=== PATIENT | female | born 1945 ===

== ENCOUNTER 2017-11-20 04:42 | Inpatient (IN) | payer MEDICARE, MEDICAID ==
[2017-11-20] MEDS ORDERED: Albuterol 0.083% Inhal Sol (2.5 mg/3 mL) UD INH STA (05:22)
[2017-11-20] MEDS ORDERED: Albuterol 0.083% Inhal Sol (2.5 mg/3 mL) UD ONE (05:36)
[2017-11-20 05:42] LABS: BASO # 0.1 K/uL (0.0-0.2); BASO % 0.9 % (0.0-2.0); EOS # 0.3 K/uL (0.0-0.7); EOS % 3.8 % (0.0-4.0); HEMOGLOBIN 9.5 g/dL (12.0-16.0); LYMPH # 2.1 K/uL (1.0-4.3); LYMPH % 25.2 % (20.0-40.0); MEAN CORPUSCULAR HEMOGLOBIN 24.6 pg (27.0-31.0); MEAN CORPUSCULAR HGB CONC 32.3 g/dL (33.0-37.0); MEAN PLATELET VOLUME 8.6 fl (7.2-11.7); MONO # 0.6 K/uL (0.0-0.8); MONO % 7.4 % (0.0-10.0); NEUT # 5.3 K/uL (1.8-7.0); NEUT % 62.7 % (50.0-75.0); NRBC % 0.1 % (0.0-0.0); RBC 3.85 Mil/uL (3.80-5.20); RED CELL DISTRIBUTION WIDTH 17.6 % (11.5-14.5); WHITE BLOOD COUNT 8.5 K/uL (4.8-10.8)
[2017-11-20 05:43] LABS: ABG ALLEN TEST YES; ARTERIAL BLOOD GAS HCO3 28.5 mmol/L (21-28); ARTERIAL BLOOD GAS HEMOGLOBIN 9.4 g/dL (11.7-17.4); ARTERIAL BLOOD GAS O2 CAPACITY 12.7 mL/dL (16-24); ARTERIAL BLOOD GAS O2 SAT 94.7 % (95-98); ARTERIAL BLOOD GAS PCO2 55 mm/Hg (35-45); ARTERIAL BLOOD GAS PH 7.36 (7.35-7.45); ARTERIAL BLOOD GAS PO2 58 mm/Hg (80-100); ARTERIAL BLOOD GAS TCO2 32.8 mmol/L (22-28)
[2017-11-20 06:09] LABS: BLOOD UREA NITROGEN 13 mg/dl (7-17); CALCIUM 9.4 mg/dL (8.4-10.2); GFR AFRICAN-AMERICAN > 60; GFR NON-AFRICAN AMERICAN > 60
--- NOTE | 2017-11-20 07:50 | ED PDOC ---
- Laboratory Results Result Diagrams: 11/20/17 05:36 11/20/17 05:36 Interpretation Of Abn Labs: 9.5 hg - ECG ECG: Positive for: Interpreted By Me, Viewed By Me ECG Rhythm: Positive for: Normal QRS, Sinus Rhythm, Nonspecific Changes O2 Sat by Pulse Oximetry: 97 Pulse Ox Interpretation: Normal - CT Scan/US ct Other Rad Studies (CT/US): Read By Radiologist Other Rad Interpretation: no PE - Progress ED Course And Treament: 1050: Stable. AAOx3. Pain free. Still dyspnea. Spoke with Dr. Benoit who will admit. Medical Decision Making Medical Decision Makin:00 Took over care from Dr. Martines. Pt is 72 y/o here for evaluation of dyspnea. Pt pending CT chest. Scribe Attestation: Documented by Gurmeet Durand, acting as a scribe for Melo Torrez MD. Provider Scribe Attestation: All medical record entries made by the Scribe were at my direction and personally dictated by me. I have reviewed the chart and agree that the record accurately reflects my personal performance of the history, physical exam, medical decision making, and the department course for this patient. I have also personally directed, reviewed, and agree with the discharge instructions and disposition. Disposition - Clinical Impression Clinical Impression: Asthma, Dyspnea - POA Present On Arrival: None - Disposition Disposition: Hospitalized as Observation Patient Disposition Time: 10:53 Condition: FAIR
[2017-11-20] MEDS ORDERED: Iodixanol 320 MG/ML 100 ML BOTTLE IV ONE (07:56)
[2017-11-20] MEDS ORDERED: Sodium Chloride 0.9% 100 ML ONE (07:56)
--- NOTE | 2017-11-20 08:13 | RAD ---
HISTORY: dyspnea COMPARISON: No prior. FINDINGS: LUNGS: A prominent right epicardial fat is favored over possible right basilar infiltrate. PLEURA: No significant pleural effusion identified, no pneumothorax apparent. CARDIOVASCULAR: Frontal technique may magnify cardiac silhouette. Mild cardiomegaly is not excluded. No pulmonary vascular congestion. OSSEOUS STRUCTURES: No significant abnormalities. VISUALIZED UPPER ABDOMEN: Normal. OTHER FINDINGS: None. IMPRESSION: Cardiomegaly not excluded. No pulmonary vascular congestion. Medial epicardial fat and favored over medial basilar infiltrate (right middle lobe). Clinically correlate further.
--- NOTE | 2017-11-20 09:07 | CT ---
PROCEDURE: CT Chest with contrast (Pulmonary Angiogram) HISTORY: chest pain COMPARISON: Portable chest radiograph 11/20/2017 as well. TECHNIQUE: Axial computed tomography images were obtained of the chest in the pulmonary arterial phase of enhancement. Coronal and sagittal reformatted images were created and reviewed. Intravenous contrast dose: Visipaque 320, 90 cc Radiation dose: Total exam DLP = 373.21 mGy-cm. This CT exam was performed using one or more of the following dose reduction techniques: Automated exposure control, adjustment of the mA and/or kV according to patient size, and/or use of iterative reconstruction technique. FINDINGS: PULMONARY ARTERIES: Unremarkable. No pulmonary embolism. AORTA: No acute findings. No thoracic aortic aneurysm. LUNGS: No infiltrate appreciate bilaterally or central airway lesion. Note is made of a small 4 mm solid nodule at the right upper lobe and image 52 series 5 which appears noncalcified. Follow-up chest CT is advised in 12 months to demonstrate stability of this finding. No additional pulmonary mass bilaterally. PLEURAL SPACES: Unremarkable. No effusion or pneuomothorax. HEART: Mild cardiomegaly evident. No pulmonary vascular congestion evident. Multifocal coronary artery atherosclerosis appreciable. LYMPH NODES: No lymphadenopathy. BONES, CHEST WALL: Gross multilevel degenerative disease at the mid to inferior levels. No fracture or destructive lesion OTHER FINDINGS: Unremarkable. IMPRESSION: Unremarkable CT pulmonary angiogram. No pulmonary embolus. 4 mm right upper lobe nodule. Follow-up low-dose screening chest CT recommended in 12 months to demonstrate stability. Lung rads 2. Mild cardiomegaly. No pulmonary vascular derangement appreciable.
[2017-11-20] MEDS ORDERED: Albuterol-Ipratrop 3 mg / 0.5 (3 ml) UD IH STA (10:46)
--- NOTE | 2017-11-20 11:20 | CP.PCM.HP ---
History of Present Illness - History of Present Illness History of Present Illness: Cc: Shortness of breath A 72 year old female with a pmhx of HTN, hypercholesterolemia, DM and COPD who presented to the ED with complaints of shortness of breath and cough for several days. The patient has a long history of tobacco use. Patient denies chest pain, dizziness, palpitations, nausea, vomiting, fever, chills or lower extremity edema. Present on Admission - Present on Admission Any Indicators Present on Admission: No Review of Systems - Review of Systems All systems: reviewed and no additional remarkable complaints except (as stated) - Constitutional Constitutional: As Per HPI - Cardiovascular Cardiovascular: Dyspnea on Exertion. absent: Chest Pain, Edema, Palpitations - Respiratory Respiratory: Cough, Dyspnea, Dyspnea on Exertion. absent: Wheezing, Chest Congestion Past Patient History - Past Medical History & Family History Pertinent Family History: States: Unknown - Past Social History Smoking Status: Unknown If Ever Smoked - CARDIAC Hx Hypertension: Yes - PULMONARY Hx Asthma: Yes Hx Chronic Obstructive Pulmonary Disease (COPD): Yes - ENDOCRINE/METABOLIC Hx Diabetes Mellitus Type 2: Yes - PSYCHIATRIC Hx Anxiety: Yes Hx Substance Use: No Meds Allergies/Adverse Reactions: Allergies Allergy/AdvReac Type Severity Reaction Status Date / Time No Known Allergies Allergy Verified 11/20/17 04:56 Physical Exam - Constitutional Appears: Well, No Acute Distress - Head Exam Head Exam: ATRAUMATIC, NORMOCEPHALIC - Eye Exam Eye Exam: EOMI, Normal appearance, PERRL Pupil Exam: NORMAL ACCOMODATION - ENT Exam ENT Exam: Mucous Membranes Moist, Normal Exam - Neck Exam Neck exam: Positive for: Normal Inspection - Respiratory Exam Respiratory Exam: Clear to Auscultation Bilateral, NORMAL BREATHING PATTERN - Cardiovascular Exam Cardiovascular Exam: REGULAR RHYTHM, +S1, +S2 - GI/Abdominal Exam GI & Abdominal Exam: Normal Bowel Sounds, Soft - Rectal Exam Rectal Exam: Deferred - Extremities Exam Extremities exam: Positive for: full ROM, normal inspection, pedal pulses present. Negative for: pedal edema, tenderness - Back Exam Back exam: NORMAL INSPECTION - Neurological Exam Neurological exam: Alert, Oriented x3, Reflexes Normal - Psychiatric Exam Psychiatric exam: Normal Affect, Normal Mood - Skin Skin Exam: Dry, Normal Color, Warm Results - Vital Signs Recent Vital Signs: Last Vital Signs Temp 98.3 F 11/20/17 11:03 Pulse 81 11/20/17 11:03 Resp 18 11/20/17 11:03 BP 152/82 H 11/20/17 11:03 Pulse Ox 95 11/20/17 11:03 - Labs Result Diagrams: 11/20/17 05:36 11/20/17 05:36 Labs: Laboratory Results - last 24 hr 11/20/17 11/20/17 11/20/17 05:36 05:36 05:36 WBC 8.5 RBC 3.85 Hgb 9.5 L Hct 29.3 L MCV 76.0 L MCH 24.6 L MCHC 32.3 L RDW 17.6 H Plt Count 195 MPV 8.6 Neut % (Auto) 62.7 Lymph % (Auto) 25.2 [place] % (Auto) 7.4 Eos % (Auto) 3.8 Baso % (Auto) 0.9 Neut # (Auto) 5.3 Lymph # (Auto) 2.1 [place] # (Auto) 0.6 Eos # (Auto) 0.3 Baso # (Auto) 0.1 D-Dimer, Quantitative 432 H pCO2 pO2 HCO3 ABG pH ABG Total CO2 ABG O2 Saturation ABG O2 Content ABG Base Excess ABG Hemoglobin ABG Carboxyhemoglobin POC ABG HHb (Measured) ABG Methemoglobin ABG O2 Capacity Raicel Test A-a O2 Difference Hgb O2 Saturation FiO2 Sodium 141 Potassium 4.3 Chloride 101 Carbon Dioxide 26 Anion Gap 18 BUN 13 Creatinine 0.9 Est GFR ( Amer) > 60 Est GFR (Non-Af Amer) > 60 Random Glucose 164 H Calcium 9.4 Troponin I < 0.0120 NT-Pro-B Natriuret Pep 78.0 11/20/17 05:40 WBC RBC Hgb Hct MCV MCH MCHC RDW Plt Count MPV Neut % (Auto) Lymph % (Auto) [place] % (Auto) Eos % (Auto) Baso % (Auto) Neut # (Auto) Lymph # (Auto) [place] # (Auto) Eos # (Auto) Baso # (Auto) D-Dimer, Quantitative pCO2 55 H pO2 58 L HCO3 28.5 H ABG pH 7.36 ABG Total CO2 32.8 H ABG O2 Saturation 94.7 L ABG O2 Content 12.0 L ABG Base Excess 4.7 H ABG Hemoglobin 9.4 L ABG Carboxyhemoglobin 2.4 H POC ABG HHb (Measured) 5.1 H ABG Methemoglobin 1.8 ABG O2 Capacity 12.7 L Raciel Test Yes A-a O2 Difference 23.0 Hgb O2 Saturation 90.7 L FiO2 21.0 Sodium Potassium Chloride Carbon Dioxide Anion Gap BUN Creatinine Est GFR ( Amer) Est GFR (Non-Af Amer) Random Glucose Calcium Troponin I NT-Pro-B Natriuret Pep - EKG Data EKG comments: Normal sinus rhythm - Imaging and Cardiology CT scan - chest Additional comment: FINDINGS: PULMONARY ARTERIES: Unremarkable. No pulmonary embolism. AORTA: No acute findings. No thoracic aortic aneurysm. LUNGS: No infiltrate appreciate bilaterally or central airway lesion. Note is made of a small 4 mm solid nodule at the right upper lobe and image 52 series 5 which appears noncalcified. Follow-up chest CT is advised in 12 months to demonstrate stability of this finding. No additional pulmonary mass bilaterally. PLEURAL SPACES: Unremarkable. No effusion or pneuomothorax. HEART: Mild cardiomegaly evident. No pulmonary vascular congestion evident. Multifocal coronary artery atherosclerosis appreciable. LYMPH NODES: No lymphadenopathy. BONES, CHEST WALL: Gross multilevel degenerative disease at the mid to inferior levels. No fracture or destructive lesion OTHER FINDINGS: Unremarkable. IMPRESSION: Unremarkable CT pulmonary angiogram. No pulmonary embolus. 4 mm right upper lobe nodule. Follow-up low-dose screening chest CT recommended in 12 months to demonstrate stability. Lung rads 2. Mild cardiomegaly. No pulmonary vascular derangement appreciable. Assessment & Plan (1) COPD exacerbation Assessment and Plan: CT chest and cxr unremarkable Duonebs ATC and prn Systemic steriods Oxygen supplementation as needed. Maintain O2 sat > 92% DVT prophylaxis Status: Acute Priority: High (2) Hypercholesteremia Assessment and Plan: Resume home medications Status: Chronic Priority: Low (3) Diabetes Assessment and Plan: Resume home meds Insulin sliding scale Status: Chronic Priority: Low (4) HTN (hypertension) Assessment and Plan: Resume home medications Status: Chronic Priority: Low (5) Dyspnea Assessment and Plan: Troponin x1 negative so far, repeat x 2 Cardiology consult Echo Status: Acute
[2017-11-20] MEDS ORDERED: Albuterol-Ipratrop 3 mg / 0.5 (3 ml) UD ONE (11:34)
[2017-11-20] MEDS: Insulin Regular 100 units/ml SC SCH ×3 (12:28→22:00)
[2017-11-20 13:37] VITALS: BMI 41.2
[2017-11-20] MEDS: Albuterol-Ipratrop 3 mg / 0.5 (3 ml) UD INH SCH ×2 (15:54→19:30)
[2017-11-20] MEDS ORDERED: methylPREDNISolone 40 MG in Sodium Chloride 0.9% 50 ML IV SCH (17:00)
[2017-11-20] MEDS: Fluticasone-Salmeterol 250-50mcg Diskus INH SCH (17:41)
[2017-11-20] MEDS: MethylPREDNISolone 40 mg Vial IVP SCH (17:44)
--- NOTE | 2017-11-20 18:13 | CARD ---
APPROVED REPORT EXAM: Two-dimensional and M-mode echocardiogram with Doppler and color Doppler. Other Information Quality : GoodRhythm : NSR INDICATION Dyspnea 2D DIMENSIONS IVSd0.63 (0.7-1.1cm)LVDd4.94 (3.9-5.9cm) LVOT Diameter1.85 (1.8-2.4cm)PWd0.86 (0.7-1.1cm) IVSs0.98 (0.8-1.2cm)LVDs3.72 (2.5-4.0cm) FS (%) 24.6 %PWs1.25 (0.8-1.2cm) LVEF (%)55.0 (>50%) M-Mode DIMENSIONS Left Atrium (MM)4.35 (2.5-4.0cm)IVSd1.03 (0.7-1.1cm) Aortic Root2.88 (2.2-3.7cm)LVDd5.68 (4.0-5.6cm) Aortic Cusp Exc.1.65 (1.5-2.0cm)PWd1.26 (0.7-1.1cm) IVSs1.47 cmFS (%) 40 % LVDs3.38 (2.0-3.8cm)PWs1.38 cm Mitral Valve MV E Utrzwbrv909.3cm/sMV DECEL [id number] A Uqgmeupf837.8cm/s MV PRZ53bsC/A ratio1.0MVA (PHT)3.24cm2 TDI Lateral E' Peak V6.44cm/sMedial E' Peak V9.21cm/sE/Lateral E'16.7 E/Medial E'11.7 Pulmonary Valve PV Peak Xcdakezv210.6cm/s LEFT VENTRICLE The left ventricle is normal size. There is normal left ventricular wall thickness. The left ventricular function is normal. The left ventricular ejection fraction is within the normal range. There is normal LV segmental wall motion. Transmitral Doppler flow pattern is Grade I-abnormal relaxation pattern. RIGHT VENTRICLE The right ventricle is normal size. There is normal right ventricular wall thickness. The right ventricular systolic function is normal. ATRIA The left atrium is borderline dilated. The right atrium size is normal. AORTIC VALVE The aortic valve is not well visualized. No aortic regurgitation is present. There is no aortic valvular stenosis. MITRAL VALVE The mitral valve is moderately thickened. There is no mitral valve stenosis. Mitral regurgitation is mild. TRICUSPID VALVE The tricuspid valve is normal in structure. There is no tricuspid valve regurgitation noted. PULMONIC VALVE The pulmonary valve is normal in structure. There is no pulmonic valvular regurgitation. GREAT VESSELS The aortic root is normal in size. The IVC is normal in size and collapses >50% with inspiration. PERICARDIAL EFFUSION There is a trace loculated anterior pericardial effusion. <Conclusion> The left ventricle is normal size. There is normal left ventricular wall thickness. The left ventricular function is normal. The left ventricular ejection fraction is within the normal range. There is normal LV segmental wall motion. Transmitral Doppler flow pattern is Grade I-abnormal relaxation pattern. Mitral regurgitation is mild.
[2017-11-20] MEDS: GlipiZIDE 2.5 mg SR Tab PO SCH (18:50)
--- NOTE | 2017-11-20 19:19 | CARD ---
APPROVED REPORT EKG Measurement Heart [id number] <Conclusion> Normal sinus rhythm Normal ECG
[2017-11-21] MEDS: Albuterol-Ipratrop 3 mg / 0.5 (3 ml) UD INH SCH ×6 (00:26→19:18)
[2017-11-21] MEDS: MethylPREDNISolone 40 mg Vial IVP SCH ×3 (00:27→16:19)
[2017-11-21] MEDS: Insulin Regular 100 units/ml SC SCH ×4 (06:39→21:49)
[2017-11-21] MEDS: Fluticasone-Salmeterol 250-50mcg Diskus INH SCH ×2 (09:12→16:17)
[2017-11-21] MEDS: GlipiZIDE 2.5 mg SR Tab PO SCH ×2 (09:13→16:17)
[2017-11-21] MEDS: Enoxaparin 40 mg Syringe SC SCH (09:15)
[2017-11-21] MEDS: Pravastatin Sodium 40 MG TAB PO SCH (09:15)
[2017-11-21] MEDS ORDERED: Insulin Regular 100 units/ml SC ONE (13:13)
--- NOTE | 2017-11-21 21:01 | CP.PCM.CON ---
History of Present Illness - History of Present Illness History of Present Illness: PT WITH KNAPP AND COUGH FOR SEVERAL DAYS. DENIES CP, PALP, DIZZINESS, ORTHOPNEA, PND, CYRUS. NO HX OF CAD OR ID. EKG UNREMARKABLE. TROP NEG X 2. PT HAS A LONG HX OF TOBACCO USE. Past Patient History - Past Medical History & Family History Past Medical History?: Yes - Past Social History Smoking Status: Former Smoker - CARDIAC Hx Cardiac Disorders: Yes (HTN) - PULMONARY Hx Respiratory Disorders: Yes (Asthma, COPD) - NEUROLOGICAL Hx Neurological Disorder: No - HEENT Hx HEENT Problems: Yes Hx Cataracts: Yes - RENAL Hx Chronic Kidney Disease: No - ENDOCRINE/METABOLIC Hx Endocrine Disorders: Yes (DM) - HEMATOLOGICAL/ONCOLOGICAL Hx Blood Disorders: No - INTEGUMENTARY Hx Dermatological Problems: No - MUSCULOSKELETAL/RHEUMATOLOGICAL Hx Musculoskeletal Disorders: Yes Hx Back Pain: Yes Hx Falls: No Hx Unsteady Gait: Yes Other/Comment: uses cane for ambulation - GASTROINTESTINAL Hx Gastrointestinal Disorders: No - GENITOURINARY/GYNECOLOGICAL Hx Genitourinary Disorders: No - PSYCHIATRIC Hx Psychophysiologic Disorder: No (Anxiety) Hx Substance Use: No - SURGICAL HISTORY Hx Surgeries: Yes Hx Hysterectomy: Yes - ANESTHESIA Hx Anesthesia: Yes Hx Anesthesia Reactions: No Hx Malignant Hyperthermia: No Has any member of the family had a problem w/ anesthesia?: Yes Meds Allergies/Adverse Reactions: Allergies Allergy/AdvReac Type Severity Reaction Status Date / Time No Known Allergies Allergy Verified 11/20/17 04:56 - Medications Medications: Current Medications Albuterol/Ipratropium (Duoneb 3 Mg/0.5 Mg (3 Ml) Ud) 3 ml INH RQ4 [facility] Last Admin: 11/21/17 19:18 Dose: 3 ml Alprazolam (Xanax) 0.25 mg PO HS [facility] Stop: 11/27/17 22:01 Last Admin: 11/20/17 21:38 Dose: 0.25 mg Enoxaparin Sodium (Lovenox) 40 mg SC DAILY [facility] PRN Reason: Protocol Last Admin: 11/21/17 09:15 Dose: 40 mg Glipizide (Glucotrol Xl) 2.5 mg PO BIDWM [facility] Last Admin: 11/21/17 16:17 Dose: 2.5 mg Insulin Human Regular (Humulin R) 0 units SC ACHS [facility] PRN Reason: Protocol Last Admin: 11/21/17 16:18 Dose: 5 units Lisinopril (Zestril) 20 mg PO DAILY [facility] Last Admin: 11/21/17 09:19 Dose: 20 mg Metformin HCl (Glucophage) 1,000 mg PO BRK [facility] Last Admin: 11/21/17 09:12 Dose: 1,000 mg Methylprednisolone (Solu-Medrol) 40 mg IVP Q8 [facility] Last Admin: 11/21/17 16:19 Dose: 40 mg Pravastatin Sodium (Pravachol) 40 mg PO DAILY [facility] Last Admin: 11/21/17 09:15 Dose: 40 mg Fluticasone/Salmeterol (Advair Diskus 250/50) 1 puff INH BID [facility] Last Admin: 11/21/17 16:17 Dose: 1 puff Sitagliptin Phosphate (Januvia) 100 mg PO DAILY [facility] Last Admin: 11/21/17 09:14 Dose: 100 mg Results - Vital Signs Recent Vital Signs: Last Vital Signs Temp 98.3 F 11/21/17 19:21 Pulse 99 H 11/21/17 19:21 Resp 20 11/21/17 19:21 BP 115/65 11/21/17 19:21 Pulse Ox 96 11/21/17 19:21 - Labs Result Diagrams: 11/20/17 05:36 11/20/17 05:36 Labs: Laboratory Results - last 24 hr 11/20/17 11/20/17 11/21/17 16:09 21:28 05:27 POC Glucose (mg/dL) 192 H 301 H 316 H Troponin I 11/21/17 11/21/17 11/21/17 11:02 14:50 15:38 POC Glucose (mg/dL) 415 H* 372 H Troponin I < 0.0120 Assessment & Plan (1) Mitral regurgitation Status: Acute (2) Mitral annular calcification Status: Acute (3) History of tobacco abuse Status: Acute (4) Diabetes Status: Acute (5) HTN (hypertension) Status: Acute (6) Asthma Status: Acute (7) Dyspnea Status: Acute (8) Back pain Status: Acute - Assessment and Plan (Free Text) Plan: PTS SYMPTOMS APPEAR TO BE C/W COPD EXAC. WOULD CONTINUE CURRENT TREATMENT. GIVEN COUGH WOULD CHANGE ACEI TO ARB. CONTINUE TELE MONITOR. PT HAS BACK PAIN WITH COUGH. APPEARS MSK
--- NOTE | 2017-11-21 22:19 | CARD ---
APPROVED REPORT EKG Measurement Heart [id number] ID [id number] <Conclusion> Normal sinus rhythm Normal ECG
--- NOTE | 2017-11-21 23:17 | CP.PCM.PN ---
Subjective - Date & Time of Evaluation Date of Evaluation: 11/21/17 Time of Evaluation: 15:30 - Subjective Subjective: Seen and examined at bedside. Less dyspnea and cough. Denies fever chills, chest pain, palpitations or dizziness Objective - Vital Signs/Intake and Output Vital Signs (last 24 hours): Temp Pulse Resp BP Pulse Ox 98.3 F 99 H 20 115/65 96 11/21/17 19:21 11/21/17 19:21 11/21/17 19:21 11/21/17 19:21 11/21/17 19:21 Intake and Output: 11/21/17 11/22/17 18:59 06:59 Intake Total 720 Balance 720 - Medications Medications: Current Medications Albuterol/Ipratropium (Duoneb 3 Mg/0.5 Mg (3 Ml) Ud) 3 ml INH RQ4 [facility] Last Admin: 11/21/17 19:18 Dose: 3 ml Alprazolam (Xanax) 0.25 mg PO HS [facility] Stop: 11/27/17 22:01 Last Admin: 11/21/17 21:49 Dose: 0.25 mg Enoxaparin Sodium (Lovenox) 40 mg SC DAILY [facility] PRN Reason: Protocol Last Admin: 11/21/17 09:15 Dose: 40 mg Glipizide (Glucotrol Xl) 2.5 mg PO BIDWM [facility] Last Admin: 11/21/17 16:17 Dose: 2.5 mg Insulin Human Regular (Humulin R) 0 units SC ACHS [facility] PRN Reason: Protocol Last Admin: 11/21/17 21:49 Dose: 2 units Lisinopril (Zestril) 20 mg PO DAILY [facility] Last Admin: 11/21/17 09:19 Dose: 20 mg Metformin HCl (Glucophage) 1,000 mg PO BRK [facility] Last Admin: 11/21/17 09:12 Dose: 1,000 mg Methylprednisolone (Solu-Medrol) 40 mg IVP Q8 [facility] Last Admin: 11/21/17 16:19 Dose: 40 mg Pravastatin Sodium (Pravachol) 40 mg PO DAILY [facility] Last Admin: 11/21/17 09:15 Dose: 40 mg Fluticasone/Salmeterol (Advair Diskus 250/50) 1 puff INH BID [facility] Last Admin: 11/21/17 16:17 Dose: 1 puff Sitagliptin Phosphate (Januvia) 100 mg PO DAILY [facility] Last Admin: 11/21/17 09:14 Dose: 100 mg - Labs Labs: 11/20/17 05:36 11/20/17 05:36 - Constitutional Appears: Well, No Acute Distress - Head Exam Head Exam: ATRAUMATIC - Respiratory Exam Respiratory Exam: Clear to Ausculation Bilateral, NORMAL BREATHING PATTERN - Cardiovascular Exam Cardiovascular Exam: REGULAR RHYTHM, +S1, +S2 - GI/Abdominal Exam GI & Abdominal Exam: Soft, Normal Bowel Sounds - Neurological Exam Neurological Exam: Alert, Normal Gait, Oriented x3 - Psychiatric Exam Psychiatric exam: Normal Affect - Skin Skin Exam: Dry, Normal Color, Warm Assessment and Plan (1) COPD exacerbation Assessment & Plan: Duonebs IV solumedrol Advair GI/DVT prophylaxis Status: Acute (2) Dyspnea Assessment & Plan: Troponins neg. x 2 Echo WNL Cardiology consulted appreciated Status: Acute (3) Diabetes Assessment & Plan: Insulin ss Home meds Status: Chronic (4) HTN (hypertension) Assessment & Plan: On medications Status: Chronic (5) Hypercholesteremia Assessment & Plan: Continue home meds Status: Chronic
[2017-11-22] MEDS: Albuterol-Ipratrop 3 mg / 0.5 (3 ml) UD INH SCH ×7 (00:14→23:58)
[2017-11-22] MEDS: MethylPREDNISolone 40 mg Vial IVP SCH ×3 (01:28→17:40)
[2017-11-22] MEDS: Insulin Regular 100 units/ml SC SCH ×4 (06:40→22:00)
[2017-11-22] MEDS: Fluticasone-Salmeterol 250-50mcg Diskus INH SCH ×2 (09:25→17:37)
[2017-11-22] MEDS: GlipiZIDE 2.5 mg SR Tab PO SCH ×2 (09:25→17:38)
[2017-11-22] MEDS: Pravastatin Sodium 40 MG TAB PO SCH (09:26)
[2017-11-22] MEDS: Enoxaparin 40 mg Syringe SC SCH (09:26)
--- NOTE | 2017-11-22 12:08 | PQF GENQUE ---
Dr. Benoit, 2 queries: Please clarify type of asthma: if known Late onset Mild intermittent Mild persistent Moderate persistent Severe persistent Other (please specify) Clinically unable to determine Unknown 2. Please clarify acuity of asthma: Uncomplicated With exacerbation(acute) With status asthmaticus Other (please specify) Clinically unable to determine Unknown ER: Clinical Impression: Asthma, Dyspnea H and P: Hx. Asthma: Yes other diagnoses include: (1) COPD exacerbation Assessment and Plan: CT chest and cxr unremarkable Duonebs ATC and prn Systemic steriods ; Oxygen supplementation as needed. Maintain O2 sat > 92% DVT prophylaxis Status: Acute Priority: High Cardio consult: dxs. include Asthma: Acute This form is a permanent part of the medical record Clarification of your documentation is requested to better reflect the severity of illness and intensity of treatment of your patient. Indicators present [] Specify: [] [] Specify: [] [] Specify: [] [] Specify: [] Location in the medical record that reflects the above clinical findings: [] Treatment Provided: [] PHYSICIAN'S RESPONSE Based on your medical judgment of the clinical indicators outlined above please clarify the following: [] Practitioner response [] If unable to determine, please check the box, sign and date. Present On Admission (POA) Indicator: [] Present at the time of admission [] Not present at the time of admission [] Clinically Undetermined In responding to this query, please exercise your independent professional judgment. The fact that a question is asked does not imply that any particular answer is desired or expected. Thank you for your clarification on this documentation. If you have any questions please call. * Thank you, Franca Clifton RN ext. #[phone] MTDD
--- NOTE | 2017-11-22 12:24 | PQF GENQUE ---
Dr. Benoit, Please specify the status, of DM: Type 2: i.e. >>Controlled With hyperglycemia (poorly controlled, out of control, etc.) With hyperosmolarity ([facility]) With hypoglycemia With ketoacidosis Other (please specify) Clinically unable to determine Unknown POC Glucose: 207->192->301------11/21: 316->415 Random Glucose:164 H and P: Hx Diabetes Mellitus Type 2: Yes Assessment: Diabetes :Resume home meds Insulin sliding scale Status: Chronic Priority: Low This form is a permanent part of the medical record Clarification of your documentation is requested to better reflect the severity of illness and intensity of treatment of your patient. Indicators present [] Specify: [] [] Specify: [] [] Specify: [] [] Specify: [] Location in the medical record that reflects the above clinical findings: [] Treatment Provided: [] PHYSICIAN'S RESPONSE Based on your medical judgment of the clinical indicators outlined above please clarify the following: [] Practitioner response [] If unable to determine, please check the box, sign and date. Present On Admission (POA) Indicator: [] Present at the time of admission [] Not present at the time of admission [] Clinically Undetermined In responding to this query, please exercise your independent professional judgment. The fact that a question is asked does not imply that any particular answer is desired or expected. Thank you for your clarification on this documentation. If you have any questions please call. * Thank you, Franca Clifton RN ext. #[phone] MTDD
--- NOTE | 2017-11-22 12:36 | PQF GENQUE ---
Dr. Benoit, 2 queries: 1.Please provide a nutritional diagnosis, if known, related to the information below: if in agreement: i.e. Morbid Obesity etc. BMI:41.3 4ft 8in is listed in the EMR 2. Please include the BMI in your progress note: if known OR: Disagree OR: Other explanation of clinical finding This form is a permanent part of the medical record Clarification of your documentation is requested to better reflect the severity of illness and intensity of treatment of your patient. Indicators present [] Specify: [] [] Specify: [] [] Specify: [] [] Specify: [] Location in the medical record that reflects the above clinical findings: [] Treatment Provided: [] PHYSICIAN'S RESPONSE Based on your medical judgment of the clinical indicators outlined above please clarify the following: [] Practitioner response [] If unable to determine, please check the box, sign and date. Present On Admission (POA) Indicator: [] Present at the time of admission [] Not present at the time of admission [] Clinically Undetermined In responding to this query, please exercise your independent professional judgment. The fact that a question is asked does not imply that any particular answer is desired or expected. Thank you for your clarification on this documentation. If you have any questions please call. * Thank you, Franca Clifton RN ext. #[phone] MTDD
[2017-11-22] MEDS ORDERED: Sodium Chloride 3% for Inhalation 4 ML VIAL.NEB IH PRN (17:31)
--- NOTE | 2017-11-22 23:25 | CP.PCM.PN ---
Subjective - Date & Time of Evaluation Date of Evaluation: 11/22/17 Time of Evaluation: 16:15 - Subjective Subjective: Seen and examined at bedside. Feels better, cough is improved Denies fever, chills Objective - Vital Signs/Intake and Output Vital Signs (last 24 hours): Temp Pulse Resp BP Pulse Ox 98.3 F 84 20 112/69 99 11/22/17 19:31 11/22/17 19:31 11/22/17 19:31 11/22/17 19:31 11/22/17 19:31 Intake and Output: 11/22/17 11/23/17 18:59 06:59 Intake Total 1080 Balance 1080 - Medications Medications: Current Medications Albuterol/Ipratropium (Duoneb 3 Mg/0.5 Mg (3 Ml) Ud) 3 ml INH RQ4 [facility] Last Admin: 11/22/17 19:28 Dose: 3 ml Alprazolam (Xanax) 0.25 mg PO HS [facility] Stop: 11/27/17 22:01 Last Admin: 11/21/17 21:49 Dose: 0.25 mg Enoxaparin Sodium (Lovenox) 40 mg SC DAILY [facility] PRN Reason: Protocol Last Admin: 11/22/17 09:26 Dose: 40 mg Glipizide (Glucotrol Xl) 2.5 mg PO BIDWM [facility] Last Admin: 11/22/17 17:38 Dose: 2.5 mg Levofloxacin/Dextrose (Levaquin 500mg) 500 mg in 100 mls @ 100 mls/hr IVPB DAILY [facility] PRN Reason: Protocol Insulin Human Regular (Humulin R) 0 units SC ACHS [facility] PRN Reason: Protocol Last Admin: 11/22/17 22:00 Dose: 2 units Lisinopril (Zestril) 20 mg PO DAILY [facility] Last Admin: 11/22/17 09:27 Dose: 20 mg Metformin HCl (Glucophage) 1,000 mg PO BRK [facility] Last Admin: 11/22/17 09:25 Dose: 1,000 mg Methylprednisolone (Solu-Medrol) 40 mg IVP Q8 [facility] Last Admin: 11/22/17 17:40 Dose: 40 mg Pravastatin Sodium (Pravachol) 40 mg PO DAILY [facility] Last Admin: 11/22/17 09:26 Dose: 40 mg Fluticasone/Salmeterol (Advair Diskus 250/50) 1 puff INH BID [facility] Last Admin: 11/22/17 17:37 Dose: 1 puff Sitagliptin Phosphate (Januvia) 100 mg PO DAILY [facility] Last Admin: 11/22/17 09:26 Dose: 100 mg - Labs Labs: 11/20/17 05:36 11/20/17 05:36 - Constitutional Appears: Well, No Acute Distress - Head Exam Head Exam: ATRAUMATIC - Respiratory Exam Respiratory Exam: Clear to Ausculation Bilateral, NORMAL BREATHING PATTERN - Cardiovascular Exam Cardiovascular Exam: REGULAR RHYTHM, +S1, +S2 - GI/Abdominal Exam GI & Abdominal Exam: Soft, Normal Bowel Sounds - Neurological Exam Neurological Exam: Alert, Oriented x3 - Psychiatric Exam Psychiatric exam: Normal Affect - Skin Skin Exam: Normal Color, Warm Assessment and Plan (1) COPD exacerbation Assessment & Plan: Duonebs IV Solumedrol Advair Pulmonary Consult with GI/DVT prophylaxis Status: Acute (2) Hypercholesteremia Assessment & Plan: On medications Status: Chronic (3) Diabetes Assessment & Plan: Continue Insulin ss and rest of medications Status: Chronic (4) HTN (hypertension) Assessment & Plan: On medications Status: Chronic (5) Dyspnea Assessment & Plan: Troponins neg. x 2 Echo WNL Cardiology consulted appreciated Status: Acute
[2017-11-23] MEDS: MethylPREDNISolone 40 mg Vial IVP SCH ×3 (00:22→17:00)
--- NOTE | 2017-11-23 03:41 | CON ---
DATE: 11/22/2017 HISTORY OF PRESENT ILLNESS: Ms. Davonte Escamilla is a 72-year-old female was referred for pulmonary evaluation by Dr. Benoit. She was admitted via the Emergency Room because of cough for several days with shortness of breath. She has a history of chronic cigarette smoking. She denies chest pains or palpitations. PAST MEDICAL HISTORY: Remarkable for valvular heart disease, diabetes mellitus, hypertension, questionable asthma or COPD and back pain. FAMILY HISTORY: Unrevealing. SOCIAL: The patient smokes cigarettes heavily. Does not drink alcohol. Does not use drugs. REVIEW OF SYSTEMS: Essentially remarkable for occasional shortness of breath. PHYSICAL EXAMINATION: GENERAL: The patient is alert and oriented to person, place and time, appears much more comfortable since admission. VITAL SIGNS: Blood pressure 108/57, pulse of 80, respiratory rate 20. She is febrile. O2 sat 97% on nasal cannula oxygen. HEENT: Mouth shows fair hygiene. JVP flat. LUNGS: Fair aeration with mild wheezing. HEART: S1, S2. BREASTS: Normal. ABDOMEN: Soft, nontender, no organomegaly. EXTREMITIES: Shows no edema or cyanosis. CENTRAL NERVOUS SYSTEM: Exam grossly intact. LABORATORY DATA WBC 8.5, hemoglobin 9.5, platelet count 195 thousand. Serum glucose 408. ABGs, pH 7.36, pCO2 55, pO2 of 58, O2 saturation 94.7. Sodium 141, potassium 4.3, BUN of 13, creatinine 0.9. Troponin less than 0.012. Chest x-ray; cardiomegaly. Minimal bibasilar infiltrates, right middle lobe. IMPRESSION The patient's clinical picture is compatible with acute exacerbation of chronic obstructive pulmonary disease with superimposed pneumonia, diabetes mellitus, hypertension, anemia. PLAN: Aerosolized bronchodilators, intravenous steroids, intravenous antibiotics, would obtain sputum for Gram stain and cultures. We will continue to follow with you. Further therapy will depend on findings. Gary Mancia MD
[2017-11-23] MEDS: Albuterol-Ipratrop 3 mg / 0.5 (3 ml) UD INH SCH ×6 (05:05→23:27)
[2017-11-23] MEDS: Insulin Regular 100 units/ml SC SCH ×4 (06:43→21:42)
[2017-11-23] MEDS: Fluticasone-Salmeterol 250-50mcg Diskus INH SCH ×2 (08:49→16:54)
[2017-11-23] MEDS: GlipiZIDE 2.5 mg SR Tab PO SCH ×2 (08:49→16:54)
[2017-11-23] MEDS: levoFLOXacin 500 mg in D5W 500 MG/100 ML BAG IVPB SCH (08:50)
[2017-11-23] MEDS: Pravastatin Sodium 40 MG TAB PO SCH (08:51)
[2017-11-23] MEDS: Enoxaparin 40 mg Syringe SC SCH (08:51)
--- NOTE | 2017-11-23 10:14 | CP.PCM.PN ---
Subjective - Date & Time of Evaluation Date of Evaluation: 11/23/17 Time of Evaluation: 10:14 - Subjective Subjective: STILL COUGHING NO CHEST PAINS SLIGHT SOB Objective - Vital Signs/Intake and Output Vital Signs (last 24 hours): Temp Pulse Resp BP Pulse Ox 98.5 F 84 18 106/63 98 11/23/17 08:09 11/23/17 08:51 11/23/17 08:09 11/23/17 08:51 11/23/17 08:09 - Medications Medications: Current Medications Albuterol/Ipratropium (Duoneb 3 Mg/0.5 Mg (3 Ml) Ud) 3 ml INH RQ4 [facility] Last Admin: 11/23/17 07:17 Dose: 3 ml Alprazolam (Xanax) 0.25 mg PO HS [facility] Stop: 11/27/17 22:01 Last Admin: 11/23/17 00:21 Dose: 0.25 mg Enoxaparin Sodium (Lovenox) 40 mg SC DAILY [facility] PRN Reason: Protocol Last Admin: 11/23/17 08:51 Dose: 40 mg Glipizide (Glucotrol Xl) 2.5 mg PO BIDWM [facility] Last Admin: 11/23/17 08:49 Dose: 2.5 mg Levofloxacin/Dextrose (Levaquin 500mg) 500 mg in 100 mls @ 100 mls/hr IVPB DAILY [facility] PRN Reason: Protocol Last Admin: 11/23/17 08:50 Dose: 100 mls/hr Insulin Human Regular (Humulin R) 0 units SC ACHS [facility] PRN Reason: Protocol Last Admin: 11/23/17 06:43 Dose: 5 units Lisinopril (Zestril) 20 mg PO DAILY [facility] Last Admin: 11/23/17 08:51 Dose: 20 mg Metformin HCl (Glucophage) 1,000 mg PO BRK [facility] Last Admin: 11/23/17 08:49 Dose: 1,000 mg Methylprednisolone (Solu-Medrol) 40 mg IVP Q8 [facility] Last Admin: 11/23/17 08:57 Dose: 40 mg Pravastatin Sodium (Pravachol) 40 mg PO DAILY [facility] Last Admin: 11/23/17 08:51 Dose: 40 mg Fluticasone/Salmeterol (Advair Diskus 250/50) 1 puff INH BID [facility] Last Admin: 11/23/17 08:49 Dose: 1 puff Sitagliptin Phosphate (Januvia) 100 mg PO DAILY [facility] Last Admin: 11/23/17 08:50 Dose: 100 mg - Labs Labs: 11/20/17 05:36 11/20/17 05:36 - Constitutional Appears: No Acute Distress - Head Exam Head Exam: ATRAUMATIC, NORMAL INSPECTION, NORMOCEPHALIC - Eye Exam Eye Exam: EOMI, Normal appearance, PERRL Pupil Exam: NORMAL ACCOMODATION, PERRL - ENT Exam ENT Exam: Mucous Membranes Moist, Normal Exam - Neck Exam Neck Exam: Full ROM, Normal Inspection. absent: Lymphadenopathy - Respiratory Exam Respiratory Exam: Decreased Breath Sounds, Prolonged Expiratory Phase, Rales, NORMAL BREATHING PATTERN - Cardiovascular Exam Cardiovascular Exam: REGULAR RHYTHM, +S1, +S2. absent: Murmur - GI/Abdominal Exam GI & Abdominal Exam: Soft, Normal Bowel Sounds. absent: Tenderness - Rectal Exam Rectal Exam: NORMAL INSPECTION - Extremities Exam Extremities Exam: Full ROM, Normal Capillary Refill, Normal Inspection. absent : Joint Swelling, Pedal Edema - Back Exam Back Exam: NORMAL INSPECTION - Neurological Exam Neurological Exam: Alert, Awake, CN II-XII Intact, Normal Gait, Oriented x3 - Psychiatric Exam Psychiatric exam: Normal Affect, Normal Mood - Skin Skin Exam: Dry, Intact, Normal Color, Warm Assessment and Plan - Assessment and Plan (Free Text) Assessment: ACUTE EXAC OF COPD PNEUMONIA Plan: CONTINUE CURRENT RX REPEAT CXR
--- NOTE | 2017-11-23 23:56 | CP.PCM.PN ---
Subjective - Date & Time of Evaluation Date of Evaluation: 11/23/17 Time of Evaluation: 18:05 - Subjective Subjective: Feels better, still has cough but improved Denies cp, fever or chills Objective - Vital Signs/Intake and Output Vital Signs (last 24 hours): Temp Pulse Resp BP Pulse Ox 98.5 F 79 20 128/67 97 11/23/17 20:35 11/23/17 20:35 11/23/17 20:35 11/23/17 20:35 11/23/17 20:35 Intake and Output: 11/23/17 11/24/17 18:59 06:59 Intake Total 1060 Balance 1060 - Medications Medications: Current Medications Albuterol/Ipratropium (Duoneb 3 Mg/0.5 Mg (3 Ml) Ud) 3 ml INH RQ4 [facility] Last Admin: 11/23/17 23:27 Dose: 3 ml Alprazolam (Xanax) 0.25 mg PO HS [facility] Stop: 11/27/17 22:01 Last Admin: 11/23/17 21:40 Dose: 0.25 mg Enoxaparin Sodium (Lovenox) 40 mg SC DAILY [facility] PRN Reason: Protocol Last Admin: 11/23/17 08:51 Dose: 40 mg Glipizide (Glucotrol Xl) 2.5 mg PO BIDWM [facility] Last Admin: 11/23/17 16:54 Dose: 2.5 mg Levofloxacin/Dextrose (Levaquin 500mg) 500 mg in 100 mls @ 100 mls/hr IVPB DAILY [facility] PRN Reason: Protocol Last Admin: 11/23/17 08:50 Dose: 100 mls/hr Insulin Human Regular (Humulin R) 0 units SC ACHS [facility] PRN Reason: Protocol Last Admin: 11/23/17 21:42 Dose: 2 units Lisinopril (Zestril) 20 mg PO DAILY [facility] Last Admin: 11/23/17 08:51 Dose: 20 mg Metformin HCl (Glucophage) 1,000 mg PO BRK [facility] Last Admin: 11/23/17 08:49 Dose: 1,000 mg Methylprednisolone (Solu-Medrol) 40 mg IVP Q8 [facility] Last Admin: 11/23/17 17:00 Dose: 40 mg Pravastatin Sodium (Pravachol) 40 mg PO DAILY [facility] Last Admin: 11/23/17 08:51 Dose: 40 mg Fluticasone/Salmeterol (Advair Diskus 250/50) 1 puff INH BID [facility] Last Admin: 11/23/17 16:54 Dose: 1 puff Sitagliptin Phosphate (Januvia) 100 mg PO DAILY [facility] Last Admin: 11/23/17 08:50 Dose: 100 mg - Labs Labs: 11/20/17 05:36 11/20/17 05:36 - Constitutional Appears: Well, No Acute Distress - Head Exam Head Exam: ATRAUMATIC - Respiratory Exam Respiratory Exam: Clear to Ausculation Bilateral, NORMAL BREATHING PATTERN - Cardiovascular Exam Cardiovascular Exam: REGULAR RHYTHM, +S1, +S2 - GI/Abdominal Exam GI & Abdominal Exam: Soft, Normal Bowel Sounds - Neurological Exam Neurological Exam: Alert, Oriented x3 - Psychiatric Exam Psychiatric exam: Normal Affect, Normal Mood - Skin Skin Exam: Normal Color, Warm Assessment and Plan (1) COPD exacerbation Assessment & Plan: Duonebs IV Solumedrol Advair Pulmonary Consult with GI/DVT prophylaxis Status: Acute (2) Hypercholesteremia Assessment & Plan: On medications Status: Chronic (3) Diabetes Assessment & Plan: On medications Insulin ss Status: Chronic (4) HTN (hypertension) Assessment & Plan: Continue same treatment Status: Chronic (5) Dyspnea Assessment & Plan: On respiratory treatments Oxygen supplementation as needed PT Status: Acute
[2017-11-24] MEDS: MethylPREDNISolone 40 mg Vial IVP SCH ×3 (00:22→16:05)
[2017-11-24] MEDS: Albuterol-Ipratrop 3 mg / 0.5 (3 ml) UD INH SCH ×6 (05:14→23:24)
[2017-11-24 06:30] LABS: BASO % 0.2 % (0.0-2.0); EOS % 0.1 % (0.0-4.0); HEMOGLOBIN 10.5 g/dL (12.0-16.0); LYMPH # 0.7 K/uL (1.0-4.3); LYMPH % 4.4 % (20.0-40.0); MEAN CELL VOLUME 74.9 fl (81.0-99.0); MEAN CORPUSCULAR HEMOGLOBIN 24.1 pg (27.0-31.0); MEAN CORPUSCULAR HGB CONC 32.2 g/dL (33.0-37.0); MEAN PLATELET VOLUME 9.4 fl (7.2-11.7); MONO # 0.3 K/uL (0.0-0.8); NEUT # 14.3 K/uL (1.8-7.0); NEUT % 93.3 % (50.0-75.0); PLATELET COUNT 219 K/uL (130-400); RBC 4.33 Mil/uL (3.80-5.20); RED CELL DISTRIBUTION WIDTH 18.3 % (11.5-14.5); WHITE BLOOD COUNT 15.4 K/uL (4.8-10.8)
[2017-11-24 06:45] LABS: ALB/GLOB RATIO 1.2 (1.0-2.1); ALBUMIN 3.6 g/dL (3.5-5.0); ALT/SGPT 39 U/L (9-52); AST/SGOT 23 U/L (14-36); BLOOD UREA NITROGEN 35 mg/dl (7-17); CALCIUM 9.3 mg/dL (8.4-10.2); GFR AFRICAN-AMERICAN > 60; GFR NON-AFRICAN AMERICAN 54
[2017-11-24 07:43] LABS: BANDS 1 % (0-2); LYMPHOCYTE 7 % (20-50); NEUTROPHIL 91 % (42-75); REACTIVE LYMPHOCYTES 1 % (0-0); TOTAL CELLS COUNTED 100
[2017-11-24 07:46] LABS: ANISOCYTOSIS SLIGHT; HYPOCHROMIC SLIGHT; MICROCYTOSIS SLIGHT; POIKILOCYTOSIS SLIGHT
[2017-11-24 07:47] LABS: OVALOCYTES SLIGHT; TARGET CELLS SLIGHT
[2017-11-24 07:48] LABS: ROULEAUX FORMATION SLIGHT
[2017-11-24 07:49] LABS: STOMATOCYTES SLIGHT; TOXIC GRANULATION PRESENT
[2017-11-24 07:50] LABS: LARGE PLATELETS PRESENT; PLATELET ESTIMATE NORMAL (NORMAL)
[2017-11-24] MEDS: Fluticasone-Salmeterol 250-50mcg Diskus INH SCH ×2 (08:25→16:05)
[2017-11-24] MEDS: Pravastatin Sodium 40 MG TAB PO SCH (08:26)
[2017-11-24] MEDS: GlipiZIDE 2.5 mg SR Tab PO SCH ×2 (08:26→16:04)
[2017-11-24] MEDS: Enoxaparin 40 mg Syringe SC SCH (08:26)
[2017-11-24] MEDS: Insulin Regular 100 units/ml SC SCH ×4 (08:27→21:49)
[2017-11-24] MEDS: levoFLOXacin 500 mg in D5W 500 MG/100 ML BAG IVPB SCH (08:30)
--- NOTE | 2017-11-24 09:04 | RAD ---
HISTORY: PNEUMONIA COMPARISON: Chest radiograph dated 11/20/2017. TECHNIQUE: Chest PA and lateral FINDINGS: LUNGS: No active pulmonary disease. PLEURA: No significant pleural effusion identified. No pneumothorax apparent. CARDIOVASCULAR: Atherosclerotic aortic calcifications. Cardiomediastinal silhouette stably enlarged. OSSEOUS STRUCTURES: Unchanged. VISUALIZED UPPER ABDOMEN: Normal. OTHER FINDINGS: None. IMPRESSION: No active disease.
[2017-11-24] MEDS ORDERED: Sod Polystyrene Sulf 15 gm/60 ml Susp PO ONE (17:23)
--- NOTE | 2017-11-24 17:44 | CP.PCM.PN ---
Subjective - Date & Time of Evaluation Date of Evaluation: 11/24/17 Time of Evaluation: 17:42 - Subjective Subjective: pt without cp. continued dyspnea, however it is improved from admission. pts k is 5.9. tele reveals no arrythmias or qt prolongation. Objective - Vital Signs/Intake and Output Vital Signs (last 24 hours): Temp Pulse Resp BP Pulse Ox 98.7 F 73 20 121/76 98 11/24/17 15:31 11/24/17 15:31 11/24/17 15:31 11/24/17 15:31 11/24/17 15:31 - Medications Medications: Current Medications Albuterol/Ipratropium (Duoneb 3 Mg/0.5 Mg (3 Ml) Ud) 3 ml INH RQ4 [facility] Last Admin: 11/24/17 15:14 Dose: 3 ml Alprazolam (Xanax) 0.25 mg PO HS [facility] Stop: 11/27/17 22:01 Last Admin: 11/23/17 21:40 Dose: 0.25 mg Glipizide (Glucotrol Xl) 2.5 mg PO BIDWM [facility] Last Admin: 11/24/17 16:04 Dose: 2.5 mg Levofloxacin/Dextrose (Levaquin 500mg) 500 mg in 100 mls @ 100 mls/hr IVPB DAILY [facility] PRN Reason: Protocol Last Admin: 11/24/17 08:30 Dose: 100 mls/hr Insulin Human Regular (Humulin R) 0 units SC ACHS [facility] PRN Reason: Protocol Last Admin: 11/24/17 16:04 Dose: 5 units Lisinopril (Zestril) 20 mg PO DAILY [facility] Last Admin: 11/24/17 08:26 Dose: 20 mg Metformin HCl (Glucophage) 1,000 mg PO BRK [facility] Last Admin: 11/24/17 08:26 Dose: 1,000 mg Methylprednisolone (Solu-Medrol) 40 mg IVP Q8 [facility] Last Admin: 11/24/17 16:05 Dose: 40 mg Pravastatin Sodium (Pravachol) 40 mg PO DAILY [facility] Last Admin: 11/24/17 08:26 Dose: 40 mg Fluticasone/Salmeterol (Advair Diskus 250/50) 1 puff INH BID [facility] Last Admin: 11/24/17 16:05 Dose: 1 puff Sitagliptin Phosphate (Januvia) 100 mg PO DAILY [facility] Last Admin: 11/24/17 08:26 Dose: 100 mg - Labs Labs: 11/24/17 05:00 11/24/17 05:00 - Constitutional Appears: Well - Head Exam Head Exam: ATRAUMATIC, NORMAL INSPECTION, NORMOCEPHALIC - Eye Exam Eye Exam: EOMI, Normal appearance, PERRL. absent: Conjunctival injection, Nystagmus, Periorbital swelling, Periorbital tenderness, Scleral icterus Pupil Exam: NORMAL ACCOMODATION, PERRL - ENT Exam ENT Exam: Mucous Membranes Moist, Normal Exam. absent: Mucous Membranes Dry, Normal External Ear Exam, Normal Oropharynx, TM's Normal Bilaterally - Neck Exam Neck Exam: Full ROM, Normal Inspection. absent: Lymphadenopathy, Meningismus, Tenderness, Thyromegaly - Respiratory Exam Respiratory Exam: Clear to Ausculation Bilateral, NORMAL BREATHING PATTERN. absent: Accessory Muscle Use, Chest Wall Tenderness, Decreased Breath Sounds, Prolonged Expiratory Phase, Rales, Rhonchi, Wheezes, Respiratory Distress, Stridor - Cardiovascular Exam Cardiovascular Exam: REGULAR RHYTHM, +S1, +S2, Murmur. absent: Bradycardia, Tachycardia, Clicks, Diastolic murmur, Gallop, Irregular Rhythm, JVD, RRR, Rubs , +S4 - GI/Abdominal Exam GI & Abdominal Exam: Soft, Normal Bowel Sounds. absent: Bruit, Distended, Firm , Guarding, Rigid, Tenderness, Diminished Bowel Sounds, Hernia, Hyperactive Bowel Sounds, Hypoactive Bowel Sounds, Organomegaly, Pulsatile Mass, Rebound, Mass - Rectal Exam Rectal Exam: Deferred - Extremities Exam Extremities Exam: Full ROM, Normal Capillary Refill, Normal Inspection. absent : Calf Tenderness, Joint Swelling, Pedal Edema, Tenderness - Back Exam Back Exam: NORMAL INSPECTION. absent: CVA tenderness (L), CVA tenderness (R), Full ROM, muscle spasm, paraspinal tenderness, rash noted, tenderness, vertebral tenderness - Neurological Exam Neurological Exam: Alert, Awake, CN II-XII Intact, Normal Gait, Oriented x3. absent: Abnormal Gait, Altered, Motor Sensory Deficit, Reflexes Normal - Psychiatric Exam Psychiatric exam: Normal Affect, Normal Mood. absent: Agitated, Anxious, Depressed, Flat Affect, Homicidal Ideation, Manic, Suicidal Ideation - Skin Skin Exam: Dry, Intact, Normal Color, Warm. absent: Abrasion, Cyanosis, Diaphoretic, Erythema, Mottled, Pallor, Pallor, Petechiae, Rash, Urticaria, Vesicles Assessment and Plan (1) Mitral regurgitation Status: Acute (2) Mitral annular calcification Status: Acute (3) History of tobacco abuse Status: Acute (4) Diabetes Status: Chronic (5) HTN (hypertension) Status: Chronic (6) Asthma Status: Acute (7) Dyspnea Status: Acute (8) Back pain Status: Acute (9) Hyperkalemia Status: Acute - Assessment and Plan (Free Text) Plan: pt improving from resp perspective. less wheezing and better air movement. back pain with cough continues. no further cp. bp controlled. given hyperkalemia, i have ordered kayex. if no bm then would repeat kayex tomorrow. ekg in am recheck k and mag in am.
[2017-11-24] MEDS ORDERED: Sodium Chloride 0.9% 1,000 ML IV ONE (17:53)
[2017-11-25 00:02] VITALS: RESP 18
[2017-11-25] MEDS: MethylPREDNISolone 40 mg Vial IVP SCH ×2 (01:21→09:03)
[2017-11-25] MEDS: Albuterol-Ipratrop 3 mg / 0.5 (3 ml) UD INH SCH ×3 (04:51→11:33)
[2017-11-25] MEDS: Insulin Regular 100 units/ml SC SCH (08:04)
[2017-11-25] MEDS: GlipiZIDE 2.5 mg SR Tab PO SCH (08:05)
[2017-11-25] MEDS: levoFLOXacin 500 mg in D5W 500 MG/100 ML BAG IVPB SCH (09:00)
[2017-11-25] MEDS: Fluticasone-Salmeterol 250-50mcg Diskus INH SCH (09:02)
[2017-11-25] MEDS: Pravastatin Sodium 40 MG TAB PO SCH (09:04)
[2017-11-25] MEDS ORDERED: Promethazine DM 12.5 mg-30 mg/10 ml Syrup PO PRN (09:07)
--- NOTE | 2017-11-25 09:10 | CP.PCM.PN ---
Subjective - Date & Time of Evaluation Date of Evaluation: 11/25/17 Time of Evaluation: 09:10 - Subjective Subjective: C/O COUGH AND BACK PAINS C/O SOB Objective - Vital Signs/Intake and Output Vital Signs (last 24 hours): Temp Pulse Resp BP Pulse Ox 98.4 F 80 18 118/63 96 11/25/17 08:12 11/25/17 09:03 11/25/17 08:12 11/25/17 09:03 11/25/17 08:12 Intake and Output: 11/25/17 11/25/17 06:59 18:59 Intake Total 900 Balance 900 - Medications Medications: Current Medications Albuterol/Ipratropium (Duoneb 3 Mg/0.5 Mg (3 Ml) Ud) 3 ml INH RQ4 [facility] Last Admin: 11/25/17 07:38 Dose: 3 ml Alprazolam (Xanax) 0.25 mg PO HS [facility] Stop: 11/27/17 22:01 Last Admin: 11/24/17 21:27 Dose: 0.25 mg Glipizide (Glucotrol Xl) 2.5 mg PO BIDWM [facility] Last Admin: 11/25/17 08:05 Dose: 2.5 mg Levofloxacin/Dextrose (Levaquin 500mg) 500 mg in 100 mls @ 100 mls/hr IVPB DAILY [facility] PRN Reason: Protocol Last Admin: 11/25/17 09:00 Dose: 100 mls/hr Insulin Human Regular (Humulin R) 0 units SC ACHS [facility] PRN Reason: Protocol Last Admin: 11/25/17 08:04 Dose: 5 units Lisinopril (Zestril) 20 mg PO DAILY [facility] Last Admin: 11/25/17 09:03 Dose: 20 mg Metformin HCl (Glucophage) 1,000 mg PO BRK [facility] Last Admin: 11/25/17 08:03 Dose: 1,000 mg Methylprednisolone (Solu-Medrol) 40 mg IVP Q8 [facility] Last Admin: 11/25/17 09:03 Dose: 40 mg Pravastatin Sodium (Pravachol) 40 mg PO DAILY [facility] Last Admin: 11/25/17 09:04 Dose: 40 mg Fluticasone/Salmeterol (Advair Diskus 250/50) 1 puff INH BID [facility] Last Admin: 11/25/17 09:02 Dose: 1 puff Sitagliptin Phosphate (Januvia) 100 mg PO DAILY [facility] Last Admin: 11/25/17 09:03 Dose: 100 mg - Labs Labs: 11/24/17 05:00 11/24/17 05:00 - Constitutional Appears: Chronically Ill - Head Exam Head Exam: ATRAUMATIC, NORMAL INSPECTION, NORMOCEPHALIC - Eye Exam Eye Exam: EOMI, Normal appearance, PERRL Pupil Exam: NORMAL ACCOMODATION, PERRL - ENT Exam ENT Exam: Mucous Membranes Moist, Normal Exam - Neck Exam Neck Exam: Full ROM, Normal Inspection. absent: Lymphadenopathy - Respiratory Exam Respiratory Exam: Decreased Breath Sounds, Prolonged Expiratory Phase, Rales, Wheezes, NORMAL BREATHING PATTERN - Cardiovascular Exam Cardiovascular Exam: REGULAR RHYTHM, +S1, +S2. absent: Murmur - GI/Abdominal Exam GI & Abdominal Exam: Soft, Normal Bowel Sounds. absent: Tenderness - Rectal Exam Rectal Exam: NORMAL INSPECTION - Extremities Exam Extremities Exam: Full ROM, Normal Capillary Refill, Normal Inspection. absent : Joint Swelling, Pedal Edema - Back Exam Back Exam: NORMAL INSPECTION - Neurological Exam Neurological Exam: Alert, Awake, CN II-XII Intact, Normal Gait, Oriented x3 - Psychiatric Exam Psychiatric exam: Normal Affect, Normal Mood - Skin Skin Exam: Dry, Intact, Normal Color, Warm Assessment and Plan - Assessment and Plan (Free Text) Assessment: COPD EXAC Plan: PHENERGAN,PRN CONTINUE PRESENT RX
--- NOTE | 2017-11-25 10:05 | PQF GENQUE ---
Dr. Mancia, Please specify type of pneumonia in the progress notes: i.e. ( Note: CAP, HAP, and HCAP indicate where the pneumonia was acquired, not a specific type) Aspiration pneumonia: Please document specific aspirate (food, liquids, etc.) >Please indicate if this is postprocedural Bacterial (specify organism) Bronchopneumonia (specify organism) Interstitual pneumonia Organizing pneumonia/BOOP Pneumonia with influenza, maikel flu, or H1N1 flu RSV pneumonia Tuberculosis, pulmonary Viral pneumonia Other pneumonia (specify organism or type) Clinically unable to determine Unknown 2. Please specify the organism causing the pneumonia if known after the work up is completed 11/22 Pulmonary consult: The patient's clinical picture is compatible with acute exacerbation of chronic obstructive pulmonary disease with superimposed pneumonia, diabetes mellitus, hypertension, anemia. Plan: Aerosolized bronchodilators, intravenous steroids, intravenous antibiotics , would obtain sputum for Gram stain and cultures This form is a permanent part of the medical record Clarification of your documentation is requested to better reflect the severity of illness and intensity of treatment of your patient. Indicators present [] Specify: [] [] Specify: [] [] Specify: [] [] Specify: [] Location in the medical record that reflects the above clinical findings: [] Treatment Provided: [] PHYSICIAN'S RESPONSE Based on your medical judgment of the clinical indicators outlined above please clarify the following: [x] Practitioner response --clinically unable to determine [] If unable to determine, please check the box, sign and date. Present On Admission (POA) Indicator: [] Present at the time of admission [] Not present at the time of admission [] Clinically Undetermined In responding to this query, please exercise your independent professional judgment. The fact that a question is asked does not imply that any particular answer is desired or expected. Thank you for your clarification on this documentation. If you have any questions please call. * Thank you, Franca Clifton RN ext. #[phone] MTDD
[2017-11-25 11:20] LABS: BLOOD UREA NITROGEN 32 mg/dl (7-17); CALCIUM 8.6 mg/dL (8.4-10.2); GFR AFRICAN-AMERICAN > 60; GFR NON-AFRICAN AMERICAN 54
[2017-11-25] MEDS ORDERED: Insulin Regular 100 units/ml SC SCH (11:44)
[2017-11-25 12:13] VITALS: BP 111/65; PULSE 85; TEMP 98.3; O2SAT 95
--- NOTE | 2017-11-25 18:52 | CP.PCM.PN ---
Subjective - Date & Time of Evaluation Date of Evaluation: 11/24/17 Time of Evaluation: 20:35 - Subjective Subjective: Feels better today, less SOB, and cough. Denies fever or chills, no overnight events Objective - Vital Signs/Intake and Output Vital Signs (last 24 hours): Temp Pulse Resp BP Pulse Ox 98.3 F 85 18 111/65 95 11/25/17 12:12 11/25/17 12:12 11/25/17 12:12 11/25/17 12:12 11/25/17 12:12 Intake and Output: 11/25/17 11/25/17 06:59 18:59 Intake Total 900 Balance 900 - Labs Labs: 11/24/17 05:00 11/25/17 10:30 - Constitutional Appears: Well, No Acute Distress - Head Exam Head Exam: ATRAUMATIC, NORMOCEPHALIC - Respiratory Exam Respiratory Exam: Clear to Ausculation Bilateral, NORMAL BREATHING PATTERN - Cardiovascular Exam Cardiovascular Exam: REGULAR RHYTHM, +S1, +S2 - GI/Abdominal Exam GI & Abdominal Exam: Soft, Normal Bowel Sounds - Neurological Exam Neurological Exam: Alert, Oriented x3 - Psychiatric Exam Psychiatric exam: Normal Affect - Skin Skin Exam: Normal Color, Warm Assessment and Plan (1) COPD exacerbation Assessment & Plan: Continue with Duonebs IV Solumedrol Advair Pulmonary Consult appreciated GI/DVT prophylaxis Status: Acute (2) Hypercholesteremia Assessment & Plan: On medications Status: Chronic (3) Diabetes Assessment & Plan: On medications Status: Chronic (4) HTN (hypertension) Assessment & Plan: On medications Status: Chronic (5) Dyspnea Assessment & Plan: Improved continue same treatment PT Status: Acute
--- NOTE | 2017-11-25 18:53 | CP.PCM.DIS ---
Provider - Provider Date of Admission: 11/20/17 10:48 Attending physician: Ronald Benoit MD Primary care physician: Milly Crenshaw MD Time Spent in preparation of Discharge (in minutes): 25 Diagnosis - Discharge Diagnosis (1) COPD exacerbation Status: Acute (2) Hypercholesteremia Status: Chronic (3) Diabetes Status: Chronic (4) HTN (hypertension) Status: Chronic (5) Dyspnea Status: Acute Hospital Course - Lab Results Lab Results: Most Recent Lab Values WBC 15.4 K/uL (4.8-10.8) H D 11/24/17 05:00 RBC 4.33 Mil/uL (3.80-5.20) 11/24/17 05:00 Hgb 10.5 g/dL (12.0-16.0) L 11/24/17 05:00 Hct 32.5 % (34.0-47.0) L 11/24/17 05:00 MCV 74.9 fl (81.0-99.0) L 11/24/17 05:00 MCH 24.1 pg (27.0-31.0) L 11/24/17 05:00 MCHC 32.2 g/dL (33.0-37.0) L 11/24/17 05:00 RDW 18.3 % (11.5-14.5) H 11/24/17 05:00 Plt Count 219 K/uL (130-400) 11/24/17 05:00 MPV 9.4 fl (7.2-11.7) 11/24/17 05:00 Neut % (Auto) 93.3 % (50.0-75.0) H 11/24/17 05:00 Lymph % (Auto) 4.4 % (20.0-40.0) L 11/24/17 05:00 Merrick % (Auto) 2.0 % (0.0-10.0) 11/24/17 05:00 Eos % (Auto) 0.1 % (0.0-4.0) 11/24/17 05:00 Baso % (Auto) 0.2 % (0.0-2.0) 11/24/17 05:00 Neut # (Auto) 14.3 K/uL (1.8-7.0) H 11/24/17 05:00 Lymph # (Auto) 0.7 K/uL (1.0-4.3) L 11/24/17 05:00 Merrick # (Auto) 0.3 K/uL (0.0-0.8) 11/24/17 05:00 Eos # (Auto) 0.0 K/uL (0.0-0.7) 11/24/17 05:00 Baso # (Auto) 0.0 K/uL (0.0-0.2) 11/24/17 05:00 Neutrophils % (Manual) 91 % (42-75) H 11/24/17 05:00 Band Neutrophils % 1 % (0-2) 11/24/17 05:00 Lymphocytes % (Manual) 7 % (20-50) L 11/24/17 05:00 Reactive Lymphs % 1 % (0-0) H 11/24/17 05:00 Monocytes % (Manual) TEST NOT PERFORMED 11/24/17 05:00 Toxic Granulation Present 11/24/17 05:00 Platelet Estimate Normal (NORMAL) 11/24/17 05:00 Large Platelets Present 11/24/17 05:00 Hypochromasia (manual) Slight 11/24/17 05:00 Poikilocytosis (manual Slight 11/24/17 05:00 Anisocytosis (manual) Slight 11/24/17 05:00 Microcytosis (manual) Slight 11/24/17 05:00 Target Cells Slight 11/24/17 05:00 Ovalocytes Slight 11/24/17 05:00 Stomatocytes Slight 11/24/17 05:00 Rouleaux Slight 11/24/17 05:00 D-Dimer, Quantitative 432 ng/mlDDU (0-230) H 11/20/17 05:36 pCO2 55 mm/Hg (35-45) H 11/20/17 05:40 pO2 58 mm/Hg (80-100) L 11/20/17 05:40 HCO3 28.5 mmol/L (21-28) H 11/20/17 05:40 ABG pH 7.36 (7.35-7.45) 11/20/17 05:40 ABG Total CO2 32.8 mmol/L (22-28) H 11/20/17 05:40 ABG O2 Saturation 94.7 % (95-98) L 11/20/17 05:40 ABG O2 Content 12.0 ML/dL (15-23) L 11/20/17 05:40 ABG Base Excess 4.7 mmol/L (-2.0-3.0) H 11/20/17 05:40 ABG Hemoglobin 9.4 g/dL (11.7-17.4) L 11/20/17 05:40 ABG Carboxyhemoglobin 2.4 % (0.5-1.5) H 11/20/17 05:40 POC ABG HHb (Measured) 5.1 % (0.0-5.0) H 11/20/17 05:40 ABG Methemoglobin 1.8 % (0.0-3.0) 11/20/17 05:40 ABG O2 Capacity 12.7 mL/dL (16-24) L 11/20/17 05:40 Raciel Test Yes 11/20/17 05:40 A-a O2 Difference 23.0 mm/Hg 11/20/17 05:40 Hgb O2 Saturation 90.7 % (95.0-98.0) L 11/20/17 05:40 FiO2 21.0 % 11/20/17 05:40 Sodium 133 mmol/l (132-148) 11/25/17 10:30 Potassium 5.0 MMOL/L (3.6-5.0) 11/25/17 10:30 Chloride 91 mmol/L (98-107) L 11/25/17 10:30 Carbon Dioxide 29 mmol/L (22-30) 11/25/17 10:30 Anion Gap 18 (10-20) 11/25/17 10:30 BUN 32 mg/dl (7-17) H 11/25/17 10:30 Creatinine 1.0 mg/dl (0.7-1.2) 11/25/17 10:30 Est GFR ( Amer) > 60 11/25/17 10:30 Est GFR (Non-Af Amer) 54 11/25/17 10:30 POC Glucose (mg/dL) 404 mg/dL (65-110) H* 11/25/17 11:00 Random Glucose 532 mg/dL (65-105) H* D 11/25/17 10:30 Hemoglobin A1c 7.7 % (4.2-6.5) H 11/20/17 10:48 Calcium 8.6 mg/dL (8.4-10.2) 11/25/17 10:30 Total Bilirubin 0.4 mg/dl (0.2-1.3) 11/24/17 05:00 AST 23 U/L (14-36) 11/24/17 05:00 ALT 39 U/L (9-52) 11/24/17 05:00 Alkaline Phosphatase 89 U/L (38-126) 11/24/17 05:00 Troponin I < 0.0120 ng/mL (0.00-0.120) 11/21/17 14:50 NT-Pro-B Natriuret Pep 78.0 pg/ml (0-900) 11/20/17 05:36 Total Protein 6.7 G/DL (6.3-8.2) 11/24/17 05:00 Albumin 3.6 g/dL (3.5-5.0) 11/24/17 05:00 Globulin 3.1 gm/dL (2.2-3.9) 11/24/17 05:00 Albumin/Globulin Ratio 1.2 (1.0-2.1) 11/24/17 05:00 - Hospital Course Hospital Course: A 72 year old female with a pmhx of HTN, hypercholesterolemia, DM and COPD who was admitted for SOB and cough. The patient was treated for COPD exacerbation with systemic steroids and respiratory treatments. The patient is feeling better but still requires continued treatment. The patient was discharged to TCU for continued therapy. Discharge Exam - Head Exam Head Exam: ATRAUMATIC - Respiratory Exam Respiratory Exam: Clear to PA & Lateral, NORMAL BREATHING PATTERN - Cardiovascular Exam Cardiovascular Exam: REGULAR RHYTHM, +S1, +S2 - GI/Abdominal Exam GI & Abdominal Exam: Normal Bowel Sounds - Neurological Exam Neurological exam: Alert, Oriented x3 - Psychiatric Exam Psychiatric exam: Normal Affect - Skin Skin Exam: Normal Color, Warm Discharge Plan - Discharge Medications Prescriptions: levoFLOXacin 500 mg in D5W [Levaquin 500MG] 500 mg IVPB DAILY #30 bag - Follow Up Plan Condition: STABLE Disposition: TRANSF TO SNF Instructions: Asthma, Adult (DC), Shortness of Breath (Dyspnea) (DC) Referrals: Milly Crenshaw MD [Primary Care Provider] - Ronald Benoit MD [Staff Provider] -
[2017-11-26] MEDS ORDERED: levoFLOXacin 250 mg in D5W 250 MG/50 ML BAG IVPB SCH (09:00)
[2017-11-26] MEDS ORDERED: Promethazine DM 12.5 mg-30 mg/10 ml Syrup PO PRN (09:39)
[2017-11-26] MEDS ORDERED: levoFLOXacin 500 mg in D5W 500 MG/100 ML BAG IVPB SCH (09:45)
[2017-11-26] MEDS ORDERED: Albuterol-Ipratrop 3 mg / 0.5 (3 ml) UD INH SCH (14:00)
[2017-11-26] MEDS ORDERED: Acetylcysteine 20% Inhal Soln (4ml) INH SCH (20:00)
== END 2017-11-25 14:59 | DRG 190 ==
LOC: H.ER 04:42 → H.ERHOLD 10:48 → OBSVTOIN 10:48 → H.TEL 12:58
PROVIDERS: ADMIT Internal Medicine; ATTEND Internal Medicine
PROC: 3E0F73Z Introduction of Anti-inflammatory into Respiratory Tract, Via Natural or Artificial Opening (ICD-10-PCS; principal; 2017-11-20)
DX: J44.1 Chronic obstructive pulmonary disease with (acute) exacerbation (principal); J18.9 Pneumonia, unspecified organism; J45.51 Severe persistent asthma with (acute) exacerbation; Z68.41 Body mass index [BMI] 40.0-44.9, adult; J44.0 Chronic obstructive pulmonary disease with (acute) lower respiratory infection; E87.5 Hyperkalemia; E11.65 Type 2 diabetes mellitus with hyperglycemia; E66.01 Morbid (severe) obesity due to excess calories; I34.0 Nonrheumatic mitral (valve) insufficiency; I10 Essential (primary) hypertension; E78.00 Pure hypercholesterolemia, unspecified; D64.9 Anemia, unspecified; F41.9 Anxiety disorder, unspecified; R91.1 Solitary pulmonary nodule; F17.210 Nicotine dependence, cigarettes, uncomplicated; Z79.4 Long term (current) use of insulin; Z79.84 Long term (current) use of oral hypoglycemic drugs; Z90.710 Acquired absence of both cervix and uterus

== ENCOUNTER 2017-11-25 14:39 | Inpatient (IN) | payer OTHER, MEDICAID ==
[2017-11-25 15:29] VITALS: BMI 41.1
[2017-11-25] MEDS: Insulin Regular 100 units/ml SC SCH ×2 (16:56→20:59)
[2017-11-25] MEDS ORDERED: Fluticasone-Salmeterol 250-50mcg Diskus INH SCH (17:00)
[2017-11-25] MEDS: MethylPREDNISolone 40 mg Vial IVP SCH (17:22)
[2017-11-25] MEDS: GlipiZIDE 2.5 mg SR Tab PO SCH (17:22)
[2017-11-25] MEDS: Albuterol-Ipratrop 3 mg / 0.5 (3 ml) UD INH SCH ×2 (17:36→23:54)
[2017-11-25] MEDS: Fluticasone-Salmeterol 250-50mcg Diskus INH SCH (20:57)
[2017-11-26] MEDS: MethylPREDNISolone 40 mg Vial IVP SCH ×3 (00:03→16:29)
[2017-11-26] MEDS: Albuterol-Ipratrop 3 mg / 0.5 (3 ml) UD INH SCH ×5 (04:00→19:08)
[2017-11-26] MEDS: Insulin Regular 100 units/ml SC SCH ×4 (06:42→21:40)
[2017-11-26] MEDS: Enoxaparin 40 mg Syringe SC SCH (08:08)
[2017-11-26] MEDS: GlipiZIDE 2.5 mg SR Tab PO SCH ×2 (08:08→16:30)
[2017-11-26] MEDS: levoFLOXacin 500 MG TAB PO SCH (08:08)
[2017-11-26] MEDS: Pravastatin Sodium 40 MG TAB PO SCH (08:09)
[2017-11-26] MEDS ORDERED: levoFLOXacin 500 mg in D5W 500 MG/100 ML BAG IVPB SCH (09:00)
[2017-11-26] MEDS ORDERED: Patient's Own Med (Levofloxacin 500 Mg In D5w [Levaquin 500mg] 500 MG) IVPB SCH (09:00)
[2017-11-26] MEDS: Fluticasone-Salmeterol 250-50mcg Diskus INH SCH ×2 (11:30→21:40)
[2017-11-26] MEDS: Promethazine DM 12.5 mg-30 mg/10 ml Syrup PO PRN ×2 (11:30→21:39)
[2017-11-26] MEDS: Acetylcysteine 20% Inhal Soln (4ml) INH SCH (19:14)
--- NOTE | 2017-11-26 19:41 | CON ---
DATE: HISTORY OF PRESENT ILLNESS: Mrs. Davonte Cano is a 72-year-old female, who was referred for pulmonary evaluation by Dr. Benoit. She was admitted via the emergency room because of cough, shortness of breath and chest x-ray that was suggestive of pneumonia. PAST MEDICAL HISTORY: She has a past medical history of COPD, hypertension, diabetes mellitus and indicates that she quit smoking several years ago. FAMILY HISTORY: Unrevealing. SOCIAL HISTORY: Socially, she used to smoke cigarettes, but quit several years ago. REVIEW OF SYSTEMS: Essentially remarkable for shortness of breath, exercise intolerance and chest tightness with persistent cough. PHYSICAL EXAMINATION: GENERAL: The patient is alert and oriented. VITAL SIGNS: Stable. HEENT: Mouth shows fair hygiene with mucous engorgement of pharynx. LUNGS: Bilateral coarse rales. HEART: S1, S2. ABDOMEN: Soft, nontender, no organomegaly. EXTREMITIES: Shows no edema or cyanosis. CENTRAL NERVOUS SYSTEM: Exam grossly intact. LABORATORY DATA: Chest x-ray pending. IMPRESSION: Acute exacerbation of chronic obstructive pulmonary disease, pneumonia on chest x-ray. PLAN: Continue IV antibiotics as well as bronchodilators, oxygen. Would give antitussives p.r.n. and will also give Mucomyst to help expectorate specimen. We will repeat chest x-rays and labs. We will continue to follow with you. Gary Mancia MD
--- NOTE | 2017-11-26 22:49 | CP.PCM.HP ---
History of Present Illness - History of Present Illness History of Present Illness: Cc: Persistent Cough, and SOB History of Present Illness: A 72 year old female with a pmhx of HTN, hypercholesterolemia, DM and COPD who was admitted to the telemetry unit for SOB and cough and was treated for COPD exacerbation. The patient improved slightly, however still has persistent cough and shortness of Breath. The patient requires further monitoring and treatment and so was discharged to TCU for continue management. Shortness of breath has improved. The patient denies cp, palpitaions, headache, dizziness, fever or chills Present on Admission - Present on Admission Any Indicators Present on Admission: Yes History of Uncontrolled Diabetes: Yes Review of Systems - Review of Systems All systems: reviewed and no additional remarkable complaints except (as stated) Past Patient History - Past Medical History & Family History Past Medical History?: Yes - Past Social History Smoking Status: Former Smoker - CARDIAC Hx Hypertension: Yes - PULMONARY Hx Asthma: Yes Hx Chronic Obstructive Pulmonary Disease (COPD): Yes - NEUROLOGICAL Hx Neurological Disorder: No - HEENT Hx HEENT Problems: Yes Hx Cataracts: Yes - RENAL Hx Chronic Kidney Disease: No - ENDOCRINE/METABOLIC Hx Diabetes Mellitus Type 2: Yes - HEMATOLOGICAL/ONCOLOGICAL Hx Blood Disorders: No - INTEGUMENTARY Hx Dermatological Problems: No - MUSCULOSKELETAL/RHEUMATOLOGICAL Hx Musculoskeletal Disorders: Yes Hx Back Pain: Yes Hx Falls: No Hx Unsteady Gait: Yes Other/Comment: uses cane for ambulation - GASTROINTESTINAL Hx Gastrointestinal Disorders: No - GENITOURINARY/GYNECOLOGICAL Hx Genitourinary Disorders: No - PSYCHIATRIC Hx Anxiety: Yes Hx Substance Use: No - SURGICAL HISTORY Hx Surgeries: Yes Hx Hysterectomy: Yes - ANESTHESIA Hx Anesthesia: Yes Hx Anesthesia Reactions: No Hx Malignant Hyperthermia: No Meds Allergies/Adverse Reactions: Allergies Allergy/AdvReac Type Severity Reaction Status Date / Time No Known Allergies Allergy Verified 11/25/17 15:28 Physical Exam - Constitutional Appears: Well, No Acute Distress - Head Exam Head Exam: ATRAUMATIC, NORMOCEPHALIC - Eye Exam Eye Exam: EOMI, Normal appearance, PERRL Pupil Exam: NORMAL ACCOMODATION - ENT Exam ENT Exam: Mucous Membranes Moist, Normal Exam - Respiratory Exam Respiratory Exam: Decreased Breath Sounds, Wheezes - Cardiovascular Exam Cardiovascular Exam: REGULAR RHYTHM, +S1, +S2 - GI/Abdominal Exam GI & Abdominal Exam: Normal Bowel Sounds, Soft - Neurological Exam Neurological exam: Alert, Oriented x3 - Psychiatric Exam Psychiatric exam: Normal Affect, Normal Mood - Skin Skin Exam: Dry, Normal Color, Warm Results - Vital Signs Recent Vital Signs: Last Vital Signs Temp 98.1 F 11/26/17 21:09 Pulse 87 11/26/17 21:09 Resp 20 11/26/17 21:09 BP 135/69 11/26/17 21:09 Pulse Ox 98 11/26/17 21:09 - Labs Result Diagrams: 11/28/17 14:49 11/28/17 14:49 Labs: Laboratory Results - last 24 hr 11/25/17 11/26/17 11/26/17 20:22 05:14 11:03 POC Glucose (mg/dL) 314 H 369 H 461 H* 11/26/17 11/26/17 15:39 20:51 POC Glucose (mg/dL) 336 H 271 H Assessment & Plan (1) COPD exacerbation Assessment and Plan: On respiratory treatments Steroids O2 as needed Pulmonary consult Status: Acute (2) HTN (hypertension) Assessment and Plan: Continue all cardiac medications Status: Chronic (3) Hypercholesteremia Assessment and Plan: Continue meds Status: Chronic (4) Diabetes Assessment and Plan: Continue all oral hypoglycemics Insulin ss Status: Chronic
[2017-11-27] MEDS: MethylPREDNISolone 40 mg Vial IVP SCH ×3 (00:04→16:21)
[2017-11-27] MEDS: Albuterol-Ipratrop 3 mg / 0.5 (3 ml) UD INH SCH ×7 (00:33→23:33)
[2017-11-27] MEDS: Insulin Regular 100 units/ml SC SCH ×4 (06:35→21:07)
[2017-11-27] MEDS: Acetylcysteine 20% Inhal Soln (4ml) INH SCH ×2 (07:28→19:19)
[2017-11-27] MEDS: Fluticasone-Salmeterol 250-50mcg Diskus INH SCH ×2 (08:41→21:05)
[2017-11-27] MEDS: Enoxaparin 40 mg Syringe SC SCH (08:43)
[2017-11-27] MEDS: levoFLOXacin 500 MG TAB PO SCH (08:43)
[2017-11-27] MEDS: GlipiZIDE 2.5 mg SR Tab PO SCH ×2 (08:43→16:24)
[2017-11-27] MEDS: Pravastatin Sodium 40 MG TAB PO SCH (08:45)
--- NOTE | 2017-11-27 10:26 | CP.PCM.PN ---
Subjective - Date & Time of Evaluation Date of Evaluation: 11/27/17 Time of Evaluation: 10:26 - Subjective Subjective: CLINICALLY IMPROVING COUGH PERSISTS Objective - Vital Signs/Intake and Output Vital Signs (last 24 hours): Temp Pulse Resp BP Pulse Ox 97.0 F L 72 20 117/57 L 97 11/27/17 07:53 11/27/17 07:53 11/27/17 07:53 11/27/17 08:45 11/27/17 07:53 - Medications Medications: Current Medications Acetylcysteine (Acetylcysteine 20%) 2 ml INH RBID [facility] Last Admin: 11/26/17 19:14 Dose: 2 ml Albuterol/Ipratropium (Duoneb 3 Mg/0.5 Mg (3 Ml) Ud) 3 ml INH RQ4 [facility] Last Admin: 11/27/17 07:28 Dose: 3 ml Alprazolam (Xanax) 0.25 mg PO HS [facility] Stop: 12/02/17 22:01 Last Admin: 11/26/17 21:39 Dose: 0.25 mg Benzocaine/Menthol (Cepacol Sore Throat) 1 aliyah PO Q4 [facility] Docusate Sodium (Colace) 100 mg PO BID [facility] Last Admin: 11/27/17 08:42 Dose: 100 mg Enoxaparin Sodium (Lovenox) 40 mg SC DAILY [facility] PRN Reason: Protocol Last Admin: 11/27/17 08:43 Dose: 40 mg Glipizide (Glucotrol Xl) 2.5 mg PO BIDWM [facility] Last Admin: 11/27/17 08:43 Dose: 2.5 mg Insulin Human Regular (Humulin R) 0 units SC ACHS [facility] PRN Reason: Protocol Last Admin: 11/27/17 06:35 Dose: 10 units Lactulose (Enulose) 20 gm PO BID PRN PRN Reason: Constipation Levofloxacin (Levaquin) 500 mg PO DAILY [facility] PRN Reason: Protocol Last Admin: 11/27/17 08:43 Dose: 500 mg Lisinopril (Zestril) 20 mg PO DAILY [facility] Last Admin: 11/27/17 08:45 Dose: 20 mg Metformin HCl (Glucophage) 1,000 mg PO BRK [facility] Last Admin: 11/27/17 08:42 Dose: 1,000 mg Methylprednisolone (Solu-Medrol) 40 mg IVP Q8 [facility] Last Admin: 11/27/17 08:44 Dose: 40 mg Pravastatin Sodium (Pravachol) 40 mg PO DAILY [facility] Last Admin: 11/27/17 08:45 Dose: 40 mg Promethazine HCl/Dextromethorphan (Phenergan Dm Syrup) 10 ml PO Q6 PRN PRN Reason: Cough Last Admin: 11/26/17 21:39 Dose: 10 ml Fluticasone/Salmeterol (Advair Diskus 250/50) 1 puff INH BID@0900,2100 [facility] Last Admin: 11/27/17 08:41 Dose: 1 puff Sitagliptin Phosphate (Januvia) 100 mg PO DAILY [facility] Last Admin: 11/27/17 08:42 Dose: 100 mg - Constitutional Appears: Chronically Ill - Head Exam Head Exam: ATRAUMATIC, NORMAL INSPECTION, NORMOCEPHALIC - Eye Exam Eye Exam: EOMI, Normal appearance, PERRL Pupil Exam: NORMAL ACCOMODATION, PERRL - ENT Exam ENT Exam: Mucous Membranes Moist, Normal Exam - Neck Exam Neck Exam: Full ROM, Normal Inspection. absent: Lymphadenopathy - Respiratory Exam Respiratory Exam: Decreased Breath Sounds, Rales, Wheezes, NORMAL BREATHING PATTERN - Cardiovascular Exam Cardiovascular Exam: REGULAR RHYTHM, +S1, +S2. absent: Murmur - GI/Abdominal Exam GI & Abdominal Exam: Soft, Normal Bowel Sounds. absent: Tenderness - Rectal Exam Rectal Exam: NORMAL INSPECTION - Extremities Exam Extremities Exam: Full ROM, Normal Capillary Refill, Normal Inspection. absent : Joint Swelling, Pedal Edema - Back Exam Back Exam: NORMAL INSPECTION - Neurological Exam Neurological Exam: Alert, Awake, CN II-XII Intact, Normal Gait, Oriented x3 - Psychiatric Exam Psychiatric exam: Normal Affect, Normal Mood - Skin Skin Exam: Dry, Intact, Normal Color, Warm Assessment and Plan - Assessment and Plan (Free Text) Assessment: COPD EXAC PNEUMONIA Plan: CONTINUE CURRENT RX
[2017-11-27] MEDS ORDERED: Benzocaine/Menthol (Cepacol) Lozenge PO SCH (13:00)
[2017-11-27] MEDS ORDERED: Benzocaine/Menthol (Cepacol) Lozenge PO PRN (13:45)
--- NOTE | 2017-11-27 22:58 | CP.PCM.PN ---
Subjective - Date & Time of Evaluation Date of Evaluation: 11/27/17 Time of Evaluation: 12:00 - Subjective Subjective: Feels better, cough persist. Denies cp, fever or chills Objective - Vital Signs/Intake and Output Vital Signs (last 24 hours): Temp Pulse Resp BP Pulse Ox 98.1 F 74 20 147/71 99 11/27/17 19:40 11/27/17 19:40 11/27/17 19:40 11/27/17 19:40 11/27/17 19:40 - Medications Medications: Current Medications Acetylcysteine (Acetylcysteine 20%) 2 ml INH RBID [facility] Last Admin: 11/27/17 19:19 Dose: 2 ml Albuterol/Ipratropium (Duoneb 3 Mg/0.5 Mg (3 Ml) Ud) 3 ml INH RQ4 [facility] Last Admin: 11/27/17 19:18 Dose: 3 ml Alprazolam (Xanax) 0.25 mg PO HS [facility] Stop: 12/02/17 22:01 Last Admin: 11/26/17 21:39 Dose: 0.25 mg Benzocaine/Menthol (Cepacol Sore Throat) 1 aliyah PO Q4 PRN PRN Reason: Sore Throat Last Admin: 11/27/17 16:21 Dose: 1 aliyah Docusate Sodium (Colace) 100 mg PO BID [facility] Last Admin: 11/27/17 19:10 Dose: 100 mg Enoxaparin Sodium (Lovenox) 40 mg SC DAILY [facility] PRN Reason: Protocol Last Admin: 11/27/17 08:43 Dose: 40 mg Glipizide (Glucotrol Xl) 2.5 mg PO BIDWM [facility] Last Admin: 11/27/17 16:24 Dose: 2.5 mg Insulin Human Regular (Humulin R) 0 units SC ACHS [facility] PRN Reason: Protocol Last Admin: 11/27/17 21:07 Dose: 2 units Lactulose (Enulose) 20 gm PO BID PRN PRN Reason: Constipation Levofloxacin (Levaquin) 500 mg PO DAILY [facility] PRN Reason: Protocol Last Admin: 11/27/17 08:43 Dose: 500 mg Lisinopril (Zestril) 20 mg PO DAILY [facility] Last Admin: 11/27/17 08:45 Dose: 20 mg Metformin HCl (Glucophage) 1,000 mg PO BRK [facility] Last Admin: 11/27/17 08:42 Dose: 1,000 mg Methylprednisolone (Solu-Medrol) 40 mg IVP Q8 [facility] Last Admin: 11/27/17 16:21 Dose: 40 mg Pravastatin Sodium (Pravachol) 40 mg PO DAILY [facility] Last Admin: 11/27/17 08:45 Dose: 40 mg Promethazine HCl/Dextromethorphan (Phenergan Dm Syrup) 10 ml PO Q6 PRN PRN Reason: Cough Last Admin: 11/26/17 21:39 Dose: 10 ml Fluticasone/Salmeterol (Advair Diskus 250/50) 1 puff INH BID@0900,2100 [facility] Last Admin: 11/27/17 21:05 Dose: 1 puff Sitagliptin Phosphate (Januvia) 100 mg PO DAILY [facility] Last Admin: 11/27/17 08:42 Dose: 100 mg - Constitutional Appears: Well, No Acute Distress - Head Exam Head Exam: ATRAUMATIC - Respiratory Exam Respiratory Exam: Decreased Breath Sounds, NORMAL BREATHING PATTERN - Cardiovascular Exam Cardiovascular Exam: REGULAR RHYTHM, +S1, +S2 - GI/Abdominal Exam GI & Abdominal Exam: Soft, Normal Bowel Sounds - Neurological Exam Neurological Exam: Alert, Oriented x3 - Psychiatric Exam Psychiatric exam: Normal Affect - Skin Skin Exam: Normal Color, Warm Assessment and Plan (1) COPD exacerbation Assessment & Plan: Continue same treatment Pulmonary consult appreciated Status: Acute (2) Diabetes Assessment & Plan: continue same treatment Insulin ss Status: Chronic (3) HTN (hypertension) Assessment & Plan: Continue same meds Status: Chronic (4) Hypercholesteremia Assessment & Plan: continue medications Status: Chronic
[2017-11-28] MEDS: MethylPREDNISolone 40 mg Vial IVP SCH ×3 (00:38→23:25)
[2017-11-28] MEDS: Albuterol-Ipratrop 3 mg / 0.5 (3 ml) UD INH SCH ×6 (04:14→23:40)
[2017-11-28] MEDS: Insulin Regular 100 units/ml SC SCH ×4 (06:54→21:21)
[2017-11-28] MEDS: Acetylcysteine 20% Inhal Soln (4ml) INH SCH ×2 (08:00→19:33)
[2017-11-28] MEDS: Fluticasone-Salmeterol 250-50mcg Diskus INH SCH ×2 (08:17→21:07)
[2017-11-28] MEDS: Pravastatin Sodium 40 MG TAB PO SCH (08:18)
[2017-11-28] MEDS: Enoxaparin 40 mg Syringe SC SCH (08:18)
[2017-11-28] MEDS: levoFLOXacin 500 MG TAB PO SCH (08:20)
[2017-11-28] MEDS: GlipiZIDE 2.5 mg SR Tab PO SCH ×2 (08:20→16:36)
[2017-11-28] MEDS: Promethazine DM 12.5 mg-30 mg/10 ml Syrup PO PRN (10:36)
[2017-11-28] MEDS: Sodium Chloride 0.9% 1,000 ML IV SCH (15:43)
[2017-11-28 15:54] LABS: BASO % 0.2 % (0.0-2.0); HEMOGLOBIN 10.9 g/dL (12.0-16.0); LYMPH # 0.7 K/uL (1.0-4.3); LYMPH % 3.9 % (20.0-40.0); MEAN CELL VOLUME 74.1 fl (81.0-99.0); MEAN CORPUSCULAR HEMOGLOBIN 24.2 pg (27.0-31.0); MEAN CORPUSCULAR HGB CONC 32.6 g/dL (33.0-37.0); MEAN PLATELET VOLUME 9.3 fl (7.2-11.7); MONO # 0.7 K/uL (0.0-0.8); NEUT # 16.3 K/uL (1.8-7.0); NEUT % 91.9 % (50.0-75.0); NRBC % 0.1 % (0.0-0.0); PLATELET COUNT 251 K/uL (130-400); RBC 4.49 Mil/uL (3.80-5.20); RED CELL DISTRIBUTION WIDTH 18.3 % (11.5-14.5); WHITE BLOOD COUNT 17.7 K/uL (4.8-10.8)
[2017-11-28 16:14] LABS: ALB/GLOB RATIO 1.2 (1.0-2.1); ALBUMIN 3.3 g/dL (3.5-5.0)
[2017-11-28 17:51] LABS: BANDS 1 % (0-2); LYMPHOCYTE 6 % (20-50); MONOCYTE 4 % (0-10); NEUTROPHIL 89 % (42-75); TOTAL CELLS COUNTED 100
[2017-11-28 17:52] LABS: ANISOCYTOSIS SLIGHT; HYPOCHROMIC SLIGHT; MICROCYTOSIS SLIGHT; OVALOCYTES SLIGHT; POIKILOCYTOSIS SLIGHT
[2017-11-28 17:53] LABS: TEARDROP CELLS SLIGHT
[2017-11-28 17:54] LABS: PLATELET ESTIMATE NORMAL (NORMAL); STOMATOCYTES SLIGHT
--- NOTE | 2017-11-28 22:47 | CP.PCM.PN ---
Subjective - Date & Time of Evaluation Date of Evaluation: 11/28/17 Time of Evaluation: 14:30 - Subjective Subjective: Feels slightly better, still has cough Denies fever or chills Objective - Vital Signs/Intake and Output Vital Signs (last 24 hours): Temp Pulse Resp BP Pulse Ox 98.4 F 84 20 135/74 92 L 11/28/17 21:22 11/28/17 21:22 11/28/17 21:22 11/28/17 21:22 11/28/17 21:22 - Medications Medications: Current Medications Acetylcysteine (Acetylcysteine 20%) 2 ml INH RBID [facility] Last Admin: 11/28/17 19:33 Dose: 2 ml Albuterol/Ipratropium (Duoneb 3 Mg/0.5 Mg (3 Ml) Ud) 3 ml INH RQ4 [facility] Last Admin: 11/28/17 19:33 Dose: 3 ml Alprazolam (Xanax) 0.25 mg PO HS [facility] Stop: 12/02/17 22:01 Last Admin: 11/27/17 22:59 Dose: 0.25 mg Benzocaine/Menthol (Cepacol Sore Throat) 1 aliyah PO Q4 PRN PRN Reason: Sore Throat Last Admin: 11/27/17 16:21 Dose: 1 aliyah Docusate Sodium (Colace) 100 mg PO BID [facility] Last Admin: 11/28/17 16:35 Dose: 100 mg Enoxaparin Sodium (Lovenox) 40 mg SC DAILY [facility] PRN Reason: Protocol Last Admin: 11/28/17 08:18 Dose: 40 mg Glipizide (Glucotrol Xl) 2.5 mg PO BIDWM [facility] Last Admin: 11/28/17 16:36 Dose: 2.5 mg Sodium Chloride (Sodium Chloride 0.9%) 1,000 mls @ 100 mls/hr IV .Q10H [facility] Stop: 11/29/17 14:31 Last Admin: 11/28/17 15:43 Dose: 100 mls/hr Insulin Human Regular (Humulin R) 0 units SC ACHS [facility] PRN Reason: Protocol Last Admin: 11/28/17 21:21 Dose: Not Given Lactulose (Enulose) 20 gm PO BID PRN PRN Reason: Constipation Last Admin: 11/28/17 16:35 Dose: 20 gm Levofloxacin (Levaquin) 500 mg PO DAILY [facility] PRN Reason: Protocol Last Admin: 11/28/17 08:20 Dose: 500 mg Lisinopril (Zestril) 20 mg PO DAILY [facility] Last Admin: 11/28/17 08:18 Dose: 20 mg Metformin HCl (Glucophage) 1,000 mg PO BRK [facility] Last Admin: 11/28/17 08:18 Dose: 1,000 mg Methylprednisolone (Solu-Medrol) 40 mg IVP Q12 [facility] Pravastatin Sodium (Pravachol) 40 mg PO DAILY [facility] Last Admin: 11/28/17 08:18 Dose: 40 mg Promethazine HCl/Dextromethorphan (Phenergan Dm Syrup) 10 ml PO Q6 PRN PRN Reason: Cough Last Admin: 11/28/17 10:36 Dose: 10 ml Fluticasone/Salmeterol (Advair Diskus 250/50) 1 puff INH BID@0900,2100 [facility] Last Admin: 11/28/17 21:07 Dose: 1 puff Sitagliptin Phosphate (Januvia) 100 mg PO DAILY [facility] Last Admin: 11/28/17 08:18 Dose: 100 mg - Labs Labs: 11/28/17 14:49 11/28/17 14:49 - Constitutional Appears: Well, No Acute Distress - Head Exam Head Exam: ATRAUMATIC - Respiratory Exam Respiratory Exam: Decreased Breath Sounds, NORMAL BREATHING PATTERN - Cardiovascular Exam Cardiovascular Exam: REGULAR RHYTHM, +S1, +S2 - GI/Abdominal Exam GI & Abdominal Exam: Soft, Normal Bowel Sounds - Neurological Exam Neurological Exam: Alert, Oriented x3 - Psychiatric Exam Psychiatric exam: Normal Affect - Skin Skin Exam: Normal Color, Warm Assessment and Plan (1) COPD exacerbation Assessment & Plan: Continue same treatment pulmonary consult appreciated Status: Acute (2) HTN (hypertension) Assessment & Plan: Continue medications Status: Chronic (3) Hypercholesteremia Assessment & Plan: continue medications Status: Chronic (4) Diabetes Assessment & Plan: Continue meications Insulin ss Status: Chronic
[2017-11-29] MEDS: Sodium Chloride 0.9% 1,000 ML IV SCH ×3 (02:41→12:48)
[2017-11-29] MEDS: Albuterol-Ipratrop 3 mg / 0.5 (3 ml) UD INH SCH ×5 (04:48→19:03)
[2017-11-29] MEDS: Insulin Regular 100 units/ml SC SCH ×4 (07:00→22:01)
[2017-11-29] MEDS: Acetylcysteine 20% Inhal Soln (4ml) INH SCH ×2 (07:33→19:03)
[2017-11-29] MEDS: Enoxaparin 40 mg Syringe SC SCH (08:30)
[2017-11-29] MEDS: MethylPREDNISolone 40 mg Vial IVP SCH ×2 (08:31→20:38)
[2017-11-29] MEDS: Fluticasone-Salmeterol 250-50mcg Diskus INH SCH ×2 (08:33→20:42)
[2017-11-29] MEDS: levoFLOXacin 500 MG TAB PO SCH (08:33)
[2017-11-29] MEDS: GlipiZIDE 2.5 mg SR Tab PO SCH ×2 (08:33→16:38)
[2017-11-29] MEDS: Pravastatin Sodium 40 MG TAB PO SCH (08:34)
--- NOTE | 2017-11-29 14:12 | CP.PCM.PN ---
Subjective - Date & Time of Evaluation Date of Evaluation: 11/29/17 Time of Evaluation: 14:12 - Subjective Subjective: SOB IMPROVED Objective - Vital Signs/Intake and Output Vital Signs (last 24 hours): Temp Pulse Resp BP Pulse Ox 98.1 F 69 20 108/69 98 11/29/17 10:00 11/29/17 10:00 11/29/17 10:00 11/29/17 10:00 11/29/17 10:00 - Medications Medications: Current Medications Acetylcysteine (Acetylcysteine 20%) 2 ml INH RBID [facility] Last Admin: 11/29/17 07:33 Dose: 2 ml Albuterol/Ipratropium (Duoneb 3 Mg/0.5 Mg (3 Ml) Ud) 3 ml INH RQ4 [facility] Last Admin: 11/29/17 11:57 Dose: 3 ml Alprazolam (Xanax) 0.25 mg PO HS [facility] Stop: 12/02/17 22:01 Last Admin: 11/28/17 23:25 Dose: 0.25 mg Benzocaine/Menthol (Cepacol Sore Throat) 1 aliyah PO Q4 PRN PRN Reason: Sore Throat Last Admin: 11/27/17 16:21 Dose: 1 aliyah Docusate Sodium (Colace) 100 mg PO BID [facility] Last Admin: 11/29/17 08:31 Dose: 100 mg Enoxaparin Sodium (Lovenox) 40 mg SC DAILY [facility] PRN Reason: Protocol Last Admin: 11/29/17 08:30 Dose: 40 mg Glipizide (Glucotrol Xl) 2.5 mg PO BIDWM [facility] Last Admin: 11/29/17 08:33 Dose: 2.5 mg Sodium Chloride (Sodium Chloride 0.9%) 1,000 mls @ 100 mls/hr IV .Q10H [facility] Stop: 11/29/17 14:31 Last Admin: 11/29/17 12:48 Dose: Not Given Insulin Human Regular (Humulin R) 0 units SC ACHS [facility] PRN Reason: Protocol Last Admin: 11/29/17 11:53 Dose: 10 units Lactulose (Enulose) 20 gm PO BID PRN PRN Reason: Constipation Last Admin: 11/28/17 16:35 Dose: 20 gm Levofloxacin (Levaquin) 250 mg PO DAILY [facility] PRN Reason: Protocol Lisinopril (Zestril) 20 mg PO DAILY [facility] Last Admin: 11/29/17 08:32 Dose: 20 mg Metformin HCl (Glucophage) 1,000 mg PO BRK [facility] Last Admin: 11/29/17 08:33 Dose: 1,000 mg Methylprednisolone (Solu-Medrol) 40 mg IVP Q12 [facility] Last Admin: 11/29/17 08:31 Dose: 40 mg Pravastatin Sodium (Pravachol) 40 mg PO DAILY [facility] Last Admin: 11/29/17 08:34 Dose: 40 mg Promethazine HCl/Dextromethorphan (Phenergan Dm Syrup) 10 ml PO Q6 PRN PRN Reason: Cough Last Admin: 11/28/17 10:36 Dose: 10 ml Fluticasone/Salmeterol (Advair Diskus 250/50) 1 puff INH BID@0900,2100 [facility] Last Admin: 11/29/17 08:33 Dose: 1 puff Sitagliptin Phosphate (Januvia) 100 mg PO DAILY [facility] Last Admin: 11/29/17 08:32 Dose: 100 mg - Labs Labs: 11/28/17 14:49 11/28/17 14:49 - Constitutional Appears: No Acute Distress - Head Exam Head Exam: ATRAUMATIC, NORMAL INSPECTION, NORMOCEPHALIC - Eye Exam Eye Exam: EOMI, Normal appearance, PERRL Pupil Exam: NORMAL ACCOMODATION, PERRL - ENT Exam ENT Exam: Mucous Membranes Moist, Normal Exam - Neck Exam Neck Exam: Full ROM, Normal Inspection. absent: Lymphadenopathy - Respiratory Exam Respiratory Exam: Decreased Breath Sounds, Rales, NORMAL BREATHING PATTERN - Cardiovascular Exam Cardiovascular Exam: REGULAR RHYTHM, +S1, +S2. absent: Murmur - GI/Abdominal Exam GI & Abdominal Exam: Soft, Normal Bowel Sounds. absent: Tenderness - Rectal Exam Rectal Exam: NORMAL INSPECTION - Extremities Exam Extremities Exam: Full ROM, Normal Capillary Refill, Normal Inspection. absent : Joint Swelling, Pedal Edema - Back Exam Back Exam: NORMAL INSPECTION - Neurological Exam Neurological Exam: Alert, Awake, CN II-XII Intact, Normal Gait, Oriented x3 - Psychiatric Exam Psychiatric exam: Normal Affect, Normal Mood - Skin Skin Exam: Dry, Intact, Normal Color, Warm Assessment and Plan - Assessment and Plan (Free Text) Assessment: COPD PNEUMONIA Plan: CONTINUE CURRENT RX
--- NOTE | 2017-11-29 23:36 | CP.PCM.PN ---
Subjective - Date & Time of Evaluation Date of Evaluation: 11/29/17 Time of Evaluation: 15:40 Objective - Vital Signs/Intake and Output Vital Signs (last 24 hours): Temp Pulse Resp BP Pulse Ox 98.1 F 69 20 108/69 98 11/29/17 10:00 11/29/17 10:00 11/29/17 10:00 11/29/17 10:00 11/29/17 10:00 - Medications Medications: Current Medications Acetylcysteine (Acetylcysteine 20%) 2 ml INH RBID [facility] Last Admin: 11/29/17 19:03 Dose: 2 ml Albuterol/Ipratropium (Duoneb 3 Mg/0.5 Mg (3 Ml) Ud) 3 ml INH RQ4 [facility] Last Admin: 11/29/17 19:03 Dose: 3 ml Alprazolam (Xanax) 0.25 mg PO HS [facility] Stop: 12/02/17 22:01 Last Admin: 11/29/17 21:54 Dose: 0.25 mg Benzocaine/Menthol (Cepacol Sore Throat) 1 aliyah PO Q4 PRN PRN Reason: Sore Throat Last Admin: 11/27/17 16:21 Dose: 1 aliyah Docusate Sodium (Colace) 100 mg PO BID [facility] Last Admin: 11/29/17 16:38 Dose: 100 mg Enoxaparin Sodium (Lovenox) 40 mg SC DAILY [facility] PRN Reason: Protocol Last Admin: 11/29/17 08:30 Dose: 40 mg Glipizide (Glucotrol Xl) 2.5 mg PO BIDWM [facility] Last Admin: 11/29/17 16:38 Dose: 2.5 mg Insulin Human Regular (Humulin R) 0 units SC ACHS [facility] PRN Reason: Protocol Last Admin: 11/29/17 22:01 Dose: Not Given Lactulose (Enulose) 20 gm PO BID PRN PRN Reason: Constipation Last Admin: 11/28/17 16:35 Dose: 20 gm Levofloxacin (Levaquin) 250 mg PO DAILY [facility] PRN Reason: Protocol Lisinopril (Zestril) 20 mg PO DAILY [facility] Last Admin: 11/29/17 08:32 Dose: 20 mg Metformin HCl (Glucophage) 1,000 mg PO BRK [facility] Last Admin: 11/29/17 08:33 Dose: 1,000 mg Methylprednisolone (Solu-Medrol) 40 mg IVP Q12 [facility] Last Admin: 11/29/17 20:38 Dose: 40 mg Pravastatin Sodium (Pravachol) 40 mg PO DAILY [facility] Last Admin: 11/29/17 08:34 Dose: 40 mg Promethazine HCl/Dextromethorphan (Phenergan Dm Syrup) 10 ml PO Q6 PRN PRN Reason: Cough Last Admin: 11/28/17 10:36 Dose: 10 ml Fluticasone/Salmeterol (Advair Diskus 250/50) 1 puff INH BID@0900,2100 [facility] Last Admin: 11/29/17 20:42 Dose: 1 puff Sitagliptin Phosphate (Januvia) 100 mg PO DAILY [facility] Last Admin: 11/29/17 08:32 Dose: 100 mg - Labs Labs: 11/28/17 14:49 11/28/17 14:49 Assessment and Plan (1) COPD exacerbation Status: Acute (2) HTN (hypertension) Status: Chronic (3) Hypercholesteremia Status: Chronic (4) Diabetes Status: Chronic
[2017-11-30] MEDS: Albuterol-Ipratrop 3 mg / 0.5 (3 ml) UD INH SCH ×6 (00:23→19:42)
[2017-11-30] MEDS: Insulin Regular 100 units/ml SC SCH ×4 (06:53→21:14)
[2017-11-30] MEDS: Acetylcysteine 20% Inhal Soln (4ml) INH SCH ×2 (07:51→19:42)
[2017-11-30] MEDS: Fluticasone-Salmeterol 250-50mcg Diskus INH SCH ×2 (08:13→21:11)
[2017-11-30] MEDS: MethylPREDNISolone 40 mg Vial IVP SCH ×2 (08:13→21:14)
[2017-11-30] MEDS: Enoxaparin 40 mg Syringe SC SCH (08:18)
[2017-11-30] MEDS: GlipiZIDE 2.5 mg SR Tab PO SCH ×2 (08:18→17:32)
[2017-11-30 15:48] VITALS: RESP 20
[2017-11-30] MEDS: Pravastatin Sodium 40 MG TAB PO SCH (16:59)
[2017-12-01] MEDS: Albuterol-Ipratrop 3 mg / 0.5 (3 ml) UD INH SCH ×5 (00:05→15:32)
[2017-12-01] MEDS: Insulin Regular 100 units/ml SC SCH ×4 (07:09→22:15)
[2017-12-01] MEDS: Acetylcysteine 20% Inhal Soln (4ml) INH SCH (07:49)
[2017-12-01] MEDS: MethylPREDNISolone 40 mg Vial IVP SCH (09:10)
[2017-12-01] MEDS: Fluticasone-Salmeterol 250-50mcg Diskus INH SCH ×2 (09:10→22:16)
[2017-12-01] MEDS: Enoxaparin 40 mg Syringe SC SCH (09:11)
[2017-12-01] MEDS: Pravastatin Sodium 40 MG TAB PO SCH (09:11)
[2017-12-01] MEDS: GlipiZIDE 2.5 mg SR Tab PO SCH ×2 (09:12→16:50)
--- NOTE | 2017-12-01 10:01 | CP.PCM.PN ---
Subjective - Date & Time of Evaluation Date of Evaluation: 12/01/17 Time of Evaluation: 10:01 - Subjective Subjective: SOB IMPROVED COUGH IMPROVED NO CHEST PAINS Objective - Vital Signs/Intake and Output Vital Signs (last 24 hours): Temp Pulse Resp BP Pulse Ox 97.5 F L 73 20 116/58 L 98 12/01/17 07:47 12/01/17 09:10 12/01/17 07:47 12/01/17 09:10 12/01/17 07:47 - Medications Medications: Current Medications Acetylcysteine (Acetylcysteine 20%) 2 ml INH RBID [facility] Last Admin: 12/01/17 07:49 Dose: 2 ml Albuterol/Ipratropium (Duoneb 3 Mg/0.5 Mg (3 Ml) Ud) 3 ml INH RQ4 [facility] Last Admin: 12/01/17 07:49 Dose: 3 ml Alprazolam (Xanax) 0.25 mg PO HS [facility] Stop: 12/02/17 22:01 Last Admin: 11/30/17 23:01 Dose: 0.25 mg Benzocaine/Menthol (Cepacol Sore Throat) 1 aliyah PO Q4 PRN PRN Reason: Sore Throat Last Admin: 11/27/17 16:21 Dose: 1 aliyah Docusate Sodium (Colace) 100 mg PO BID [facility] Last Admin: 12/01/17 09:11 Dose: 100 mg Enoxaparin Sodium (Lovenox) 40 mg SC DAILY [facility] PRN Reason: Protocol Last Admin: 12/01/17 09:11 Dose: 40 mg Glipizide (Glucotrol Xl) 2.5 mg PO BIDWM [facility] Last Admin: 12/01/17 09:12 Dose: 2.5 mg Insulin Human Regular (Humulin R) 0 units SC ACHS [facility] PRN Reason: Protocol Last Admin: 12/01/17 07:09 Dose: 8 units Lactulose (Enulose) 20 gm PO BID PRN PRN Reason: Constipation Last Admin: 11/30/17 17:05 Dose: 20 gm Levofloxacin (Levaquin) 250 mg PO DAILY [facility] PRN Reason: Protocol Last Admin: 12/01/17 09:11 Dose: 250 mg Lisinopril (Zestril) 20 mg PO DAILY [facility] Last Admin: 05/13/18 09:10 Dose: 20 mg Metformin HCl (Glucophage) 1,000 mg PO BRK [facility] Last Admin: 12/01/17 09:11 Dose: 1,000 mg Methylprednisolone (Solu-Medrol) 40 mg IVP Q12 [facility] Last Admin: 12/01/17 09:10 Dose: 40 mg Pravastatin Sodium (Pravachol) 40 mg PO DAILY [facility] Last Admin: 12/01/17 09:11 Dose: 40 mg Promethazine HCl/Dextromethorphan (Phenergan Dm Syrup) 10 ml PO Q6 PRN PRN Reason: Cough Last Admin: 11/28/17 10:36 Dose: 10 ml Fluticasone/Salmeterol (Advair Diskus 250/50) 1 puff INH BID@0900,2100 [facility] Last Admin: 12/01/17 09:10 Dose: 1 puff Sitagliptin Phosphate (Januvia) 100 mg PO DAILY [facility] Last Admin: 12/01/17 09:11 Dose: 100 mg - Labs Labs: 11/28/17 14:49 11/28/17 14:49 - Constitutional Appears: No Acute Distress - Head Exam Head Exam: ATRAUMATIC, NORMAL INSPECTION, NORMOCEPHALIC - Eye Exam Eye Exam: EOMI, Normal appearance, PERRL Pupil Exam: NORMAL ACCOMODATION, PERRL - ENT Exam ENT Exam: Mucous Membranes Moist, Normal Exam - Neck Exam Neck Exam: Full ROM, Normal Inspection. absent: Lymphadenopathy - Respiratory Exam Respiratory Exam: Decreased Breath Sounds, Prolonged Expiratory Phase, NORMAL BREATHING PATTERN - Cardiovascular Exam Cardiovascular Exam: REGULAR RHYTHM, +S1, +S2. absent: Murmur - GI/Abdominal Exam GI & Abdominal Exam: Soft, Normal Bowel Sounds. absent: Tenderness - Rectal Exam Rectal Exam: NORMAL INSPECTION - Extremities Exam Extremities Exam: Full ROM, Normal Capillary Refill, Normal Inspection. absent : Joint Swelling, Pedal Edema - Back Exam Back Exam: NORMAL INSPECTION - Neurological Exam Neurological Exam: Alert, Awake, CN II-XII Intact, Normal Gait, Oriented x3 - Psychiatric Exam Psychiatric exam: Normal Affect, Normal Mood - Skin Skin Exam: Dry, Intact, Normal Color, Warm Assessment and Plan - Assessment and Plan (Free Text) Assessment: COPD-IMPROVING PNEUMONIA--CLINICALLY IMPROVED Plan: CONTINUE CURRENT RX REPEAT CXR
--- NOTE | 2017-12-01 10:37 | CP.PCM.PN ---
Subjective - Date & Time of Evaluation Date of Evaluation: 11/30/17 Time of Evaluation: 18:35 Objective - Vital Signs/Intake and Output Vital Signs (last 24 hours): Temp Pulse Resp BP Pulse Ox 97.5 F L 73 20 116/58 L 98 12/01/17 07:47 12/01/17 09:10 12/01/17 07:47 12/01/17 09:10 12/01/17 07:47 - Medications Medications: Current Medications Albuterol/Ipratropium (Duoneb 3 Mg/0.5 Mg (3 Ml) Ud) 3 ml INH RQ4 [facility] Last Admin: 12/01/17 07:49 Dose: 3 ml Alprazolam (Xanax) 0.25 mg PO HS [facility] Stop: 12/02/17 22:01 Last Admin: 11/30/17 23:01 Dose: 0.25 mg Benzocaine/Menthol (Cepacol Sore Throat) 1 aliyah PO Q4 PRN PRN Reason: Sore Throat Last Admin: 11/27/17 16:21 Dose: 1 aliyah Docusate Sodium (Colace) 100 mg PO BID [facility] Last Admin: 12/01/17 09:11 Dose: 100 mg Enoxaparin Sodium (Lovenox) 40 mg SC DAILY [facility] PRN Reason: Protocol Last Admin: 12/01/17 09:11 Dose: 40 mg Glipizide (Glucotrol Xl) 2.5 mg PO BIDWM [facility] Last Admin: 12/01/17 09:12 Dose: 2.5 mg Insulin Human Regular (Humulin R) 0 units SC ACHS [facility] PRN Reason: Protocol Last Admin: 12/01/17 07:09 Dose: 8 units Lactulose (Enulose) 20 gm PO BID PRN PRN Reason: Constipation Last Admin: 11/30/17 17:05 Dose: 20 gm Levofloxacin (Levaquin) 250 mg PO DAILY [facility] PRN Reason: Protocol Last Admin: 12/01/17 09:11 Dose: 250 mg Lisinopril (Zestril) 20 mg PO DAILY [facility] Last Admin: 12/01/17 09:10 Dose: 20 mg Metformin HCl (Glucophage) 1,000 mg PO BRK [facility] Last Admin: 12/01/17 09:11 Dose: 1,000 mg Methylprednisolone (Solu-Medrol) 40 mg IVP Q12 [facility] Last Admin: 12/01/17 09:10 Dose: 40 mg Pravastatin Sodium (Pravachol) 40 mg PO DAILY [facility] Last Admin: 12/01/17 09:11 Dose: 40 mg Promethazine HCl/Dextromethorphan (Phenergan Dm Syrup) 10 ml PO Q6 PRN PRN Reason: Cough Last Admin: 11/28/17 10:36 Dose: 10 ml Fluticasone/Salmeterol (Advair Diskus 250/50) 1 puff INH BID@0900,2100 [facility] Last Admin: 12/01/17 09:10 Dose: 1 puff Sitagliptin Phosphate (Januvia) 100 mg PO DAILY [facility] Last Admin: 12/01/17 09:11 Dose: 100 mg - Labs Labs: 11/28/17 14:49 11/28/17 14:49 Assessment and Plan (1) COPD exacerbation Status: Acute (2) HTN (hypertension) Status: Chronic (3) Hypercholesteremia Status: Chronic (4) Diabetes Status: Chronic
--- NOTE | 2017-12-01 16:56 | CP.PCM.PN ---
Subjective - Date & Time of Evaluation Date of Evaluation: 12/01/17 Time of Evaluation: 15:45 Objective - Vital Signs/Intake and Output Vital Signs (last 24 hours): Temp Pulse Resp BP Pulse Ox 98.2 F 86 20 137/68 97 12/01/17 16:17 12/01/17 16:17 12/01/17 16:17 12/01/17 16:17 12/01/17 16:17 - Medications Medications: Current Medications Albuterol/Ipratropium (Duoneb 3 Mg/0.5 Mg (3 Ml) Ud) 3 ml INH RQ4 [facility] Last Admin: 12/01/17 15:32 Dose: 3 ml Alprazolam (Xanax) 0.25 mg PO HS [facility] Stop: 12/02/17 22:01 Last Admin: 11/30/17 23:01 Dose: 0.25 mg Benzocaine/Menthol (Cepacol Sore Throat) 1 aliyah PO Q4 PRN PRN Reason: Sore Throat Last Admin: 11/27/17 16:21 Dose: 1 aliyah Docusate Sodium (Colace) 100 mg PO BID [facility] Last Admin: 12/01/17 16:49 Dose: Not Given Enoxaparin Sodium (Lovenox) 40 mg SC DAILY [facility] PRN Reason: Protocol Last Admin: 12/01/17 09:11 Dose: 40 mg Glipizide (Glucotrol Xl) 2.5 mg PO BIDWM [facility] Last Admin: 12/01/17 16:50 Dose: 2.5 mg Insulin Human Regular (Humulin R) 0 units SC ACHS [facility] PRN Reason: Protocol Last Admin: 12/01/17 16:50 Dose: 8 units Lactulose (Enulose) 20 gm PO BID PRN PRN Reason: Constipation Last Admin: 11/30/17 17:05 Dose: 20 gm Levofloxacin (Levaquin) 250 mg PO DAILY [facility] PRN Reason: Protocol Last Admin: 12/01/17 09:11 Dose: 250 mg Lisinopril (Zestril) 20 mg PO DAILY [facility] Last Admin: 12/01/17 09:10 Dose: 20 mg Metformin HCl (Glucophage) 1,000 mg PO BRK [facility] Last Admin: 12/01/17 09:11 Dose: 1,000 mg Methylprednisolone (Solu-Medrol) 40 mg IVP Q12 [facility] Last Admin: 12/01/17 09:10 Dose: 40 mg Pravastatin Sodium (Pravachol) 40 mg PO DAILY [facility] Last Admin: 12/01/17 09:11 Dose: 40 mg Promethazine HCl/Dextromethorphan (Phenergan Dm Syrup) 10 ml PO Q6 PRN PRN Reason: Cough Last Admin: 11/28/17 10:36 Dose: 10 ml Fluticasone/Salmeterol (Advair Diskus 250/50) 1 puff INH BID@0900,2100 [facility] Last Admin: 12/01/17 09:10 Dose: 1 puff Sitagliptin Phosphate (Januvia) 100 mg PO DAILY [facility] Last Admin: 12/01/17 09:11 Dose: 100 mg - Labs Labs: 11/28/17 14:49 11/28/17 14:49 Assessment and Plan (1) COPD exacerbation Status: Acute (2) HTN (hypertension) Status: Chronic (3) Hypercholesteremia Status: Chronic (4) Diabetes Status: Chronic
[2017-12-02] MEDS: Albuterol-Ipratrop 3 mg / 0.5 (3 ml) UD INH SCH ×6 (00:19→19:45)
[2017-12-02] MEDS: Insulin Regular 100 units/ml SC SCH ×4 (06:30→21:42)
[2017-12-02] MEDS: Fluticasone-Salmeterol 250-50mcg Diskus INH SCH ×2 (08:32→21:43)
[2017-12-02] MEDS: Pravastatin Sodium 40 MG TAB PO SCH (08:33)
[2017-12-02] MEDS: Enoxaparin 40 mg Syringe SC SCH (08:33)
[2017-12-02] MEDS: GlipiZIDE 2.5 mg SR Tab PO SCH ×2 (08:33→16:57)
[2017-12-02] MEDS: MethylPREDNISolone 40 mg Vial IVP SCH (08:34)
--- NOTE | 2017-12-02 11:25 | RAD ---
HISTORY: PNEUMONIA COMPARISON: Comparison made with prior study 11/23/2017 and CTA chest dated 11/20/2017 TECHNIQUE: Chest PA and lateral FINDINGS: LUNGS: No active pulmonary disease. PLEURA: No significant pleural effusion identified. No pneumothorax apparent. CARDIOVASCULAR: Cardiomegaly. Aorta slightly ectatic and uncoiled. OSSEOUS STRUCTURES: Mild multilevel degenerative spondylosis of the thoracic spine. Chronic anterior wedging of a few mid -upper thoracic segments noted. VISUALIZED UPPER ABDOMEN: Normal. OTHER FINDINGS: None. IMPRESSION: No acute infiltrates.
[2017-12-02 16:03] LABS: SQUAMOUS EPITHIAL 2 /hpf (0-5); URINE BACTERIA RARE (<OCC); URINE BILIRUBIN NEGATIVE (NEGATIVE); URINE BLOOD NEGATIVE (NEGATIVE); URINE CLARITY SLIGHTY-CLOUDY (Clear); URINE COLOR YELLOW (YELLOW); URINE GLUCOSE (UA) >=500 mg/dL (Normal); URINE LEUKOCYTE ESTERASE SMALL Leu/uL (Negative); URINE PROTEIN NEGATIVE (NEGATIVE); URINE UROBILINOGEN 0.2-1.0 mg/dL (0.2-1.0)
[2017-12-02 16:17] LABS: HEMOGLOBIN 11.6 g/dL (12.0-16.0); MEAN CELL VOLUME 75.2 fl (81.0-99.0); MEAN CORPUSCULAR HGB CONC 31.8 g/dL (33.0-37.0); RBC 4.86 Mil/uL (3.80-5.20); RED CELL DISTRIBUTION WIDTH 18.2 % (11.5-14.5)
[2017-12-02 16:47] LABS: ALB/GLOB RATIO 1.2 (1.0-2.1); ALBUMIN 3.5 g/dL (3.5-5.0)
[2017-12-02] MEDS: Pantoprazole 40 mg EC Tab PO SCH (16:56)
[2017-12-02] MEDS ORDERED: Sodium Chloride 0.9% 500 ML IV ONE (17:44)
--- NOTE | 2017-12-02 18:34 | CP.PCM.PN ---
Subjective - Date & Time of Evaluation Date of Evaluation: 12/02/17 Time of Evaluation: 16:25 Objective - Vital Signs/Intake and Output Vital Signs (last 24 hours): Temp Pulse Resp BP Pulse Ox 97.7 F 93 H 20 144/83 98 12/02/17 16:30 12/02/17 16:30 12/02/17 16:30 12/02/17 16:30 12/02/17 16:30 - Medications Medications: Current Medications Acetaminophen (Tylenol 325mg Tab) 650 mg PO Q6 PRN PRN Reason: Pain, moderate (4-7) Last Admin: 12/02/17 14:12 Dose: 650 mg Albuterol/Ipratropium (Duoneb 3 Mg/0.5 Mg (3 Ml) Ud) 3 ml INH RQ4 [facility] Last Admin: 12/02/17 16:14 Dose: 3 ml Alprazolam (Xanax) 0.25 mg PO HS [facility] Stop: 12/02/17 22:01 Last Admin: 12/01/17 23:04 Dose: 0.25 mg Benzocaine/Menthol (Cepacol Sore Throat) 1 aliyah PO Q4 PRN PRN Reason: Sore Throat Last Admin: 11/27/17 16:21 Dose: 1 aliyah Docusate Sodium (Colace) 100 mg PO BID [facility] Last Admin: 12/02/17 16:57 Dose: 100 mg Enoxaparin Sodium (Lovenox) 40 mg SC DAILY [facility] PRN Reason: Protocol Last Admin: 12/02/17 08:33 Dose: 40 mg Glipizide (Glucotrol Xl) 2.5 mg PO BIDWM [facility] Last Admin: 12/02/17 16:57 Dose: 2.5 mg Sodium Chloride (Sodium Chloride 0.9%) 500 mls @ 500 mls/hr IV .Q1H [facility] Stop: 12/02/17 18:43 Last Admin: 12/02/17 18:16 Dose: 500 mls/hr Insulin Human Regular (Humulin R) 0 units SC ACHS [facility] PRN Reason: Protocol Last Admin: 12/02/17 16:57 Dose: 8 units Iohexol (Omnipaque 240 (50 Ml)) 1 ml PO ONCE [facility] Stop: 12/02/17 18:18 Lactulose (Enulose) 20 gm PO BID PRN PRN Reason: Constipation Last Admin: 11/30/17 17:05 Dose: 20 gm Levofloxacin (Levaquin) 250 mg PO DAILY [facility] PRN Reason: Protocol Last Admin: 12/02/17 08:33 Dose: 250 mg Lisinopril (Zestril) 20 mg PO DAILY [facility] Last Admin: 12/02/17 08:34 Dose: 20 mg Metformin HCl (Glucophage) 1,000 mg PO BRK [facility] Last Admin: 12/02/17 08:33 Dose: 1,000 mg Methylprednisolone (Solu-Medrol) 40 mg IVP DAILY [facility] Last Admin: 12/02/17 08:34 Dose: 40 mg Ondansetron HCl (Zofran Odt) 4 mg PO Q8H PRN PRN Reason: Nausea/Vomiting Last Admin: 12/02/17 16:56 Dose: 4 mg Pantoprazole Sodium (Protonix Ec Tab) 40 mg PO DAILY [facility] Last Admin: 12/02/17 16:56 Dose: 40 mg Pravastatin Sodium (Pravachol) 40 mg PO DAILY [facility] Last Admin: 12/02/17 08:33 Dose: 40 mg Promethazine HCl/Dextromethorphan (Phenergan Dm Syrup) 10 ml PO Q6 PRN PRN Reason: Cough Last Admin: 11/28/17 10:36 Dose: 10 ml Fluticasone/Salmeterol (Advair Diskus 250/50) 1 puff INH BID@0900,2100 [facility] Last Admin: 12/02/17 08:32 Dose: 1 puff Sitagliptin Phosphate (Januvia) 100 mg PO DAILY [facility] Last Admin: 12/02/17 08:33 Dose: 100 mg - Labs Labs: 12/02/17 14:41 12/02/17 14:41 Assessment and Plan (1) COPD exacerbation Status: Acute (2) HTN (hypertension) Status: Chronic (3) Hypercholesteremia Status: Chronic (4) Diabetes Status: Chronic
[2017-12-02] MEDS ORDERED: Iohexol 240 (50 ml) PO ONE (20:00)
[2017-12-03] MEDS: Albuterol-Ipratrop 3 mg / 0.5 (3 ml) UD INH SCH ×6 (01:07→19:30)
[2017-12-03] MEDS: Insulin Regular 100 units/ml SC SCH ×4 (06:47→21:20)
[2017-12-03] MEDS: GlipiZIDE 2.5 mg SR Tab PO SCH ×2 (08:10→16:19)
[2017-12-03] MEDS: Pravastatin Sodium 40 MG TAB PO SCH (08:10)
[2017-12-03] MEDS: MethylPREDNISolone 40 mg Vial IVP SCH (08:11)
[2017-12-03] MEDS: Enoxaparin 40 mg Syringe SC SCH (08:12)
[2017-12-03] MEDS: Fluticasone-Salmeterol 250-50mcg Diskus INH SCH ×2 (08:13→21:00)
[2017-12-03] MEDS: Pantoprazole 40 mg EC Tab PO SCH (08:16)
[2017-12-03] MEDS ORDERED: Alum-Mag Hydrox-Simethicone Susp (30 mL) PO PRN (16:07)
[2017-12-04] MEDS: Albuterol-Ipratrop 3 mg / 0.5 (3 ml) UD INH SCH ×6 (00:22→19:18)
[2017-12-04] MEDS: Insulin Regular 100 units/ml SC SCH ×4 (06:41→21:18)
[2017-12-04 06:58] LABS: HEMOGLOBIN 10.4 g/dL (12.0-16.0); MEAN CELL VOLUME 75.7 fl (81.0-99.0); MEAN CORPUSCULAR HEMOGLOBIN 23.7 pg (27.0-31.0); MEAN CORPUSCULAR HGB CONC 31.3 g/dL (33.0-37.0); RBC 4.37 Mil/uL (3.80-5.20); RED CELL DISTRIBUTION WIDTH 18.3 % (11.5-14.5); WHITE BLOOD COUNT 19.8 K/uL (4.8-10.8)
[2017-12-04 07:18] LABS: BLOOD UREA NITROGEN 30 mg/dl (7-17); CALCIUM 8.7 mg/dL (8.4-10.2); GFR AFRICAN-AMERICAN > 60; GFR NON-AFRICAN AMERICAN > 60; LIPASE 296 U/L (23-300)
[2017-12-04] MEDS: Pantoprazole 40 mg EC Tab PO SCH (08:59)
[2017-12-04] MEDS: Pravastatin Sodium 40 MG TAB PO SCH (08:59)
[2017-12-04] MEDS: Enoxaparin 40 mg Syringe SC SCH (09:00)
[2017-12-04] MEDS: GlipiZIDE 2.5 mg SR Tab PO SCH ×2 (09:00→16:13)
[2017-12-04] MEDS: Fluticasone-Salmeterol 250-50mcg Diskus INH SCH ×2 (09:19→21:19)
[2017-12-04] MEDS ORDERED: Albuterol 0.083% Inhal Sol (2.5 mg/3 mL) UD INH STA (09:25)
--- NOTE | 2017-12-04 09:46 | CP.PCM.PN ---
Subjective - Date & Time of Evaluation Date of Evaluation: 12/04/17 Time of Evaluation: 09:51 - Subjective Subjective: SOB IMPROVED COUGH LESS Objective - Vital Signs/Intake and Output Vital Signs (last 24 hours): Temp Pulse Resp BP Pulse Ox 97.5 F L 83 20 117/53 L 99 12/04/17 07:54 12/04/17 08:58 12/04/17 07:54 12/04/17 08:58 12/04/17 07:54 - Medications Medications: Current Medications Acetaminophen (Tylenol 325mg Tab) 650 mg PO Q6 PRN PRN Reason: Pain, moderate (4-7) Last Admin: 12/02/17 14:12 Dose: 650 mg Al Hydrox/Mg Hydrox/Simethicone (Maalox Plus 30 Ml) 30 ml PO Q6 PRN PRN Reason: Indigestion / Heartburn Last Admin: 12/03/17 16:20 Dose: 30 ml Albuterol Sulfate (Albuterol 0.083% Inhal [facility] [place] (2.5 Mg/3 Ml) Ud) 2.5 mg INH STAT [facility] Stop: 12/04/17 09:26 Albuterol/Ipratropium (Duoneb 3 Mg/0.5 Mg (3 Ml) Ud) 3 ml INH RQ4 [facility] Last Admin: 12/04/17 07:12 Dose: 3 ml Alprazolam (Xanax) 0.25 mg PO HS [facility] Stop: 12/10/17 22:01 Last Admin: 12/03/17 22:12 Dose: 0.25 mg Benzocaine/Menthol (Cepacol Sore Throat) 1 aliyah PO Q4 PRN PRN Reason: Sore Throat Last Admin: 11/27/17 16:21 Dose: 1 aliyah Dicyclomine HCl (Bentyl) 20 mg PO Q8 PRN PRN Reason: GI distress Docusate Sodium (Colace) 100 mg PO BID [facility] Last Admin: 12/04/17 08:59 Dose: 100 mg Enoxaparin Sodium (Lovenox) 40 mg SC DAILY [facility] PRN Reason: Protocol Last Admin: 12/04/17 09:00 Dose: 40 mg Glipizide (Glucotrol Xl) 2.5 mg PO BIDWM [facility] Last Admin: 12/04/17 09:00 Dose: 2.5 mg Sodium Bicarbonate 50 meq/ (Sodium Chloride) 550 mls @ 150 mls/hr IV .Q3H40M ONE Stop: 12/04/17 13:05 Insulin Human Regular (Humulin R) 0 units SC ACHS [facility] PRN Reason: Protocol Last Admin: 12/04/17 06:41 Dose: Not Given Lactulose (Enulose) 20 gm PO BID PRN PRN Reason: Constipation Last Admin: 11/30/17 17:05 Dose: 20 gm Levofloxacin (Levaquin) 250 mg PO DAILY [facility] PRN Reason: Protocol Last Admin: 12/04/17 08:59 Dose: 250 mg Lisinopril (Zestril) 20 mg PO DAILY [facility] Last Admin: 12/04/17 08:58 Dose: 20 mg Metformin HCl (Glucophage) 1,000 mg PO BRK [facility] Last Admin: 12/02/17 08:33 Dose: 1,000 mg Ondansetron HCl (Zofran Odt) 4 mg PO Q8H PRN PRN Reason: Nausea/Vomiting Last Admin: 12/02/17 16:56 Dose: 4 mg Pantoprazole Sodium (Protonix Ec Tab) 40 mg PO DAILY [facility] Last Admin: 12/04/17 08:59 Dose: 40 mg Pravastatin Sodium (Pravachol) 40 mg PO DAILY [facility] Last Admin: 12/04/17 08:59 Dose: 40 mg Promethazine HCl/Dextromethorphan (Phenergan Dm Syrup) 10 ml PO Q6 PRN PRN Reason: Cough Last Admin: 11/28/17 10:36 Dose: 10 ml Fluticasone/Salmeterol (Advair Diskus 250/50) 1 puff INH BID@0900,2100 [facility] Last Admin: 12/04/17 09:19 Dose: 1 puff Sitagliptin Phosphate (Januvia) 100 mg PO DAILY [facility] Last Admin: 12/04/17 09:20 Dose: 100 mg Sodium Polystyrene Sulfonate (Kayexalate Susp) 30 gm PO ONCE ONE Stop: 12/04/17 09:26 - Labs Labs: 12/04/17 05:55 12/04/17 05:55 - Constitutional Appears: Well - Head Exam Head Exam: ATRAUMATIC, NORMAL INSPECTION, NORMOCEPHALIC - Eye Exam Eye Exam: EOMI, Normal appearance, PERRL Pupil Exam: NORMAL ACCOMODATION, PERRL - ENT Exam ENT Exam: Mucous Membranes Moist, Normal Exam - Neck Exam Neck Exam: Full ROM, Normal Inspection. absent: Lymphadenopathy - Respiratory Exam Respiratory Exam: Prolonged Expiratory Phase, NORMAL BREATHING PATTERN - Cardiovascular Exam Cardiovascular Exam: REGULAR RHYTHM, +S1, +S2. absent: Murmur - GI/Abdominal Exam GI & Abdominal Exam: Soft, Normal Bowel Sounds. absent: Tenderness - Rectal Exam Rectal Exam: NORMAL INSPECTION - Extremities Exam Extremities Exam: Full ROM, Normal Capillary Refill, Normal Inspection. absent : Joint Swelling, Pedal Edema - Back Exam Back Exam: NORMAL INSPECTION - Neurological Exam Neurological Exam: Alert, Awake, CN II-XII Intact, Normal Gait, Oriented x3 - Psychiatric Exam Psychiatric exam: Normal Affect, Normal Mood - Skin Skin Exam: Dry, Intact, Normal Color, Warm Assessment and Plan - Assessment and Plan (Free Text) Assessment: COPD-IMPROVED Plan: TAPER STEROIDS
[2017-12-04] MEDS ORDERED: SODIUM BICARBONATE IV ONE (10:00)
[2017-12-04] MEDS ORDERED: Sod Polystyrene Sulf 15 gm/60 ml Susp PO ONE (10:00)
[2017-12-04] MEDS ORDERED: SODIUM CHLORIDE 0.9% IV ONE (10:00)
[2017-12-04] MEDS: MethylPREDNISolone 40 mg Vial IVP SCH (11:23)
--- NOTE | 2017-12-05 00:33 | CP.PCM.PN ---
Subjective - Date & Time of Evaluation Date of Evaluation: 12/03/17 Time of Evaluation: 22:45 Objective - Vital Signs/Intake and Output Vital Signs (last 24 hours): Temp Pulse Resp BP Pulse Ox 98.2 F 94 H 20 119/61 96 12/04/17 22:20 12/04/17 22:20 12/04/17 22:20 12/04/17 22:20 12/04/17 22:20 - Medications Medications: Current Medications Acetaminophen (Tylenol 325mg Tab) 650 mg PO Q6 PRN PRN Reason: Pain, moderate (4-7) Last Admin: 12/02/17 14:12 Dose: 650 mg Al Hydrox/Mg Hydrox/Simethicone (Maalox Plus 30 Ml) 30 ml PO Q6 PRN PRN Reason: Indigestion / Heartburn Last Admin: 12/03/17 16:20 Dose: 30 ml Albuterol/Ipratropium (Duoneb 3 Mg/0.5 Mg (3 Ml) Ud) 3 ml INH RQ4 [facility] Last Admin: 12/04/17 19:18 Dose: 3 ml Alprazolam (Xanax) 0.25 mg PO HS [facility] Stop: 12/10/17 22:01 Last Admin: 12/04/17 21:17 Dose: 0.25 mg Benzocaine/Menthol (Cepacol Sore Throat) 1 aliyah PO Q4 PRN PRN Reason: Sore Throat Last Admin: 11/27/17 16:21 Dose: 1 aliyah Dicyclomine HCl (Bentyl) 20 mg PO Q8 PRN PRN Reason: GI distress Docusate Sodium (Colace) 100 mg PO BID [facility] Last Admin: 12/04/17 16:15 Dose: Not Given Enoxaparin Sodium (Lovenox) 40 mg SC DAILY [facility] PRN Reason: Protocol Last Admin: 12/04/17 09:00 Dose: 40 mg Glipizide (Glucotrol Xl) 2.5 mg PO BIDWM [facility] Last Admin: 12/04/17 16:13 Dose: 2.5 mg Insulin Human Regular (Humulin R) 0 units SC ACHS [facility] PRN Reason: Protocol Last Admin: 12/04/17 21:18 Dose: 2 units Lactulose (Enulose) 20 gm PO BID PRN PRN Reason: Constipation Last Admin: 11/30/17 17:05 Dose: 20 gm Levofloxacin (Levaquin) 250 mg PO DAILY [facility] PRN Reason: Protocol Last Admin: 12/04/17 08:59 Dose: 250 mg Lisinopril (Zestril) 20 mg PO DAILY [facility] Last Admin: 12/04/17 08:58 Dose: 20 mg Metformin HCl (Glucophage) 1,000 mg PO BRK [facility] Last Admin: 12/02/17 08:33 Dose: 1,000 mg Ondansetron HCl (Zofran Odt) 4 mg PO Q8H PRN PRN Reason: Nausea/Vomiting Last Admin: 12/02/17 16:56 Dose: 4 mg Pantoprazole Sodium (Protonix Ec Tab) 40 mg PO DAILY [facility] Last Admin: 12/04/17 08:59 Dose: 40 mg Pravastatin Sodium (Pravachol) 40 mg PO DAILY [facility] Last Admin: 12/04/17 08:59 Dose: 40 mg Prednisone (Prednisone Tab) 20 mg PO DAILY [facility] Last Admin: 12/04/17 11:28 Dose: 20 mg Promethazine HCl/Dextromethorphan (Phenergan Dm Syrup) 10 ml PO Q6 PRN PRN Reason: Cough Last Admin: 11/28/17 10:36 Dose: 10 ml Fluticasone/Salmeterol (Advair Diskus 250/50) 1 puff INH BID@0900,2100 [facility] Last Admin: 12/04/17 21:19 Dose: 1 puff Sitagliptin Phosphate (Januvia) 100 mg PO DAILY [facility] Last Admin: 12/04/17 09:20 Dose: 100 mg - Labs Labs: 12/04/17 05:55 12/04/17 05:55 Assessment and Plan (1) COPD exacerbation Status: Acute (2) HTN (hypertension) Status: Chronic (3) Hypercholesteremia Status: Chronic (4) Diabetes Status: Chronic
--- NOTE | 2017-12-05 00:34 | CP.PCM.PN ---
Subjective - Date & Time of Evaluation Date of Evaluation: 12/04/17 Time of Evaluation: 20:25 Objective - Vital Signs/Intake and Output Vital Signs (last 24 hours): Temp Pulse Resp BP Pulse Ox 98.2 F 94 H 20 119/61 96 12/04/17 22:20 12/04/17 22:20 12/04/17 22:20 12/04/17 22:20 12/04/17 22:20 - Medications Medications: Current Medications Acetaminophen (Tylenol 325mg Tab) 650 mg PO Q6 PRN PRN Reason: Pain, moderate (4-7) Last Admin: 12/02/17 14:12 Dose: 650 mg Al Hydrox/Mg Hydrox/Simethicone (Maalox Plus 30 Ml) 30 ml PO Q6 PRN PRN Reason: Indigestion / Heartburn Last Admin: 12/03/17 16:20 Dose: 30 ml Albuterol/Ipratropium (Duoneb 3 Mg/0.5 Mg (3 Ml) Ud) 3 ml INH RQ4 [facility] Last Admin: 12/04/17 19:18 Dose: 3 ml Alprazolam (Xanax) 0.25 mg PO HS [facility] Stop: 12/10/17 22:01 Last Admin: 12/04/17 21:17 Dose: 0.25 mg Benzocaine/Menthol (Cepacol Sore Throat) 1 aliyah PO Q4 PRN PRN Reason: Sore Throat Last Admin: 11/27/17 16:21 Dose: 1 aliyah Dicyclomine HCl (Bentyl) 20 mg PO Q8 PRN PRN Reason: GI distress Docusate Sodium (Colace) 100 mg PO BID [facility] Last Admin: 12/04/17 16:15 Dose: Not Given Enoxaparin Sodium (Lovenox) 40 mg SC DAILY [facility] PRN Reason: Protocol Last Admin: 12/04/17 09:00 Dose: 40 mg Glipizide (Glucotrol Xl) 2.5 mg PO BIDWM [facility] Last Admin: 12/04/17 16:13 Dose: 2.5 mg Insulin Human Regular (Humulin R) 0 units SC ACHS [facility] PRN Reason: Protocol Last Admin: 12/04/17 21:18 Dose: 2 units Lactulose (Enulose) 20 gm PO BID PRN PRN Reason: Constipation Last Admin: 11/30/17 17:05 Dose: 20 gm Levofloxacin (Levaquin) 250 mg PO DAILY [facility] PRN Reason: Protocol Last Admin: 12/04/17 08:59 Dose: 250 mg Lisinopril (Zestril) 20 mg PO DAILY [facility] Last Admin: 12/04/17 08:58 Dose: 20 mg Metformin HCl (Glucophage) 1,000 mg PO BRK [facility] Last Admin: 12/02/17 08:33 Dose: 1,000 mg Ondansetron HCl (Zofran Odt) 4 mg PO Q8H PRN PRN Reason: Nausea/Vomiting Last Admin: 12/02/17 16:56 Dose: 4 mg Pantoprazole Sodium (Protonix Ec Tab) 40 mg PO DAILY [facility] Last Admin: 12/04/17 08:59 Dose: 40 mg Pravastatin Sodium (Pravachol) 40 mg PO DAILY [facility] Last Admin: 12/04/17 08:59 Dose: 40 mg Prednisone (Prednisone Tab) 20 mg PO DAILY [facility] Last Admin: 12/04/17 11:28 Dose: 20 mg Promethazine HCl/Dextromethorphan (Phenergan Dm Syrup) 10 ml PO Q6 PRN PRN Reason: Cough Last Admin: 11/28/17 10:36 Dose: 10 ml Fluticasone/Salmeterol (Advair Diskus 250/50) 1 puff INH BID@0900,2100 [facility] Last Admin: 12/04/17 21:19 Dose: 1 puff Sitagliptin Phosphate (Januvia) 100 mg PO DAILY [facility] Last Admin: 12/04/17 09:20 Dose: 100 mg - Labs Labs: 12/04/17 05:55 12/04/17 05:55 Assessment and Plan (1) COPD exacerbation Status: Acute (2) HTN (hypertension) Status: Chronic (3) Hypercholesteremia Status: Chronic (4) Diabetes Status: Chronic
[2017-12-05] MEDS: Albuterol-Ipratrop 3 mg / 0.5 (3 ml) UD INH SCH ×5 (04:57→16:13)
[2017-12-05] MEDS: Promethazine DM 12.5 mg-30 mg/10 ml Syrup PO PRN (06:11)
[2017-12-05] MEDS: Insulin Regular 100 units/ml SC SCH ×2 (06:46→12:01)
[2017-12-05 08:13] LABS: BLOOD UREA NITROGEN 21 mg/dl (7-17); CALCIUM 8.4 mg/dL (8.4-10.2); GFR AFRICAN-AMERICAN > 60; GFR NON-AFRICAN AMERICAN > 60
[2017-12-05] MEDS: Fluticasone-Salmeterol 250-50mcg Diskus INH SCH (08:26)
[2017-12-05] MEDS: GlipiZIDE 2.5 mg SR Tab PO SCH (08:27)
[2017-12-05] MEDS: Pantoprazole 40 mg EC Tab PO SCH (08:29)
[2017-12-05] MEDS: Pravastatin Sodium 40 MG TAB PO SCH (08:29)
[2017-12-05] MEDS: Enoxaparin 40 mg Syringe SC SCH (08:29)
[2017-12-05 09:31] LABS: HEMOGLOBIN 9.5 g/dL (12.0-16.0); MEAN CELL VOLUME 76.2 fl (81.0-99.0); MEAN CORPUSCULAR HEMOGLOBIN 23.8 pg (27.0-31.0); MEAN CORPUSCULAR HGB CONC 31.3 g/dL (33.0-37.0); RED CELL DISTRIBUTION WIDTH 17.9 % (11.5-14.5); WHITE BLOOD COUNT 14.9 K/uL (4.8-10.8)
[2017-12-05 16:19] VITALS: BP 126/63; PULSE 83; TEMP 98.1; O2SAT 98
--- NOTE | 2017-12-06 23:10 | CP.PCM.DIS ---
Provider - Provider Date of Admission: 11/25/17 15:28 Attending physician: Ronald Benoit MD Primary care physician: Milly Crenshaw MD Time Spent in preparation of Discharge (in minutes): 25 Diagnosis - Discharge Diagnosis (1) COPD exacerbation Status: Acute (2) HTN (hypertension) Status: Chronic (3) Hypercholesteremia Status: Chronic (4) Diabetes Status: Chronic Hospital Course - Lab Results Lab Results: Most Recent Lab Values WBC 14.9 K/uL (4.8-10.8) H 12/05/17 09:25 RBC 4.00 Mil/uL (3.80-5.20) 12/05/17 09:25 Hgb 9.5 g/dL (12.0-16.0) L 12/05/17 09:25 Hct 30.5 % (34.0-47.0) L 12/05/17 09:25 MCV 76.2 fl (81.0-99.0) L 12/05/17 09:25 MCH 23.8 pg (27.0-31.0) L 12/05/17 09:25 MCHC 31.3 g/dL (33.0-37.0) L 12/05/17 09:25 RDW 17.9 % (11.5-14.5) H 12/05/17 09:25 Plt Count 151 K/uL (130-400) 12/05/17 09:25 MPV 9.3 fl (7.2-11.7) 11/28/17 14:49 Neut % (Auto) 91.9 % (50.0-75.0) H 11/28/17 14:49 Lymph % (Auto) 3.9 % (20.0-40.0) L 11/28/17 14:49 [place] % (Auto) 4.0 % (0.0-10.0) 11/28/17 14:49 Eos % (Auto) 0.0 % (0.0-4.0) 11/28/17 14:49 Baso % (Auto) 0.2 % (0.0-2.0) 11/28/17 14:49 Neut # (Auto) 16.3 K/uL (1.8-7.0) H 11/28/17 14:49 Lymph # (Auto) 0.7 K/uL (1.0-4.3) L 11/28/17 14:49 [place] # (Auto) 0.7 K/uL (0.0-0.8) 11/28/17 14:49 Eos # (Auto) 0.0 K/uL (0.0-0.7) 11/28/17 14:49 Baso # (Auto) 0.0 K/uL (0.0-0.2) 11/28/17 14:49 Neutrophils % (Manual) 89 % (42-75) H 11/28/17 14:49 Band Neutrophils % 1 % (0-2) 11/28/17 14:49 Lymphocytes % (Manual) 6 % (20-50) L 11/28/17 14:49 Monocytes % (Manual) 4 % (0-10) 11/28/17 14:49 Platelet Estimate Normal (NORMAL) 11/28/17 14:49 Hypochromasia (manual) Slight 11/28/17 14:49 Poikilocytosis (manual Slight 11/28/17 14:49 Anisocytosis (manual) Slight 11/28/17 14:49 Microcytosis (manual) Slight 11/28/17 14:49 Tear Drop Cells Slight 11/28/17 14:49 Ovalocytes Slight 11/28/17 14:49 Stomatocytes Slight 11/28/17 14:49 Sodium 130 mmol/l (132-148) L 12/05/17 07:10 Potassium 4.4 MMOL/L (3.6-5.0) 12/05/17 07:10 Chloride 91 mmol/L (98-107) L 12/05/17 07:10 Carbon Dioxide 31 mmol/L (22-30) H 12/05/17 07:10 Anion Gap 12 (10-20) 12/05/17 07:10 BUN 21 mg/dl (7-17) H 12/05/17 07:10 Creatinine 0.8 mg/dl (0.7-1.2) 12/05/17 07:10 Est GFR ( Amer) > 60 12/05/17 07:10 Est GFR (Non-Af Amer) > 60 12/05/17 07:10 POC Glucose (mg/dL) 262 mg/dL (65-110) H 12/05/17 15:45 Random Glucose 179 mg/dL (65-105) H 12/05/17 07:10 Calcium 8.4 mg/dL (8.4-10.2) 12/05/17 07:10 Magnesium 1.7 MG/DL (1.6-2.3) 12/02/17 14:41 Total Bilirubin 0.4 mg/dl (0.2-1.3) 12/02/17 14:41 AST 59 U/L (14-36) H D 12/02/17 14:41 ALT 100 U/L (9-52) H D 12/02/17 14:41 Alkaline Phosphatase 72 U/L (38-126) 12/02/17 14:41 Total Protein 6.4 G/DL (6.3-8.2) 12/02/17 14:41 Albumin 3.5 g/dL (3.5-5.0) 12/02/17 14:41 Globulin 2.9 gm/dL (2.2-3.9) 12/02/17 14:41 Albumin/Globulin Ratio 1.2 (1.0-2.1) 12/02/17 14:41 Lipase 296 U/L (23-300) 12/04/17 05:55 Urine Color Yellow (YELLOW) 12/02/17 15:20 Urine Clarity Slighty-cloudy (Clear) 12/02/17 15:20 Urine pH 6.0 (5.0-8.0) 12/02/17 15:20 Ur Specific [place] 1.011 (1.003-1.030) 12/02/17 15:20 Urine Protein Negative mg/dL (NEGATIVE) 12/02/17 15:20 Urine Glucose (UA) >=500 mg/dL (Normal) 12/02/17 15:20 Urine Ketones Negative mg/dL (NEGATIVE) 12/02/17 15:20 Urine Blood Negative (NEGATIVE) 12/02/17 15:20 Urine Nitrate Negative (NEGATIVE) 12/02/17 15:20 Urine Bilirubin Negative (NEGATIVE) 12/02/17 15:20 Urine Urobilinogen 0.2-1.0 mg/dL (0.2-1.0) 12/02/17 15:20 Ur Leukocyte Esterase Small [place]/uL (Negative) 12/02/17 15:20 Urine RBC (Auto) 1 /hpf (0-3) 12/02/17 15:20 Urine Microscopic WBC 8 /hpf (0-5) H 12/02/17 15:20 Ur Squamous Epith Cells 2 /hpf (0-5) 12/02/17 15:20 Urine Bacteria Rare (<OCC) 12/02/17 15:20 Discharge Exam - Head Exam Head Exam: ATRAUMATIC, NORMAL INSPECTION, NORMOCEPHALIC Discharge Plan - Follow Up Plan Condition: GOOD Disposition: HOME/ ROUTINE Instructions: Asthma, Adult (DC), Shortness of Breath (Dyspnea) (DC), Preventing Falls Additional Instructions: FOLLOW UP WITH PRIMARY MD IN 1 WEEK , AND FOLLOW UP WITH OUTSIDE SALES ACCOUNT EXECUTIVE IN 1 WEEK. Referrals: Milly Crenshaw MD [Primary Care Provider] - Ronald Benoit MD [Staff Provider] - Gary Mancia MD [Staff Provider] -
== END 2017-12-05 16:29 | disposition home or self-care (01) | DRG 190 ==
LOC: H.TCU 15:28
PROVIDERS: ADMIT Internal Medicine; ATTEND Internal Medicine
PROC: F07Z5FZ Bed Mobility Treatment using Assistive, Adaptive, Supportive or Protective Equipment (ICD-10-PCS; principal; 2017-11-25)
PROC: F07L6FZ Therapeutic Exercise Treatment of Musculoskeletal System - Lower Back / Lower Extremity using Assistive, Adaptive, Supportive or Protective Equipment (ICD-10-PCS; 2017-11-25)
PROC: F07Z9FZ Gait Training/Functional Ambulation Treatment using Assistive, Adaptive, Supportive or Protective Equipment (ICD-10-PCS; 2017-11-25)
PROC: F07Z8FZ Transfer Training Treatment using Assistive, Adaptive, Supportive or Protective Equipment (ICD-10-PCS; 2017-11-25)
PROC: 5A0955Z Assistance with Respiratory Ventilation, Greater than 96 Consecutive Hours (ICD-10-PCS; 2017-11-25)
DX: J44.0 Chronic obstructive pulmonary disease with (acute) lower respiratory infection (principal); J18.9 Pneumonia, unspecified organism; J44.1 Chronic obstructive pulmonary disease with (acute) exacerbation; E11.9 Type 2 diabetes mellitus without complications; I10 Essential (primary) hypertension; E78.00 Pure hypercholesterolemia, unspecified; Z87.891 Personal history of nicotine dependence

== ENCOUNTER 2018-02-10 08:03 | Emergency (ER) | payer MEDICARE, MEDICAID ==
[2018-02-10 08:03] VITALS: BMI 41.1
--- NOTE | 2018-02-10 08:39 | ED PDOC ---
HPI: SOB/CHF/COPD Time Seen by Provider: 02/10/18 08:10 Chief Complaint (Nursing): Shortness Of Breath Chief Complaint (Provider): Shortness Of Breath History Per: Patient History/Exam Limitations: no limitations Onset/Duration Of Symptoms: Days (x2) Current Symptoms Are (Timing): Still Present Additional Complaint(s): 72 year old female with medical history of asthma, presents to the emergency department with a complaint of difficulty breathing ongoing since last night. Patient reports using her inhaler with no alleviation. She denies any chest pain , coughing, leg pain or swelling. Additionally, patient states she is having left shoulder pain. PMD: Dr. Milly Crenshaw Cardio: Dr. Lopez Past Medical History Reviewed: Historical Data, Nursing Documentation, Vital Signs Vital Signs: Last Vital Signs Temp 98 F 02/10/18 12:24 Pulse 78 02/10/18 12:24 Resp 18 02/10/18 12:24 BP 125/64 02/10/18 12:24 Pulse Ox 96 02/10/18 12:24 - Medical History PMH: Anxiety, Asthma, COPD, HTN, Hyperlipidemia Denies: Chronic Kidney Disease - Surgical History Surgical History: Denies: No Surg Hx Other surgeries: hysterectomy - Family History Family History: States: Unknown Family Hx - Social History Current smoker - smoking cessation education provided: No Ex-Smoker (has not smoked in the last 12 months): Yes Alcohol: None Drugs: Denies - Home Medications Home Medications: Ambulatory Orders Medication Instructions Recorded ALPRAZolam [Xanax] 0.25 mg PO HS 11/20/17 Fluticasone/Salmeterol [Advair 1 inh INH BID 11/20/17 250-50 Diskus] Glimepiride [Amaryl] 1 mg PO BID 11/20/17 Lisinopril [Zestril] 20 mg PO DAILY 11/20/17 Pravastatin Sodium [Pravachol] 40 mg PO DAILY 11/20/17 Albuterol/Ipratropium [Duoneb 3 3 ml INH RQ4 neb 11/25/17 mg/0.5 mg (3 ml) UD] Insulin Human Regular [HumuLIN R] 0 units SC ACHS ml 11/25/17 MetFORMIN [glucoPHAGE] 1,000 mg PO BRK tab 11/25/17 Promethazine DM [Phenergan DM 10 ml PO Q6 PRN dose 11/25/17 Syrup] SITagliptin [Januvia] 100 mg PO DAILY tab 11/25/17 levoFLOXacin 500 mg in D5W 500 mg IVPB DAILY #30 bag 11/25/17 [Levaquin 500MG] Gabapentin [Neurontin] 100 mg PO TID 12/05/17 Methylprednisolone [Medrol Dose 4 mg PO DAILY 12/05/17 Pack (21 tabs)] Pantoprazole [Protonix] 40 mg PO DAILY 12/05/17 Albuterol HFA [Ventolin HFA 90 2 puff IH [id number] #1 puff 02/10/18 mcg/actuation (8 g)] - Allergies Allergies/Adverse Reactions: Allergies Allergy/AdvReac Type Severity Reaction Status Date / Time No Known Allergies Allergy Verified 02/10/18 08:13 Review of Systems ROS Statement: Except As Marked, All Systems Reviewed And Found Negative Cardiovascular: Negative for: Chest Pain Respiratory: Positive for: Shortness of Breath. Negative for: Cough Musculoskeletal: Positive for: Shoulder Pain (left-sided). Negative for: Leg Pain (or swelling) Physical Exam - Reviewed Nursing Documentation Reviewed: Yes Vital Signs Reviewed: Yes - Physical Exam Appears: Positive for: Non-toxic, No Acute Distress Head Exam: Positive for: ATRAUMATIC, NORMAL INSPECTION, NORMOCEPHALIC Skin: Positive for: Normal Color Eye Exam: Positive for: Normal appearance ENT: Positive for: Normal ENT Inspection. Negative for: Pharyngeal Erythema, Tonsillar Exudate, Tonsillar Swelling Neck: Positive for: Normal, Painless ROM, Supple Cardiovascular/Chest: Positive for: Regular Rate, Rhythm, Chest Non Tender. Negative for: Murmur Respiratory: Positive for: Normal Breath Sounds. Negative for: Wheezing, Respiratory Distress Pulses-Radial (L): 2+ Pulses-Radial (R): 2+ Gastrointestinal/Abdominal: Positive for: Normal Exam, Soft. Negative for: Tenderness Back: Positive for: Normal Inspection. Negative for: L CVA Tenderness, R CVA Tenderness Extremity: Positive for: Normal ROM (upper/lower). 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 Negative for: Motor/Sensory Deficits - Laboratory Results Result Diagrams: 02/10/18 08:42 02/10/18 08:42 - ECG ECG: Positive for: Interpreted By Pa ECG Rhythm: Positive for: Normal QRS, Sinus Rhythm. Negative for: ST/T Changes Rate: 69 O2 Sat by Pulse Oximetry: 99 (RA) Pulse Ox Interpretation: Normal - Progress Re-evaluation Time: 12:10 Condition: Re-examined, Improved Medical Decision Making Medical Decision Making: Initial Impression: Shortness of breath Differential Diagnosis: Asthma exacerbation; ACS; pulmonary embolism Initial Plan: * EKG * BNP * BMP * Troponin I * CBC * D Dimer * CXR --------- Time: 0851 --CXR FINDINGS: LUNGS: No interval pulmonary disease appreciated bilaterally. PLEURA: No pneumothorax or pleural fluid seen. CARDIOVASCULAR: Stable cardiomegaly. No pulmonary vascular congestion appreciated. OSSEOUS STRUCTURES: No significant abnormalities. VISUALIZED UPPER ABDOMEN: Normal. OTHER FINDINGS: None. IMPRESSION: Stable cardiomegaly. No interval acute cardiopulmonary disease appreciated. Time: 1054 --CT chest FINDINGS: PULMONARY ARTERIES: Unremarkable. No pulmonary embolism. AORTA: No acute findings. No thoracic aortic aneurysm. LUNGS: Stable 4 mm nodule image 52 series 5. No pulmonary consolidation. Central airways remain clear. PLEURAL SPACES: Unremarkable. No effusion or pneumothorax. HEART: Mild cardiomegaly. Moderate coronary artery atherosclerosis identified. No significant pericardial effusion. LYMPH NODES: No lymphadenopathy. BONES, CHEST WALL: Left latissimus dorsi lipoma. No fracture or destructive lesion OTHER FINDINGS: Incidental cholelithiasis. IMPRESSION: 1. No CT evidence of pulmonary embolus. 2. Stable right middle lobe noncalcified nodule 4 mm. No acute pulmonary disease appreciable. Follow-up low-dose screening chest CT recommended in 12 months to demonstrate stability. Lung rads 2. 3. Mild cardiomegaly. 4. left latissimus dorsi lipoma. Scribe Attestation: Documented by Jovana Gamez, acting as a scribe for Antonio Martines MD. Provider Scribe Attestation: All medical record entries made by the Scribe were at my direction and personally dictated by me. I have reviewed the chart and agree that the record accurately reflects my personal performance of the history, physical exam, medical decision making, and the department course for this patient. I have also personally directed, reviewed, and agree with the discharge instructions and disposition. Disposition - Clinical Impression Clinical Impression: Dyspnea, Lipoma, Pulmonary nodule, COPD (chronic obstructive pulmonary disease) - Patient ED Disposition Is Patient to be Admitted: No Doctor Will See Patient In The: Office Counseled Patient/Family Regarding: Studies Performed, Diagnosis, Need For Followup - Disposition Referrals: Mode Lopez MD [Staff Provider] - Abhishek Bell MD [Staff Provider] - Disposition: Routine/Home Disposition Time: 12:19 Condition: GOOD Additional Instructions: Take your medications as instructed. Follow up with your PCP in 2-3 days. Prescriptions: Albuterol HFA [Ventolin HFA 90 mcg/actuation (8 g)] 2 puff IH [id number] #1 puff Instructions: Lipoma , COPD Including Emphysema (DC), Shortness of Breath ( Dyspnea) (DC), Pulmonary Nodule Forms: [employer] (Sami) Print Language: CHINESE
[2018-02-10 08:49] LABS: BASO # 0.1 K/uL (0.0-0.2); BASO % 0.8 % (0.0-2.0); EOS # 0.1 K/uL (0.0-0.7); EOS % 1.6 % (0.0-4.0); HEMOGLOBIN 9.2 g/dL (12.0-16.0); LYMPH % 25.3 % (20.0-40.0); MEAN CELL VOLUME 74.5 fl (81.0-99.0); MEAN CORPUSCULAR HEMOGLOBIN 25.1 pg (27.0-31.0); MEAN CORPUSCULAR HGB CONC 33.7 g/dL (33.0-37.0); MEAN PLATELET VOLUME 7.8 fl (7.2-11.7); MONO # 0.6 K/uL (0.0-0.8); MONO % 7.9 % (0.0-10.0); NEUT # 5.1 K/uL (1.8-7.0); NEUT % 64.4 % (50.0-75.0); NRBC % 0.1 % (0.0-0.0); RBC 3.68 Mil/uL (3.80-5.20); RED CELL DISTRIBUTION WIDTH 18.7 % (11.5-14.5); WHITE BLOOD COUNT 7.9 K/uL (4.8-10.8)
--- NOTE | 2018-02-10 08:53 | RAD ---
Date of service: 02/10/2018 PROCEDURE: CHEST RADIOGRAPH, 1 VIEW HISTORY: dyspnea COMPARISON: Portable chest 12/02/2017. FINDINGS: LUNGS: No interval pulmonary disease appreciated bilaterally. PLEURA: No pneumothorax or pleural fluid seen. CARDIOVASCULAR: Stable cardiomegaly. No pulmonary vascular congestion appreciated. OSSEOUS STRUCTURES: No significant abnormalities. VISUALIZED UPPER ABDOMEN: Normal. OTHER FINDINGS: None. IMPRESSION: Stable cardiomegaly. No interval acute cardiopulmonary disease appreciated.
[2018-02-10 08:58] LABS: BLOOD UREA NITROGEN 14 mg/dl (7-17); GFR AFRICAN-AMERICAN > 60; GFR NON-AFRICAN AMERICAN > 60
[2018-02-10 09:11] LABS: B-TYPE NATRIURETIC PEPTIDE 117 pg/ml (0-900)
[2018-02-10] MEDS ORDERED: Albuterol-Ipratrop 3 mg / 0.5 (3 ml) UD INH STA (09:57)
[2018-02-10] MEDS ORDERED: Sodium Chloride 0.9% 50 ML IV ONE (10:01)
[2018-02-10] MEDS ORDERED: Iodixanol 320 MG/ML 100 ML BOTTLE IV ONE (10:01)
--- NOTE | 2018-02-10 10:56 | CT ---
Date of service: 02/10/2018 PROCEDURE: CT Chest with contrast (Pulmonary Angiogram) HISTORY: chest pain COMPARISON: CT angiogram chest 11/20/2017. TECHNIQUE: Axial computed tomography images were obtained of the chest in the pulmonary arterial phase of enhancement. Coronal and sagittal reformatted images were created and reviewed. Intravenous contrast dose: Visipaque 320, 99 cc Radiation dose: Total exam DLP = 383.23 mGy-cm. This CT exam was performed using one or more of the following dose reduction techniques: Automated exposure control, adjustment of the mA and/or kV according to patient size, and/or use of iterative reconstruction technique. FINDINGS: PULMONARY ARTERIES: Unremarkable. No pulmonary embolism. AORTA: No acute findings. No thoracic aortic aneurysm. LUNGS: Stable 4 mm nodule image 52 series 5. No pulmonary consolidation. Central airways remain clear. PLEURAL SPACES: Unremarkable. No effusion or pneumothorax. HEART: Mild cardiomegaly. Moderate coronary artery atherosclerosis identified. No significant pericardial effusion. LYMPH NODES: No lymphadenopathy. BONES, CHEST WALL: Left latissimus dorsi lipoma. No fracture or destructive lesion OTHER FINDINGS: Incidental cholelithiasis. IMPRESSION: 1. No CT evidence of pulmonary embolus. 2. Stable right middle lobe noncalcified nodule 4 mm. No acute pulmonary disease appreciable. Follow-up low-dose screening chest CT recommended in 12 months to demonstrate stability. Lung rads 2. 3. Mild cardiomegaly. 4. left latissimus dorsi lipoma.
[2018-02-10 12:32] VITALS: BP 125/64; RESP 18; TEMP 98
--- NOTE | 2018-02-11 11:21 | CARD ---
APPROVED REPORT Date of service: 02/10/2018 EKG Measurement Heart [id number] <Conclusion> Normal sinus rhythm Normal ECG
[2018-02-11 14:58] VITALS: PULSE 69; O2SAT 99
== END 2018-02-10 12:33 | disposition home or self-care (01) ==
LOC: H.ER 08:03
DX: R06.00 Dyspnea, unspecified (principal); R91.1 Solitary pulmonary nodule; D17.9 Benign lipomatous neoplasm, unspecified; E78.5 Hyperlipidemia, unspecified; I10 Essential (primary) hypertension; Z87.891 Personal history of nicotine dependence; Z90.710 Acquired absence of both cervix and uterus
CPT/HCPCS: 71045; 71275; 80048; 83880; 84484; 85025; 85378; 93005; 96374; 99283; J2930; Q9967

== ENCOUNTER 2018-03-16 08:53 | Observation (INO) | payer MEDICARE, MEDICAID ==
[2018-03-16 09:00] VITALS: BMI 30.6
[2018-03-16] MEDS ORDERED: Albuterol-Ipratrop 3 mg / 0.5 (3 ml) UD INH STA (09:34)
[2018-03-16] MEDS ORDERED: methylPREDNISolone 125 MG in Sodium Chloride 0.9% 50 ML IV STA (09:35)
[2018-03-16] MEDS ORDERED: Magnesium Sulfate 1 GM in Dextrose 5% In Water 100 ML IVPB SCH ×2 (09:44→10:45)
[2018-03-16 10:00] LABS: VENOUS BLOOD GAS BASE EXCESS 3.2 mmol/L (0.0-2.0); VENOUS BLOOD GAS PCO2 53 mmHg (40-60); VENOUS BLOOD GAS PO2 41 mm/Hg (30-55); VENOUS BLOOD PH 7.36 (7.32-7.43)
[2018-03-16 10:01] LABS: BASO # 0.1 K/uL (0.0-0.2); EOS # 0.1 K/uL (0.0-0.7); HEMOGLOBIN 9.8 g/dL (12.0-16.0); LYMPH # 2.1 K/uL (1.0-4.3); LYMPH % 20.4 % (20.0-40.0); MEAN CELL VOLUME 75.9 fl (81.0-99.0); MEAN PLATELET VOLUME 8.8 fl (7.2-11.7); MONO # 0.8 K/uL (0.0-0.8); MONO % 7.6 % (0.0-10.0); NEUT # 7.1 K/uL (1.8-7.0); RBC 3.9 Mil/uL (3.80-5.20); RED CELL DISTRIBUTION WIDTH 19.3 % (11.5-14.5); WHITE BLOOD COUNT 10.2 K/uL (4.8-10.8)
[2018-03-16 10:07] LABS: ALB/GLOB RATIO 1.4 (1.0-2.1); ALT/SGPT 32 U/L (9-52); AST/SGOT 30 U/L (14-36); BLOOD UREA NITROGEN 17 mg/dl (7-17); CALCIUM 10.1 mg/dL (8.4-10.2); GFR NON-AFRICAN AMERICAN > 60
[2018-03-16] MEDS ORDERED: Albuterol-Ipratrop 3 mg / 0.5 (3 ml) UD ONE (10:21)
[2018-03-16 10:34] LABS: B-TYPE NATRIURETIC PEPTIDE 154 pg/ml (0-900)
--- NOTE | 2018-03-16 10:34 | ED PDOC ---
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 Patient reports she feels like COPD symptoms but worse because of the associated weakness. She believes her knee pain is because of having trouble breathing. Patient states she is complaint with medications . She denies any fever, chest pain, vomiting, cough, swelling of legs, falls or trauma to knees, sick contact or recent travel. PMD: Milly Crenshaw Past Medical History Reviewed: Historical Data, Nursing Documentation, Vital Signs Vital Signs: Last Vital Signs Temp 99.1 F 03/16/18 09:00 Pulse 67 03/16/18 09:00 Resp 16 03/16/18 09:00 BP 140/111 H 03/16/18 09:00 Pulse Ox 98 03/16/18 09:00 - Medical History PMH: Anxiety, Asthma, COPD, HTN, Hyperlipidemia Denies: Chronic Kidney Disease - Surgical History Surgical History: No Surg Hx - Family History Family History: States: Unknown Family Hx - Social History Current smoker - smoking cessation education provided: No Alcohol: None Drugs: Denies - Immunization History Hx Tetanus Toxoid Vaccination: No Hx Influenza Vaccination: Yes Hx Pneumococcal Vaccination: No - Home Medications Home Medications: Ambulatory Orders Medication Instructions Recorded ALPRAZolam [Xanax] 0.25 mg PO HS 11/20/17 Fluticasone/Salmeterol [Advair 1 inh INH BID 11/20/17 250-50 Diskus] Glimepiride [Amaryl] 1 mg PO BID 11/20/17 Lisinopril [Zestril] 20 mg PO DAILY 11/20/17 Pravastatin Sodium [Pravachol] 40 mg PO DAILY 11/20/17 Albuterol/Ipratropium [Duoneb 3 3 ml INH RQ4 neb 11/25/17 mg/0.5 mg (3 ml) UD] Insulin Human Regular [HumuLIN R] 0 units SC ACHS ml 11/25/17 MetFORMIN [glucoPHAGE] 1,000 mg PO BRK tab 11/25/17 Promethazine DM [Phenergan DM 10 ml PO Q6 PRN dose 11/25/17 Syrup] SITagliptin [Januvia] 100 mg PO DAILY tab 11/25/17 levoFLOXacin 500 mg in D5W 500 mg IVPB DAILY #30 bag 11/25/17 [Levaquin 500MG] Gabapentin [Neurontin] 100 mg PO TID 12/05/17 Methylprednisolone [Medrol Dose 4 mg PO DAILY 12/05/17 Pack (21 tabs)] Pantoprazole [Protonix] 40 mg PO DAILY 12/05/17 Albuterol HFA [Ventolin HFA 90 2 puff IH [id number] #1 puff 02/10/18 mcg/actuation (8 g)] - Allergies Allergies/Adverse Reactions: Allergies Allergy/AdvReac Type Severity Reaction Status Date / Time No Known Allergies Allergy Verified 03/16/18 09:11 Review of Systems ROS Statement: Except As Marked, All Systems Reviewed And Found Negative Constitutional: Negative for: Fever Cardiovascular: Negative for: Chest Pain Respiratory: Positive for: Shortness of Breath. Negative for: Cough Gastrointestinal: Negative for: Vomiting Musculoskeletal: Positive for: Leg Pain (Bilateral knee pain) Neurological: Positive for: Weakness Physical Exam - Reviewed Nursing Documentation Reviewed: Yes Vital Signs Reviewed: Yes - Physical Exam Appears: Positive for: No Acute Distress, Uncomfortable Cardiovascular/Chest: Positive for: Regular Rate, Rhythm. Negative for: Murmur Respiratory: Positive for: Wheezing (Bilateral diffused expiratory). Negative for: Crackles, Rales, Rhonchi Gastrointestinal/Abdominal: Positive for: Normal Exam, Soft, Other (Obese). Negative for: Tenderness Extremity: Positive for: Normal ROM, Tenderness (to palpation to knees). Negative for: Other (ecchymosis or bruising) DTR - Knee (R): 2+ DTR - Knee (L): 2+ Neurologic/Psych: Positive for: Alert, Oriented (x3) - Laboratory Results Result Diagrams: 03/16/18 09:46 03/16/18 09:46 - ECG O2 Sat by Pulse Oximetry: 98 (RA) Pulse Ox Interpretation: Normal Medical Decision Making Medical Decision Making: Time: 932 --72 years old female with 3 days of shortness of breath and no improvement with home medications. --Unlikely cardiac origin --Vitals are stable Initial Plan: --Venous Blood Gas --EKG --BNP --CMP --CBC --Chest X-Ray --Albuterol 3 ml INH --Magnesium Sulfate 1 mg Dextrose 5% in Water 100 ml --SOLU-Medrol 125 mg IV --Nebulizer Treatment --Peak Flow Pre/Post Tx 1258 Patient will be admitted under Dr. George's care for COPD exacerbation. Scribe Attestation: Documented by Farzana Bueno, acting as a scribe for Ally Bassett MD. Provider Scribe Attestation: All medical record entries made by the Scribe were at my direction and personally dictated by me. I have reviewed the chart and agree that the record accurately reflects my personal performance of the history, physical exam, medical decision making, and the department course for this patient. Disposition - Clinical Impression Clinical Impression: COPD exacerbation - Patient ED Disposition Is Patient to be Admitted: Yes - Disposition Disposition Time: 12:58 Forms: [employer] (Armenian)
[2018-03-16 11:03] LABS: SQUAMOUS EPITHIAL 1 /hpf (0-5); URINE BACTERIA RARE (<OCC); URINE BILIRUBIN NEGATIVE (NEGATIVE); URINE BLOOD NEGATIVE (NEGATIVE); URINE CLARITY CLEAR (Clear); URINE COLOR STRAW (YELLOW); URINE GLUCOSE (UA) NEG (Normal); URINE LEUKOCYTE ESTERASE NEG Leu/uL (Negative); URINE PROTEIN NEGATIVE (NEGATIVE); URINE UROBILINOGEN 0.2-1.0 mg/dL (0.2-1.0)
[2018-03-16] MEDS ORDERED: Sodium Chloride 0.9% 1,000 ML IV STA (11:05)
[2018-03-16] MEDS ORDERED: Azithromycin 500 MG in Sodium Chloride 0.9% 250 ML IVPB STA (12:45)
--- NOTE | 2018-03-16 14:07 | RAD ---
Date of service: 03/16/2018 HISTORY: cough, weakness, SOB COMPARISON: Comparison chest 03/16/2018 TECHNIQUE: Chest PA and lateral FINDINGS: LUNGS: Poor inspiration with low lung volumes, crowded bronchovascular markings and mild bibasilar atelectasis. PLEURA: No significant pleural effusion identified. No pneumothorax apparent. CARDIOVASCULAR: Cardiomegaly. Aorta is ectatic and uncoiled. OSSEOUS STRUCTURES: No significant abnormalities. VISUALIZED UPPER ABDOMEN: Normal. OTHER FINDINGS: None. IMPRESSION: Poor inspiration with low lung volumes, crowded bronchovascular markings and mild bibasilar atelectasis.
--- NOTE | 2018-03-16 14:14 | RAD ---
Date of service: 03/16/2018 HISTORY: possible admission COMPARISON: No prior. FINDINGS: LUNGS: Poor inspiration with low lung volumes, crowded bronchovascular markings and mild bibasilar atelectasis. Central pulmonary vasculature also appears slightly congested which may also be in part due to low lung volumes and kyphotic patient positioning or tube angulation however mild venous congestion not completely excluded. PLEURA: No significant pleural effusion identified, no pneumothorax apparent. CARDIOVASCULAR: Normal. OSSEOUS STRUCTURES: No significant abnormalities. VISUALIZED UPPER ABDOMEN: Normal. OTHER FINDINGS: None. IMPRESSION: Poor inspiration with low lung volumes, crowded bronchovascular markings and mild bibasilar atelectasis. Central pulmonary vasculature also appears slightly congested which may also be in part due to low lung volumes and kyphotic patient positioning or tube angulation however mild venous congestion not completely excluded.
[2018-03-16] MEDS ORDERED: methylPREDNISolone 1 GM in Sodium Chloride 0.9% 250 ML IV SCH (16:00)
[2018-03-16] MEDS ORDERED: Azithromycin 500 MG IV IVPB ONE (16:46)
--- NOTE | 2018-03-16 22:57 | CARD ---
APPROVED REPORT Date of service: 03/16/2018 EKG Measurement Heart [id number] <Conclusion> Sinus bradycardia Nonspecific T wave abnormality Abnormal ECG
[2018-03-17] MEDS: Fluticasone-Salmeterol 250-50mcg Diskus INH SCH ×2 (08:55→21:08)
[2018-03-17] MEDS: Pantoprazole 40 mg EC Tab PO SCH (08:56)
[2018-03-17] MEDS: GlipiZIDE 5 mg SR Tab PO SCH (08:56)
[2018-03-17] MEDS: Enoxaparin 40 mg Syringe SC SCH (08:57)
[2018-03-17] MEDS ORDERED: DICLOFENAC SODIUM 50 MG PO SCH (09:00)
[2018-03-17] MEDS ORDERED: Albuterol-Ipratrop 3 mg / 0.5 (3 ml) UD INH PRN (11:24)
[2018-03-17] MEDS ORDERED: methylPREDNISolone 1 GM in Sodium Chloride 0.9% 250 ML IV SCH (16:00)
[2018-03-18 00:23] VITALS: O2SAT 96
[2018-03-18 08:06] VITALS: BP 120/77; PULSE 70; RESP 19; TEMP 98.1
[2018-03-18] MEDS: GlipiZIDE 5 mg SR Tab PO SCH (08:32)
[2018-03-18] MEDS ORDERED: MethylPREDNISolone 40 mg Vial IVP SCH (09:00)
[2018-03-18] MEDS ORDERED: methylPREDNISolone 20 MG in Sodium Chloride 0.9% 50 ML IVPB SCH (09:00)
[2018-03-18] MEDS: Enoxaparin 40 mg Syringe SC SCH (09:28)
[2018-03-18] MEDS: Fluticasone-Salmeterol 250-50mcg Diskus INH SCH (09:28)
[2018-03-18] MEDS: Pantoprazole 40 mg EC Tab PO SCH (09:31)
--- NOTE | 2018-03-18 09:43 | CP.PCM.HP ---
History of Present Illness - History of Present Illness History of Present Illness: This is a 72 y/o female admitted for asthma exacerbation Past Patient History - Past Medical History & Family History Past Medical History?: Yes - Past Social History Smoking Status: Former Smoker - CARDIAC Hx Cardiac Disorders: Yes Hx Hypercholesterolemia: Yes Hx Hypertension: Yes - PULMONARY Hx Respiratory Disorders: Yes Hx Asthma: Yes Hx Chronic Obstructive Pulmonary Disease (COPD): Yes - NEUROLOGICAL Hx Neurological Disorder: No - HEENT Hx HEENT Problems: Yes Hx Cataracts: Yes - RENAL Hx Chronic Kidney Disease: No - ENDOCRINE/METABOLIC Hx Endocrine Disorders: Yes (DM) Hx Diabetes Mellitus Type 2: Yes - HEMATOLOGICAL/ONCOLOGICAL Hx Blood Disorders: No - INTEGUMENTARY Hx Dermatological Problems: No - MUSCULOSKELETAL/RHEUMATOLOGICAL Hx Musculoskeletal Disorders: Yes Hx Falls: No Other/Comment: Bilateral knee pain - GASTROINTESTINAL Hx Gastrointestinal Disorders: No - GENITOURINARY/GYNECOLOGICAL Hx Genitourinary Disorders: No - PSYCHIATRIC Hx Psychophysiologic Disorder: Yes Hx Anxiety: Yes Hx Substance Use: No - SURGICAL HISTORY Hx Surgeries: Yes Hx Hysterectomy: Yes (1986) - ANESTHESIA Hx Anesthesia: Yes Hx Anesthesia Reactions: No Hx Malignant Hyperthermia: No Has any member of the family had a problem w/ anesthesia?: No Meds Allergies/Adverse Reactions: Allergies Allergy/AdvReac Type Severity Reaction Status Date / Time No Known Allergies Allergy Verified 03/16/18 09:11 Results - Vital Signs Recent Vital Signs: Last Vital Signs Temp 98.1 F 03/18/18 08:06 Pulse 70 03/18/18 09:31 Resp 19 03/18/18 08:06 BP 120/77 03/18/18 09:31 Pulse Ox 96 03/18/18 08:06 - Labs Result Diagrams: 03/16/18 09:46 03/16/18 09:46 Labs: Laboratory Results - last 24 hr 03/17/18 03/17/18 03/17/18 10:52 15:34 21:12 POC Glucose (mg/dL) 180 H 156 H 134 H 03/18/18 05:18 POC Glucose (mg/dL) 133 H
--- NOTE | 2018-03-18 12:39 | CP.PCM.DIS ---
Provider - Provider Date of Admission: 03/16/18 13:02 Attending physician: Tyree Clarke MD Primary care physician: Milly Aleman Time Spent in preparation of Discharge (in minutes): 25 Diagnosis - Discharge Diagnosis (1) COPD exacerbation Status: Acute (2) Asthma Status: Acute Hospital Course - Lab Results Lab Results: Most Recent Lab Values WBC 10.2 K/uL (4.8-10.8) 03/16/18 09:46 RBC 3.90 Mil/uL (3.80-5.20) 03/16/18 09:46 Hgb 9.8 g/dL (12.0-16.0) L 03/16/18 09:46 Hct 29.6 % (34.0-47.0) L 03/16/18 09:46 MCV 75.9 fl (81.0-99.0) L 03/16/18 09:46 MCH 25.0 pg (27.0-31.0) L 03/16/18 09:46 MCHC 33.0 g/dL (33.0-37.0) 03/16/18 09:46 RDW 19.3 % (11.5-14.5) H 03/16/18 09:46 Plt Count 239 K/uL (130-400) 03/16/18 09:46 MPV 8.8 fl (7.2-11.7) 03/16/18 09:46 Neut % (Auto) 70.0 % (50.0-75.0) 03/16/18 09:46 Lymph % (Auto) 20.4 % (20.0-40.0) 03/16/18 09:46 [place] % (Auto) 7.6 % (0.0-10.0) 03/16/18 09:46 Eos % (Auto) 1.0 % (0.0-4.0) 03/16/18 09:46 Baso % (Auto) 1.0 % (0.0-2.0) 03/16/18 09:46 Neut # (Auto) 7.1 K/uL (1.8-7.0) H 03/16/18 09:46 Lymph # (Auto) 2.1 K/uL (1.0-4.3) 03/16/18 09:46 [place] # (Auto) 0.8 K/uL (0.0-0.8) 03/16/18 09:46 Eos # (Auto) 0.1 K/uL (0.0-0.7) 03/16/18 09:46 Baso # (Auto) 0.1 K/uL (0.0-0.2) 03/16/18 09:46 pO2 41 mm/Hg (30-55) 03/16/18 09:52 VBG pH 7.36 (7.32-7.43) 03/16/18 09:52 VBG pCO2 53 mmHg (40-60) 03/16/18 09:52 VBG HCO3 26.8 mmol/L 03/16/18 09:52 VBG Total CO2 31.5 mmol/L (22-28) H 03/16/18 09:52 VBG O2 Sat (Calc) 77.2 % (40-65) H 03/16/18 09:52 VBG Base Excess 3.2 mmol/L (0.0-2.0) H 03/16/18 09:52 VBG Potassium 4.7 mmol/L (3.6-5.2) 03/16/18 09:52 Sodium 128.0 mmol/L (132-148) L 03/16/18 09:52 Chloride 96.0 mmol/L (98-107) L 03/16/18 09:52 Glucose 105 mg/dL (65-105) 03/16/18 09:52 Lactate 2.0 mmol/L (0.7-2.1) 03/16/18 09:52 FiO2 21.0 % 03/16/18 09:52 Blood Gas Comments Lac=2.0 03/16/18 09:52 Crit Value Called To zuleyka Davis 03/16/18 09:52 Crit Value Called By 22 03/16/18 09:52 Crit Value Read Back Y 03/16/18 09:52 Blood Gas Notified Time 959 03/16/18 09:52 Sodium 131 mmol/l (132-148) L 03/16/18 09:46 Potassium 5.0 MMOL/L (3.6-5.0) 03/16/18 09:46 Chloride 94 mmol/L (98-107) L 03/16/18 09:46 Carbon Dioxide 29 mmol/L (22-30) 03/16/18 09:46 Anion Gap 13 (10-20) 03/16/18 09:46 BUN 17 mg/dl (7-17) 03/16/18 09:46 Creatinine 0.8 mg/dl (0.7-1.2) 03/16/18 09:46 Est GFR ( Amer) > 60 03/16/18 09:46 Est GFR (Non-Af Amer) > 60 03/16/18 09:46 POC Glucose (mg/dL) 139 mg/dL (65-110) H 03/18/18 10:56 Random Glucose 107 mg/dL (65-105) H 03/16/18 09:46 Calcium 10.1 mg/dL (8.4-10.2) 03/16/18 09:46 Total Bilirubin 0.4 mg/dl (0.2-1.3) 03/16/18 09:46 AST 30 U/L (14-36) 03/16/18 09:46 ALT 32 U/L (9-52) 03/16/18 09:46 Alkaline Phosphatase 61 U/L (38-126) 03/16/18 09:46 NT-Pro-B Natriuret Pep 154 pg/ml (0-900) 03/16/18 09:46 Total Protein 6.8 G/DL (6.3-8.2) 03/16/18 09:46 Albumin 4.0 g/dL (3.5-5.0) 03/16/18 09:46 Globulin 2.8 gm/dL (2.2-3.9) 03/16/18 09:46 Albumin/Globulin Ratio 1.4 (1.0-2.1) 03/16/18 09:46 Venous Blood Potassium 4.7 mmol/L (3.6-5.2) 03/16/18 09:52 Urine Color Straw (YELLOW) 03/16/18 10:50 Urine Clarity Clear (Clear) 03/16/18 10:50 Urine pH 7.0 (5.0-8.0) 03/16/18 10:50 Ur Specific [place] 1.005 (1.003-1.030) 03/16/18 10:50 Urine Protein Negative mg/dL (NEGATIVE) 03/16/18 10:50 Urine Glucose (UA) Neg mg/dL (Normal) 03/16/18 10:50 Urine Ketones Negative mg/dL (NEGATIVE) 03/16/18 10:50 Urine Blood Negative (NEGATIVE) 03/16/18 10:50 Urine Nitrate Negative (NEGATIVE) 03/16/18 10:50 Urine Bilirubin Negative (NEGATIVE) 03/16/18 10:50 Urine Urobilinogen 0.2-1.0 mg/dL (0.2-1.0) 03/16/18 10:50 Ur Leukocyte Esterase Neg [place]/uL (Negative) 03/16/18 10:50 Urine RBC (Auto) < 1 /hpf (0-3) 03/16/18 10:50 Ur Squamous Epith Cells 1 /hpf (0-5) 03/16/18 10:50 Urine Bacteria Rare (<OCC) 03/16/18 10:50 - Hospital Course Hospital Course: 72 y/o female with a PMHx of Anxiety, Asthma, COPD, HTN, Hyperlipidemia was admitted for asthma exacerbation. Pt received Magnessium Sulfate, Solu MEdrol and Duoneb nebulization. Today, pt was evaluated and examined with Dr Clarke. Pt reported remarkable improvement. Pt denied SOB, chest pain, chest tightness o wheezing. Pt afebrile, tolerating PO, with No acute events overnight. Pt will be discharged home with instructions to see PCP within 1 week. ER precautions given. - Date & Time of H&P Date of H&P: 03/17/18 Time of H&P: 10:43 Discharge Exam - Head Exam Head Exam: NORMAL INSPECTION - Eye Exam Eye Exam: EOMI, Normal appearance - ENT Exam ENT Exam: Mucous Membranes Moist - Neck Exam Neck exam: Full Rom - Respiratory Exam Respiratory Exam: NORMAL BREATHING PATTERN, UNREMARKABLE. absent: Wheezes, Respiratory Distress, Stridor - Cardiovascular Exam Cardiovascular Exam: REGULAR RHYTHM, +S1, +S2 - GI/Abdominal Exam GI & Abdominal Exam: Soft. absent: Distended, Firm, Guarding, Hernia, Tenderness, Unremarkable - Extremities Exam Extremities exam: full ROM - Neurological Exam Neurological exam: Alert, Oriented x3 Discharge Plan - Discharge Medications Prescriptions: predniSONE [predniSONE Tab] 5 mg PO DAILY 8 Days #20 tab - Follow Up Plan Condition: IMPROVED Disposition: HOME/ ROUTINE Instructions: Exacerbation of COPD (DC), Knee Pain (DC) Additional Instructions: hacer sincere con heck primario dentro de 1 semana Referrals: Milly Crenshaw MD [Medical Doctor] -
--- NOTE | 2018-03-18 12:51 | IP.NPCORE ---
COPD Progress Note - COPD Progress Note Spirometry Assessment Completed:: No Plan to assess at outpatient follow up: Yes Symptoms:: Increase in Dyspnea Initial CXR:: Yes Oxygen Saturation/Pulse Oximetry:: 96 ABG:: Yes Nebulizers Q2-4 hrs:: Duonebs/Albuterol Therapy Antibiotics Not Indicated: Yes Systemic Steroids w/ methylprednisolone Name/Dose/Frequency:: Yes Oxygen Delivery Method: Room Air
== END 2018-03-18 14:26 | disposition home or self-care (01) ==
LOC: H.ER 08:53 → H.ERHOLD 13:02 → INTOOBSV 13:02 → H.MEDSURG1 18:20
PROVIDERS: ADMIT Internal Medicine; ATTEND Internal Medicine
DX: J44.1 Chronic obstructive pulmonary disease with (acute) exacerbation (principal); I10 Essential (primary) hypertension; E11.9 Type 2 diabetes mellitus without complications; E78.5 Hyperlipidemia, unspecified; E78.00 Pure hypercholesterolemia, unspecified; M25.561 Pain in right knee; M25.562 Pain in left knee; F41.9 Anxiety disorder, unspecified; Z87.891 Personal history of nicotine dependence; Z79.84 Long term (current) use of oral hypoglycemic drugs
CPT/HCPCS: 71045; 71046; 80053; 81003; 82803; 82948; 83880; 85025; 93005; 96360; 96365; 99284; G0378; J0456; J1650; J2920; J2930; J3475; J7030; J7050

== ENCOUNTER 2018-05-12 03:26 | Emergency (ER) | payer MEDICARE, MEDICAID ==
[2018-05-12 03:26] VITALS: BMI 30.6
[2018-05-12 03:34] VITALS: RESP 16
[2018-05-12] MEDS ORDERED: Albuterol-Ipratrop 3 mg / 0.5 (3 ml) UD INH STA ×2 (03:48→05:17)
--- NOTE | 2018-05-12 03:51 | ED PDOC ---
HPI: General Adult Time Seen by Provider: 05/12/18 03:49 Chief Complaint (Nursing): Back Pain Chief Complaint (Provider): sob/back pain History Per: Patient (73 y/o female h/o Anemia/copd/DM/HLD here with complaint upper back pain from large lipoma and sob noted ongoing. Patient denies any fever/cough. Took tylenol/albuterol neb without improvement.) Past Medical History Reviewed: Historical Data, Nursing Documentation, Vital Signs Vital Signs: Last Vital Signs Temp 98.2 F 05/12/18 03:32 Pulse 75 05/12/18 03:32 Resp 16 05/12/18 03:32 BP 108/61 05/12/18 03:32 Pulse Ox 97 05/12/18 03:32 - Medical History PMH: Anxiety, Asthma, COPD, HTN, Hypercholesterolemia, Hyperlipidemia Denies: Chronic Kidney Disease - Family History Family History: States: Unknown Family Hx - Immunization History Hx Tetanus Toxoid Vaccination: No Hx Influenza Vaccination: Yes Hx Pneumococcal Vaccination: No - Home Medications Home Medications: Ambulatory Orders Medication Instructions Recorded Albuterol HFA [Ventolin HFA 90 03/16/18 mcg/actuation (8 g)] Atorvastatin [Lipitor] 40 mg PO HS 03/16/18 Diclofenac Sodium [Voltaren] 50 mg PO BID 03/16/18 Fluticasone/Salmeterol 250/50 1 puff BID 03/16/18 [Advair Diskus 250/50] Glimepiride [Amaryl] 1 mg PO BID 03/16/18 Lisinopril [Zestril] 20 mg PO DAILY 03/16/18 Montelukast [Singulair] 10 mg PO HS 03/16/18 Omeprazole 40 mg PO DAILY 03/16/18 PARoxetine [Paxil] 10 mg PO DAILY 03/16/18 Sitagliptin Phos/Metformin HCl 1 tab PO BID 03/16/18 [Janumet 50-1,000 mg Tablet] amLODIPine [Norvasc] 10 mg PO DAILY 03/16/18 Alprazolam [Xanax] 0.25 mg PO HS 03/17/18 predniSONE [predniSONE Tab] 5 mg PO DAILY 8 Days #20 tab 03/18/18 predniSONE [predniSONE Tab] 2 tab PO DAILY #8 tab 05/12/18 traMADol [Ultram] 50 mg PO Q12 PRN #10 tab 05/12/18 - Allergies Allergies/Adverse Reactions: Allergies Allergy/AdvReac Type Severity Reaction Status Date / Time No Known Allergies Allergy Verified 05/12/18 03:31 Review of Systems ROS Statement: Except As Marked, All Systems Reviewed And Found Negative Physical Exam - Reviewed Nursing Documentation Reviewed: Yes Vital Signs Reviewed: Yes - Physical Exam Appears: Positive for: Well, Non-toxic, No Acute Distress Head Exam: Positive for: ATRAUMATIC, NORMAL INSPECTION, NORMOCEPHALIC Skin: Positive for: Normal Color, Warm, DRY Eye Exam: Positive for: EOMI, Normal appearance, PERRL ENT: Positive for: Normal ENT Inspection Neck: Positive for: Normal, Painless ROM Cardiovascular/Chest: Positive for: Regular Rate, Rhythm Respiratory: Positive for: CNT, Normal Breath Sounds Gastrointestinal/Abdominal: Positive for: Normal Exam, Soft Back: Negative for: Normal Inspection (Lipoma 6 cm in diameter left subscapular region tender; no erythema noted.) Extremity: Positive for: Normal ROM Neurologic/Psych: Positive for: Alert, Oriented - Laboratory Results Result Diagrams: 05/12/18 03:55 05/12/18 03:55 - ECG O2 Sat by Pulse Oximetry: 97 - Progress ED Course And Treament: DUONEB X 1 TORADOL 15 MG IV X 1 DOSE CXR: NAD PREDNISONE 60 MG X 1 DOSE DUONEB X 1 DOSE Disposition - Clinical Impression Clinical Impression: Lipoma, Asthma exacerbation - Patient ED Disposition Is Patient to be Admitted: No - Disposition Disposition: Routine/Home Disposition Time: 04:42 Condition: FAIR Prescriptions: predniSONE [predniSONE Tab] 2 tab PO DAILY #8 tab traMADol [Ultram] 50 mg PO Q12 PRN #10 tab PRN Reason: Pain, Severe (8-10) Instructions: Lipoma , Asthma, Adult (DC) Print Language: KAZAKH
[2018-05-12] MEDS ORDERED: Albuterol-Ipratrop 3 mg / 0.5 (3 ml) UD ONE ×2 (04:03→05:13)
[2018-05-12 04:07] LABS: BASO # 0.1 K/uL (0.0-0.2); BASO % 1.1 % (0.0-2.0); EOS # 0.3 K/uL (0.0-0.7); EOS % 3.1 % (0.0-4.0); HEMOGLOBIN 9.7 g/dL (12.0-16.0); LYMPH # 2.7 K/uL (1.0-4.3); LYMPH % 31.4 % (20.0-40.0); MEAN CORPUSCULAR HGB CONC 32.5 g/dL (33.0-37.0); MEAN PLATELET VOLUME 8.2 fl (7.2-11.7); MONO # 0.7 K/uL (0.0-0.8); MONO % 8.3 % (0.0-10.0); NEUT # 4.7 K/uL (1.8-7.0); NEUT % 56.1 % (50.0-75.0); RBC 3.9 Mil/uL (3.80-5.20); RED CELL DISTRIBUTION WIDTH 20.7 % (11.5-14.5); WHITE BLOOD COUNT 8.4 K/uL (4.8-10.8)
[2018-05-12 04:15] LABS: ALB/GLOB RATIO 1.2 (1.0-2.1); ALBUMIN 3.7 g/dL (3.5-5.0); ALT/SGPT 35 U/L (9-52); AST/SGOT 21 U/L (14-36); BLOOD UREA NITROGEN 14 mg/dl (7-17); CALCIUM 8.8 mg/dL (8.4-10.2); GFR NON-AFRICAN AMERICAN > 60
[2018-05-12 06:33] VITALS: BP 132/60; PULSE 90; TEMP 97.9; O2SAT 98
--- NOTE | 2018-05-12 06:59 | CARD ---
APPROVED REPORT Date of service: 05/12/2018 EKG Measurement Heart [id number] <Conclusion> Normal sinus rhythm Septal infarct, age undetermined Abnormal ECG
--- NOTE | 2018-05-12 09:06 | RAD ---
Date of service: 05/12/2018 HISTORY: routine COMPARISON: Chest radiographs 03/16/2018. FINDINGS: LUNGS: No active pulmonary disease. PLEURA: No significant pleural effusion identified, no pneumothorax apparent. CARDIOVASCULAR: Calcific atherosclerotic changes are seen related to the thoracic aorta. Stable cardiomegaly. No pulmonary vascular congestion identified. OSSEOUS STRUCTURES: No significant abnormalities. VISUALIZED UPPER ABDOMEN: Normal. OTHER FINDINGS: None. IMPRESSION: No interval acute cardiopulmonary disease. Mild cardiomegaly reiterated. No pulmonary vascular congestion appreciated.
== END 2018-05-12 05:31 | disposition home or self-care (01) ==
LOC: H.ER 03:26
DX: J45.901 Unspecified asthma with (acute) exacerbation (principal); J44.9 Chronic obstructive pulmonary disease, unspecified; I10 Essential (primary) hypertension
CPT/HCPCS: 71045; 80053; 83880; 84484; 85025; 93005; 96374; 99283; J1885

== ENCOUNTER 2018-06-09 14:31 | Inpatient (IN) | payer MEDICARE, MEDICAID ==
[2018-06-09 15:53] LABS: SQUAMOUS EPITHIAL 1 /hpf (0-5); URINE BILIRUBIN NEGATIVE (NEGATIVE); URINE BLOOD NEGATIVE (NEGATIVE); URINE CLARITY CLEAR (Clear); URINE COLOR STRAW (YELLOW); URINE GLUCOSE (UA) NEG (Normal); URINE LEUKOCYTE ESTERASE NEG Leu/uL (Negative); URINE PROTEIN NEGATIVE (NEGATIVE); URINE UROBILINOGEN 0.2-1.0 mg/dL (0.2-1.0)
[2018-06-09 15:59] LABS: PROTHROMBIN TIME 11.4 Seconds (9.8-13.1)
[2018-06-09 16:00] LABS: BASO # 0.1 K/uL (0.0-0.2); BASO % 0.8 % (0.0-2.0); EOS # 0.3 K/uL (0.0-0.7); EOS % 3.8 % (0.0-4.0); HEMOGLOBIN 10.3 g/dL (12.0-16.0); LYMPH # 1.7 K/uL (1.0-4.3); LYMPH % 23.8 % (20.0-40.0); MEAN CORPUSCULAR HGB CONC 31.2 g/dL (33.0-37.0); MEAN PLATELET VOLUME 8.1 fl (7.2-11.7); MONO # 0.7 K/uL (0.0-0.8); MONO % 9.3 % (0.0-10.0); NEUT # 4.4 K/uL (1.8-7.0); NEUT % 62.3 % (50.0-75.0); NRBC % 0.1 % (0.0-0.0); RBC 4.1 Mil/uL (3.80-5.20); RED CELL DISTRIBUTION WIDTH 21.8 % (11.5-14.5); WHITE BLOOD COUNT 7.1 K/uL (4.8-10.8)
--- NOTE | 2018-06-09 16:00 | ED PDOC ---
Lower Extremity Pain/Injury Time Seen by Provider: 06/09/18 15:01 Chief Complaint (Nursing): Lower Extremity Problem/Injury Chief Complaint (Provider): Lower Extremity Problem/Injury History Per: Patient History/Exam Limitations: no limitations Onset/Duration Of Symptoms: Days (x5 days ) Current Symptoms Are (Timing): Still Present Additional Complaint(s): Marjan Cano is a 73 year old female with a past medical history of COPD, diabetes and HTN, who presents to the emergency department complaining of leg swelling worsening since onset, x5 days ago. Swelling is associated with pain to the legs that is preventing her from walking without difficulty. Patient reports to have severe lower back pain that radiates down her legs bilaterally with the left worse than the right. She states she was told that she has a herniated disc. Patient states she has chronic shortness of breath from COPD which is normal. She reports she has been having an intermittent subjective fever for the last week. Patient saw her doctor yesterday who gave her a Rx for diuretics, voltaren and linzess but they have not helped. She also states that she has not been able to pee, reporting she has not been producing as much as she normally does, despite drinking a lot of water. Patient notes She denies any cough, chest pain, rash, dysuria, hematuria, bowel incontinence trauma or injury. PMD: Milly Crenshaw Past Medical History Reviewed: Historical Data, Nursing Documentation, Vital Signs Vital Signs: Last Vital Signs Temp 98.5 F 06/09/18 14:36 Pulse 76 06/09/18 14:36 Resp 20 06/09/18 14:36 BP 131/69 06/09/18 14:36 Pulse Ox 90 L 06/09/18 14:36 - Medical History PMH: Anxiety, Asthma, COPD, HTN, Hypercholesterolemia, Hyperlipidemia Denies: Chronic Kidney Disease - Surgical History Surgical History: No Surg Hx - Family History Family History: States: Diabetes, Hypertension - Social History Current smoker - smoking cessation education provided: No Ex-Smoker (has not smoked in the last 12 months): No Alcohol: None - Immunization History Hx Tetanus Toxoid Vaccination: No Hx Influenza Vaccination: Yes Hx Pneumococcal Vaccination: No - Home Medications Home Medications: Ambulatory Orders Medication Instructions Recorded RX: Albuterol HFA [Ventolin HFA 90 2 puff INH Q4 PRN 03/16/18 mcg/actuation (8 g)] RX: Atorvastatin [Lipitor] 40 mg PO HS 03/16/18 RX: Diclofenac Sodium [Voltaren] 50 mg PO BID 03/16/18 RX: Fluticasone/Salmeterol 250/50 1 puff INH BID 03/16/18 [Advair Diskus 250/50] RX: Glimepiride [Amaryl] 1 mg PO BID 03/16/18 RX: Lisinopril [Zestril] 20 mg PO DAILY 03/16/18 RX: Montelukast [Singulair] 10 mg PO HS 03/16/18 RX: Omeprazole 40 mg PO DAILY 03/16/18 RX: amLODIPine [Norvasc] 10 mg PO DAILY 03/16/18 RX: Aspirin [Lo-Dose Aspirin EC] 81 mg PO DAILY 06/10/18 RX: Linaclotide [Linzess] 145 mcg PO DAILY 06/10/18 RX: Sitagliptin Phos/Metformin HCl 1 tab PO DAILY 06/10/18 [Janumet 50-500 mg Tablet] RX: hydroCHLOROthiazide [Microzide] 12.5 mg PO DAILY 06/10/18 RX: Cyclobenzaprine [Flexeril] 10 mg PO Q8 PRN #20 tab 06/13/18 RX: Naproxen 500 mg PO Q8 #20 tab 06/13/18 - Allergies Allergies/Adverse Reactions: Allergies Allergy/AdvReac Type Severity Reaction Status Date / Time No Known Allergies Allergy Verified 06/09/18 14:36 Review of Systems ROS Statement: Except As Marked, All Systems Reviewed And Found Negative Constitutional: Positive for: Fever Cardiovascular: Negative for: Chest Pain Respiratory: Positive for: Shortness of Breath. Negative for: Cough Gastrointestinal: Negative for: Other (bowel incontinence) Genitourinary Female: Positive for: Incontinence. Negative for: Dysuria, Hematuria Musculoskeletal: Positive for: Back Pain (lower back pain), Leg Pain (bilateral leg swelling associated with leg pain) Skin: Negative for: Rash Physical Exam - Reviewed Nursing Documentation Reviewed: Yes Vital Signs Reviewed: Yes - Physical Exam Appears: Positive for: Non-toxic (tired appearing), In Acute Distress (mild painful distress) Head Exam: Positive for: ATRAUMATIC, NORMOCEPHALIC Skin: Positive for: Warm, Dry Eye Exam: Positive for: EOMI, PERRL ENT: Negative for: Pharyngeal Erythema, Tonsillar Exudate Neck: Positive for: Painless ROM, Supple Cardiovascular/Chest: Positive for: Regular Rate, Rhythm. Negative for: Murmur Respiratory: Positive for: Normal Breath Sounds (distant breath sounds). Negative for: Accessory Muscle Use, Wheezing, Respiratory Distress Gastrointestinal/Abdominal: Positive for: Soft. Negative for: Tenderness Back: Positive for: Vertebral Tenderness (TTP), Other (Bilateral SI Joint TTP) Extremity: Positive for: Tenderness (diffuse TTP on the leg), Pedal Edema (bilateral pitting pedal edema 1+ ), Other (light touch is intact; (-) bilateral straight leg raise test) Lymphatic: Negative for: Adenopathy Neurologic/Psych: Positive for: Alert, Oriented, Gait (unsteady secondary to pain). Negative for: Motor/Sensory Deficits, Aphasia, Facial Droop, Other (saddle anesthesia) - Laboratory Results Result Diagrams: 06/09/18 15:46 06/09/18 15:46 - ECG ECG Rhythm: Positive for: Normal QRS, Sinus Rhythm (normal ). Negative for: Normal ST Segment (diffusely flattened T waves) Rate: 71 O2 Sat by Pulse Oximetry: 90 (RA) Pulse Ox Interpretation: Abnormal Medical Decision Making Medical Decision Making: Initial Time: 15:24 Initial Impression: acute or chronic back pain, acute leg edema Differential diagnosis includes but not limited to fluid retention, renal failure, CHF, herniated disc, core compression syndrome, interabdominal mass Plan: --Type and screen --CT abd and pelvis IV contrast --Lumbar spine CT without contrast --EKG --CMP --Magnesium --Phosphorous --B-type Natriuretic peptide --Thyroid stimulating hormone --CBC with differential --PTT --PT --Tylenol 975 mg PO --Toradol 15 mg IVP --Urine culture --Saline lock --Glucose, blood --Urinalysis --Chest xray Chest X-ray FINDINGS: LUNGS: No active pulmonary disease. PLEURA: No significant pleural effusion identified, no pneumothorax apparent. CARDIOVASCULAR: No atherosclerotic calcification present Cardiomegaly. No evidence of acute, significant cardiovascular disease. OSSEOUS STRUCTURES: No significant abnormalities. VISUALIZED UPPER ABDOMEN: Normal. OTHER FINDINGS: None. IMPRESSION: No active disease. No significant interval change compared to the prior examination(s). Time: 2023 CT Lumbar Spine FINDINGS: ALIGNMENT: Bony alignment is anatomic. DISCS/DEGENERATIVE CHANGES: T12/L1: No significant central canal or neural foraminal stenosis. L1/L2: No significant central canal or neural foraminal stenosis. L2/L3: No significant central canal or neural foraminal stenosis. There is mild disc desiccation. L3/4: No significant central canal or neural foraminal stenosis. Disc desiccati on and posterior disc bulge. L4/5: Disc desiccation and large posterior disc bulge extending to the neural foramina. There is osteophytic change within the apophyseal joints with narrowing of the neural foramina and spinal canal stenosis. L5/S1: No significant central canal or neural foraminal stenosis. Mild posterior disc bulge. BONES: No acute fracture or aggressive appearing osseous lesion. There is hypertrophic and degenerative change and chronic disc disease throughout the lumbar spine. SOFT TISSUES: The soft tissues are unremarkable. Atherosclerotic changes are present with ectatic abdominal aorta. MISCELLANEOUS: No abnormal contrast enhancement. IMPRESSION: No acute lumbar spine abnormality. Hypertrophic and degenerative changes with chronic disc disease multiple levels. Prominent posterior bulging disks at the L3-L4 L4-L5 and L5-S1 levels. Evidence of spinal canal stenosis and narrowing the neural foramen at the L4-L5 level. Clinical correlation advised. Time: 2113 CT abdomen and pelvis COMMENTS: The liver is of uniform attenuation without mass or defect. There is no intra or extrahepatic biliary ductal dilatation. The spleen is normal. The gallbladder demonstrates small calcified stones in the dependent portion, otherwise unremarkable. The pancreas is of normal contour and attenuation characteristics. There is no evidence of adrenal mass. Both kidneys demonstrate prompt and equal nephrograms. The kidneys are normal in size, shape and configuration. There is no evidence of renal or ureteral mass. No renal or ureteral calculi are identified. There is no hydroureter or hydronephrosis. No evidence for appendicitis. There are fluid filled duodenum and loops of jejunum consistent with enteritis. Infectious and inflammatory etiologies are considered. Small bowel wall measures up to 5 mm in thickness. Scattered di verticulosis is present involving descending and sigmoid colon. No evidence of acute diverticulitis. No evidence for small or large bowel obstruction. There is no evidence of abdominal ascites or lymphadenopathy. Status post complete hysterectomy. There is no evidence of intrinsic or extrinsic bladder mass. There is no pelvic ascites or lymphadenopathy. Images of the lung bases show no evidence of pleural or parenchymal mass. There are no pleural effusions. Small hiatal hernia is seen. There is a 4 mm nodule noted in the right middle lobe. Scarring is seen in the right middle lobe and lingula as well as right lower lobe. The bony structures are free of lytic or blastic lesions. There is relatively large intramuscular lipoma noted involving the left posterior chest wall. IMPRESSION: 1. The gallbladder demonstrates small calcified stones in the dependent portion. 2. Enteritis. Infectious and inflammatory etiologies are considered. 3. Scattered diverticulosis involving descending and sigmoid colon with no evidence of acute diverticulitis. 4. 4 mm nodule in the right middle lobe. Consider follow up with CT. 7. Scarring in the right middle lobe and lingula as well as right lower lobe. 8. Intramuscular lipoma noted involving the left posterior chest wall. 2114 On reeval pt continues to have difficulty with walking secondary to pain with unsteady gait. Needs hospitalization for further management. CHASE Clarke who covers Dr Crenshaw's patients. Orders placed as per discussion. Scribe Attestation: Documented by Darion Dumont, acting as a scribe for Anali Vincent MD. Provider Scribe Attestation: All medical record entries made by the Scribe were at my direction and personally dictated by me. I have reviewed the chart and agree that the record accurately reflects my personal performance of the history, physical exam, medical decision making, and the department course for this patient. I have also personally directed, reviewed, and agree with the discharge instructions and disposition. Disposition - Clinical Impression Clinical Impression: Intractable back pain Counseled Patient/Family Regarding: Studies Performed, Diagnosis - Disposition Disposition Time: 21:00 Condition: FAIR - Pt Status Changed To: Hospital Disposition Of: Observation - POA Present On Arrival: Falls Or Trauma (risk)
[2018-06-09 16:02] LABS: PARTIAL THROMBOPLASTIN TIME 30.9 Seconds (25.6-37.1)
--- NOTE | 2018-06-09 16:08 | RAD ---
Date of service: 06/09/2018 HISTORY: Leg swelling COMPARISON: 05/12/2018 FINDINGS: LUNGS: No active pulmonary disease. PLEURA: No significant pleural effusion identified, no pneumothorax apparent. CARDIOVASCULAR: No atherosclerotic calcification present Cardiomegaly. No evidence of acute, significant cardiovascular disease. OSSEOUS STRUCTURES: No significant abnormalities. VISUALIZED UPPER ABDOMEN: Normal. OTHER FINDINGS: None. IMPRESSION: No active disease. No significant interval change compared to the prior examination(s).
[2018-06-09 16:12] LABS: MEAN CELL VOLUME 80.2 fl (81.0-99.0)
[2018-06-09 16:25] LABS: ALB/GLOB RATIO 1.3 (1.0-2.1); ALBUMIN 3.8 g/dL (3.5-5.0); ALT/SGPT 35 U/L (9-52); AST/SGOT 27 U/L (14-36); BLOOD UREA NITROGEN 12 mg/dl (7-17); CALCIUM 9.3 mg/dL (8.4-10.2); GFR NON-AFRICAN AMERICAN > 60
[2018-06-09] MEDS ORDERED: Albuterol-Ipratrop 3 mg / 0.5 (3 ml) UD INH STA (16:29)
[2018-06-09] MEDS ORDERED: Albuterol-Ipratrop 3 mg / 0.5 (3 ml) UD ONE (16:54)
[2018-06-09 17:06] LABS: B-TYPE NATRIURETIC PEPTIDE 116 pg/ml (0-900)
[2018-06-09] MEDS ORDERED: Iohexol 300 100 ML IJ ONE (18:34)
[2018-06-09] MEDS ORDERED: Sodium Chloride 0.9% 50 ML IV ONE (18:34)
[2018-06-09] MEDS ORDERED: Magnesium Oxide 400 mg Tab UD PO ONE (20:36)
[2018-06-10 00:28] VITALS: BMI 40.3
[2018-06-10] MEDS ORDERED: Albuterol HFA 90 mcg/actuation (8 g) INH PRN (06:10)
--- NOTE | 2018-06-10 07:18 | CP.PCM.HP ---
<Joyce Darnell - Last Filed: 06/10/18 13:13> History of Present Illness - History of Present Illness History of Present Illness: 73 year old female with a PMH of COPD, diabetes and HTN, presents to the ED complaining of leg pain and swelling worsening since 5 days ago. Patient also reports severe lower back pain that radiates down her legs bilaterally with the left worse than the right. She states she was told that she has a herniated disc. She reports she has been having an intermittent subjective fever for the last week. She endorses she went to her doctor yesterday who gave her a Rx for diuretics and voltaren but she states minimal relief. Otherwise she denies any cough, chest pain, rash, dysuria, hematuria, bowel incontinence, trauma or injury. PMD: Dr Crenshaw Present on Admission - Present on Admission Any Indicators Present on Admission: No Review of Systems - Review of Systems All systems: reviewed and no additional remarkable complaints except (HPI) Past Patient History - Past Medical History & Family History Past Medical History?: Yes - Past Social History Alcohol: None - CARDIAC Hx Hypercholesterolemia: Yes Hx Hypertension: Yes - PULMONARY Hx Asthma: Yes Hx Chronic Obstructive Pulmonary Disease (COPD): Yes - NEUROLOGICAL Hx Neurological Disorder: No - HEENT Hx HEENT Problems: Yes Hx Cataracts: Yes - RENAL Hx Chronic Kidney Disease: No - ENDOCRINE/METABOLIC Hx Endocrine Disorders: Yes (DM) Hx Diabetes Mellitus Type 2: Yes - HEMATOLOGICAL/ONCOLOGICAL Hx Blood Disorders: No - INTEGUMENTARY Hx Dermatological Problems: No - MUSCULOSKELETAL/RHEUMATOLOGICAL Hx Musculoskeletal Disorders: Yes Hx Falls: No Other/Comment: Bilateral knee pain - GASTROINTESTINAL Hx Gastrointestinal Disorders: No - GENITOURINARY/GYNECOLOGICAL Hx Genitourinary Disorders: No - PSYCHIATRIC Hx Anxiety: Yes - SURGICAL HISTORY Hx Surgeries: Yes Hx Hysterectomy: Yes (1986) - ANESTHESIA Hx Anesthesia: Yes Hx Anesthesia Reactions: No Hx Malignant Hyperthermia: No Meds Allergies/Adverse Reactions: Allergies Allergy/AdvReac Type Severity Reaction Status Date / Time No Known Allergies Allergy Verified 06/09/18 14:36 Physical Exam - Constitutional Appears: No Acute Distress - Eye Exam Eye Exam: EOMI - Respiratory Exam Respiratory Exam: Clear to Auscultation Bilateral, NORMAL BREATHING PATTERN - Cardiovascular Exam Cardiovascular Exam: REGULAR RHYTHM, +S1, +S2 - GI/Abdominal Exam GI & Abdominal Exam: Normal Bowel Sounds, Soft. absent: Distended, Tenderness - Extremities Exam Extremities exam: Negative for: calf tenderness - Back Exam Back exam: NORMAL INSPECTION, paraspinal tenderness, tenderness (Limited ROM due to pain). absent: CVA tenderness (L), CVA tenderness (R) - Neurological Exam Neurological exam: Alert, Oriented x3 Results - Vital Signs Recent Vital Signs: Last Vital Signs Temp 97.9 F 06/10/18 00:06 Pulse 75 06/10/18 03:12 Resp 20 06/10/18 03:12 BP 114/60 06/10/18 03:12 Pulse Ox 97 06/10/18 03:12 - Labs Result Diagrams: 06/09/18 15:46 06/09/18 15:46 Labs: Laboratory Results - last 24 hr 06/09/18 06/09/18 06/09/18 15:28 15:46 15:46 WBC 7.1 RBC 4.10 Hgb 10.3 L Hct 32.9 L MCV 80.2 L D MCH 25.0 L MCHC 31.2 L RDW 21.8 H Plt Count 255 MPV 8.1 Neut % (Auto) 62.3 Lymph % (Auto) 23.8 Collin % (Auto) 9.3 Eos % (Auto) 3.8 Baso % (Auto) 0.8 Neut # (Auto) 4.4 Lymph # (Auto) 1.7 Collin # (Auto) 0.7 Eos # (Auto) 0.3 Baso # (Auto) 0.1 PT INR APTT Sodium 137 Potassium 4.7 Chloride 98 Carbon Dioxide 32 H Anion Gap 12 BUN 12 Creatinine 0.9 Est GFR ( Amer) > 60 Est GFR (Non-Af Amer) > 60 POC Glucose (mg/dL) 123 H Random Glucose 123 H Calcium 9.3 Phosphorus 3.1 Magnesium 1.4 L Total Bilirubin 0.2 AST 27 ALT 35 Alkaline Phosphatase 61 NT-Pro-B Natriuret Pep 116 Total Protein 6.6 Albumin 3.8 Globulin 2.9 Albumin/Globulin Ratio 1.3 TSH 3rd Generation 1.60 Urine Color Urine Clarity Urine pH Ur Specific [place] Urine Protein Urine Glucose (UA) Urine Ketones Urine Blood Urine Nitrate Urine Bilirubin Urine Urobilinogen Ur Leukocyte Esterase Urine RBC (Auto) Urine Microscopic WBC Ur Squamous Epith Cells Blood Type Blood Type Confirm Antibody Screen BBK History Checked 06/09/18 06/09/18 06/09/18 15:46 15:46 15:46 WBC RBC Hgb Hct MCV MCH MCHC RDW Plt Count MPV Neut % (Auto) Lymph % (Auto) [place]lin % (Auto) Eos % (Auto) Baso % (Auto) Neut # (Auto) Lymph # (Auto) [place]lin # (Auto) Eos # (Auto) Baso # (Auto) PT 11.4 INR 1.0 APTT 30.9 Sodium Potassium Chloride Carbon Dioxide Anion Gap BUN Creatinine Est GFR ( Amer) Est GFR (Non-Af Amer) POC Glucose (mg/dL) Random Glucose Calcium Phosphorus Magnesium Total Bilirubin AST ALT Alkaline Phosphatase NT-Pro-B Natriuret Pep Total Protein Albumin Globulin Albumin/Globulin Ratio TSH 3rd Generation Urine Color Straw Urine Clarity Clear Urine pH 7.0 Ur Specific [place] 1.008 Urine Protein Negative Urine Glucose (UA) Neg Urine Ketones Negative Urine Blood Negative Urine Nitrate Negative Urine Bilirubin Negative Urine Urobilinogen 0.2-1.0 Ur Leukocyte Esterase Neg Urine RBC (Auto) < 1 Urine Microscopic WBC < 1 Ur Squamous Epith Cells 1 Blood Type O POSITIVE Blood Type Confirm Antibody Screen Negative BBK History Checked No verified bt 06/09/18 16:00 WBC RBC Hgb Hct MCV MCH MCHC RDW Plt Count MPV Neut % (Auto) Lymph % (Auto) [place]lin % (Auto) Eos % (Auto) Baso % (Auto) Neut # (Auto) Lymph # (Auto) Collin # (Auto) Eos # (Auto) Baso # (Auto) PT INR APTT Sodium Potassium Chloride Carbon Dioxide Anion Gap BUN Creatinine Est GFR ( Amer) Est GFR (Non-Af Amer) POC Glucose (mg/dL) Random Glucose Calcium Phosphorus Magnesium Total Bilirubin AST ALT Alkaline Phosphatase NT-Pro-B Natriuret Pep Total Protein Albumin Globulin Albumin/Globulin Ratio TSH 3rd Generation Urine Color Urine Clarity Urine pH Ur Specific [place] Urine Protein Urine Glucose (UA) Urine Ketones Urine Blood Urine Nitrate Urine Bilirubin Urine Urobilinogen Ur Leukocyte Esterase Urine RBC (Auto) Urine Microscopic WBC Ur Squamous Epith Cells Blood Type Blood Type Confirm O POSITIVE Antibody Screen BBK History Checked Assessment & Plan - Assessment and Plan (Free Text) Assessment: 73 year old female with a PMH of COPD, diabetes and HTN admitted for evaluation of intractable lower back pain Plan: - VSS, afebrile - labs reviewed wnl, urine negative for UTI - CXR: No active disease. - CT Lumbar Spine: No acute lumbar spine abnormality. Hypertrophic and degener ative changes with chronic disc disease multiple levels. Stenosis of spinal canal and narrowing the neural foramen at the L4-L5 level. - Ortho consulted, recommendations appreciated. - Pain management - continue home meds - for lumbar MRI today - rest of plan as ordered Case discussed with Dr Clarke. <Tyree Clarke - Last Filed: 06/13/18 14:12> Results - Vital Signs Recent Vital Signs: Last Vital Signs Temp 97.7 F 06/13/18 00:45 Pulse 80 06/13/18 08:33 Resp 20 06/13/18 00:45 BP 125/61 06/13/18 08:33 Pulse Ox 94 L 06/13/18 00:45 - Labs Result Diagrams: 06/09/18 15:46 06/09/18 15:46 Labs: Laboratory Results - last 24 hr 06/12/18 06/12/18 06/13/18 16:12 21:53 05:37 POC Glucose (mg/dL) 228 H 349 H 242 H 06/13/18 11:47 POC Glucose (mg/dL) 226 H Assessment & Plan - Assessment and Plan (Free Text) Assessment: Patient was personally seen and examined by me in rounds with residents. Available labs and diagnostic data reviewed. Case, Patient's condition and management plan discussed with residents in rounds. Agree with resident's progress note. Plan: As ordered.
--- NOTE | 2018-06-10 08:50 | CT ---
Date of service: 06/09/2018 PROCEDURE: CT Lumbar Spine without contrast HISTORY: severe low back pain COMPARISON: None available. TECHNIQUE: Axial computed tomography images were obtained of the lumbar spine without the use of intravenous contrast. Coronal and sagittal reformatted images were created and reviewed. Radiation dose: Total exam DLP = 1155.17 mGy-cm. This CT exam was performed using one or more of the following dose reduction techniques: Automated exposure control, adjustment of the mA and/or kV according to patient size, and/or use of iterative reconstruction technique. FINDINGS: VERTEBRAE: The vertebral bodies are maintained in height. Normal alignment is maintained. There is preservation of the transverse processes and posterior elements. There are 2 Schmorl's nodes in the superior L4 vertebral endplate. DISCS/SPINAL CANAL/NEURAL FORAMINA: L1-2: The intervertebral disc spaces maintained in height. There is no disc bulge or herniation. There is no spinal or foraminal stenosis. L2-3: The intervertebral disc space is maintained in height. There is disc desiccation with vacuum disc phenomenon. There is no disc bulge or herniation. There is no spinal or foraminal stenosis. L3-4: The intervertebral disc space is maintained in height. There is discal desiccation with vacuum disc phenomenon. There are 2 Schmorl's nodes seen in the superior L4 vertebral endplate. There is mild diffuse disc bulge. There is no focal herniation. There is no spinal or neural foraminal stenosis. L4-5: The intervertebral disc space is maintained in height. There is discal desiccation and vacuum disc phenomenon. There is diffuse disc bulge. There is no focal herniation. There is moderate bilateral neural foraminal stenosis and moderate central spinal stenosis. There is mild bilateral ligamentum flavum hypertrophy. L5-S1: The intervertebral disc space is maintained in height. There is no disc bulge or herniation. There is no spinal or foraminal stenosis. PARASPINAL SOFT TISSUES: Atherosclerotic calcification of the abdominal aorta. There is severe atherosclerotic calcification at the origin of the superior mesenteric artery. The degree of stenosis cannot be gauged on the basis of this examination. There is no evidence of abdominal aortic aneurysm. OTHER FINDINGS: None. IMPRESSION: Mild disc bulge L3-4. Moderate disc bulge L4-5 with moderate bilateral neural foraminal stenosis and moderate central spinal stenosis. No focal disc herniation. No fracture or listhesis. Incidental severe atherosclerotic calcification at the origin of the superior mesenteric artery, of uncertain significance. The preliminary findings for this examination were reported by [facility] Radiology at 8:24 p.m. on 06/09/2018. There is concurrence of this report with the preliminary findings.
[2018-06-10] MEDS ORDERED: DICLOFENAC SODIUM 50 MG PO SCH (09:00)
[2018-06-10] MEDS: Fluticasone-Salmeterol 250-50mcg Diskus INH SCH ×2 (09:04→18:48)
[2018-06-10] MEDS: Naproxen 500 MG TAB PO SCH ×2 (09:07→22:43)
[2018-06-10] MEDS: Lidocaine 5% Patch TD SCH (09:07)
[2018-06-10] MEDS: GlipiZIDE 5 mg SR Tab PO SCH (09:08)
--- NOTE | 2018-06-10 09:08 | CARD ---
APPROVED REPORT Date of service: 06/09/2018 EKG Measurement Heart [id number] <Conclusion> Normal sinus rhythm Nonspecific T wave abnormality Abnormal ECG
--- NOTE | 2018-06-10 09:40 | CT ---
Date of service: 06/09/2018 PROCEDURE: CT Abdomen and Pelvis with contrast HISTORY: leg swelling back pain low urine output r/o mass COMPARISON: 12/02/2017 TECHNIQUE: Contrast dose: Radiation dose: Total exam DLP = 95 mL Omnipaque 300 mGy-cm. This CT exam was performed using one or more of the following dose reduction techniques: Automated exposure control, adjustment of the mA and/or kV according to patient size, and/or use of iterative reconstruction technique. FINDINGS: LOWER THORAX: Very small hiatal hernia. No infiltrate/effusion. Small right Bochdalek's hernia containing only retroperitoneal fat. 4 mm nodule noted in right middle lobe for which no follow-up is required as per Fleischner society criteria. LIVER: Unremarkable. No gross lesion or ductal dilatation. GALLBLADDER AND BILE DUCTS: Cholelithiasis. No mural thickening or pericholecystic fluid. PANCREAS: Unremarkable. No gross lesion or ductal dilatation. SPLEEN: Unremarkable. ADRENALS: Unremarkable. No mass. KIDNEYS AND URETERS: Nonspecific focal cortical scar lower pole right kidney, unchanged. Several small low-density renal masses, likely cortical cysts. 8 mm upper pole left kidney. 8 mm lower pole left kidney. 3 mm lower pole right kidney. No renal calculus or hydronephrosis. VASCULATURE: Unremarkable. No aortic aneurysm. There is atherosclerotic calcification of the abdominal aorta and iliac vessels. BOWEL: Mild sigmoid diverticulosis without evidence of diverticulitis. No bowel obstruction. No other abnormal bowel loops. APPENDIX: Not identified. No secondary findings. PERITONEUM: Unremarkable. No free fluid. No free air. LYMPH NODES: Unremarkable. No enlarged lymph nodes. BLADDER: Unremarkable. REPRODUCTIVE: Status post hysterectomy BONES: Schmorl's nodes in the superior L4 vertebral endplate. No acute fracture. OTHER FINDINGS: There is a lipoma of the left posterior chest wall musculature only partially included in this examination, measuring approximately 10.2 x 3.9 cm in the transverse plane. IMPRESSION: No evidence of enteritis, bowel obstruction or acute inflammatory process. Diverticulosis of the sigmoid colon without evidence of diverticulitis. Incidental lipoma of the left posterior chest wall musculature. Small hiatal hernia. Additional minor findings as above. The preliminary findings for this examination were reported by [facility] at 9:14 p.m. on 06/09/2018. There is discordance of this report with the preliminary findings. There is no evidence of enteritis on the basis of this examination.
--- NOTE | 2018-06-10 11:39 | CP.PCM.CON ---
History of Present Illness - History of Present Illness History of Present Illness: 73 yo woman w/ acute on chronic lower back pain is admitted for COPD exacerbation and intractable pain. CT showed L4-5 spondylotic changes, MRI is pending. She's comfortable on Tramadol currently. The pain is diffuse, starting in the lower back and radiating down both legs. The pain is sharp and shooting, about 9/10 on average. She's had multiple interventions before, with only mild and transient relief, with the last procedure being 3-4 months ago. However, she realizes that she is a high risk patient for surgery due to her pulmonary status. At this point, she elects to receive another injection and put off decision on surgery until later. Past Patient History - Past Medical History & Family History Past Medical History?: Yes - Past Social History Alcohol: None - CARDIAC Hx Hypercholesterolemia: Yes Hx Hypertension: Yes - PULMONARY Hx Asthma: Yes Hx Chronic Obstructive Pulmonary Disease (COPD): Yes - NEUROLOGICAL Hx Neurological Disorder: No - HEENT Hx HEENT Problems: Yes - RENAL Hx Chronic Kidney Disease: No - ENDOCRINE/METABOLIC Hx Endocrine Disorders: Yes (DM) - HEMATOLOGICAL/ONCOLOGICAL Hx Blood Disorders: No - INTEGUMENTARY Hx Dermatological Problems: No - MUSCULOSKELETAL/RHEUMATOLOGICAL Hx Musculoskeletal Disorders: Yes - GASTROINTESTINAL Hx Gastrointestinal Disorders: No - GENITOURINARY/GYNECOLOGICAL Hx Genitourinary Disorders: No - PSYCHIATRIC Hx Anxiety: Yes - SURGICAL HISTORY Hx Surgeries: Yes Hx Hysterectomy: Yes (1986) - ANESTHESIA Hx Anesthesia: Yes Hx Anesthesia Reactions: No Hx Malignant Hyperthermia: No Meds Allergies/Adverse Reactions: Allergies Allergy/AdvReac Type Severity Reaction Status Date / Time No Known Allergies Allergy Verified 06/09/18 14:36 - Medications Medications: Current Medications Albuterol (Ventolin Hfa 90 Mcg/Actuation (8 G)) 2 puff INH Q4 PRN PRN Reason: Shortness of Breath Amlodipine Besylate (Norvasc) 10 mg PO DAILY [facility] Last Admin: 06/10/18 09:02 Dose: 10 mg Aspirin (Ecotrin) 81 mg PO DAILY [facility] Last Admin: 06/10/18 09:03 Dose: 81 mg Atorvastatin Calcium (Lipitor) 40 mg PO HS [facility] Cyclobenzaprine HCl (Flexeril) 10 mg PO Q8 [facility] Last Admin: 06/10/18 09:03 Dose: 10 mg Glipizide (Glucotrol Xl) 5 mg PO ACB [facility] Last Admin: 06/10/18 09:08 Dose: 5 mg Home Med (Diclofenac Sodium [Voltaren]) 50 mg PO BID [facility] Home Med (Linaclotide [Linzess]) 145 mcg PO DAILY [facility] Last Admin: 06/10/18 09:06 Dose: 145 mcg Hydrochlorothiazide (Microzide) 12.5 mg PO DAILY [facility] Last Admin: 06/10/18 09:02 Dose: 12.5 mg Lidocaine (Lidoderm) 1 ea TD DAILY [facility] Last Admin: 06/10/18 09:07 Dose: 1 ea Lisinopril (Zestril) 20 mg PO DAILY [facility] Last Admin: 06/10/18 09:00 Dose: 20 mg Metformin HCl (Glucophage) 500 mg PO DAILY [facility] Last Admin: 06/10/18 09:03 Dose: 500 mg Montelukast Sodium (Singulair) 10 mg PO HS [facility] Naproxen (Naproxen) 500 mg PO Q12 [facility] Last Admin: 06/10/18 09:07 Dose: 500 mg Pantoprazole Sodium (Protonix Ec Tab) 40 mg PO DAILY [facility] Fluticasone/Salmeterol (Advair Diskus 250/50) 1 puff INH BID [facility] Last Admin: 06/10/18 09:04 Dose: 1 puff Sitagliptin Phosphate (Januvia) 50 mg PO DAILY [facility] Physical Exam - Back Exam Back exam: paraspinal tenderness, vertebral tenderness Results - Vital Signs Recent Vital Signs: Last Vital Signs Temp 97.6 F 06/10/18 09:13 Pulse 78 06/10/18 09:13 Resp 19 06/10/18 09:13 BP 120/70 06/10/18 09:13 Pulse Ox 98 06/10/18 09:13 - Labs Result Diagrams: 06/09/18 15:46 06/09/18 15:46 Labs: Laboratory Results - last 24 hr 06/09/18 06/09/18 06/09/18 15:28 15:46 15:46 WBC 7.1 RBC 4.10 Hgb 10.3 L Hct 32.9 L MCV 80.2 L D MCH 25.0 L MCHC 31.2 L RDW 21.8 H Plt Count 255 MPV 8.1 Neut % (Auto) 62.3 Lymph % (Auto) 23.8 [place] % (Auto) 9.3 Eos % (Auto) 3.8 Baso % (Auto) 0.8 Neut # (Auto) 4.4 Lymph # (Auto) 1.7 [place] # (Auto) 0.7 Eos # (Auto) 0.3 Baso # (Auto) 0.1 PT INR APTT Sodium 137 Potassium 4.7 Chloride 98 Carbon Dioxide 32 H Anion Gap 12 BUN 12 Creatinine 0.9 Est GFR ( Amer) > 60 Est GFR (Non-Af Amer) > 60 POC Glucose (mg/dL) 123 H Random Glucose 123 H Calcium 9.3 Phosphorus 3.1 Magnesium 1.4 L Total Bilirubin 0.2 AST 27 ALT 35 Alkaline Phosphatase 61 NT-Pro-B Natriuret Pep 116 Total Protein 6.6 Albumin 3.8 Globulin 2.9 Albumin/Globulin Ratio 1.3 TSH 3rd Generation 1.60 Urine Color Urine Clarity Urine pH Ur Specific [place] Urine Protein Urine Glucose (UA) Urine Ketones Urine Blood Urine Nitrate Urine Bilirubin Urine Urobilinogen Ur Leukocyte Esterase Urine RBC (Auto) Urine Microscopic WBC Ur Squamous Epith Cells Blood Type Blood Type Confirm Antibody Screen BBK History Checked 06/09/18 06/09/18 06/09/18 15:46 15:46 15:46 WBC RBC Hgb Hct MCV MCH MCHC RDW Plt Count MPV Neut % (Auto) Lymph % (Auto) [place] % (Auto) Eos % (Auto) Baso % (Auto) Neut # (Auto) Lymph # (Auto) [place] # (Auto) Eos # (Auto) Baso # (Auto) PT 11.4 INR 1.0 APTT 30.9 Sodium Potassium Chloride Carbon Dioxide Anion Gap BUN Creatinine Est GFR ( Amer) Est GFR (Non-Af Amer) POC Glucose (mg/dL) Random Glucose Calcium Phosphorus Magnesium Total Bilirubin AST ALT Alkaline Phosphatase NT-Pro-B Natriuret Pep Total Protein Albumin Globulin Albumin/Globulin Ratio TSH 3rd Generation Urine Color Straw Urine Clarity Clear Urine pH 7.0 Ur Specific [place] 1.008 Urine Protein Negative Urine Glucose (UA) Neg Urine Ketones Negative Urine Blood Negative Urine Nitrate Negative Urine Bilirubin Negative Urine Urobilinogen 0.2-1.0 Ur Leukocyte Esterase Neg Urine RBC (Auto) < 1 Urine Microscopic WBC < 1 Ur Squamous Epith Cells 1 Blood Type O POSITIVE Blood Type Confirm Antibody Screen Negative BBK History Checked No verified bt 06/09/18 16:00 WBC RBC Hgb Hct MCV MCH MCHC RDW Plt Count MPV Neut % (Auto) Lymph % (Auto) [place] % (Auto) Eos % (Auto) Baso % (Auto) Neut # (Auto) Lymph # (Auto) [place] # (Auto) Eos # (Auto) Baso # (Auto) PT INR APTT Sodium Potassium Chloride Carbon Dioxide Anion Gap BUN Creatinine Est GFR ( Amer) Est GFR (Non-Af Amer) POC Glucose (mg/dL) Random Glucose Calcium Phosphorus Magnesium Total Bilirubin AST ALT Alkaline Phosphatase NT-Pro-B Natriuret Pep Total Protein Albumin Globulin Albumin/Globulin Ratio TSH 3rd Generation Urine Color Urine Clarity Urine pH Ur Specific [place] Urine Protein Urine Glucose (UA) Urine Ketones Urine Blood Urine Nitrate Urine Bilirubin Urine Urobilinogen Ur Leukocyte Esterase Urine RBC (Auto) Urine Microscopic WBC Ur Squamous Epith Cells Blood Type Blood Type Confirm O POSITIVE Antibody Screen BBK History Checked Assessment & Plan - Assessment and Plan (Free Text) Assessment: 73 yo woman w/ acute on chronic lower back pain, has lumbar radicular pain. - will schedule for injection tomorrow, after MRI - NPO, hold anticoagulation for tomorrow - continue current regimen
--- NOTE | 2018-06-10 12:59 | MRI ---
Date of service: 06/10/2018 PROCEDURE: MR LUMBAR SPINE WITHOUT CONTRAST HISTORY: intractable low back pain COMPARISON: CT lumbar spine without contrast from 06/09/2018. TECHNIQUE: Multiecho multiplanar sequences were performed through the lumbar spine without the use of intravenous contrast. FINDINGS: There is normal alignment of the lumbar vertebral bodies. There is normal lumbar lordosis. 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 There is no acute fracture or spondylolysis. There is a large Schmorl's node at the superior endplate of L4 vertebral body, otherwise bone marrow signal is within normal limits. The conus medullaris terminates at a normal level and the nerve roots of cauda equina are normal. There is fatty atrophy of the paraspinous muscles. Imaged portion of the retroperitoneum is within normal limits. There is multilevel disc degeneration with loss of T2 signal. The disc heights are maintained. T12-L1: No disc herniation, spinal canal stenosis or neural foraminal narrowing. L1-2: No disc herniation, spinal canal stenosis or neural foraminal narrowing. L2-3: Posterior disc bulge in conjunction with mild ligamentum flavum infolding result in mild spinal canal stenosis. Mild bilateral facet arthropathy without neural foraminal narrowing. L3-4: Posterior disc bulge and mild ligamentum flavum infolding result in mild spinal canal stenosis. Moderate bilateral facet arthropathy contribute to mild neural foraminal narrowing. L4-5: Diffuse posterior disc bulge in conjunction with moderate ligamentum flavum infolding result in moderate spinal canal stenosis. Severe bilateral facet arthropathy contribute to moderate two severe neural foraminal narrowing. L5-S1: Posterior disc bulge and mild ligamentum flavum infolding result in mild spinal canal stenosis. Mild bilateral facet arthropathy without neural foraminal narrowing. OTHER FINDINGS: None. IMPRESSION: No acute fracture, spondylolysis or spondylolisthesis. Multilevel degenerative disc disease, worse at L4-5 with a diffuse posterior disc bulge, moderate spinal canal stenosis and moderate to severe neural foraminal narrowing.
[2018-06-10] MEDS: Pantoprazole 40 mg EC Tab PO SCH (13:18)
[2018-06-10] MEDS ORDERED: Magnesium Oxide 400 mg Tab UD PO ONE (20:36)
--- NOTE | 2018-06-11 07:22 | CP.PCM.PN ---
<Joyce Darnell - Last Filed: 06/11/18 07:20> Subjective - Date & Time of Evaluation Date of Evaluation: 06/11/18 Time of Evaluation: 07:20 - Subjective Subjective: Patient seen and examined this morning with Dr Clarke. Reports feeling little better though pain still, no overnight events. Denies urinary symptoms or BM changes Objective - Vital Signs/Intake and Output Vital Signs (last 24 hours): Temp Pulse Resp BP Pulse Ox 98.4 F 60 20 111/55 L 95 06/11/18 01:36 06/11/18 01:36 06/11/18 01:36 06/11/18 01:36 06/11/18 01:36 - Medications Medications: Current Medications Albuterol (Ventolin Hfa 90 Mcg/Actuation (8 G)) 2 puff INH Q4 PRN PRN Reason: Shortness of Breath Amlodipine Besylate (Norvasc) 10 mg PO DAILY [facility] [place] Last Admin: 06/10/18 09:02 Dose: 10 mg Aspirin (Ecotrin) 81 mg PO DAILY [facility] [place] Last Admin: 06/10/18 09:03 Dose: 81 mg Atorvastatin Calcium (Lipitor) 40 mg PO HS [facility] [place] Last Admin: 06/10/18 22:46 Dose: 40 mg Cyclobenzaprine HCl (Flexeril) 10 mg PO Q8 [facility] [place] Last Admin: 06/10/18 23:59 Dose: 10 mg Enoxaparin Sodium (Lovenox) 40 mg SC DAILY [facility] [place]; Protocol Glipizide (Glucotrol Xl) 5 mg PO ACB [facility] [place] Last Admin: 06/10/18 09:08 Dose: 5 mg Home Med (Diclofenac Sodium [Voltaren]) 50 mg PO BID [facility] [place] Last Admin: 06/10/18 10:49 Dose: Not Given Home Med (Linaclotide [Linzess]) 145 mcg PO DAILY [facility] [place] Last Admin: 06/10/18 09:06 Dose: 145 mcg Hydrochlorothiazide (Microzide) 12.5 mg PO DAILY [facility] [place] Last Admin: 06/10/18 09:02 Dose: 12.5 mg Lidocaine (Lidoderm) 1 ea TD DAILY [facility] [place] Last Admin: 06/10/18 09:07 Dose: 1 ea Lisinopril (Zestril) 20 mg PO DAILY [facility] [place] Last Admin: 06/10/18 09:00 Dose: 20 mg Metformin HCl (Glucophage) 500 mg PO DAILY [facility] [place] Last Admin: 06/10/18 09:03 Dose: 500 mg Montelukast Sodium (Singulair) 10 mg PO HS [facility] [place] Last Admin: 06/10/18 22:44 Dose: 10 mg Naproxen (Naproxen) 500 mg PO Q12 [facility] [place] Last Admin: 06/10/18 22:43 Dose: 500 mg Pantoprazole Sodium (Protonix Ec Tab) 40 mg PO DAILY [facility] [place] Last Admin: 06/10/18 13:18 Dose: 40 mg Fluticasone/Salmeterol (Advair Diskus 250/50) 1 puff INH BID [facility] [place] Last Admin: 06/10/18 18:48 Dose: 1 puff Sitagliptin Phosphate (Januvia) 50 mg PO DAILY [facility] [place] Last Admin: 06/10/18 13:18 Dose: 50 mg Tramadol HCl (Ultram) 50 mg PO BID PRN PRN Reason: Pain, moderate (4-7) - Labs Labs: 06/09/18 15:46 06/09/18 15:46 PT 11.4 Seconds (9.8-13.1) 06/09/18 15:46 INR 1.0 06/09/18 15:46 APTT 30.9 Seconds (25.6-37.1) 06/09/18 15:46 - Constitutional Appears: No Acute Distress - Respiratory Exam Respiratory Exam: Clear to Ausculation Bilateral, NORMAL BREATHING PATTERN - Cardiovascular Exam Cardiovascular Exam: REGULAR RHYTHM, +S1, +S2 - GI/Abdominal Exam GI & Abdominal Exam: Soft, Normal Bowel Sounds. absent: Distended, Tenderness - Back Exam Back Exam: vertebral tenderness (lumbar spine) - Neurological Exam Neurological Exam: Awake, Oriented x3 Assessment and Plan - Assessment and Plan (Free Text) Assessment: 73 year old female with a PMH of COPD, diabetes and HTN admitted for evaluation of intractable lower back pain Plan: - VSS, afebrile - CT Lumbar Spine: No acute lumbar spine abnormality. Hypertrophic and degenerative changes with chronic disc disease multiple levels. Stenosis of spinal canal and narrowing the neural foramen at the L4-L5 level. - Lumbar spine MRI: no fx, posterior disc bulge at L4-L5, moderated canal stenosis, moderated to severe neural foraminal narrowing. - Neurosurgery consulted, recommendations appreciated. - Pain management - for injection today - NPO, hold anticoagulation - continue home meds - rest of plan as ordered <Tyree Clarke - Last Filed: 06/13/18 14:10> Objective - Vital Signs/Intake and Output Vital Signs (last 24 hours): Temp Pulse Resp BP Pulse Ox 97.7 F 80 20 125/61 94 L 06/13/18 00:45 06/13/18 08:33 06/13/18 00:45 06/13/18 08:33 06/13/18 00:45 - Medications Medications: Current Medications Albuterol (Ventolin Hfa 90 Mcg/Actuation (8 G)) 2 puff INH Q4 PRN PRN Reason: Shortness of Breath Albuterol/Ipratropium (Duoneb 3 Mg/0.5 Mg (3 Ml) Ud) 3 ml INH RQ6 [facility] [place] Last Admin: 06/13/18 13:36 Dose: 3 ml Amlodipine Besylate (Norvasc) 10 mg PO DAILY [facility] [place] Last Admin: 06/13/18 08:30 Dose: 10 mg Aspirin (Ecotrin) 81 mg PO DAILY [facility] [place] Last Admin: 06/13/18 08:29 Dose: 81 mg Atorvastatin Calcium (Lipitor) 40 mg PO HS [facility] [place] Last Admin: 06/12/18 21:11 Dose: 40 mg Cyclobenzaprine HCl (Flexeril) 10 mg PO Q8 [facility] [place] Last Admin: 06/13/18 08:29 Dose: 10 mg Enoxaparin Sodium (Lovenox) 40 mg SC DAILY [facility]; Protocol Last Admin: 06/13/18 08:28 Dose: 40 mg Glipizide (Glucotrol Xl) 5 mg PO ACB [facility] [place] Last Admin: 06/13/18 08:29 Dose: 5 mg Guaifenesin (Robitussin) 100 mg PO Q6 PRN PRN Reason: Cough Home Med (Diclofenac Sodium [Voltaren]) 50 mg PO BID [facility] [place] Last Admin: 06/10/18 10:49 Dose: Not Given Home Med (Linaclotide [Linzess]) 145 mcg PO DAILY [facility] [place] Last Admin: 06/13/18 08:34 Dose: 145 mcg Hydrochlorothiazide (Microzide) 12.5 mg PO DAILY [facility] [place] Last Admin: 06/13/18 08:29 Dose: 12.5 mg Sodium Chloride (Sodium Chloride 0.9%) 1,000 mls @ 75 mls/hr IV .[id number] [facility] [place] Last Admin: 06/12/18 01:58 Dose: Not Given Lidocaine (Lidoderm) 1 ea TD DAILY [facility] [place] Last Admin: 06/13/18 08:34 Dose: 1 ea Lisinopril (Zestril) 20 mg PO DAILY [facility] [place] Last Admin: 06/13/18 08:33 Dose: 20 mg Metformin HCl (Glucophage) 500 mg PO DAILY [facility] [place] Last Admin: 06/13/18 08:29 Dose: 500 mg Montelukast Sodium (Singulair) 10 mg PO HS [facility] [place] Last Admin: 06/12/18 21:11 Dose: 10 mg Naproxen (Naproxen) 500 mg PO Q12 [facility] [place] Last Admin: 06/13/18 08:28 Dose: 500 mg Pantoprazole Sodium (Protonix Ec Tab) 40 mg PO DAILY [facility] [place] Last Admin: 06/13/18 08:30 Dose: 40 mg Fluticasone/Salmeterol (Advair Diskus 250/50) 1 puff INH BID [facility] [place] Last Admin: 06/13/18 08:34 Dose: 1 puff Sitagliptin Phosphate (Januvia) 50 mg PO DAILY [facility] [place] Last Admin: 06/13/18 08:29 Dose: 50 mg Tramadol HCl (Ultram) 50 mg PO BID PRN PRN Reason: Pain, moderate (4-7) - Labs Labs: 06/09/18 15:46 06/09/18 15:46 PT 11.4 Seconds (9.8-13.1) 06/09/18 15:46 INR 1.0 06/09/18 15:46 APTT 30.9 Seconds (25.6-37.1) 06/09/18 15:46 Assessment and Plan - Assessment and Plan (Free Text) Assessment: Patient was personally seen and examined by me in rounds with residents. Available labs and diagnostic data reviewed. Case, Patient's condition and management plan discussed with residents in rounds. Agree with resident's progress note. Plan: As ordered.
[2018-06-11] MEDS ORDERED: Bupivacaine HCl 0.25% PF (30 ml) Inj ONE (09:42)
[2018-06-11] MEDS ORDERED: methylPREDNISolone Depo 80 mg/ml Inj ONE (09:42)
[2018-06-11] MEDS ORDERED: Iohexol 300 10 ML ONE (09:42)
[2018-06-11] MEDS ORDERED: Lidocaine 1% Inj (20ml) ONE (09:43)
[2018-06-11] MEDS: Fluticasone-Salmeterol 250-50mcg Diskus INH SCH ×2 (09:52→16:24)
[2018-06-11] MEDS ORDERED: Sodium Chloride 0.9% 1,000 ML IV ONE (10:00)
[2018-06-11] MEDS ORDERED: Midazolam 2 MG/2 ML VIAL ONE (10:02)
--- NOTE | 2018-06-11 10:28 | CP.PCM.PN ---
Subjective - Date & Time of Evaluation Date of Evaluation: 06/11/18 Time of Evaluation: 10:25 - Subjective Subjective: Patient is s/p bilateral L4-5, L5-S1 transforaminal epidural steroid injection for lumbar radiculopathy. MRI showed the most pathologic level to be L4-5, but her symptoms are mostly in the L5-S1 dermatone. She's resting comfortably in PACU. Objective - Vital Signs/Intake and Output Vital Signs (last 24 hours): Temp Pulse Resp BP Pulse Ox 98.4 F 81 19 134/72 94 L 06/11/18 08:22 06/11/18 09:52 06/11/18 08:22 06/11/18 09:52 06/11/18 08:22 Intake and Output: 06/11/18 06/11/18 06:59 18:59 Intake Total 100 Balance 100 - Medications Medications: Current Medications Albuterol (Ventolin Hfa 90 Mcg/Actuation (8 G)) 2 puff INH Q4 PRN PRN Reason: Shortness of Breath Amlodipine Besylate (Norvasc) 10 mg PO DAILY [facility] [place] Last Admin: 06/10/18 09:02 Dose: 10 mg Aspirin (Ecotrin) 81 mg PO DAILY [facility] [place] Last Admin: 06/10/18 09:03 Dose: 81 mg Atorvastatin Calcium (Lipitor) 40 mg PO HS [facility] [place] Last Admin: 06/10/18 22:46 Dose: 40 mg Cyclobenzaprine HCl (Flexeril) 10 mg PO Q8 [facility] [place] Last Admin: 06/10/18 23:59 Dose: 10 mg Enoxaparin Sodium (Lovenox) 40 mg SC DAILY [facility] [place]; Protocol Glipizide (Glucotrol Xl) 5 mg PO ACB [facility] [place] Last Admin: 06/10/18 09:08 Dose: 5 mg Home Med (Diclofenac Sodium [Voltaren]) 50 mg PO BID [facility] [place] Last Admin: 06/10/18 10:49 Dose: Not Given Home Med (Linaclotide [Linzess]) 145 mcg PO DAILY [facility] [place] Last Admin: 06/10/18 09:06 Dose: 145 mcg Hydrochlorothiazide (Microzide) 12.5 mg PO DAILY [facility] [place] Last Admin: 06/10/18 09:02 Dose: 12.5 mg Lidocaine (Lidoderm) 1 ea TD DAILY [facility] [place] Last Admin: 06/10/18 09:07 Dose: 1 ea Lisinopril (Zestril) 20 mg PO DAILY [facility] [place] Last Admin: 06/11/18 09:52 Dose: 20 mg Metformin HCl (Glucophage) 500 mg PO DAILY [facility] [place] Last Admin: 06/10/18 09:03 Dose: 500 mg Montelukast Sodium (Singulair) 10 mg PO HS [facility] [place] Last Admin: 06/10/18 22:44 Dose: 10 mg Naproxen (Naproxen) 500 mg PO Q12 [facility] [place] Last Admin: 06/10/18 22:43 Dose: 500 mg Pantoprazole Sodium (Protonix Ec Tab) 40 mg PO DAILY [facility] [place] Last Admin: 06/10/18 13:18 Dose: 40 mg Fluticasone/Salmeterol (Advair Diskus 250/50) 1 puff INH BID [facility] [place] Last Admin: 06/11/18 09:52 Dose: 1 puff Sitagliptin Phosphate (Januvia) 50 mg PO DAILY [facility] [place] Last Admin: 06/10/18 13:18 Dose: 50 mg Tramadol HCl (Ultram) 50 mg PO BID PRN PRN Reason: Pain, moderate (4-7) - Labs Labs: 06/09/18 15:46 06/09/18 15:46 PT 11.4 Seconds (9.8-13.1) 06/09/18 15:46 INR 1.0 06/09/18 15:46 APTT 30.9 Seconds (25.6-37.1) 06/09/18 15:46 - Constitutional Appears: Well, Non-toxic Assessment and Plan - Assessment and Plan (Free Text) Assessment: 73 yo woman w/ acute on chronic lower back pain. She's s/p bilateral lumbar transforaminal epidural steroid injection. - monitor response to injection, but patient can be discharged home if she's s table pulmonary-ray - outpatient pain management follow-up - patient may need surgery if she doesn't respond to the latest injection, as she has had multiple interventions already outside
[2018-06-11] MEDS ORDERED: Sodium Chloride 0.9% 1,000 ML IV SCH (10:45)
[2018-06-11] MEDS: Pantoprazole 40 mg EC Tab PO SCH (16:26)
[2018-06-11] MEDS: GlipiZIDE 5 mg SR Tab PO SCH (16:26)
[2018-06-11] MEDS: Lidocaine 5% Patch TD SCH (16:26)
[2018-06-11] MEDS: Naproxen 500 MG TAB PO SCH ×2 (16:27→21:07)
--- NOTE | 2018-06-11 21:24 | OP ---
PROCEDURE DATE: 06/11/2018 PREOPERATIVE DIAGNOSIS: Lumbar radiculopathy. POSTOPERATIVE DIAGNOSIS: Lumbar radiculopathy. PROCEDURE: Bilateral L4-L5 and L5-S1 transforaminal epidural steroid injection. ANESTHESIOLOGIST: Allan Merino MD SURGEON: Rhonda Lim MD TYPE OF ANESTHESIA: Monitored anesthesia care. COMPLICATIONS: None. SPECIMEN: None. DESCRIPTION OF PROCEDURE: After we had a discussion of the procedure with the patient including its risks, benefits, alternatives, outcome data, possibility of no effect or increased pain, the patient consented to the procedure. She denied any recent infection, bleeding tendencies or being on anticoagulants. Decision was then made to proceed to the OR. The patient was placed on the fluoroscopy table in prone position with two pillows underneath her abdomen. The back was prepped and draped in the usual sterile fashion and sterile technique was adhered to during the entire procedure. The L4 and L5 vertebral levels were first identified in the anteroposterior view. Angulation towards the right at approximately 20 degrees was used to maximize the visualization of the right L4 and L5 pedicles. The skin overlying the 6 o'clock position of both pedicles was then infiltrated with 1% lidocaine using 25-gauge needle. Subsequently, a 22-gauge 2.5-inch spinal needle was incrementally advanced under fluoroscopic guidance until tip of the needle walked into the intervertebral foramen. The final needle position was confirmed on the anteroposterior view and lateral views. At this point, approximately 1 mL of Isovue contrast was injected into each needle showing appropriate epidural nerve root spread without any signs of CSF or intervenous involvement. At this point, approximately 3 mL of 0.25% Marcaine and Depo-Medrol mixture was injected. The needle was then removed. The same exact procedure was performed on the contralateral left side using the same medications and techniques. At the end of the case, the patient's back was cleaned and dry bandages were applied. The patient was then transferred to the recovery area in good condition without any signs of [employer] toxicity or any neurological deficit. She will be following up in the office in approximately two to four weeks. Rhonda Lim MD
[2018-06-12 01:09] VITALS: RESP 20
[2018-06-12] MEDS: Fluticasone-Salmeterol 250-50mcg Diskus INH SCH ×2 (09:15→16:56)
[2018-06-12] MEDS: Pantoprazole 40 mg EC Tab PO SCH (09:16)
[2018-06-12] MEDS: Naproxen 500 MG TAB PO SCH ×2 (09:17→21:09)
[2018-06-12] MEDS: Enoxaparin 40 mg Syringe SC SCH (09:19)
[2018-06-12] MEDS: Lidocaine 5% Patch TD SCH (09:19)
[2018-06-12] MEDS: GlipiZIDE 5 mg SR Tab PO SCH (09:19)
--- NOTE | 2018-06-12 11:59 | RAD ---
Date of service: 06/11/2018 PROCEDURE: Intraoperative Fluoroscopy. HISTORY: PAIN MANAGEMENT FINDINGS: Fluoroscopic assistance was provided for pain management procedure. Please refer to the operative report from GRICELDA Sorto. Total fluoroscopic time (continuous mode) utilized during the procedure seconds.
--- NOTE | 2018-06-12 12:06 | PN ---
DATE: 06/12/2018 SUBJECTIVE: The patient seen and examined. Interim events noted. Consults noted and appreciated. Pain Management followup and intervention noted and appreciated. The patient remains in regular medical floor. Feels okay. Still has pain and minimally improved after intervention. No chest pain. No shortness of breath. No specific issue reported by nursing staff. PHYSICAL EXAMINATION: GENERAL: The patient is in no acute distress. VITAL SIGNS: Stable. HEART: S1 and S2, normal and regular. LUNGS: Good bilateral air exchange. ABDOMEN: Soft and nontender. EXTREMITIES: No edema. No calf swelling. No tenderness. No acute ischemia. CENTRAL NERVOUS SYSTEM: Essentially unchanged. DIAGNOSTIC DATA: Available diagnostic data reviewed. ASSESSMENT AND PLAN: Overall, the patient is medically stable. Back pain still persist and . Tyree Clarke MD
[2018-06-12] MEDS: Albuterol-Ipratrop 3 mg / 0.5 (3 ml) UD INH SCH ×2 (17:18→19:13)
[2018-06-13 00:46] VITALS: TEMP 97.7
[2018-06-13] MEDS: Albuterol-Ipratrop 3 mg / 0.5 (3 ml) UD INH SCH ×3 (01:07→13:36)
[2018-06-13] MEDS: Naproxen 500 MG TAB PO SCH (08:28)
[2018-06-13] MEDS: Enoxaparin 40 mg Syringe SC SCH (08:28)
[2018-06-13] MEDS: GlipiZIDE 5 mg SR Tab PO SCH (08:29)
[2018-06-13] MEDS: Pantoprazole 40 mg EC Tab PO SCH (08:30)
[2018-06-13] MEDS: Lidocaine 5% Patch TD SCH (08:34)
[2018-06-13] MEDS: Fluticasone-Salmeterol 250-50mcg Diskus INH SCH (08:34)
[2018-06-13 08:35] VITALS: BP 125/61
[2018-06-13] MEDS ORDERED: guaiFENesin 100 mg/5 ml Syrup UD PO PRN (10:14)
[2018-06-13 15:36] VITALS: PULSE 71; O2SAT 90
--- NOTE | 2018-06-16 09:46 | PQF ---
PROVIDER RESPONSE TEXT: Morbid Obesity REVIEWER QUERY TEXT: Clarification of Clinical Diagnostic Findings In agreement with the BMI:40.4 as listed in the EMR? OR: Disagree OR; Other explanation of clinical findings listed in the EMR: BMI:40.4 4ft 8in 180LB The patient's Clinical Indicators include: - Query created by: Franca Clifton on 06/13/2018 4:03 PM Electronically signed by: Tyree Clarke 06/16/2018 9:43 AM
--- NOTE | 2018-06-16 12:40 | PQF ---
PROVIDER RESPONSE TEXT: BMI 40, class 3 obesity REVIEWER QUERY TEXT: Clarification of Clinical Diagnostic Findings If in agreement with the BMI: is there an associated dx. to go along with the BMI? Or: Disagree OR:Other explanation of clinical finding listed in the EMR: BMI:40.4 4ft 8in 180LB The patient's Clinical Indicators include: - Query created by: Franca Clifton on 06/13/2018 4:06 PM Electronically signed by: Tyree Clarke 06/16/2018 12:37 PM
--- NOTE | 2018-06-16 12:40 | PQF ---
PROVIDER RESPONSE TEXT: DM with Hyperglycemia REVIEWER QUERY TEXT: Diabetic Associated Manifestations Please specify any manifestations associated / due to diabetes Such as: --DM with Hyperglycemia -- Diabetes with renal manifestation -- Diabetes with neurologic manifestation -- Diabetes with ophthalmic manifestation -- Diabetes with peripheral circulatory manifestation -- Other, please specify H and P: Hx. DM: yes -glucotrol, Glucophage, januvia The patient's Clinical Indicators include: - Query created by: Franca Clifton on 06/13/2018 4:09 PM Electronically signed by: Tyree Clarke 06/16/2018 12:37 PM
== END 2018-06-13 16:10 | disposition home health service (06) | DRG 552 ==
LOC: H.ER 14:31 → H.ERHOLD 21:58 → H.MEDSURG1 06-10 09:36 → OBSVTOIN 06-11 14:59 → H.MEDSURG1 06-12 19:43
PROVIDERS: ADMIT Internal Medicine; ATTEND Internal Medicine
PROC: 3E0R33Z Introduction of Anti-inflammatory into Spinal Canal, Percutaneous Approach (ICD-10-PCS; principal; 2018-06-11 12:30)
DX: M54.16 Radiculopathy, lumbar region (principal); J44.1 Chronic obstructive pulmonary disease with (acute) exacerbation; R26.81 Unsteadiness on feet; K57.30 Diverticulosis of large intestine without perforation or abscess without bleeding; M48.061 Spinal stenosis, lumbar region without neurogenic claudication; Z90.710 Acquired absence of both cervix and uterus; F41.9 Anxiety disorder, unspecified; H26.9 Unspecified cataract; M79.89 Other specified soft tissue disorders; D17.1 Benign lipomatous neoplasm of skin and subcutaneous tissue of trunk; E11.9 Type 2 diabetes mellitus without complications; E78.00 Pure hypercholesterolemia, unspecified; E78.5 Hyperlipidemia, unspecified; G89.29 Other chronic pain; I10 Essential (primary) hypertension; K44.9 Diaphragmatic hernia without obstruction or gangrene; K52.9 Noninfective gastroenteritis and colitis, unspecified

== ENCOUNTER 2018-10-05 23:45 | Inpatient (IN) | payer MEDICARE, MEDICAID ==
[2018-10-05 23:45] VITALS: BMI 30.6
[2018-10-06 00:32] LABS: BASO # 0.1 K/uL (0.0-0.2); BASO % 1.5 % (0.0-2.0); EOS # 0.2 K/uL (0.0-0.7); EOS % 2.1 % (0.0-4.0); HEMOGLOBIN 11.7 g/dL (12.0-16.0); LYMPH # 1.9 K/uL (1.0-4.3); LYMPH % 19.2 % (20.0-40.0); MEAN CELL VOLUME 84.7 fl (81.0-99.0); MEAN CORPUSCULAR HEMOGLOBIN 27.9 pg (27.0-31.0); MONO # 0.7 K/uL (0.0-0.8); MONO % 6.9 % (0.0-10.0); NEUT # 6.8 K/uL (1.8-7.0); NEUT % 70.3 % (50.0-75.0); RBC 4.19 Mil/uL (3.80-5.20); RED CELL DISTRIBUTION WIDTH 14.9 % (11.5-14.5); WHITE BLOOD COUNT 9.7 K/uL (4.8-10.8)
[2018-10-06 00:36] LABS: PROTHROMBIN TIME 11.7 Seconds (9.8-13.1)
[2018-10-06 00:39] LABS: PARTIAL THROMBOPLASTIN TIME 28.1 Seconds (25.6-37.1)
[2018-10-06 00:41] LABS: ALB/GLOB RATIO 1.3 (1.0-2.1); ALBUMIN 3.9 g/dL (3.5-5.0); BLOOD UREA NITROGEN 17 mg/dl (7-17); CALCIUM 9.6 mg/dL (8.4-10.2); GFR NON-AFRICAN AMERICAN > 60
[2018-10-06 00:53] LABS: B-TYPE NATRIURETIC PEPTIDE 106 pg/ml (0-900)
[2018-10-06 00:54] LABS: ALT/SGPT 34 U/L (9-52); AST/SGOT 31 U/L (14-36)
[2018-10-06] MEDS ORDERED: Albuterol-Ipratrop 3 mg / 0.5 (3 ml) UD INH STA (01:02)
--- NOTE | 2018-10-06 01:10 | ED PDOC ---
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 Patient also feels as though her lower extremities are swollen. Denies any fever Patient used her inhaler multiple times with no relief. Past Medical History Reviewed: Historical Data, Nursing Documentation, Vital Signs Vital Signs: Last Vital Signs Temp 98.7 F 10/05/18 23:50 Pulse 78 10/05/18 23:50 Resp 22 10/06/18 00:07 BP 115/61 10/05/18 23:50 Pulse Ox 99 10/05/18 23:50 - Medical History PMH: Anxiety, Asthma, COPD, HTN, Hypercholesterolemia, Hyperlipidemia Denies: Chronic Kidney Disease - Surgical History Surgical History: No Surg Hx - Family History Family History: States: Unknown Family Hx, Diabetes, Hypertension - Social History Current smoker - smoking cessation education provided: No Alcohol: None Drugs: Denies - Immunization History Hx Tetanus Toxoid Vaccination: No Hx Influenza Vaccination: Yes Hx Pneumococcal Vaccination: No - Home Medications Home Medications: Ambulatory Orders Medication Instructions Recorded Albuterol HFA [Ventolin HFA 90 2 puff INH BID PRN 03/16/18 mcg/actuation (8 g)] Atorvastatin [Lipitor] 40 mg PO HS 03/16/18 Fluticasone/Salmeterol 250/50 1 puff INH BID 03/16/18 [Advair Diskus 250/50] Glimepiride [Amaryl] 1 mg PO BID 03/16/18 Lisinopril [Zestril] 20 mg PO DAILY 03/16/18 Montelukast [Singulair] 10 mg PO HS 03/16/18 Omeprazole 40 mg PO DAILY 03/16/18 amLODIPine [Norvasc] 10 mg PO DAILY 03/16/18 Aspirin [Lo-Dose Aspirin EC] 81 mg PO DAILY 06/10/18 Linaclotide [Linzess] 145 mcg PO DAILY 06/10/18 Sitagliptin Phos/Metformin HCl 1 tab PO DAILY 06/10/18 [Janumet 50-500 mg Tablet] Cyclobenzaprine [Flexeril] 10 mg PO Q8 PRN #20 tab 06/13/18 Methylprednisolone [Medrol Dose 4 mg PO DAILY 21 Days #21 mg 10/09/18 Pack (21 tabs)] - Allergies Allergies/Adverse Reactions: Allergies Allergy/AdvReac Type Severity Reaction Status Date / Time No Known Allergies Allergy Verified 06/09/18 14:36 Review of Systems ROS Statement: Except As Marked, All Systems Reviewed And Found Negative Constitutional: Negative for: Fever Cardiovascular: Positive for: Chest Pain, Edema (leg swelling) Respiratory: Positive for: Shortness of Breath Musculoskeletal: Positive for: Back Pain (chronic) Physical Exam - Reviewed Nursing Documentation Reviewed: Yes Vital Signs Reviewed: Yes - Physical Exam Appears: Positive for: Uncomfortable Head Exam: Positive for: ATRAUMATIC, NORMAL INSPECTION, NORMOCEPHALIC Skin: Positive for: Normal Color, Warm, DRY Eye Exam: Positive for: EOMI, Normal appearance, PERRL ENT: Positive for: Normal ENT Inspection Neck: Positive for: Normal, Painless ROM Cardiovascular/Chest: Positive for: Regular Rate, Rhythm Respiratory: Positive for: Wheezing (bilateral expiratory). Negative for: Respiratory Distress Gastrointestinal/Abdominal: Positive for: Normal Exam, Soft Back: Positive for: Normal Inspection Extremity: Positive for: Normal ROM, Swelling (trace edema of lower extremities) Neurological/Psych: Positive for: Awake, Alert, Normal Tone. Negative for: Motor/Sensory Deficits - Laboratory Results Result Diagrams: 10/09/18 04:50 10/09/18 04:50 Lab Results: PT 11.7 Seconds (9.8-13.1) 10/06/18 00:15 INR 1.0 10/06/18 00:15 APTT 28.1 Seconds (25.6-37.1) 10/06/18 00:15 Troponin I < 0.0120 ng/mL (0.00-0.120) 10/06/18 00:15 NT-Pro-B Natriuret Pep 106 pg/ml (0-900) 10/06/18 00:15 Total Bilirubin 0.4 mg/dl (0.2-1.3) 10/06/18 00:15 AST 31 U/L (14-36) 10/06/18 00:15 ALT 34 U/L (9-52) 10/06/18 00:15 Alkaline Phosphatase 80 U/L (38-126) 10/06/18 00:15 Total Protein 6.9 G/DL (6.3-8.2) 10/06/18 00:15 Albumin 3.9 g/dL (3.5-5.0) 10/06/18 00:15 Globulin 3.0 gm/dL (2.2-3.9) 10/06/18 00:15 Albumin/Globulin Ratio 1.3 (1.0-2.1) 10/06/18 00:15 - ECG O2 Sat by Pulse Oximetry: 99 (RA) Pulse Ox Interpretation: Normal Medical Decision Making Medical Decision Making: Time: 23:55 Impression: 73 y/o with shortness of breath and chest pain in setting of asthma and hypertension Initial Plan: * Labs * Duonebs * Solumedrol * Toradol 04:02 CXR shows no active disease. Labs reviewed no clinically significant abnormalities. Patient will be placed on observation status. Case referred to Dr. Clarke who covers for Dr. Crenshaw. Diagnosis is chest pain and asthma exacerbation. Scribe Attestation: Documented by Golden Lima, acting as a scribe Kailey Padilla MD. Provider Scribe Attestation: All medical record entries made by the Scribe were at my direction and personally dictated by me. I have reviewed the chart and agree that the record accurately reflects my personal performance of the history, physical exam, medical decision making, and the department course for this patient. I have also personally directed, reviewed, and agree with the discharge instructions and disposition. Disposition - Clinical Impression Clinical Impression: Asthma, Chest pain - Patient ED Disposition Is Patient to be Admitted: Yes - Disposition Disposition Time: 04:02 Condition: FAIR
[2018-10-06] MEDS ORDERED: Albuterol-Ipratrop 3 mg / 0.5 (3 ml) UD ONE (01:19)
[2018-10-06] MEDS ORDERED: Albuterol HFA 90 mcg/actuation (8 g) INH PRN (06:20)
[2018-10-06] MEDS ORDERED: Insulin Lispro (humaLOG) 100 Units/ml Inj SC SCH (07:30)
--- NOTE | 2018-10-06 07:54 | CARD ---
APPROVED REPORT Date of service: 10/05/2018 EKG Measurement Heart [id number] <Conclusion> Normal sinus rhythm Normal ECG
[2018-10-06] MEDS: Fluticasone-Salmeterol 250-50mcg Diskus INH SCH ×2 (08:45→17:10)
[2018-10-06] MEDS: Pantoprazole 40 mg EC Tab PO SCH (08:45)
[2018-10-06] MEDS: GlipiZIDE 5 mg SR Tab PO SCH (08:46)
[2018-10-06] MEDS ORDERED: Patient's Own Med (Sitagliptin Phos/Metformin Hcl [Janumet 50-500 Mg Tablet] 1 TAB) PO SCH (09:00)
--- NOTE | 2018-10-06 10:56 | HP ---
CHIEF COMPLAINT: Shortness of breath. HISTORY OF PRESENT ILLNESS: This is a 73-year-old female, long history of hypertension, elevated cholesterol, bronchial asthma, who was having shortness of breath and chest pain. So, the patient was brought to the emergency room and was found to have asthma exacerbation and was admitted for further management. REVIEW OF SYSTEMS: Positive for shortness of breath, and atypical chest pain. Review of systems otherwise is negative for headache, dizziness, syncope, nausea, vomiting, diarrhea, constipation, any new joint or extremity pain. Review of systems of all other organ system is unremarkable. PAST MEDICAL HISTORY: Significant for hypertension, elevated cholesterol. PAST SURGICAL HISTORY: Unremarkable. PERSONAL HISTORY: The patient is currently nonsmoker, nondrinker. No substance abuse. MEDICATIONS: The patient is on multiple medication, which was as per reconciliation sheet, which was reviewed and ordered. ALLERGIES: THE PATIENT IS NOT ALLERGIC TO ANY MEDICATIONS. FAMILY HISTORY: Noncontributory. PHYSICAL EXAMINATION: GENERAL: A well-built, well-nourished, overweight female, in no acute respiratory distress. VITAL SIGNS: Temperature afebrile, pulse 76, respirations 16, blood pressure 130/80. HEENT: Pupils reacting to light. Head shows normocephalic, atraumatic skull. NECK: No JVD. No thyromegaly. No lymphadenopathy. HEART: S1 and S2 normal and regular. No significant murmur, gallop, or rub is heard. LUNGS: Shows good bilateral air exchange. No rales. The patient has prolonged exploration and bilateral rhonchi. ABDOMEN: Soft, nontender. No organomegaly. No fluid. Bowel sounds are grossly normal. EXTREMITIES: The patient has 1 to 2+ pitting bilateral edema. No calf swelling, no tenderness, no acute ischemia. CENTRAL NERVOUS EXAMINATION: Essentially unchanged. There is no sign of any acute gross focal motor or sensory neurological deficits. DIAGNOSTIC DATA: Available diagnostic data reviewed. Telemetry monitoring so far does not reveal any significant arrhythmia. Troponin's one set was negative. EKG does not reveal ST-T changes. Chest x-rays does not reveal any lobar consolidation. Other diagnostic data are acceptable. ADMITTING IMPRESSION: Shortness of breath and acute exacerbation of bronchial asthma. The patient also has bilateral edema, rule out cardiac causes. The patient also has history of hypertension and elevated cholesterol. PLAN: As ordered. Case and plan discussed with the patient. Tyree Clarke MD
--- NOTE | 2018-10-06 11:53 | RAD ---
Date of service: 10/06/2018 HISTORY: chest pain COMPARISON: 06/09/2018. FINDINGS: LUNGS: The lungs are well inflated. There is mild pulmonary venous congestion. PLEURA: No pleural effusions or pneumothorax. CARDIOVASCULAR: Persistent moderate cardiomegaly. No aortic atherosclerotic calcifications present. OSSEOUS STRUCTURES: Within normal limits for the patient's age. VISUALIZED UPPER ABDOMEN: Normal. OTHER FINDINGS: None. IMPRESSION: No active pulmonary disease.
[2018-10-06] MEDS: Insulin Lispro (humaLOG) 100 Units/ml Inj SC SCH ×3 (12:29→21:28)
[2018-10-06] MEDS: Enoxaparin 40 mg Syringe SC SCH (17:09)
--- NOTE | 2018-10-06 19:02 | CP.PCM.CON ---
History of Present Illness - History of Present Illness History of Present Illness: I was asked to evaluate patient by Dr Clarke. Patient seen 10/06/181900 Patient is a 73 year old female with HTN obesity DM who presents with dyspnea. Patient was scheduled to have lipoma surgery. She states she developed dyspnea at home and presented to [facility]. She denies current chest pain. Review of Systems - Constitutional Constitutional: absent: As Per HPI, Anorexia, Chills, Daytime Sleepiness, Excessive Sweating, Fatigue, Fever, Frequent Falls, Headache, Increased Appetite, Lethargy, Malaise, Night Sweats, Snoring, Sleep Apnea, Weight Gain, Weight Loss, Weakness, Other - EENT Eyes: absent: As Per HPI, Blind Spots, Blurred Vision, Change in Vision, Decreased Night Vision, Diplopia, Discharge, Dry Eye, Exophthalmos, Floaters, Irritation, Itchy Eyes, Loss of Peripheral Vision, Pain, Photophobia, Requires Corrective Lenses, Sees Flashes, Spots in Vision, Tunnel Vision, Other Visual Disturbances, Loss of Vision, Other Ears: absent: As Per HPI, Decreased Hearing, Ear Discharge, Ear Pain, Tinnitus, Abnormal Hearing, Disequilibrium, Dizziness, Other Nose/Mouth/Throat: absent: As Per HPI, Epistaxis, Nasal Congestion, Nasal Discharge, Nasal Obstruction, Nasal Trauma, Nose Pain, Post Nasal Drip, Sinus Pain, Sinus Pressure, Bleeding Gums, Change in Voice, Dental Pain, Dry Mouth, Dysphagia, Halitosis, Hoarsness, Lip Swelling, Mouth Lesions, Mouth Pain, Odynophagia, Sore Throat, Throat Swelling, Tongue Swelling, Facial Pain, Neck Pain, Neck Mass, Other - Breasts Breasts: absent: As Per HPI, Change in Shape, Mass, Pain, Nipple Discharge, Nipple Inversion, Skin Changes, Swelling, Other - Cardiovascular Cardiovascular: absent: As Per HPI, Acrocyanosis, Chest Pain, Chest Pain at Res t, Chest Pain with Activity, Claudication, Diaphoresis, Dyspnea, Dyspnea on Exertion, Edema, Irregular Heart Rhythm, Pain Radiating to Arm/Neck/Jaw, Leg Edema, Leg Ulcers, Lightheadedness, Orthopnea, Palpitations, Paroxysmal Nocturnal Dyspnea, Pedal Edema, Radiating Pain, Rapid Heart Rate, Slow Heart Rate, Syncope, Other - Respiratory Respiratory: absent: As Per HPI, Cough, Dyspnea, Hemoptysis, Dyspnea on Exertion, Wheezing, Snoring, Stridor, Pain on Inspiration, Chest Congestion, Excessive Mucous Production, Change in Mucous Color, Pain with Coughing, Other - Gastrointestinal Gastrointestinal: absent: As Per HPI, Abdominal Pain, Belching, Bloating, Change in Bowel Habits, Change in Stool Character, Coffee Ground Emesis, Constipation, Cramping, Diarrhea, Dyspepsia, Dysphagia, Early Satiety, Excessive Flatus, Fecal Incontinence, Heartburn, Hematemesis, Hematochezia, Loose Stools, Melena, Nausea, Odynophagia, Temesmus, Vomiting, Other - Genitourinary Genitourinary: absent: As Per HPI, Change in Urinary Stream, Difficulty Urinating, Dysuria, Flank Pain, Hematuria, Pyuria, Nocturia, Urinary Incontinence, Urinary Frequency, Urinary Hesitance, Urinary Urgency, Voiding Fr eq/Small Amts, Freq UTI, Hx Renal/Bladder Calculi, Hx /Renal Surgery, Bladder Distension, Other - Musculoskeletal Musculoskeletal: absent: As Per HPI, Abnormal Gait, Arthralgias, Atrophy, Back Pain, Deformity, Joint Swelling, Limited Range of Motion, Loss of Height, Muscle Cramps, Muscle Weakness, Myalgias, Neck Pain, Numbness, Radiating Pain into Limb, Stiffness, Tingling, Other - Integumentary Integumentary: absent: As Per HPI, Acne, Alopecia, Bleeding Lesions, Change in Hair, Change in Nails, Change in Pigmentation, Changing Lesions, Dry Skin, Erythema, Furuncle, Hirsutism, Lesions, New Lesions, Non-Healing Lesions, Photosensitivity, Pruritus, Rash, Skin Pain, Skin Ulcer, Sores, Striae, Swelling, Unusual Bruising, Wounds, Jaundice, Other - Neurological Neurological: absent: As Per HPI, Abnormal Gait, Abnormal Hearing, Abnormal Movements, Abnormal Speech, Behavioral Changes, Burning Sensations, Confusion, Convulsions, Disequilibrium, Dizziness, Numbness, Focal Weakness, Frequent Falls, Headaches, Lack of Coordination, Loss of Vision, Memory Loss, Paresthesias, Radicular Pain, Restless Legs, Sensory Deficit, Syncope, Tingling, Tremor, Vertigo, Weakness, Other Visual Disturbances, Other - Psychiatric Psychiatric: absent: As Per HPI, Abnormal Sleep Pattern, Anhedonia, Anxiety, Auditory Hallucinations, Behavioral Changes, Change in Appetite, Change in Libido, Confusion, Depression, Difficulty Concentrating, Hallucinations, Homicidal Ideation, Hopelessness, Irritability, Memory Loss, Mood Swings, Panic Attacks, Paranoia, Suicidal Ideation, Visual Hallucinations, Tactile Hallucinations, Other - Endocrine Endocrine: absent: As Per HPI, Change in Body Appearance, Change in Libido, Cold Intolorance, Deepening of Voice, Excessive Sweating, Fatigue, Flushing, Heat Intolorance, Increase in Ring/Shoe/Hat Size, Palpitations, Polydipsia, Polyphagia, Polyuria, Other - Hematologic/Lymphatic Hematologic: absent: As Per HPI, Easy Bleeding, Easy Bruising, Lymphadenopathy, Other Past Patient History - Past Medical History & Family History Past Medical History?: Yes - Past Social History Smoking Status: Former Smoker - CARDIAC Hx Cardiac Disorders: Yes Hx Hypercholesterolemia: Yes - PULMONARY Hx Respiratory Disorders: Yes Hx Asthma: Yes Hx Chronic Obstructive Pulmonary Disease (COPD): Yes - NEUROLOGICAL Hx Neurological Disorder: No - HEENT Hx HEENT Problems: Yes Hx Cataracts: Yes - RENAL Hx Chronic Kidney Disease: No - ENDOCRINE/METABOLIC Hx Endocrine Disorders: Yes Hx Diabetes Mellitus Type 2: Yes - HEMATOLOGICAL/ONCOLOGICAL Hx Blood Disorders: No - INTEGUMENTARY Hx Dermatological Problems: No - MUSCULOSKELETAL/RHEUMATOLOGICAL Hx Musculoskeletal Disorders: Yes Hx Back Pain: Yes Hx Falls: No - GASTROINTESTINAL Hx Gastrointestinal Disorders: No - GENITOURINARY/GYNECOLOGICAL Hx Genitourinary Disorders: No - PSYCHIATRIC Hx Psychophysiologic Disorder: Yes Hx Anxiety: Yes Hx Substance Use: No - SURGICAL HISTORY Hx Surgeries: Yes Hx Hysterectomy: Yes (1986) - ANESTHESIA Hx Anesthesia: Yes Hx Anesthesia Reactions: No Hx Malignant Hyperthermia: No Has any member of the family had a problem w/ anesthesia?: No Meds Allergies/Adverse Reactions: Allergies Allergy/AdvReac Type Severity Reaction Status Date / Time No Known Allergies Allergy Verified 06/09/18 14:36 - Medications Medications: Current Medications Albuterol (Ventolin Hfa 90 Mcg/Actuation (8 G)) 2 puff INH BID PRN PRN Reason: Shortness of Breath Amlodipine Besylate (Norvasc) 10 mg PO DAILY [facility] Last Admin: 10/06/18 08:45 Dose: 10 mg Aspirin (Ecotrin) 81 mg PO DAILY [facility] Last Admin: 10/06/18 08:45 Dose: 81 mg Atorvastatin Calcium (Lipitor) 40 mg PO [facility] Cyclobenzaprine HCl (Flexeril) 10 mg PO Q8 PRN PRN Reason: Muscle spasm Last Admin: 10/06/18 17:27 Dose: 10 mg Enoxaparin Sodium (Lovenox) 40 mg SC DAILY [facility]; Protocol Last Admin: 10/06/18 17:09 Dose: 40 mg Glipizide (Glucotrol Xl) 5 mg PO DAILY [facility] Last Admin: 10/06/18 08:46 Dose: 5 mg Home Med (Linaclotide [Linzess]) 145 mcg PO DAILY [facility] Insulin Human Lispro (Humalog) 0 units SC [facility]; Protocol Last Admin: 10/06/18 17:10 Dose: 10 u Lisinopril (Zestril) 20 mg PO DAILY [facility] Last Admin: 10/06/18 08:46 Dose: 20 mg Metformin HCl (Glucophage) 500 mg PO DAILY [facility] Last Admin: 10/06/18 08:46 Dose: 500 mg Methylprednisolone (Solu-Medrol) 60 mg IVP Q6H [facility] Last Admin: 10/06/18 17:11 Dose: 60 mg Montelukast Sodium (Singulair) 10 mg PO [facility] Pantoprazole Sodium (Protonix Ec Tab) 40 mg PO DAILY [facility] Last Admin: 10/06/18 08:45 Dose: 40 mg Promethazine HCl (Phenergan) 12.5 mg PO Q6 PRN PRN Reason: Cough and congestion Last Admin: 10/06/18 17:12 Dose: 12.5 mg Fluticasone/Salmeterol (Advair Diskus 250/50) 1 puff INH BID [facility] Last Admin: 10/06/18 17:10 Dose: 1 puff Sitagliptin Phosphate (Januvia) 50 mg PO DAILY [facility] Last Admin: 10/06/18 08:46 Dose: 50 mg Physical Exam - Constitutional Appears: Non-toxic - Head Exam Head Exam: NORMAL INSPECTION - Eye Exam Eye Exam: Normal appearance - ENT Exam ENT Exam: Mucous Membranes Moist - Neck Exam Neck exam: Positive for: Full Rom - Respiratory Exam Respiratory Exam: NORMAL BREATHING PATTERN - Cardiovascular Exam Cardiovascular Exam: REGULAR RHYTHM - GI/Abdominal Exam GI & Abdominal Exam: Normal Bowel Sounds - Rectal Exam Rectal Exam: Deferred - Extremities Exam Extremities exam: Positive for: normal inspection, pedal edema - Back Exam Back exam: NORMAL INSPECTION - Neurological Exam Neurological exam: Alert, Oriented x3 - Psychiatric Exam Psychiatric exam: Normal Affect - Skin Skin Exam: Normal Color Results - Vital Signs Recent Vital Signs: Last Vital Signs Temp 97.4 F L 10/06/18 16:03 Pulse 79 10/06/18 16:03 Resp 18 10/06/18 16:03 BP 112/69 10/06/18 16:03 Pulse Ox 94 L 10/06/18 16:03 - Labs Result Diagrams: 10/06/18 00:15 10/06/18 00:15 Labs: Laboratory Results - last 24 hr 10/06/18 10/06/18 10/06/18 00:15 00:15 00:15 WBC 9.7 RBC 4.19 Hgb 11.7 L Hct 35.5 MCV 84.7 D MCH 27.9 MCHC 33.0 RDW 14.9 H Plt Count 209 MPV 9.0 Neut % (Auto) 70.3 Lymph % (Auto) 19.2 L Franklin % (Auto) 6.9 Eos % (Auto) 2.1 Baso % (Auto) 1.5 Neut # (Auto) 6.8 Lymph # (Auto) 1.9 Franklin # (Auto) 0.7 Eos # (Auto) 0.2 Baso # (Auto) 0.1 PT 11.7 INR 1.0 APTT 28.1 Sodium 130 L Potassium 4.3 Chloride 88 L Carbon Dioxide 28 Anion Gap 18 BUN 17 Creatinine 0.7 Est GFR ( Amer) > 60 Est GFR (Non-Af Amer) > 60 POC Glucose (mg/dL) Random Glucose 171 H Lactic Acid Calcium 9.6 Total Bilirubin 0.4 AST 31 ALT 34 Alkaline Phosphatase 80 Troponin I < 0.0120 NT-Pro-B Natriuret Pep 106 Total Protein 6.9 Albumin 3.9 Globulin 3.0 Albumin/Globulin Ratio 1.3 Influenza Typ A,B (EIA) 10/06/18 10/06/18 10/06/18 00:15 00:15 06:27 WBC RBC Hgb Hct MCV MCH MCHC RDW Plt Count MPV Neut % (Auto) Lymph % (Auto) Franklin % (Auto) Eos % (Auto) Baso % (Auto) Neut # (Auto) Lymph # (Auto) Franklin # (Auto) Eos # (Auto) Baso # (Auto) PT INR APTT Sodium Potassium Chloride Carbon Dioxide Anion Gap BUN Creatinine Est GFR ( Amer) Est GFR (Non-Af Amer) POC Glucose (mg/dL) 326 H Random Glucose Lactic Acid 1.3 Calcium Total Bilirubin AST ALT Alkaline Phosphatase Troponin I NT-Pro-B Natriuret Pep Total Protein Albumin Globulin Albumin/Globulin Ratio Influenza Typ A,B (EIA) Negative for flu a/b 10/06/18 10/06/18 10/06/18 08:20 11:14 13:39 WBC RBC Hgb Hct MCV MCH MCHC RDW Plt Count MPV Neut % (Auto) Lymph % (Auto) Franklin % (Auto) Eos % (Auto) Baso % (Auto) Neut # (Auto) Lymph # (Auto) Franklin # (Auto) Eos # (Auto) Baso # (Auto) PT INR APTT Sodium Potassium Chloride Carbon Dioxide Anion Gap BUN Creatinine Est GFR ( Amer) Est GFR (Non-Af Amer) POC Glucose (mg/dL) 442 H* 370 H Random Glucose Lactic Acid Calcium Total Bilirubin AST ALT Alkaline Phosphatase Troponin I < 0.0120 NT-Pro-B Natriuret Pep Total Protein Albumin Globulin Albumin/Globulin Ratio Influenza Typ A,B (EIA) 10/06/18 15:54 WBC RBC Hgb Hct MCV MCH MCHC RDW Plt Count MPV Neut % (Auto) Lymph % (Auto) Franklin % (Auto) Eos % (Auto) Baso % (Auto) Neut # (Auto) Lymph # (Auto) Franklin # (Auto) Eos # (Auto) Baso # (Auto) PT INR APTT Sodium Potassium Chloride Carbon Dioxide Anion Gap BUN Creatinine Est GFR ( Amer) Est GFR (Non-Af Amer) POC Glucose (mg/dL) Random Glucose Lactic Acid Calcium Total Bilirubin AST ALT Alkaline Phosphatase Troponin I < 0.0120 NT-Pro-B Natriuret Pep Total Protein Albumin Globulin Albumin/Globulin Ratio Influenza Typ A,B (EIA) - EKG Data EKG Interpreted by: Myself Assessment & Plan (1) Dyspnea Assessment and Plan: the etiology is unclear. The patient had a normal stress test in December 2017. currently cardiac enzymes are negative and pro BNP is not elevated. It is wo rthwhile to repeat stress and echo. Status: Acute (2) Diabetes Assessment and Plan: risk factor for progressive CAD Status: Chronic (3) HTN (hypertension) Assessment and Plan: blood pressure control. Status: Chronic (4) COPD (chronic obstructive pulmonary disease) Status: Acute
[2018-10-07] MEDS: Insulin Lispro (humaLOG) 100 Units/ml Inj SC SCH ×4 (06:48→22:00)
--- NOTE | 2018-10-07 08:53 | CP.PCM.PN ---
Objective - Vital Signs/Intake and Output Vital Signs (last 24 hours): Temp Pulse Resp BP Pulse Ox 97.5 F L 91 H 20 128/66 93 L 10/07/18 05:00 10/07/18 08:34 10/07/18 05:00 10/07/18 08:34 10/07/18 05:00 - Medications Medications: Current Medications Albuterol (Ventolin Hfa 90 Mcg/Actuation (8 G)) 2 puff INH BID PRN PRN Reason: Shortness of Breath Amlodipine Besylate (Norvasc) 10 mg PO DAILY [facility] Last Admin: 10/07/18 08:34 Dose: 10 mg Aspirin (Ecotrin) 81 mg PO DAILY [facility] Last Admin: 10/06/18 08:45 Dose: 81 mg Atorvastatin Calcium (Lipitor) 40 mg PO HS [facility] Last Admin: 10/06/18 21:27 Dose: 40 mg Cyclobenzaprine HCl (Flexeril) 10 mg PO Q8 PRN PRN Reason: Muscle spasm Last Admin: 10/06/18 17:27 Dose: 10 mg Enoxaparin Sodium (Lovenox) 40 mg SC DAILY [facility]; Protocol Last Admin: 10/06/18 17:09 Dose: 40 mg Glipizide (Glucotrol Xl) 5 mg PO DAILY [facility] Last Admin: 10/06/18 08:46 Dose: 5 mg Home Med (Linaclotide [Linzess]) 145 mcg PO DAILY [facility] Insulin Human Lispro (Humalog) 0 units SC [facility]; Protocol Last Admin: 10/07/18 06:48 Dose: 6 u Lisinopril (Zestril) 20 mg PO DAILY [facility] Last Admin: 10/07/18 08:34 Dose: 20 mg Metformin HCl (Glucophage) 500 mg PO DAILY [facility] Last Admin: 10/06/18 08:46 Dose: 500 mg Methylprednisolone (Solu-Medrol) 60 mg IVP Q6H [facility] Last Admin: 10/07/18 02:05 Dose: 60 mg Montelukast Sodium (Singulair) 10 mg PO HS [facility] Last Admin: 10/06/18 21:26 Dose: 10 mg Pantoprazole Sodium (Protonix Ec Tab) 40 mg PO DAILY [facility] Last Admin: 10/06/18 08:45 Dose: 40 mg Promethazine HCl (Phenergan) 12.5 mg PO Q6 PRN PRN Reason: Cough and congestion Last Admin: 10/06/18 17:12 Dose: 12.5 mg Fluticasone/Salmeterol (Advair Diskus 250/50) 1 puff INH BID [facility] Last Admin: 10/06/18 17:10 Dose: 1 puff Sitagliptin Phosphate (Januvia) 50 mg PO DAILY [facility] Last Admin: 10/06/18 08:46 Dose: 50 mg - Labs Labs: 10/06/18 00:15 10/06/18 00:15 PT 11.7 Seconds (9.8-13.1) 10/06/18 00:15 INR 1.0 10/06/18 00:15 APTT 28.1 Seconds (25.6-37.1) 10/06/18 00:15
--- NOTE | 2018-10-07 08:58 | CP.PCM.HP ---
History of Present Illness - History of Present Illness History of Present Illness: Pt is a 73 y/o female with xh of HTN, DMII, Asthma/COPD, HLD Chronic back pain who presented to hospital with worsening sob associated with left sided chest pain. Pt was noted to have wheezing in ED and given nebulizer tx and IV steroids with some improvement. Admitted for workup of chest pain. Also noted to LE pitting edema. Denies cough, fever/chills. PMD: Dr. Crenshaw Present on Admission - Present on Admission Any Indicators Present on Admission: No History of DVT/PE: No History of Uncontrolled Diabetes: No Urinary Catheter: No Decubitus Ulcer Present: No Review of Systems - Constitutional Constitutional: absent: Fever - Cardiovascular Cardiovascular: Dyspnea, Pedal Edema. absent: Chest Pain at Rest, Palpitations - Respiratory Respiratory: absent: Cough, Snoring, Stridor - Gastrointestinal Gastrointestinal: absent: Abdominal Pain, Nausea, Vomiting Past Patient History - Past Medical History & Family History Past Medical History?: Yes - Past Social History Smoking Status: Former Smoker - CARDIAC Hx Cardiac Disorders: Yes Hx Hypercholesterolemia: Yes - PULMONARY Hx Respiratory Disorders: Yes Hx Asthma: Yes Hx Chronic Obstructive Pulmonary Disease (COPD): Yes - NEUROLOGICAL Hx Neurological Disorder: No - HEENT Hx HEENT Problems: Yes Hx Cataracts: Yes - RENAL Hx Chronic Kidney Disease: No - ENDOCRINE/METABOLIC Hx Endocrine Disorders: Yes Hx Diabetes Mellitus Type 2: Yes - HEMATOLOGICAL/ONCOLOGICAL Hx Blood Disorders: No - INTEGUMENTARY Hx Dermatological Problems: No - MUSCULOSKELETAL/RHEUMATOLOGICAL Hx Musculoskeletal Disorders: Yes Hx Back Pain: Yes Hx Falls: No - GASTROINTESTINAL Hx Gastrointestinal Disorders: No - GENITOURINARY/GYNECOLOGICAL Hx Genitourinary Disorders: No - PSYCHIATRIC Hx Psychophysiologic Disorder: Yes Hx Anxiety: Yes Hx Substance Use: No - SURGICAL HISTORY Hx Surgeries: Yes Hx Hysterectomy: Yes (1986) - ANESTHESIA Hx Anesthesia: Yes Hx Anesthesia Reactions: No Hx Malignant Hyperthermia: No Has any member of the family had a problem w/ anesthesia?: No Meds Allergies/Adverse Reactions: Allergies Allergy/AdvReac Type Severity Reaction Status Date / Time No Known Allergies Allergy Verified 06/09/18 14:36 Physical Exam - Constitutional Appears: No Acute Distress - Head Exam Head Exam: NORMAL INSPECTION - Eye Exam Eye Exam: Normal appearance - ENT Exam ENT Exam: Mucous Membranes Moist - Respiratory Exam Respiratory Exam: Clear to Auscultation Bilateral, Wheezes (scant). absent: Accessory Muscle Use, Rales, Respiratory Distress - Cardiovascular Exam Cardiovascular Exam: REGULAR RHYTHM, +S1, +S2. absent: Systolic Murmur - Extremities Exam Extremities exam: Positive for: pedal edema (+1 pitting symmetrical ) Results - Vital Signs Recent Vital Signs: Last Vital Signs Temp 97.5 F L 10/07/18 05:00 Pulse 91 H 10/07/18 08:34 Resp 20 10/07/18 05:00 BP 128/66 10/07/18 08:34 Pulse Ox 93 L 10/07/18 05:00 - Labs Result Diagrams: 10/06/18 00:15 10/07/18 09:25 Labs: Laboratory Results - last 24 hr 10/06/18 10/06/18 10/06/18 08:20 11:14 13:39 POC Glucose (mg/dL) 442 H* 370 H Troponin I < 0.0120 10/06/18 10/06/18 10/06/18 15:54 16:18 21:19 POC Glucose (mg/dL) 345 H 354 H Troponin I < 0.0120 10/07/18 05:14 POC Glucose (mg/dL) 279 H Troponin I Assessment & Plan - Assessment and Plan (Free Text) Assessment: Pt is a 73 y/o female with xh of HTN, DMII, Asthma/COPD, HLD Chronic back pain who presented to hospital with worsening sob associated with left sided chest pain. #Asthma/COPD ex #Chest pain #LE edema #Hyponatremia/Hypochloremia - Cardiology on board: plan for stress test today and echo - IV steroids and bronchodilators treatments - Electrolyte disturbance may be secondary pseudohyponatremia (2/2 hyperglycemia) Osmolarity and urine lytes sent. Fluid restriction and better DM management for now. Glipizide increased to 10mg daily - Manage chronic conditions as ordered. - Lovenox for dvt ppx Discussed case with Dr. Vince Goldstein, PGY2
[2018-10-07 10:24] LABS: BLOOD UREA NITROGEN 27 mg/dl (7-17); CALCIUM 9.8 mg/dL (8.4-10.2); GFR NON-AFRICAN AMERICAN > 60
[2018-10-07] MEDS ORDERED: Aminophylline 25 mg/ml Inj ONE (11:12)
[2018-10-07] MEDS ORDERED: Albuterol 0.083% Inhal Sol (2.5 mg/3 mL) UD ONE (11:13)
[2018-10-07] MEDS: Fluticasone-Salmeterol 250-50mcg Diskus INH SCH ×2 (11:48→16:38)
[2018-10-07] MEDS: Enoxaparin 40 mg Syringe SC SCH (11:51)
[2018-10-07] MEDS: Pantoprazole 40 mg EC Tab PO SCH (11:52)
[2018-10-07] MEDS: GlipiZIDE 5 mg SR Tab PO SCH (12:00)
[2018-10-07] MEDS: MethylPREDNISolone 40 mg Vial IVP SCH (16:41)
[2018-10-07 18:31] LABS: OSMOLALITY,URINE 305 mosm/kg (300-1000)
--- NOTE | 2018-10-07 18:53 | CARD ---
APPROVED REPORT Date of service: 10/06/2018 Protocol: LEXISCAN Test Type: Stress Nuclear Medications: Albuterol 2 Puff, Protonix EC 40 mg Norvasc 10mg Phenergan 12.5mg Aspirin 81mg, Januvia 50mg Atorvastatin 40mg Flexeril 10mg, Lovenox 40 mg Advair Diskus 250/1puff, Glipizide 5mg Insulin Lispro, Ketorolac 15mg, Linaclotide 145mcg, Lisinopril 20mg, Metformin 50mg, Solumedrol 125mg Solumedrol 60mg, Singular 10mg Medical History: Hypertension, Cholesterol, Bronchial Asthma, Target HR: 146 bpm Resting ECG: normal Resting Heart Rate: 71 bpm Resting Blood Pressure: 106/60mmHg submaximum (85%): 124 bpm TEST SUMMARY [id number]. [id number]. INJECTIONNS [id number]. INJECTIONNUC [id number]. [id number]. PROCEDURE Pharmacologic stress testing was performed using 0.4mg per 5ml of regadenoson given intravenously over 7-10 seconds. POST EXERCISE Reason for Termination: Fatigue Target HR: No Max HR: 83 bpm 62% of Maximum Predicted HR: 146 bpm Exercise duration: 01:00 min:sec, 0 Stage Exercise capacity: 1.0METs Max Blood Pressure: 127/58mmHg Blood Pressure response to exercise: normal resting BP - appropriate response Heart Rate response to exercise: appropriate Chest Pain: No, none Angina index: 0 Arrhythmia: No, none ST Change: No, none Deviation: 0 mm Clinical Indications Under Appropriate Use Criteria Patient has history of hypertension, hyperlipidemia and bronchial asthma Stress EKG Interpretation No st or t waves changes noticed. No chest pain reported. RESTING ECG Rhythm: Sinus Conduction: Normal Arrhythmias: None Repolarization: Normal STRESS ECG Rhythm: Sinus Conduction: Normal Arrhythmias: None Repolarization: Normal none ST-Segment changes. EXAM: Myocardial Perfusion REST/STRESS Image QualityGood Imaging Protocol The imaging protocol used to acquire images was Rest Tc-99m/stress Tc-99m 1 day Rest Spect myocardial perfusion imaging was performed in supine position 135 minutes following the injection of 10 mCi of Tc-99 Myoview. Time of rest injection: 7:37 Time of rest imagin:52 At peak stress, the patient was injected intravenously with 30mCi of Tc-99 tetrofosmin after an infusion time of minutes and seconds. Time of stress injection: 11:10 Time of stress imagin:56 Gated Stress Spect was performed 184 minutes after intravenous Tc-99 Myoview injection. The images were gated to evaluate regional wall motion and calculate ventricular ejection fraction. NUCLEAR IMAGE INTERPRETATION Study quality was excellent. Left Ventricular size was Normal at Rest and Stress. Lung uptake was Normal. Left Ventricular ejection fraction is 86%. The rest and stress images show normal perfusion, normal contraction and thickening. LV Perfusion Normal LV Perfusion 1 The rest and stress images show normal perfusion. Wall Motion Normal wall motion. LVEF 86% CONCLUSION 1. Normal stress test Recommendation Medical therapy
--- NOTE | 2018-10-07 20:50 | CARD ---
APPROVED REPORT Date of service: 10/07/2018 EXAM: Two-dimensional and M-mode echocardiogram with Doppler and color Doppler. Other Information Quality : AverageRhythm : NSR INDICATION Dyspnea 2D DIMENSIONS IVSd0.82 (0.7-1.1cm)LVDd4.16 (3.9-5.9cm) LVOT Diameter2.00 (1.8-2.4cm)PWd0.72 (0.7-1.1cm) IVSs1.09 (0.8-1.2cm)LVDs2.84 (2.5-4.0cm) FS (%) 31.8 %PWs1.16 (0.8-1.2cm) M-Mode DIMENSIONS Left Atrium (MM)4.28 (2.5-4.0cm)IVSd0.97 (0.7-1.1cm) Aortic Root2.91 (2.2-3.7cm)LVDd4.84 (4.0-5.6cm) Aortic Cusp Exc.1.59 (1.5-2.0cm)PWd1.41 (0.7-1.1cm) IVSs1.56 cmFS (%) 42 % LVDs2.81 (2.0-3.8cm)PWs1.78 cm Aortic Valve AoV Peak Rogrpuvs356.3cm/sAoV VTI34.9cmAO Peak GR.10mmHg LVOT Peak Boelturu857.1cm/sLVOT VTI25.46cmAO Mean GR.5mmHg AUDRA (VMAX)1.36ir5QEQ (VTI)1.34cm2 Mitral Valve MV E Lwrfsoiu168.6cm/sMV DECEL OCMR832ajKS A Anrwicem24.6cm/s MV AMC27wcG/A ratio1.1MVA (PHT)3.59cm2 TDI Lateral E' Peak V5.38cm/sMedial E' Peak V6.60cm/sE/Lateral E'19.6 E/Medial E'16.0 LEFT VENTRICLE The left ventricle is normal size. There is normal left ventricular wall thickness. The left ventricular systolic function is normal. The estimated ejection fraction is 55-60% No regional wall motion abnormalities noted.. Transmitral Doppler flow pattern is Grade I-abnormal relaxation pattern. No left ventricle thrombus noted on this study. There is no ventricular septal defect visualized. There is no left ventricular aneurysm. There is no mass noted in the left ventricle. RIGHT VENTRICLE The right ventricle is normal size. There is normal right ventricular wall thickness. The right ventricular systolic function is normal. ATRIA The left atrium is mildly dilated. The right atrium size is normal. The interatrial septum is intact with no evidence for an atrial septal defect. AORTIC VALVE The aortic valve is normal in structure. No aortic regurgitation is present. There is no aortic valvular stenosis. There is no aortic valvular vegetation. MITRAL VALVE The mitral valve is normal in structure. There is no evidence of mitral valve prolapse. There is no mitral valve stenosis. There is trace mitral valve regurgitation noted. TRICUSPID VALVE The tricuspid valve is normal in structure. There is trace tricuspid valve regurgitation noted. There is no tricuspid valve prolapse or vegetation. There is no tricuspid valve stenosis. PULMONIC VALVE The pulmonary valve is normal in structure. There is no pulmonic valvular regurgitation. There is no pulmonic valvular stenosis. GREAT VESSELS The aortic root is normal in size. The ascending aorta is normal in size. The pulmonary artery is normal. The IVC is normal in size and collapses >50% with inspiration. PERICARDIAL EFFUSION There is no pericardial effusion. There is no pleural effusion. <Conclusion> The estimated ejection fraction is 55-60% Transmitral Doppler flow pattern is Grade I-abnormal relaxation pattern. The left atrium is mildly dilated. There is trace mitral valve regurgitation noted. There is trace tricuspid valve regurgitation noted.
--- NOTE | 2018-10-07 21:33 | CP.PCM.PN ---
Subjective - Date & Time of Evaluation Date of Evaluation: 10/07/18 Time of Evaluation: 21:30 - Subjective Subjective: nuclear perfusion stress test reviewed. Normal myocardial perfusion. normal LV function. Symptoms are not cardiac related. Objective - Vital Signs/Intake and Output Vital Signs (last 24 hours): Temp Pulse Resp BP Pulse Ox 98.2 F 82 17 117/66 100 10/07/18 19:48 10/07/18 19:48 10/07/18 19:48 10/07/18 19:48 10/07/18 19:48 - Medications Medications: Current Medications Albuterol (Ventolin Hfa 90 Mcg/Actuation (8 G)) 2 puff INH BID PRN PRN Reason: Shortness of Breath Amlodipine Besylate (Norvasc) 10 mg PO DAILY [facility] Last Admin: 10/07/18 08:34 Dose: 10 mg Aspirin (Ecotrin) 81 mg PO DAILY [facility] Last Admin: 10/07/18 11:49 Dose: 81 mg Atorvastatin Calcium (Lipitor) 40 mg PO HS [facility] Last Admin: 10/06/18 21:27 Dose: 40 mg Cyclobenzaprine HCl (Flexeril) 10 mg PO Q8 PRN PRN Reason: Muscle spasm Last Admin: 10/06/18 17:27 Dose: 10 mg Enoxaparin Sodium (Lovenox) 40 mg SC DAILY [facility]; Protocol Last Admin: 10/07/18 11:51 Dose: 40 mg Glipizide (Glucotrol Xl) 10 mg PO DAILY [facility] Home Med (Linaclotide [Linzess]) 145 mcg PO DAILY [facility] Insulin Human Lispro (Humalog) 0 units SC [facility]; Protocol Last Admin: 10/07/18 16:38 Dose: 10 u Lisinopril (Zestril) 20 mg PO DAILY [facility] Last Admin: 10/07/18 08:34 Dose: 20 mg Metformin HCl (Glucophage) 500 mg PO DAILY [facility] Last Admin: 10/07/18 11:49 Dose: 500 mg Methylprednisolone (Solu-Medrol) 40 mg IVP Q8 [facility] Last Admin: 10/07/18 16:41 Dose: Not Given Montelukast Sodium (Singulair) 10 mg PO HS [facility] Last Admin: 10/06/18 21:26 Dose: 10 mg Pantoprazole Sodium (Protonix Ec Tab) 40 mg PO DAILY [facility] Last Admin: 10/07/18 11:52 Dose: 40 mg Promethazine HCl (Phenergan) 12.5 mg PO Q6 PRN PRN Reason: Cough and congestion Last Admin: 10/06/18 17:12 Dose: 12.5 mg Fluticasone/Salmeterol (Advair Diskus 250/50) 1 puff INH BID [facility] Last Admin: 10/07/18 16:38 Dose: 1 puff Sitagliptin Phosphate (Januvia) 50 mg PO DAILY [facility] Last Admin: 10/07/18 11:51 Dose: 50 mg - Labs Labs: 10/06/18 00:15 10/07/18 09:25 PT 11.7 Seconds (9.8-13.1) 10/06/18 00:15 INR 1.0 10/06/18 00:15 APTT 28.1 Seconds (25.6-37.1) 10/06/18 00:15 Assessment and Plan (1) Dyspnea Status: Acute (2) Diabetes Status: Chronic (3) HTN (hypertension) Status: Chronic (4) COPD (chronic obstructive pulmonary disease) Status: Acute
[2018-10-08] MEDS: MethylPREDNISolone 40 mg Vial IVP SCH (00:31)
[2018-10-08 06:16] LABS: BASO % 0.1 % (0.0-2.0); HEMOGLOBIN 11.4 g/dL (12.0-16.0); LYMPH % 5.6 % (20.0-40.0); MEAN CELL VOLUME 85.3 fl (81.0-99.0); MEAN CORPUSCULAR HGB CONC 32.8 g/dL (33.0-37.0); MEAN PLATELET VOLUME 9.4 fl (7.2-11.7); MONO # 0.2 K/uL (0.0-0.8); MONO % 1.3 % (0.0-10.0); NEUT # 15.9 K/uL (1.8-7.0); NRBC % 0.1 % (0.0-0.0); PLATELET COUNT 237 K/uL (130-400); RBC 4.08 Mil/uL (3.80-5.20); RED CELL DISTRIBUTION WIDTH 15.1 % (11.5-14.5); WHITE BLOOD COUNT 17.2 K/uL (4.8-10.8)
[2018-10-08 06:35] LABS: BLOOD UREA NITROGEN 33 mg/dl (7-17); CALCIUM 9.8 mg/dL (8.4-10.2); GFR NON-AFRICAN AMERICAN > 60
[2018-10-08] MEDS: Insulin Lispro (humaLOG) 100 Units/ml Inj SC SCH ×4 (06:51→22:12)
[2018-10-08 08:51] LABS: ANISOCYTOSIS SLIGHT; HYPOCHROMIC SLIGHT; LYMPHOCYTE 3 % (20-50); MONOCYTE 3 % (0-10); NEUTROPHIL 94 % (42-75); PLATELET ESTIMATE NORMAL (NORMAL); TOTAL CELLS COUNTED 100
[2018-10-08] MEDS: Enoxaparin 40 mg Syringe SC SCH (09:46)
[2018-10-08] MEDS: Fluticasone-Salmeterol 250-50mcg Diskus INH SCH ×2 (09:47→17:42)
[2018-10-08] MEDS: GlipiZIDE 10 mg SR Tab PO SCH (09:48)
[2018-10-08] MEDS: Pantoprazole 40 mg EC Tab PO SCH (09:48)
[2018-10-08] MEDS: Sodium Chloride 0.9% 1,000 ML IV SCH (09:49)
--- NOTE | 2018-10-08 10:44 | CP.PCM.PN ---
Subjective - Date & Time of Evaluation Date of Evaluation: 10/08/18 Time of Evaluation: 07:00 - Subjective Subjective: Pt seen and examined at the bedside with Dr. Clarke. She denies complaints states breathing is fine. Expresses concern over her high blood sugars. Pt reassured that it is due to the steroids and we will reduce the dosage today. Objective - Vital Signs/Intake and Output Vital Signs (last 24 hours): Temp Pulse Resp BP Pulse Ox 98.0 F 66 20 108/66 96 10/08/18 08:26 10/08/18 08:26 10/08/18 08:26 10/08/18 08:26 10/08/18 08:26 - Medications Medications: Current Medications Albuterol (Ventolin Hfa 90 Mcg/Actuation (8 G)) 2 puff INH BID PRN PRN Reason: Shortness of Breath Amlodipine Besylate (Norvasc) 10 mg PO DAILY [facility] Last Admin: 10/07/18 08:34 Dose: 10 mg Aspirin (Ecotrin) 81 mg PO DAILY [facility] Last Admin: 10/07/18 11:49 Dose: 81 mg Atorvastatin Calcium (Lipitor) 40 mg PO HS [facility] Last Admin: 10/07/18 21:59 Dose: 40 mg Cyclobenzaprine HCl (Flexeril) 10 mg PO Q8 PRN PRN Reason: Muscle spasm Last Admin: 10/06/18 17:27 Dose: 10 mg Enoxaparin Sodium (Lovenox) 40 mg SC DAILY [facility]; Protocol Last Admin: 10/07/18 11:51 Dose: 40 mg Glipizide (Glucotrol Xl) 10 mg PO DAILY [facility] Home Med (Linaclotide [Linzess]) 145 mcg PO DAILY [facility] Sodium Chloride (Sodium Chloride 0.9%) 1,000 mls @ 60 mls/hr IV .[id number] [facility] Stop: 10/09/18 06:47 Insulin Human Lispro (Humalog) 0 units SC [facility]; Protocol Last Admin: 10/08/18 06:51 Dose: 6 u Lisinopril (Zestril) 20 mg PO DAILY [facility] Last Admin: 10/07/18 08:34 Dose: 20 mg Metformin HCl (Glucophage) 1,000 mg PO BIDWM [facility] Montelukast Sodium (Singulair) 10 mg PO HS [facility] Last Admin: 10/07/18 21:59 Dose: 10 mg Pantoprazole Sodium (Protonix Ec Tab) 40 mg PO DAILY [facility] Last Admin: 10/07/18 11:52 Dose: 40 mg Prednisone (Prednisone Tab) 40 mg PO DAILY [facility] Promethazine HCl (Phenergan) 12.5 mg PO Q6 PRN PRN Reason: Cough and congestion Last Admin: 10/08/18 03:12 Dose: 12.5 mg Fluticasone/Salmeterol (Advair Diskus 250/50) 1 puff INH BID [facility] Last Admin: 10/07/18 16:38 Dose: 1 puff Sitagliptin Phosphate (Januvia) 50 mg PO DAILY [facility] Last Admin: 10/07/18 11:51 Dose: 50 mg - Labs Labs: 10/08/18 04:35 10/08/18 04:35 PT 11.7 Seconds (9.8-13.1) 10/06/18 00:15 INR 1.0 10/06/18 00:15 APTT 28.1 Seconds (25.6-37.1) 10/06/18 00:15 - Constitutional Appears: No Acute Distress - Head Exam Head Exam: NORMAL INSPECTION - Eye Exam Eye Exam: Normal appearance - Respiratory Exam Respiratory Exam: Clear to Ausculation Bilateral. absent: Rales, Wheezes - Cardiovascular Exam Cardiovascular Exam: Clicks, +S1, +S2 - Extremities Exam Extremities Exam: Pedal Edema (+1 BL) - Neurological Exam Neurological Exam: Alert, Oriented x3 - Psychiatric Exam Psychiatric exam: Normal Affect - Skin Skin Exam: Normal Color Assessment and Plan - Assessment and Plan (Free Text) Assessment: Pt is a 73 y/o female with xh of HTN, DMII, Asthma/COPD, HLD Chronic back pain who presented to hospital with worsening sob associated with left sided chest pain. Transfer to Med/Surg #Asthma/COPD ex #Chest pain #LE edema #Hyponatremia/Hypochloremia - Cardiology on board: Stress test completed yesterday, normal findings. Chest pain not cardiac as per Cardio. - IV steroids and bronchodilators treatments for Asthma. Will titrate steroids given improved respiratory status and hyperglycemia. - Hyponatremia is pseudohyponatremia (2/2 hyperglycemia) Serum osmolarity 289. Will start on NS at 100cc, Metforming and Glipizide increased, steroids reduced. Will repeat BMP. If improved will dc on steroid taper - Leukocytosis, likely steroid induced - Lovenox for dvt ppx Discussed case with Dr. Vince Goldstein, PGY2
--- NOTE | 2018-10-08 13:29 | PQF ---
PROVIDER RESPONSE TEXT: Asthma is mild persistent REVIEWER QUERY TEXT: Asthma Specificity and Type Asthma Exacerbation is documented in the Medical Record. Please specify the type and severity of ast hma. Such as: -- Mild intermittent -- Mild persistent -- Moderate persistent -- Severe persistent -- Exercise induced bronchospasm -- Cough variant asthma -- Other, please specify The patient's Clinical Indicators include: Admitted with left sided chest pain, sob and wheezing. CXR: No active pulmonary disease Rx: Duonebs, Solumedrol, Ventolin HFA, Advair Diskus Query created by: Allison Chester on 10/08/2018 8:11 AM Electronically signed by: Jumana Goldstein 10/08/2018 1:27 PM
--- NOTE | 2018-10-08 13:29 | PQF ---
PROVIDER RESPONSE TEXT: Diabetes with hyperglycemia REVIEWER QUERY TEXT: Diabetic Associated Manifestations Please specify any manifestations associated / due to diabetes Such as: -- Diabetes with hypoglycemia -- Diabetes with hyperglycemia -- Diabetes with renal manifestation -- Diabetes with neurologic manifestation -- Diabetes with ophthalmic manifestation -- Diabetes with peripheral circulatory manifestation -- Other, please specify The patient's Clinical Indicators include: DM II. Given IV Solumedrol. Accuchecks runnin, 326, 442, 370, 345, ... Rx: Glucotrol, Januvia, Metformin, Accuchecks with insulin coverage Query created by: Allison Chester on 10/08/2018 8:18 AM Electronically signed by: Jumana Goldstein 10/08/2018 1:27 PM
--- NOTE | 2018-10-08 13:29 | PQF ---
PROVIDER RESPONSE TEXT: Diagnosis Obesity. REVIEWER QUERY TEXT: Conflicting Documentation Clarification Documentation of both Obesity and Overweight are documented. Please clarify the diagnosis and documen t the BMI EMR has the patient listed as 4' 8", weight of 184 pounds with a BMI of 41.4 A single mention or documentation of multiple diagnoses for the same clinical presentation appears in the record. Please clarify the diagnosis/diagnoses. Please also document if the condition is: -- Confirmed and current -- Confirmed, treated and resolved -- Ruled out -- Other, please specify The patient's Clinical Indicators include: Documentation of Overweight and Obesity. EMR has the patient listed as 4' 8", weight of 184 pounds with a BMI of 41.4 Heart Healthy DIet Query created by: Allison Chester on 10/08/2018 8:15 AM Electronically signed by: Jumana Goldstein 10/08/2018 1:27 PM
[2018-10-09] MEDS: Sodium Chloride 0.9% 1,000 ML IV SCH (02:09)
[2018-10-09 06:18] LABS: BASO # 0.1 K/uL (0.0-0.2); BASO % 0.4 % (0.0-2.0); HEMOGLOBIN 11.5 g/dL (12.0-16.0); LYMPH # 1.4 K/uL (1.0-4.3); LYMPH % 9.9 % (20.0-40.0); MEAN CORPUSCULAR HEMOGLOBIN 28.2 pg (27.0-31.0); MEAN CORPUSCULAR HGB CONC 32.8 g/dL (33.0-37.0); MEAN PLATELET VOLUME 9.3 fl (7.2-11.7); MONO # 0.8 K/uL (0.0-0.8); NEUT # 11.7 K/uL (1.8-7.0); NEUT % 83.7 % (50.0-75.0); RBC 4.09 Mil/uL (3.80-5.20); RED CELL DISTRIBUTION WIDTH 15.5 % (11.5-14.5); WHITE BLOOD COUNT 13.9 K/uL (4.8-10.8)
[2018-10-09 06:37] LABS: BLOOD UREA NITROGEN 28 mg/dl (7-17); CALCIUM 9.4 mg/dL (8.4-10.2); GFR NON-AFRICAN AMERICAN 54
[2018-10-09] MEDS: Insulin Lispro (humaLOG) 100 Units/ml Inj SC SCH ×2 (06:46→13:41)
[2018-10-09 08:08] VITALS: BP 137/84; RESP 18; TEMP 97.4
[2018-10-09] MEDS: Pantoprazole 40 mg EC Tab PO SCH (08:39)
[2018-10-09] MEDS: GlipiZIDE 10 mg SR Tab PO SCH (08:40)
[2018-10-09] MEDS: Enoxaparin 40 mg Syringe SC SCH (08:41)
[2018-10-09] MEDS: Fluticasone-Salmeterol 250-50mcg Diskus INH SCH (08:41)
--- NOTE | 2018-10-09 11:21 | CP.PCM.DIS ---
Provider - Provider Date of Admission: 10/07/18 23:18 Attending physician: Tyree Clarke MD Consults: 10/06/18 11:48 Cardiology Consult Routine Comment: Consulting Provider: Mode Lopez Consulting Physician: Mode Lopez Reason for Consult: chest pain, sob, swelling Time Spent in preparation of Discharge (in minutes): 35 Diagnosis - Discharge Diagnosis (1) Hyperglycemia Status: Resolved (2) Hyponatremia Status: Resolved (3) Chest pain Status: Resolved (4) Asthma Status: Chronic Hospital Course - Lab Results Lab Results: Micro Results 10/06/18 00:45 Blood Blood Culture - Preliminary NO GROWTH AFTER 3 DAYS 10/06/18 00:15 Blood Blood Culture - Preliminary NO GROWTH AFTER 3 DAYS Most Recent Lab Values WBC 13.9 K/uL (4.8-10.8) H 10/09/18 04:50 RBC 4.09 Mil/uL (3.80-5.20) 10/09/18 04:50 Hgb 11.5 g/dL (12.0-16.0) L 10/09/18 04:50 Hct 35.2 % (34.0-47.0) 10/09/18 04:50 MCV 86.0 fl (81.0-99.0) 10/09/18 04:50 MCH 28.2 pg (27.0-31.0) 10/09/18 04:50 MCHC 32.8 g/dL (33.0-37.0) L 10/09/18 04:50 RDW 15.5 % (11.5-14.5) H 10/09/18 04:50 Plt Count 219 K/uL (130-400) 10/09/18 04:50 MPV 9.3 fl (7.2-11.7) 10/09/18 04:50 Neut % (Auto) 83.7 % (50.0-75.0) H 10/09/18 04:50 Lymph % (Auto) 9.9 % (20.0-40.0) L 10/09/18 04:50 [place] % (Auto) 6.0 % (0.0-10.0) 10/09/18 04:50 Eos % (Auto) 0.0 % (0.0-4.0) 10/09/18 04:50 Baso % (Auto) 0.4 % (0.0-2.0) 10/09/18 04:50 Neut # (Auto) 11.7 K/uL (1.8-7.0) H 10/09/18 04:50 Lymph # (Auto) 1.4 K/uL (1.0-4.3) 10/09/18 04:50 [place] # (Auto) 0.8 K/uL (0.0-0.8) 10/09/18 04:50 Eos # (Auto) 0.0 K/uL (0.0-0.7) 10/09/18 04:50 Baso # (Auto) 0.1 K/uL (0.0-0.2) 10/09/18 04:50 Neutrophils % (Manual) 94 % (42-75) H 10/08/18 04:35 Lymphocytes % (Manual) 3 % (20-50) L 10/08/18 04:35 Monocytes % (Manual) 3 % (0-10) 10/08/18 04:35 Platelet Estimate Normal (NORMAL) 10/08/18 04:35 Hypochromasia (manual) Slight 10/08/18 04:35 Anisocytosis (manual) Slight 10/08/18 04:35 PT 11.7 Seconds (9.8-13.1) 10/06/18 00:15 INR 1.0 10/06/18 00:15 APTT 28.1 Seconds (25.6-37.1) 10/06/18 00:15 Sodium 136 mmol/l (132-148) 10/09/18 04:50 Potassium 4.6 MMOL/L (3.6-5.0) 10/09/18 04:50 Chloride 98 mmol/L (98-107) 10/09/18 04:50 Carbon Dioxide 29 mmol/L (22-30) 10/09/18 04:50 Anion Gap 14 (10-20) 10/09/18 04:50 BUN 28 mg/dl (7-17) H 10/09/18 04:50 Creatinine 1.0 mg/dl (0.7-1.2) 10/09/18 04:50 Est GFR ( Amer) > 60 10/09/18 04:50 Est GFR (Non-Af Amer) 54 10/09/18 04:50 POC Glucose (mg/dL) 180 mg/dL (65-110) H 10/09/18 05:33 Random Glucose 168 mg/dL (65-105) H 10/09/18 04:50 Hemoglobin A1c 8.1 % (4.2-6.5) H 10/08/18 04:35 Serum Osmolality 289 mosm/kg (272-300) 10/08/18 04:35 Lactic Acid 1.3 mmol/L (0.7-2.1) 10/06/18 00:15 Calcium 9.4 mg/dL (8.4-10.2) 10/09/18 04:50 Total Bilirubin 0.4 mg/dl (0.2-1.3) 10/06/18 00:15 AST 31 U/L (14-36) 10/06/18 00:15 ALT 34 U/L (9-52) 10/06/18 00:15 Alkaline Phosphatase 80 U/L (38-126) 10/06/18 00:15 Troponin I < 0.0120 ng/mL (0.00-0.120) 10/06/18 15:54 NT-Pro-B Natriuret Pep 106 pg/ml (0-900) 10/06/18 00:15 Total Protein 6.9 G/DL (6.3-8.2) 10/06/18 00:15 Albumin 3.9 g/dL (3.5-5.0) 10/06/18 00:15 Globulin 3.0 gm/dL (2.2-3.9) 10/06/18 00:15 Albumin/Globulin Ratio 1.3 (1.0-2.1) 10/06/18 00:15 Urine Osmolality 305 mosm/kg (300-1000) 10/07/18 18:00 Ur Random Sodium < 5 mmol/L 10/07/18 18:00 Influenza Typ A,B (EIA) Negative for flu a/b (NEGATIVE) 10/06/18 00:15 - Hospital Course Hospital Course: Pt is a 73 y/o female with xh of HTN, DMII, Asthma/COPD, HLD Chronic back pain who presented to hospital with worsening sob associated with left sided chest pain. Asthma exacerbation was treated with IV steroids and bronchodilators treatments for Asthma and her symptoms improved to baseline. She was evaluated by cardiology due to complaint of chest discomfort. She had echo and stress test completed that were both normal and cleared by cardiology. She was noted to have elvated blood sugars, likely effect from steroids, and her DM regimen was adjusted. Psuedohyponatremia resolved once blood sugars were stabilized. Pt discharged home on steroid taper. Discharge Exam - Head Exam Head Exam: NORMAL INSPECTION - Eye Exam Eye Exam: Normal appearance - ENT Exam ENT Exam: Mucous Membranes Moist - Respiratory Exam Respiratory Exam: Clear to PA & Lateral. absent: Accessory Muscle Use, Rhonchi, Wheezes - Cardiovascular Exam Cardiovascular Exam: REGULAR RHYTHM, +S1, +S2 - Extremities Exam Extremities exam: normal inspection - Neurological Exam Neurological exam: Alert, Oriented x3 - Psychiatric Exam Psychiatric exam: Normal Affect - Skin Skin Exam: Normal Color Discharge Plan - Discharge Medications Prescriptions: Methylprednisolone [Medrol Dose Pack (21 tabs)] 4 mg PO DAILY 21 Days #21 mg - Follow Up Plan Condition: FAIR Disposition: HOME/ ROUTINE Instructions: Asthma, Adult (DC), Chest Pain (DC), Asthma (DC) Referrals: Tyree Clarke MD [Staff Provider] - Milly Crenshaw MD [Medical Doctor] - Mode Lopez MD [Staff Provider] -
[2018-10-09 11:58] VITALS: PULSE 80
[2018-10-11 02:21] VITALS: O2SAT 99
== END 2018-10-09 15:30 | disposition home or self-care (01) | DRG 191 ==
LOC: H.ER 23:45 → H.ERHOLD 10-06 02:33 → H.TEL 10-06 05:16 → OBSVTOIN 10-07 23:18
PROVIDERS: ADMIT Internal Medicine; ATTEND Internal Medicine
DX: J44.1 Chronic obstructive pulmonary disease with (acute) exacerbation (principal); E87.1 Hypo-osmolality and hyponatremia; J45.31 Mild persistent asthma with (acute) exacerbation; Z68.41 Body mass index [BMI] 40.0-44.9, adult; E87.8 Other disorders of electrolyte and fluid balance, not elsewhere classified; E11.65 Type 2 diabetes mellitus with hyperglycemia; E66.9 Obesity, unspecified; E78.5 Hyperlipidemia, unspecified; G89.29 Other chronic pain; Z87.891 Personal history of nicotine dependence; E78.00 Pure hypercholesterolemia, unspecified; I10 Essential (primary) hypertension; Z79.82 Long term (current) use of aspirin; T38.0X5A Adverse effect of glucocorticoids and synthetic analogues, initial encounter; D17.1 Benign lipomatous neoplasm of skin and subcutaneous tissue of trunk; F41.9 Anxiety disorder, unspecified

== ENCOUNTER 2018-11-13 18:55 | Inpatient (IN) | payer MEDICARE, MEDICAID ==
[2018-11-13 18:55] VITALS: BMI 30.6
[2018-11-13] MEDS ORDERED: Albuterol-Ipratrop 3 mg / 0.5 (3 ml) UD INH STA (19:04)
[2018-11-13] MEDS ORDERED: Albuterol-Ipratrop 3 mg / 0.5 (3 ml) UD ONE (19:30)
[2018-11-13 19:31] LABS: BASO # 0.1 K/uL (0.0-0.2); BASO % 0.9 % (0.0-2.0); EOS # 0.1 K/uL (0.0-0.7); EOS % 0.6 % (0.0-4.0); HEMOGLOBIN 11.1 g/dL (12.0-16.0); LYMPH % 19.6 % (20.0-40.0); MEAN CORPUSCULAR HEMOGLOBIN 28.8 pg (27.0-31.0); MEAN CORPUSCULAR HGB CONC 33.5 g/dL (33.0-37.0); MONO # 0.8 K/uL (0.0-0.8); MONO % 8.3 % (0.0-10.0); NEUT # 7.1 K/uL (1.8-7.0); NEUT % 70.6 % (50.0-75.0); NRBC % 0.1 % (0.0-0.0); RBC 3.84 Mil/uL (3.80-5.20); RED CELL DISTRIBUTION WIDTH 14.1 % (11.5-14.5)
[2018-11-13 19:45] LABS: ALB/GLOB RATIO 1.4 (1.0-2.1); ALBUMIN 3.8 g/dL (3.5-5.0); ALT/SGPT 37 U/L (9-52); AST/SGOT 24 U/L (14-36); BLOOD UREA NITROGEN 13 mg/dl (7-17); CALCIUM 9.5 mg/dL (8.4-10.2); GFR NON-AFRICAN AMERICAN > 60
[2018-11-13 19:57] LABS: B-TYPE NATRIURETIC PEPTIDE 105 pg/ml (0-900)
[2018-11-13 20:27] LABS: PARTIAL THROMBOPLASTIN TIME 29.8 Seconds (25.6-37.1)
--- NOTE | 2018-11-13 21:19 | ED PDOC ---
HPI: General Adult Time Seen by Provider: 11/13/18 19:02 Chief Complaint (Nursing): Shortness Of Breath Chief Complaint (Provider): chest pain, shortness of breath History Per: Patient History/Exam Limitations: no limitations Current Symptoms Are (Timing): Still Present Severity: Moderate Recently: Treated By A Physician, Hospitalized Additional Complaint(s): 73yo female c/o chest pain and shortness of breath, pain described as tightness since last night, per EMS she noted asthma but not noted to have wheezing on auscultation. States was at a surgery center today for removal of painful "lipoma" to her L upper back but surgery cancelled because she was dyspneic. She notes mild cough but denies leg pain/edema, fever or syncope. Prior charts reviewed, admission last month, cardiology saw patient and had stress test which was negative. She used advair today. Past Medical History Reviewed: Historical Data, Nursing Documentation, Vital Signs Vital Signs: Last Vital Signs Temp 99 F 11/13/18 18:57 Pulse 69 11/13/18 18:57 Resp 20 11/13/18 18:57 BP 144/71 11/13/18 18:57 Pulse Ox 98 11/13/18 18:57 - Medical History PMH: Anxiety, Asthma, COPD, HTN, Hypercholesterolemia, Hyperlipidemia Denies: Chronic Kidney Disease - Family History Family History: States: Unknown Family Hx, Diabetes, Hypertension - Social History Current smoker - smoking cessation education provided: No - Immunization History Hx Tetanus Toxoid Vaccination: No Hx Influenza Vaccination: Yes Hx Pneumococcal Vaccination: No - Home Medications Home Medications: Ambulatory Orders Medication Instructions Recorded Albuterol HFA [Ventolin HFA 90 2 puff INH BID PRN 03/16/18 mcg/actuation (8 g)] Atorvastatin [Lipitor] 40 mg PO HS 03/16/18 Fluticasone/Salmeterol 250/50 1 puff INH BID 03/16/18 [Advair Diskus 250/50] Lisinopril [Zestril] 20 mg PO DAILY 03/16/18 Montelukast [Singulair] 10 mg PO HS 03/16/18 Aspirin [Lo-Dose Aspirin EC] 81 mg PO DAILY 06/10/18 Linaclotide [Linzess] 145 mcg PO DAILY 06/10/18 Sitagliptin Phos/Metformin HCl 1 tab PO BID 11/13/18 [Janumet 50-1,000 mg Tablet] - Allergies Allergies/Adverse Reactions: Allergies Allergy/AdvReac Type Severity Reaction Status Date / Time No Known Allergies Allergy Verified 11/13/18 18:56 Review of Systems Review Of Systems: ROS cannot be obtained secondary to pt's inabilty to answer questions. Constitutional: Negative for: Fever ENT: Negative for: Ear Pain Cardiovascular: Positive for: Chest Pain, Palpitations. Negative for: Edema Respiratory: Positive for: Cough, SOB with Exertion Gastrointestinal: Negative for: Nausea, Abdominal Pain Genitourinary Female: Negative for: Dysuria Musculoskeletal: Negative for: Neck Pain, Arm Pain Skin: Negative for: Rash, Lesions Neurological: Negative for: Weakness, Numbness Psych: Negative for: Suicidal ideation Physical Exam - Reviewed Nursing Documentation Reviewed: Yes Vital Signs Reviewed: Yes - Physical Exam Appears: Positive for: Non-toxic (anxious), No Acute Distress Head Exam: Positive for: ATRAUMATIC, NORMAL INSPECTION, NORMOCEPHALIC Skin: Positive for: Normal Color, Warm, DRY Eye Exam: Positive for: EOMI, Normal appearance, PERRL ENT: Positive for: Normal ENT Inspection Neck: Positive for: Normal, Painless ROM Cardiovascular/Chest: Positive for: Regular Rate, Rhythm Respiratory: Positive for: Decreased Breath Sounds. Negative for: Wheezing Gastrointestinal/Abdominal: Positive for: Normal Exam, Soft Back: Positive for: Normal Inspection Extremity: Positive for: Normal ROM Neurological/Psych: Positive for: Awake, Alert, Normal Tone, Oriented. Negative for: Motor/Sensory Deficits - Laboratory Results Result Diagrams: 11/13/18 19:12 11/13/18 19:12 Lab Results: PT 11.0 Seconds (9.8-13.1) 11/13/18 19:12 INR 1.0 11/13/18 19:12 APTT 29.8 Seconds (25.6-37.1) 11/13/18 19:12 Troponin I < 0.0120 ng/mL (0.00-0.120) 11/13/18 19:12 NT-Pro-B Natriuret Pep 105 pg/ml (0-900) 11/13/18 19:12 Total Bilirubin 0.2 mg/dl (0.2-1.3) 11/13/18 19:12 AST 24 U/L (14-36) 11/13/18 19:12 ALT 37 U/L (9-52) 11/13/18 19:12 Alkaline Phosphatase 73 U/L (38-126) 11/13/18 19:12 Total Protein 6.4 G/DL (6.3-8.2) 11/13/18 19:12 Albumin 3.8 g/dL (3.5-5.0) 11/13/18 19:12 Globulin 2.6 gm/dL (2.2-3.9) 11/13/18 19:12 Albumin/Globulin Ratio 1.4 (1.0-2.1) 11/13/18 19:12 - ECG ECG: Positive for: Interpreted By Me ECG Rhythm: Positive for: Normal QRS, Normal ST Segment, Sinus Rhythm. Negative for: ST/T Changes Rate: 71 O2 Sat by Pulse Oximetry: 98 Pulse Ox Interpretation: Normal Medical Decision Making Medical Decision Making: workup for dyspnea initiated lungs clear, only mild intermittent cough duoneb ordered labs reviewed moderate hyponatremia, mild hypokalemia normal BNP mild stable anemia CXR reviewed no infiltrate on my read prior charts reviewed, no imaging performed on back thoracic mass, given mass is hard and tender, concern for sarcoma/malignancy, hence will r/o PE as contributing cause of persistent dyspnea. Admit Dr Clarke, Dr Ramírez to followup CTA overnight Disposition - Clinical Impression Clinical Impression: Dyspnea, Soft tissue mass - Patient ED Disposition Is Patient to be Admitted: Yes Counseled Patient/Family Regarding: Studies Performed - Disposition Disposition Time: 23:15 Condition: FAIR Patient Signed Over To: Bj Ramírez Handoff Comments: pending CTA chest, admit
[2018-11-13] MEDS ORDERED: Iodixanol 320 MG/ML 100 ML BOTTLE IV ONE (23:34)
[2018-11-13] MEDS ORDERED: Sodium Chloride 0.9% 50 ML IV ONE (23:34)
--- NOTE | 2018-11-14 00:19 | ED PDOC ---
- Laboratory Results Result Diagrams: 11/13/18 19:12 11/13/18 19:12 Lab Results: PT 11.0 Seconds (9.8-13.1) 11/13/18 19:12 INR 1.0 11/13/18 19:12 APTT 29.8 Seconds (25.6-37.1) 11/13/18 19:12 Troponin I < 0.0120 ng/mL (0.00-0.120) 11/13/18 19:12 NT-Pro-B Natriuret Pep 105 pg/ml (0-900) 11/13/18 19:12 Total Bilirubin 0.2 mg/dl (0.2-1.3) 11/13/18 19:12 AST 24 U/L (14-36) 11/13/18 19:12 ALT 37 U/L (9-52) 11/13/18 19:12 Alkaline Phosphatase 73 U/L (38-126) 11/13/18 19:12 Total Protein 6.4 G/DL (6.3-8.2) 11/13/18 19:12 Albumin 3.8 g/dL (3.5-5.0) 11/13/18 19:12 Globulin 2.6 gm/dL (2.2-3.9) 11/13/18 19:12 Albumin/Globulin Ratio 1.4 (1.0-2.1) 11/13/18 19:12 - ECG O2 Sat by Pulse Oximetry: 98 (RA) Pulse Ox Interpretation: Normal Medical Decision Making Medical Decision Making: Time: 00:00 Patient care endorsed from Dr. Moreno to provider pending CT Angio Chest 01:06 CTA Chest FINDINGS: Subsegmental atelectatic air space disease of the right lower lobe. Normal enhancement of the main pulmonary artery and right and left pulmonary arteries. Normal enhancement of the bilateral peripheral pulmonary arteries. There is no demonstrated pulmonary embolism. Normal thoracic aorta and visualized great vessels. There is no demonstrated aortic dissection. Mildly enlarged heart and normal pericardium. Normal mediastinum. Normal hilar regions. Normal visualized trachea and bronchi. The remaining lungs are well expanded. Normal remaining pulmonary parenchyma. Normal pleura. Normal chest wall structures. Moderate diffuse spondylosis. Small sliding hiatal hernia. Mild hepatomegaly. IMPRESSION: No demonstrated pulmonary embolism or arterial dissection. Mild cardiomegaly. Subsegmental atelectatic air space disease of the right lower lobe. --Patient stable for admission to Tele floor, no other acute E.D. intervention necessary at this time. Scribe Attestation: Documented by Golden Lima, acting as a scribe Sameer Ramírez MD Provider Scribe Attestation: All medical record entries made by the Scribe were at my direction and personally dictated by me. I have reviewed the chart and agree that the record accurately reflects my personal performance of the history, physical exam, medical decision making, and the department course for this patient. I have also personally directed, reviewed, and agree with the discharge instructions and disposition Disposition Counseled Patient/Family Regarding: Studies Performed, Diagnosis - Clinical Impression Clinical Impression: Dyspnea, Soft tissue mass - POA Present On Arrival: None - Disposition Disposition: Admitted as In-Patient Disposition Time: 01:06 Condition: FAIR
[2018-11-14] MEDS ORDERED: Albuterol HFA 90 mcg/actuation (8 g) INH PRN (06:58)
[2018-11-14] MEDS ORDERED: Sodium Chloride 0.9% 1,000 ML IV SCH (07:00)
[2018-11-14] MEDS ORDERED: Magnesium Sulfate 2 gm/50 ml 2 GM/50 ML BAG IVPB ONE (07:02)
[2018-11-14] MEDS ORDERED: Glucagon Recombinant 1 mg Inj IM PRN (07:03)
[2018-11-14] MEDS ORDERED: Dextrose 50% SYRINGE Inj (50 ml) IV PRN (07:03)
[2018-11-14] MEDS: Insulin Lispro (humaLOG) 100 Units/ml Inj SC SCH ×4 (08:31→23:16)
--- NOTE | 2018-11-14 08:36 | RAD ---
Date of service: 11/13/2018 HISTORY: SOB COMPARISON: Portable chest 10/06/2018. TECHNIQUE: 1 view obtained. FINDINGS: LUNGS: No active pulmonary disease. PLEURA: No significant pleural effusion identified, no pneumothorax apparent. CARDIOVASCULAR: No aortic atherosclerotic calcification present. Cardiomegaly is stable. No pulmonary vascular congestion. OSSEOUS STRUCTURES: No significant abnormalities. VISUALIZED UPPER ABDOMEN: Normal. OTHER FINDINGS: None. IMPRESSION: Stable cardiomegaly. No pulmonary vascular congestion appreciated. No infiltrates bilaterally.
[2018-11-14] MEDS ORDERED: Patient's Own Med (Sitagliptin Phos/Metformin Hcl [Janumet 50-1,000 Mg Tablet] 1 TAB) PO SCH (09:00)
--- NOTE | 2018-11-14 09:40 | CARD ---
APPROVED REPORT Date of service: 11/13/2018 EKG Measurement Heart [id number] <Conclusion> Normal sinus rhythm Normal ECG
[2018-11-14] MEDS: FLUTICASONE PROPION/SALMETEROL 113-14 INH SCH ×2 (09:48→17:12)
[2018-11-14] MEDS: Enoxaparin 40 mg Syringe SC SCH (09:54)
--- NOTE | 2018-11-14 09:58 | CP.PCM.HP ---
<Adis Woods - Last Filed: 11/14/18 10:49> History of Present Illness - History of Present Illness History of Present Illness: 73 y/o F with a PMHx of HTN, DMII, Asthma/COPD, HLD, Chronic back pain and upper back lipoma who presented to ED with worsening dyspnea despite using her rescue Albuterol multiple times. Pt reports SOB with every activity, even walking to the bathroom, a few steps from her, makes her out of breath. Pt also reports chronic b/l leg swelling. Pt is not able to walk more than 20 steps, she always has to rest and catch her breath. Pt reports been seen by retail pricing coordinator, Dr Lopez, and all test were unremarkable. Pt denies fever, chills, dizziness, chest pain, abdominal pain, nausea --Pt admitted 1 month ago due to left chest pain and SOB. Pt had echocardiogram and stress test completed that were both normal and cleared by cardiology. PMD: Dr. Den HARRISON Meds: As per EMR PMHX: HTN, DMII, Asthma/COPD, HLD, Chronic back pain and upper back lipoma PSHx: hysterectomy SHx: Pt quit smoking 2 years ago. Pt used to smoke 5-8 cigarettes per day. No alcohol and no rec drugs use. ED Course: --CTA: No PE, RLL atelectasis Present on Admission - Present on Admission Any Indicators Present on Admission: No Review of Systems - Constitutional Constitutional: absent: Chills, Fever - EENT Nose/Mouth/Throat: absent: Epistaxis, Nasal Congestion, Nasal Trauma, Sore Throat, Neck Pain, Neck Mass - Cardiovascular Cardiovascular: Dyspnea, Edema. absent: Chest Pain - Respiratory Respiratory: Dyspnea, Dyspnea on Exertion. absent: Cough, Hemoptysis, Pain on Inspiration - Gastrointestinal Gastrointestinal: absent: Abdominal Pain, Cramping, Nausea, Vomiting - Genitourinary Genitourinary: absent: Dysuria, Flank Pain, Hematuria Past Patient History - Past Medical History & Family History Past Medical History?: Yes - Past Social History Smoking Status: Never Smoked - CARDIAC Hx Hypercholesterolemia: Yes Hx Hypertension: Yes - PULMONARY Hx Asthma: Yes Hx Chronic Obstructive Pulmonary Disease (COPD): Yes - NEUROLOGICAL Hx Neurological Disorder: No - HEENT Hx HEENT Problems: Yes Hx Cataracts: Yes - RENAL Hx Chronic Kidney Disease: No - ENDOCRINE/METABOLIC Hx Endocrine Disorders: Yes Hx Diabetes Mellitus Type 2: Yes - HEMATOLOGICAL/ONCOLOGICAL Hx Blood Disorders: No - INTEGUMENTARY Hx Dermatological Problems: No - MUSCULOSKELETAL/RHEUMATOLOGICAL Hx Musculoskeletal Disorders: Yes Hx Back Pain: Yes Hx Falls: No - GASTROINTESTINAL Hx Gastrointestinal Disorders: No - GENITOURINARY/GYNECOLOGICAL Hx Genitourinary Disorders: No - PSYCHIATRIC Hx Anxiety: Yes Hx Substance Use: No - SURGICAL HISTORY Hx Surgeries: Yes Hx Hysterectomy: Yes (1986) - ANESTHESIA Hx Anesthesia: Yes Hx Anesthesia Reactions: No Hx Malignant Hyperthermia: No Meds Allergies/Adverse Reactions: Allergies Allergy/AdvReac Type Severity Reaction Status Date / Time No Known Allergies Allergy Verified 11/13/18 18:56 Physical Exam - Constitutional Appears: No Acute Distress - Head Exam Head Exam: ATRAUMATIC, NORMAL INSPECTION - Eye Exam Eye Exam: EOMI, Normal appearance - ENT Exam ENT Exam: Mucous Membranes Moist - Neck Exam Neck exam: Positive for: Full Rom, Normal Inspection. Negative for: Lymphadenopathy, Meningismus - Respiratory Exam Respiratory Exam: Decreased Breath Sounds, NORMAL BREATHING PATTERN. absent: Rales, Rhonchi, Wheezes - Cardiovascular Exam Cardiovascular Exam: REGULAR RHYTHM, +S1, +S2 - GI/Abdominal Exam GI & Abdominal Exam: Normal Bowel Sounds, Soft. absent: Tenderness - Extremities Exam Extremities exam: Positive for: full ROM, pedal edema (+1 pittimg edema). Ne gative for: calf tenderness - Neurological Exam Neurological exam: Alert, Oriented x3 Results - Vital Signs Recent Vital Signs: Last Vital Signs Temp 98.9 F 11/14/18 08:51 Pulse 91 H 11/14/18 08:51 Resp 20 11/14/18 08:51 BP 160/83 H 11/14/18 08:51 Pulse Ox 94 L 11/14/18 08:51 - Labs Result Diagrams: 11/13/18 19:12 11/13/18 19:12 Labs: Laboratory Results - last 24 hr 11/13/18 11/13/18 11/13/18 19:12 19:12 19:12 WBC 10.0 RBC 3.84 Hgb 11.1 L Hct 33.0 L MCV 86.0 MCH 28.8 MCHC 33.5 RDW 14.1 Plt Count 247 MPV 8.0 Neut % (Auto) 70.6 Lymph % (Auto) 19.6 L [place] % (Auto) 8.3 Eos % (Auto) 0.6 Baso % (Auto) 0.9 Neut # (Auto) 7.1 H Lymph # (Auto) 2.0 [place] # (Auto) 0.8 Eos # (Auto) 0.1 Baso # (Auto) 0.1 PT 11.0 INR 1.0 APTT 29.8 Sodium 126 L Potassium 5.1 H Chloride 88 L Carbon Dioxide 28 Anion Gap 15 BUN 13 Creatinine 0.7 Est GFR ( Amer) > 60 Est GFR (Non-Af Amer) > 60 POC Glucose (mg/dL) Random Glucose 200 H Calcium 9.5 Magnesium 1.2 L Total Bilirubin 0.2 AST 24 ALT 37 Alkaline Phosphatase 73 Troponin I < 0.0120 NT-Pro-B Natriuret Pep 105 Total Protein 6.4 Albumin 3.8 Globulin 2.6 Albumin/Globulin Ratio 1.4 11/14/18 11/14/18 11/14/18 00:34 04:35 07:08 WBC RBC Hgb Hct MCV MCH MCHC RDW Plt Count MPV Neut % (Auto) Lymph % (Auto) [place] % (Auto) Eos % (Auto) Baso % (Auto) Neut # (Auto) Lymph # (Auto) [place] # (Auto) Eos # (Auto) Baso # (Auto) PT INR APTT Sodium Potassium Chloride Carbon Dioxide Anion Gap BUN Creatinine Est GFR ( Amer) Est GFR (Non-Af Amer) POC Glucose (mg/dL) 105 206 H Random Glucose Calcium Magnesium Total Bilirubin AST ALT Alkaline Phosphatase Troponin I < 0.0120 NT-Pro-B Natriuret Pep Total Protein Albumin Globulin Albumin/Globulin Ratio Assessment & Plan - Assessment and Plan (Free Text) Assessment: 73 y/o F with a PMHx of HTN, DMII, Asthma/COPD, HLD, Chronic back pain and upper back lipoma admitted for evaluation and management of aggravating dyspnea. --Pro-BNP and troponins WNL. --Echocardiogram on 10/07/18: LVEF 55-60% and grade I abnormal relaxation pattern. PLAN: >Persistent/Aggravating Dyspnea --Afebrile, no leukocytosis, VSS, normal O2 sat. --Likely worsening COPD. --CTA: no PE, RLL atelectasis (preliminary) --Duonebs Q6H --Pulmonology consult. --Cardiology consult. >Mild Hyponatremia/Mild Hypochloremia --Serum Na+ 126-low --Serum Cl 88-low --IV NS at 125mL/hr --U/A, Urine osm and lytes ordered. --Monitor BMP >COPD --Home meds resumed >Hyperkalemia --Serum K+ 5.1-mildly elevated. --EKG with NO T wave changes >Diabetes Mellitus Type 2 --Home meds resumed --Insulin sliding scale and hypoglycemia protocol >Bilateral lower leg edema --Likely venous stasis >DVT Prophylaxis --SCD --Lovenox SC daily. Case discussed with Dr Vince Woods PGY-2 - Date & Time Date: 11/14/18 Time: 08:00 <Tyree Clarke - Last Filed: 11/16/18 11:35> Results - Vital Signs Recent Vital Signs: Last Vital Signs Temp 98.3 F 11/16/18 08:00 Pulse 74 11/16/18 09:05 Resp 18 11/16/18 08:00 BP 136/72 11/16/18 09:05 Pulse Ox 99 11/16/18 08:00 - Labs Result Diagrams: 11/16/18 05:19 11/16/18 05:19 Labs: Laboratory Results - last 24 hr 11/14/18 11/15/18 11/15/18 20:57 15:49 21:09 WBC RBC Hgb Hct MCV MCH MCHC RDW Plt Count MPV Neut % (Auto) Lymph % (Auto) [place] % (Auto) Eos % (Auto) Baso % (Auto) Neut # (Auto) Lymph # (Auto) [place] # (Auto) Eos # (Auto) Baso # (Auto) Sodium Potassium Chloride Carbon Dioxide Anion Gap BUN Creatinine Est GFR ( Amer) Est GFR (Non-Af Amer) POC Glucose (mg/dL) 321 H 298 H Random Glucose Calcium Total Bilirubin AST ALT Alkaline Phosphatase Total Protein Albumin Globulin Albumin/Globulin Ratio Urine Chloride 29 L 11/16/18 11/16/18 11/16/18 05:18 05:19 05:19 WBC 17.1 H RBC 3.80 Hgb 10.8 L Hct 32.7 L MCV 86.0 MCH 28.5 MCHC 33.2 RDW 14.5 Plt Count 256 MPV 8.8 Neut % (Auto) 92.5 H Lymph % (Auto) 5.4 L [place] % (Auto) 1.9 Eos % (Auto) 0.0 Baso % (Auto) 0.2 Neut # (Auto) 15.8 H Lymph # (Auto) 0.9 L [place] # (Auto) 0.3 Eos # (Auto) 0.0 Baso # (Auto) 0.0 Sodium 129 L Potassium 5.0 Chloride 93 L Carbon Dioxide 26 Anion Gap 15 BUN 21 H Creatinine 0.7 Est GFR ( Amer) > 60 Est GFR (Non-Af Amer) > 60 POC Glucose (mg/dL) 299 H Random Glucose 289 H Calcium 9.2 Total Bilirubin 0.3 AST 24 ALT 34 Alkaline Phosphatase 56 Total Protein 6.4 Albumin 3.7 Globulin 2.6 Albumin/Globulin Ratio 1.4 Urine Chloride 11/16/18 10:39 WBC RBC Hgb Hct MCV MCH MCHC RDW Plt Count MPV Neut % (Auto) Lymph % (Auto) [place] % (Auto) Eos % (Auto) Baso % (Auto) Neut # (Auto) Lymph # (Auto) [place] # (Auto) Eos # (Auto) Baso # (Auto) Sodium Potassium Chloride Carbon Dioxide Anion Gap BUN Creatinine Est GFR ( Amer) Est GFR (Non-Af Amer) POC Glucose (mg/dL) 437 H* Random Glucose Calcium Total Bilirubin AST ALT Alkaline Phosphatase Total Protein Albumin Globulin Albumin/Globulin Ratio Urine Chloride Assessment & Plan - Assessment and Plan (Free Text) Assessment: Patient was personally seen and examined by me in rounds with residents. Available labs and diagnostic data reviewed. Case, Patient's condition and management plan discussed with residents in rounds. Agree with resident's progress note. Plan: As ordered.
[2018-11-14] MEDS: Sodium Chloride 0.9% 1,000 ML IV SCH ×2 (10:03→17:16)
--- NOTE | 2018-11-14 10:27 | CT ---
Date of service: 11/13/2018 PROCEDURE: CT Chest with contrast (Pulmonary Angiogram) HISTORY: chest pain r/o PE, thoracic soft tissue mass back COMPARISON: 02/10/2018. CT pulmonary angiogram. TECHNIQUE: Axial computed tomography images were obtained of the chest in the pulmonary arterial phase of enhancement. Coronal and sagittal reformatted images were created and reviewed. Intravenous contrast dose: 90 cc Visipaque 320. Mean Hounsfield value in the main pulmonary artery: 423.23 Radiation dose: Total exam DLP = 322.99 mGy-cm. This CT exam was performed using one or more of the following dose reduction techniques: Automated exposure control, adjustment of the mA and/or kV according to patient size, and/or use of iterative reconstruction technique. FINDINGS: PULMONARY ARTERIES: Unremarkable. No pulmonary embolism. AORTA: No acute findings. No thoracic aortic aneurysm. Atherosclerotic calcifications identified primarily aortic arch. LUNGS: 5 mm pulmonary nodule lateral segment right middle lobe. Stable finding. Peripheral scarring both lower lobes, minor-subsegmental unchanged. Hyperinflation, manifestations of COPD. No active pulmonary disease. PLEURAL SPACES: Unremarkable. No effusion or pneumothorax. HEART: Unremarkable. No cardiomegaly. No significant pericardial effusion. LYMPH NODES: No lymphadenopathy. BONES, CHEST WALL: Unremarkable. No fracture or destructive lesion OTHER FINDINGS: Unremarkable. IMPRESSION: Unremarkable CT pulmonary angiogram. No pulmonary embolus. Stable 5 mm pulmonary nodule right middle lobe. Stable atelectasis/scarring both lower lobes. Additional benign and/or incidental findings described above. Concordant results (preliminary interpretation) provided by Aula 7. Procedure Completed: 23:51. Preliminary Report: Interpreted and electronically signed: 01:06. Final Interpretation: 10:23.
--- NOTE | 2018-11-14 11:05 | CP.PCM.CON ---
History of Present Illness - History of Present Illness History of Present Illness: 73 YR OLD FEMALE REFERRED FOR PULMONARY EVALUATION BECAUSE OF PROGRESSIVELY WORSENING SHORTNESS OF BREATH X SEVERAL DAYS.SHE HAD USED HER METER DOSE INHALER X 3 WITH NO RELIEF.SHE HAS A HISTORY OF?ASTHMA/COPD DUE TO PRIOR CIGARETTE SMO MAYE AND WAS RECENTLY EVALUATED FOR CARDIAC DISEASE[ALL WORKUP WAS NEGATIVE] HX OF LIPOMA OF UPPER BACK X YRS Past Patient History - Past Medical History & Family History Past Medical History?: Yes - Past Social History Smoking Status: Never Smoked - CARDIAC Hx Hypercholesterolemia: Yes Hx Hypertension: Yes - PULMONARY Hx Asthma: Yes Hx Chronic Obstructive Pulmonary Disease (COPD): Yes - NEUROLOGICAL Hx Neurological Disorder: No - HEENT Hx HEENT Problems: Yes Hx Cataracts: Yes - RENAL Hx Chronic Kidney Disease: No - ENDOCRINE/METABOLIC Hx Endocrine Disorders: Yes Hx Diabetes Mellitus Type 2: Yes - HEMATOLOGICAL/ONCOLOGICAL Hx Blood Disorders: No - INTEGUMENTARY Hx Dermatological Problems: No - MUSCULOSKELETAL/RHEUMATOLOGICAL Hx Musculoskeletal Disorders: Yes Hx Back Pain: Yes Hx Falls: No - GASTROINTESTINAL Hx Gastrointestinal Disorders: No - GENITOURINARY/GYNECOLOGICAL Hx Genitourinary Disorders: No - PSYCHIATRIC Hx Anxiety: Yes Hx Substance Use: No - SURGICAL HISTORY Hx Surgeries: Yes Hx Hysterectomy: Yes (1986) - ANESTHESIA Hx Anesthesia: Yes Hx Anesthesia Reactions: No Hx Malignant Hyperthermia: No Meds Allergies/Adverse Reactions: Allergies Allergy/AdvReac Type Severity Reaction Status Date / Time No Known Allergies Allergy Verified 11/13/18 18:56 - Medications Medications: Current Medications Albuterol (Ventolin Hfa 90 Mcg/Actuation (8 G)) 2 puff INH Q4 PRN PRN Reason: Shortness of Breath Albuterol/Ipratropium (Duoneb 3 Mg/0.5 Mg (3 Ml) Ud) 3 ml INH RQ6 MELVA Aspirin (Ecotrin) 81 mg PO DAILY MELVA Atorvastatin Calcium (Lipitor) 40 mg PO HS MELVA Dextrose (Dextrose 50% Inj) 0 ml IV STAT PRN; Protocol PRN Reason: Hypoglycemia Protocol Dextrose (Glutose 15) 0 gm PO ONCE PRN; Protocol PRN Reason: Hypoglycemia Protocol Enoxaparin Sodium (Lovenox) 40 mg SC DAILY MELVA; Protocol Last Admin: 11/14/18 09:54 Dose: 40 mg Glucagon (Glucagen Diagnostic Kit) 0 mg IM STAT PRN; Protocol PRN Reason: Hypoglycemia Protocol Home Med (Linaclotide [Linzess]) 145 mcg PO DAILY [facility] Sodium Chloride (Sodium Chloride 0.9%) 1,000 mls @ 125 mls/hr IV .Q8H [facility]1983 Stop: 11/15/18 07:01 Insulin Human Lispro (Humalog) 0 units SC ACCU-CHECK [facility], 1928[facility]1983; Protocol Last Admin: 11/14/18 08:31 Dose: 3 units Lisinopril (Zestril) 20 mg PO DAILY [facility]1983 Last Admin: 11/14/18 09:55 Dose: 20 mg Metformin HCl (Glucophage) 1,000 mg PO BID [facility]1983 Last Admin: 11/14/18 09:51 Dose: 1,000 mg Montelukast Sodium (Singulair) 10 mg PO [facility] Sitagliptin Phosphate (Januvia) 50 mg PO BID [facility]1983 Last Admin: 11/14/18 09:53 Dose: 50 mg Physical Exam - Constitutional Appears: No Acute Distress - Head Exam Head Exam: ATRAUMATIC, NORMAL INSPECTION, NORMOCEPHALIC - Eye Exam Eye Exam: EOMI, Normal appearance, PERRL Pupil Exam: NORMAL ACCOMODATION, PERRL - ENT Exam ENT Exam: Mucous Membranes Moist, Normal Exam - Neck Exam Neck exam: Positive for: Normal Inspection - Respiratory Exam Respiratory Exam: Prolonged Expiratory Phase, Wheezes, NORMAL BREATHING PATTERN - Cardiovascular Exam Cardiovascular Exam: REGULAR RHYTHM - GI/Abdominal Exam GI & Abdominal Exam: Normal Bowel Sounds, Soft. absent: Tenderness - Rectal Exam Rectal Exam: NORMAL INSPECTION - Extremities Exam Extremities exam: Positive for: normal inspection - Back Exam Back exam: NORMAL INSPECTION Additional comments: LIPOMA OF UPPER BACK - Neurological Exam Neurological exam: Alert, CN II-XII Intact, Normal Gait, Oriented x3, Reflexes Normal - Psychiatric Exam Psychiatric exam: Normal Affect, Normal Mood - Skin Skin Exam: Dry, Intact, Normal Color, Warm Results - Vital Signs Recent Vital Signs: Last Vital Signs Temp 98.9 F 11/14/18 08:51 Pulse 91 H 11/14/18 09:55 Resp 20 11/14/18 08:51 BP 160/83 H 11/14/18 09:55 Pulse Ox 94 L 11/14/18 08:51 - Labs Result Diagrams: 11/13/18 19:12 11/13/18 19:12 Labs: Laboratory Results - last 24 hr 11/13/18 11/13/18 11/13/18 19:12 19:12 19:12 WBC 10.0 RBC 3.84 Hgb 11.1 L Hct 33.0 L MCV 86.0 MCH 28.8 MCHC 33.5 RDW 14.1 Plt Count 247 MPV 8.0 Neut % (Auto) 70.6 Lymph % (Auto) 19.6 L [place] % (Auto) 8.3 Eos % (Auto) 0.6 Baso % (Auto) 0.9 Neut # (Auto) 7.1 H Lymph # (Auto) 2.0 [place] # (Auto) 0.8 Eos # (Auto) 0.1 Baso # (Auto) 0.1 PT 11.0 INR 1.0 APTT 29.8 Sodium 126 L Potassium 5.1 H Chloride 88 L Carbon Dioxide 28 Anion Gap 15 BUN 13 Creatinine 0.7 Est GFR ( Amer) > 60 Est GFR (Non-Af Amer) > 60 POC Glucose (mg/dL) Random Glucose 200 H Calcium 9.5 Magnesium 1.2 L Total Bilirubin 0.2 AST 24 ALT 37 Alkaline Phosphatase 73 Troponin I < 0.0120 NT-Pro-B Natriuret Pep 105 Total Protein 6.4 Albumin 3.8 Globulin 2.6 Albumin/Globulin Ratio 1.4 11/14/18 11/14/18 11/14/18 00:34 04:35 07:08 WBC RBC Hgb Hct MCV MCH MCHC RDW Plt Count MPV Neut % (Auto) Lymph % (Auto) [place] % (Auto) Eos % (Auto) Baso % (Auto) Neut # (Auto) Lymph # (Auto) [place] # (Auto) Eos # (Auto) Baso # (Auto) PT INR APTT Sodium Potassium Chloride Carbon Dioxide Anion Gap BUN Creatinine Est GFR ( Amer) Est GFR (Non-Af Amer) POC Glucose (mg/dL) 105 206 H Random Glucose Calcium Magnesium Total Bilirubin AST ALT Alkaline Phosphatase Troponin I < 0.0120 NT-Pro-B Natriuret Pep Total Protein Albumin Globulin Albumin/Globulin Ratio - Imaging and Cardiology CT scan - chest Status: Report reviewed by me Chest x-ray Status: Report reviewed by me Assessment & Plan - Assessment and Plan (Free Text) Assessment: ACUTE EXAC OF COPD LIPOMA OF BACK URI Plan: SEE ORDERS WILL FOLLOW WITH YOU - Date & Time Date: 11/14/18 Time: 11:08
[2018-11-14] MEDS ORDERED: methylPREDNISolone 60 MG in Sodium Chloride 0.9% 50 ML IVPB SCH (11:15)
[2018-11-14 13:51] LABS: ABG ALLEN TEST YES; ARTERIAL BLOOD GAS HCO3 25.3 mmol/L (21-28); ARTERIAL BLOOD GAS HEMOGLOBIN 13.5 g/dL (11.7-17.4); ARTERIAL BLOOD GAS O2 CAPACITY 18.5 mL/dL (16-24); ARTERIAL BLOOD GAS O2 CONTENT 18.1 ML/dL (15-23); ARTERIAL BLOOD GAS O2 SAT 98.1 % (95-98); ARTERIAL BLOOD GAS PCO2 37 mm/Hg (35-45); ARTERIAL BLOOD GAS PH 7.43 (7.35-7.45); ARTERIAL BLOOD GAS PO2 80 mm/Hg (80-100); ARTERIAL BLOOD GAS TCO2 25.7 mmol/L (22-28)
[2018-11-14] MEDS ORDERED: Albuterol-Ipratrop 3 mg / 0.5 (3 ml) UD INH SCH (14:00)
[2018-11-14] MEDS: Albuterol-Ipratrop 3 mg / 0.5 (3 ml) UD INH SCH ×2 (14:09→19:29)
[2018-11-14 16:07] LABS: BLOOD UREA NITROGEN 14 mg/dl (7-17); CALCIUM 9.8 mg/dL (8.4-10.2); GFR NON-AFRICAN AMERICAN > 60
--- NOTE | 2018-11-14 19:05 | CP.PCM.CON ---
History of Present Illness - History of Present Illness History of Present Illness: I was asked to see patinet by Dr Clarke Patient was seen 11/14/181902 Patient is a 73 year old female with HTn hypercholesterolemia COPD who presents with dyspnea. She did not have relief from her inhaler. She denies chest pain. Review of Systems - Constitutional Constitutional: absent: As Per HPI, Anorexia, Chills, Daytime Sleepiness, Excessive Sweating, Fatigue, Fever, Frequent Falls, Headache, Increased Appetite, Lethargy, Malaise, Night Sweats, Snoring, Sleep Apnea, Weight Gain, Weight Loss, Weakness, Other - EENT Eyes: absent: As Per HPI, Blind Spots, Blurred Vision, Change in Vision, Decreased Night Vision, Diplopia, Discharge, Dry Eye, Exophthalmos, Floaters, Irritation, Itchy Eyes, Loss of Peripheral Vision, Pain, Photophobia, Requires Corrective Lenses, Sees Flashes, Spots in Vision, Tunnel Vision, Other Visual Disturbances, Loss of Vision, Other Ears: absent: As Per HPI, Decreased Hearing, Ear Discharge, Ear Pain, Tinnitus, Abnormal Hearing, Disequilibrium, Dizziness, Other Nose/Mouth/Throat: absent: As Per HPI, Epistaxis, Nasal Congestion, Nasal Disch arge, Nasal Obstruction, Nasal Trauma, Nose Pain, Post Nasal Drip, Sinus Pain, Sinus Pressure, Bleeding Gums, Change in Voice, Dental Pain, Dry Mouth, Dysphagia, Halitosis, Hoarsness, Lip Swelling, Mouth Lesions, Mouth Pain, Odynophagia, Sore Throat, Throat Swelling, Tongue Swelling, Facial Pain, Neck Pain, Neck Mass, Other - Cardiovascular Cardiovascular: absent: As Per HPI, Acrocyanosis, Chest Pain, Chest Pain at Rest, Chest Pain with Activity, Claudication, Diaphoresis, Dyspnea, Dyspnea on Exertion, Edema, Irregular Heart Rhythm, Pain Radiating to Arm/Neck/Jaw, Leg Edema, Leg Ulcers, Lightheadedness, Orthopnea, Palpitations, Paroxysmal Nocturnal Dyspnea, Pedal Edema, Radiating Pain, Rapid Heart Rate, Slow Heart Rate, Syncope, Other - Respiratory Respiratory: Cough, Dyspnea - Gastrointestinal Gastrointestinal: absent: As Per HPI, Abdominal Pain, Belching, Bloating, Change in Bowel Habits, Change in Stool Character, Coffee Ground Emesis, Constipation, Cramping, Diarrhea, Dyspepsia, Dysphagia, Early Satiety, Excessive Flatus, Fecal Incontinence, Heartburn, Hematemesis, Hematochezia, Loose Stools, Melena, Nausea, Odynophagia, Temesmus, Vomiting, Other - Genitourinary Genitourinary: absent: As Per HPI, Change in Urinary Stream, Difficulty Urinating, Dysuria, Flank Pain, Hematuria, Pyuria, Nocturia, Urinary Incontinence, Urinary Frequency, Urinary Hesitance, Urinary Urgency, Voiding Freq/Small Amts, Freq UTI, Hx Renal/Bladder Calculi, Hx /Renal Surgery, Bladder Distension, Other - Musculoskeletal Musculoskeletal: absent: As Per HPI, Abnormal Gait, Arthralgias, Atrophy, Back Pain, Deformity, Joint Swelling, Limited Range of Motion, Loss of Height, Muscle Cramps, Muscle Weakness, Myalgias, Neck Pain, Numbness, Radiating Pain into Limb, Stiffness, Tingling, Other - Integumentary Integumentary: absent: As Per HPI, Acne, Alopecia, Bleeding Lesions, Change in Hair, Change in Nails, Change in Pigmentation, Changing Lesions, Dry Skin, Erythema, Furuncle, Hirsutism, Lesions, New Lesions, Non-Healing Lesions, Photosensitivity, Pruritus, Rash, Skin Pain, Skin Ulcer, Sores, Striae, Swelling, Unusual Bruising, Wounds, Jaundice, Other - Neurological Neurological: absent: As Per HPI, Abnormal Gait, Abnormal Hearing, Abnormal Movements, Abnormal Speech, Behavioral Changes, Burning Sensations, Confusion, Convulsions, Disequilibrium, Dizziness, Numbness, Focal Weakness, Frequent Falls, Headaches, Lack of Coordination, Loss of Vision, Memory Loss, Paresthesias, Radicular Pain, Restless Legs, Sensory Deficit, Syncope, Tingling, Tremor, Vertigo, Weakness, Other Visual Disturbances, Other - Psychiatric Psychiatric: absent: As Per HPI, Abnormal Sleep Pattern, Anhedonia, Anxiety, Auditory Hallucinations, Behavioral Changes, Change in Appetite, Change in Libido, Confusion, Depression, Difficulty Concentrating, Hallucinations, Homicidal Ideation, Hopelessness, Irritability, Memory Loss, Mood Swings, Panic Attacks, Paranoia, Suicidal Ideation, Visual Hallucinations, Tactile Hallucinations, Other - Endocrine Endocrine: absent: As Per HPI, Change in Body Appearance, Change in Libido, Cold Intolorance, Deepening of Voice, Excessive Sweating, Fatigue, Flushing, Heat Intolorance, Increase in Ring/Shoe/Hat Size, Palpitations, Polydipsia, Polyphagia, Polyuria, Other - Hematologic/Lymphatic Hematologic: absent: As Per HPI, Easy Bleeding, Easy Bruising, Lymphadenopathy, Other Past Patient History - Past Medical History & Family History Past Medical History?: Yes - Past Social History Smoking Status: Never Smoked - CARDIAC Hx Hypercholesterolemia: Yes Hx Hypertension: Yes - PULMONARY Hx Asthma: Yes Hx Chronic Obstructive Pulmonary Disease (COPD): Yes - NEUROLOGICAL Hx Neurological Disorder: No - HEENT Hx HEENT Problems: Yes Hx Cataracts: Yes - RENAL Hx Chronic Kidney Disease: No - ENDOCRINE/METABOLIC Hx Endocrine Disorders: Yes Hx Diabetes Mellitus Type 2: Yes - HEMATOLOGICAL/ONCOLOGICAL Hx Blood Disorders: No - INTEGUMENTARY Hx Dermatological Problems: No - MUSCULOSKELETAL/RHEUMATOLOGICAL Hx Musculoskeletal Disorders: Yes Hx Back Pain: Yes Hx Falls: No - GASTROINTESTINAL Hx Gastrointestinal Disorders: No - GENITOURINARY/GYNECOLOGICAL Hx Genitourinary Disorders: No - PSYCHIATRIC Hx Anxiety: Yes Hx Substance Use: No - SURGICAL HISTORY Hx Surgeries: Yes Hx Hysterectomy: Yes (1986) - ANESTHESIA Hx Anesthesia: Yes Hx Anesthesia Reactions: No Hx Malignant Hyperthermia: No Meds Allergies/Adverse Reactions: Allergies Allergy/AdvReac Type Severity Reaction Status Date / Time No Known Allergies Allergy Verified 11/13/18 18:56 - Medications Medications: Current Medications Albuterol (Ventolin Hfa 90 Mcg/Actuation (8 G)) 2 puff INH Q4 PRN PRN Reason: Shortness of Breath Albuterol/Ipratropium (Duoneb 3 Mg/0.5 Mg (3 Ml) Ud) 3 ml INH RQ6 [facility] Last Admin: 11/14/18 14:09 Dose: 3 ml Aspirin (Ecotrin) 81 mg PO DAILY [facility] Last Admin: 11/14/18 12:51 Dose: 81 mg Atorvastatin Calcium (Lipitor) 40 mg PO HS [facility] Bismuth Subsalicylate (Pepto-Bismol) 524 mg PO Q8 PRN PRN Reason: Diarrhea Dextrose (Dextrose 50% Inj) 0 ml IV STAT PRN; Protocol PRN Reason: Hypoglycemia Protocol Dextrose (Glutose 15) 0 gm PO ONCE PRN; Protocol PRN Reason: Hypoglycemia Protocol Enoxaparin Sodium (Lovenox) 40 mg SC DAILY [facility]; Protocol Last Admin: 11/14/18 09:54 Dose: 40 mg Glucagon (Glucagen Diagnostic Kit) 0 mg IM STAT PRN; Protocol PRN Reason: Hypoglycemia Protocol Home Med (Linaclotide [Linzess]) 145 mcg PO DAILY [facility] Last Admin: 11/14/18 12:45 Dose: 145 mcg Sodium Chloride (Sodium Chloride 0.9%) 1,000 mls @ 125 mls/hr IV .Q8H [facility] Stop: 11/15/18 07:01 Last Admin: 11/14/18 17:16 Dose: 125 mls/hr Azithromycin 500 mg/ Sodium (Chloride) 250 mls @ 250 mls/hr IVPB DAILY [facility]; Protocol Insulin Human Lispro (Humalog) 0 units SC ACCU-CHECK [facility]; Protocol Last Admin: 11/14/18 17:13 Dose: 3 units Lisinopril (Zestril) 20 mg PO DAILY [facility] Last Admin: 11/14/18 09:55 Dose: 20 mg Metformin HCl (Glucophage) 1,000 mg PO BID [facility] Last Admin: 11/14/18 17:12 Dose: 1,000 mg Methylprednisolone (Solu-Medrol) 60 mg IV Q8 [facility] Last Admin: 11/14/18 17:14 Dose: 60 mg Montelukast Sodium (Singulair) 10 mg PO HS [facility] Promethazine HCl/Dextromethorphan (Phenergan Dm Syrup) 10 ml PO Q6 PRN PRN Reason: Cough Sitagliptin Phosphate (Januvia) 50 mg PO BID [facility] Last Admin: 11/14/18 17:14 Dose: 50 mg Results - Vital Signs Recent Vital Signs: Last Vital Signs Temp 98 F 11/14/18 16:00 Pulse 90 11/14/18 16:00 Resp 16 11/14/18 16:00 BP 154/84 H 11/14/18 16:00 Pulse Ox 97 11/14/18 16:00 - Labs Result Diagrams: 11/13/18 19:12 11/14/18 15:13 Labs: Laboratory Results - last 24 hr 11/13/18 11/13/18 11/13/18 19:12 19:12 19:12 WBC 10.0 RBC 3.84 Hgb 11.1 L Hct 33.0 L MCV 86.0 MCH 28.8 MCHC 33.5 RDW 14.1 Plt Count 247 MPV 8.0 Neut % (Auto) 70.6 Lymph % (Auto) 19.6 L Cloud % (Auto) 8.3 Eos % (Auto) 0.6 Baso % (Auto) 0.9 Neut # (Auto) 7.1 H Lymph # (Auto) 2.0 Cloud # (Auto) 0.8 Eos # (Auto) 0.1 Baso # (Auto) 0.1 PT 11.0 INR 1.0 APTT 29.8 pCO2 pO2 HCO3 ABG pH ABG Total CO2 ABG O2 Saturation ABG O2 Content ABG Base Excess ABG Hemoglobin ABG Carboxyhemoglobin POC ABG HHb (Measured) ABG Methemoglobin ABG O2 Capacity Raciel Test A-a O2 Difference Hgb O2 Saturation FiO2 Crit Value Called To Crit Value Called By Crit Value Read Back Blood Gas Notified Time Sodium 126 L Potassium 5.1 H Chloride 88 L Carbon Dioxide 28 Anion Gap 15 BUN 13 Creatinine 0.7 Est GFR ( Amer) > 60 Est GFR (Non-Af Amer) > 60 POC Glucose (mg/dL) Random Glucose 200 H Lactic Acid Calcium 9.5 Magnesium 1.2 L Total Bilirubin 0.2 AST 24 ALT 37 Alkaline Phosphatase 73 Troponin I < 0.0120 NT-Pro-B Natriuret Pep 105 Total Protein 6.4 Albumin 3.8 Globulin 2.6 Albumin/Globulin Ratio 1.4 11/14/18 11/14/18 11/14/18 00:34 04:35 07:08 WBC RBC Hgb Hct MCV MCH MCHC RDW Plt Count MPV Neut % (Auto) Lymph % (Auto) Cloud % (Auto) Eos % (Auto) Baso % (Auto) Neut # (Auto) Lymph # (Auto) Cloud # (Auto) Eos # (Auto) Baso # (Auto) PT INR APTT pCO2 pO2 HCO3 ABG pH ABG Total CO2 ABG O2 Saturation ABG O2 Content ABG Base Excess ABG Hemoglobin ABG Carboxyhemoglobin POC ABG HHb (Measured) ABG Methemoglobin ABG O2 Capacity Raciel Test A-a O2 Difference Hgb O2 Saturation FiO2 Crit Value Called To Crit Value Called By Crit Value Read Back Blood Gas Notified Time Sodium Potassium Chloride Carbon Dioxide Anion Gap BUN Creatinine Est GFR ( Amer) Est GFR (Non-Af Amer) POC Glucose (mg/dL) 105 206 H Random Glucose Lactic Acid Calcium Magnesium Total Bilirubin AST ALT Alkaline Phosphatase Troponin I < 0.0120 NT-Pro-B Natriuret Pep Total Protein Albumin Globulin Albumin/Globulin Ratio 11/14/18 11/14/18 11/14/18 11:08 11:31 12:40 WBC RBC Hgb Hct MCV MCH MCHC RDW Plt Count MPV Neut % (Auto) Lymph % (Auto) Cloud % (Auto) Eos % (Auto) Baso % (Auto) Neut # (Auto) Lymph # (Auto) Cloud # (Auto) Eos # (Auto) Baso # (Auto) PT INR APTT pCO2 37 pO2 80 HCO3 25.3 ABG pH 7.43 ABG Total CO2 25.7 ABG O2 Saturation 98.1 H ABG O2 Content 18.1 ABG Base Excess 0.5 ABG Hemoglobin 13.5 ABG Carboxyhemoglobin 2.0 H POC ABG HHb (Measured) 1.8 ABG Methemoglobin 1.4 ABG O2 Capacity 18.5 Raicel Test Yes A-a O2 Difference 23.0 Hgb O2 Saturation 94.9 L FiO2 21.0 Crit Value Called To Juliana laura r.n. Crit Value Called By Franca Crit Value Read Back Y Blood Gas Notified Time 1351 Sodium Potassium Chloride Carbon Dioxide Anion Gap BUN Creatinine Est GFR ( Amer) Est GFR (Non-Af Amer) POC Glucose (mg/dL) 294 H Random Glucose Lactic Acid Calcium Magnesium Total Bilirubin AST ALT Alkaline Phosphatase Troponin I < 0.0120 NT-Pro-B Natriuret Pep Total Protein Albumin Globulin Albumin/Globulin Ratio 11/14/18 11/14/18 11/14/18 15:13 15:13 16:02 WBC RBC Hgb Hct MCV MCH MCHC RDW Plt Count MPV Neut % (Auto) Lymph % (Auto) Cloud % (Auto) Eos % (Auto) Baso % (Auto) Neut # (Auto) Lymph # (Auto) Cloud # (Auto) Eos # (Auto) Baso # (Auto) PT INR APTT pCO2 pO2 HCO3 ABG pH ABG Total CO2 ABG O2 Saturation ABG O2 Content ABG Base Excess ABG Hemoglobin ABG Carboxyhemoglobin POC ABG HHb (Measured) ABG Methemoglobin ABG O2 Capacity Raciel Test A-a O2 Difference Hgb O2 Saturation FiO2 Crit Value Called To Crit Value Called By Crit Value Read Back Blood Gas Notified Time Sodium 128 L Potassium 4.9 Chloride 88 L Carbon Dioxide 26 Anion Gap 19 BUN 14 Creatinine 0.8 Est GFR ( Amer) > 60 Est GFR (Non-Af Amer) > 60 POC Glucose (mg/dL) 247 H Random Glucose 217 H Lactic Acid 3.9 H Calcium 9.8 Magnesium Total Bilirubin AST ALT Alkaline Phosphatase Troponin I NT-Pro-B Natriuret Pep Total Protein Albumin Globulin Albumin/Globulin Ratio - EKG Data EKG Interpreted by: Myself EKG shows normal: Sinus rhythm Assessment & Plan (1) Dyspnea Assessment and Plan: stress test from one month ago was reviewed in detail with the patient. No evidence of myocardial sichemia. LV function is normal. No signficant valvular disease by echo medical therapy Status: Acute (2) Diabetes Status: Chronic (3) HTN (hypertension) Status: Chronic
[2018-11-14] MEDS: Azithromycin 500 MG in Sodium Chloride 0.9% 250 ML IVPB SCH (21:18)
[2018-11-14 23:09] LABS: SQUAMOUS EPITHIAL < 1 /hpf (0-5); URINE BACTERIA RARE (<OCC); URINE BILIRUBIN NEGATIVE (NEGATIVE); URINE BLOOD NEGATIVE (NEGATIVE); URINE CLARITY CLEAR (Clear); URINE COLOR STRAW (YELLOW); URINE GLUCOSE (UA) 50 mg/dL (NEGATIVE); URINE LEUKOCYTE ESTERASE NEG Leu/uL (Negative); URINE PROTEIN NEGATIVE (NEGATIVE); URINE UROBILINOGEN 0.2-1.0 mg/dL (0.2-1.0)
[2018-11-15] MEDS: Sodium Chloride 0.9% 1,000 ML IV SCH (00:15)
[2018-11-15] MEDS ORDERED: Bismuth Subsalicylate 262 mg/15 ml Sus (240 ml) PO PRN (01:00)
[2018-11-15] MEDS: Albuterol-Ipratrop 3 mg / 0.5 (3 ml) UD INH SCH ×4 (02:27→19:54)
[2018-11-15 06:11] LABS: HEMOGLOBIN 11.3 g/dL (12.0-16.0); MEAN CELL VOLUME 86.6 fl (81.0-99.0); MEAN CORPUSCULAR HGB CONC 32.4 g/dL (33.0-37.0); RBC 4.02 Mil/uL (3.80-5.20); RED CELL DISTRIBUTION WIDTH 14.1 % (11.5-14.5); WHITE BLOOD COUNT 17.9 K/uL (4.8-10.8)
[2018-11-15 06:23] LABS: BLOOD UREA NITROGEN 20 mg/dl (7-17); CALCIUM 9.1 mg/dL (8.4-10.2); GFR NON-AFRICAN AMERICAN > 60
[2018-11-15] MEDS: Insulin Lispro (humaLOG) 100 Units/ml Inj SC SCH ×4 (07:03→22:14)
[2018-11-15] MEDS: FLUTICASONE PROPION/SALMETEROL 113-14 INH SCH ×2 (09:03→17:27)
[2018-11-15] MEDS: Enoxaparin 40 mg Syringe SC SCH (09:05)
[2018-11-15] MEDS: Azithromycin 500 MG in Sodium Chloride 0.9% 250 ML IVPB SCH (09:08)
--- NOTE | 2018-11-15 10:33 | CP.PCM.PN ---
Subjective - Date & Time of Evaluation Date of Evaluation: 11/15/18 Time of Evaluation: 10:33 - Subjective Subjective: SOB IMPROVED NO CHEST PAINS COUGH LESS VSS Objective - Vital Signs/Intake and Output Vital Signs (last 24 hours): Temp Pulse Resp BP Pulse Ox 98.2 F 74 20 131/73 99 11/15/18 07:45 11/15/18 09:08 11/15/18 07:45 11/15/18 09:08 11/15/18 07:45 - Medications Medications: Current Medications Albuterol (Ventolin Hfa 90 Mcg/Actuation (8 G)) 2 puff INH Q4 PRN PRN Reason: Shortness of Breath Albuterol/Ipratropium (Duoneb 3 Mg/0.5 Mg (3 Ml) Ud) 3 ml INH RQ6 [facility] Last Admin: 11/15/18 07:42 Dose: 3 ml Aspirin (Ecotrin) 81 mg PO DAILY [facility] Last Admin: 11/15/18 09:03 Dose: 81 mg Atorvastatin Calcium (Lipitor) 40 mg PO HS [facility] Last Admin: 11/14/18 21:27 Dose: 40 mg Bismuth Subsalicylate (Pepto-Bismol) 524 mg PO Q8 PRN PRN Reason: Diarrhea Dextrose (Dextrose 50% Inj) 0 ml IV STAT PRN; Protocol PRN Reason: Hypoglycemia Protocol Dextrose (Glutose 15) 0 gm PO ONCE PRN; Protocol PRN Reason: Hypoglycemia Protocol Enoxaparin Sodium (Lovenox) 40 mg SC DAILY [facility]; Protocol Last Admin: 11/15/18 09:05 Dose: 40 mg Glucagon (Glucagen Diagnostic Kit) 0 mg IM STAT PRN; Protocol PRN Reason: Hypoglycemia Protocol Home Med (Linaclotide [Linzess]) 145 mcg PO DAILY [facility] Last Admin: 11/15/18 09:04 Dose: 145 mcg Azithromycin 500 mg/ Sodium (Chloride) 250 mls @ 250 mls/hr IVPB DAILY [facility]; Protocol Last Admin: 11/15/18 09:08 Dose: 250 mls/hr Insulin Human Lispro (Humalog) 0 units SC ACCU-CHECK [facility]; Protocol Last Admin: 11/15/18 07:03 Dose: 3 units Lisinopril (Zestril) 20 mg PO DAILY [facility] Last Admin: 11/15/18 09:08 Dose: 20 mg Metformin HCl (Glucophage) 1,000 mg PO BID [facility] Last Admin: 11/15/18 09:04 Dose: 1,000 mg Methylprednisolone (Solu-Medrol) 60 mg IV Q8 [facility] Last Admin: 11/15/18 09:07 Dose: 60 mg Montelukast Sodium (Singulair) 10 mg PO HS [facility] Last Admin: 11/14/18 21:26 Dose: 10 mg Promethazine HCl/Dextromethorphan (Phenergan Dm Syrup) 10 ml PO Q6 PRN PRN Reason: Cough Sitagliptin Phosphate (Januvia) 50 mg PO BID [facility] Last Admin: 11/15/18 09:04 Dose: 50 mg - Labs Labs: 11/15/18 05:38 11/15/18 05:38 PT 11.0 Seconds (9.8-13.1) 11/13/18 19:12 INR 1.0 11/13/18 19:12 APTT 29.8 Seconds (25.6-37.1) 11/13/18 19:12 - Constitutional Appears: No Acute Distress - Head Exam Head Exam: ATRAUMATIC, NORMAL INSPECTION, NORMOCEPHALIC - Eye Exam Eye Exam: EOMI, Normal appearance, PERRL Pupil Exam: NORMAL ACCOMODATION, PERRL - ENT Exam ENT Exam: Mucous Membranes Moist, Normal Exam - Neck Exam Neck Exam: Full ROM, Normal Inspection. absent: Lymphadenopathy - Respiratory Exam Respiratory Exam: Clear to Ausculation Bilateral, Prolonged Expiratory Phase, NORMAL BREATHING PATTERN - Cardiovascular Exam Cardiovascular Exam: REGULAR RHYTHM, +S1, +S2. absent: Murmur - GI/Abdominal Exam GI & Abdominal Exam: Soft, Normal Bowel Sounds. absent: Tenderness - Rectal Exam Rectal Exam: NORMAL INSPECTION - Extremities Exam Extremities Exam: Full ROM, Normal Capillary Refill, Normal Inspection. absent: Joint Swelling, Pedal Edema - Back Exam Back Exam: NORMAL INSPECTION - Neurological Exam Neurological Exam: Alert, Awake, CN II-XII Intact, Normal Gait, Oriented x3 - Psychiatric Exam Psychiatric exam: Normal Affect, Normal Mood - Skin Skin Exam: Dry, Intact, Normal Color, Warm Assessment and Plan - Assessment and Plan (Free Text) Assessment: COPD IMPROVING Plan: TAPER STEROIDS CONTINUE BRONCHODILATOR RX AND O2
--- NOTE | 2018-11-15 13:57 | PN ---
DATE: 11/15/2018 SUBJECTIVE: The patient seen and examined. Interim events noted. Consults noted and appreciated. Cardiology and pulmonary followup and interventions noted and appreciated. The patient remains in progressive care unit with telemetry monitoring. The patient feels okay, shortness of breath significantly improved. Denies any specific complaint. No chest pain, no shortness of breath. The patient is doing her ADLs without any problem. PHYSICAL EXAMINATION: GENERAL: The patient is in no acute distress. VITAL SIGNS: Stable. HEART: S1 and S2. Normal and regular. LUNGS: Improved bilateral air exchange, but the patient still has occasional rhonchi and prolonged expiration. ABDOMEN: Soft, nontender, no organomegaly noted. Bowel sounds are present and normal. EXTREMITIES: No edema, no calf swelling. No tenderness, no acute ischemia. CENTRAL NERVOUS SYSTEM: Exam is essentially unchanged. DIAGNOSTIC DATA: Available diagnostic data reviewed. Telemetry monitoring does not show significant arrhythmias. ASSESSMENT AND PLAN: Overall, the patient's general medical condition is stable and improving, although very slowly. Plan as ordered. Tyree Clarke MD
[2018-11-15] MEDS: MethylPREDNISolone 40 mg Vial IV SCH (20:55)
[2018-11-16] MEDS: Albuterol-Ipratrop 3 mg / 0.5 (3 ml) UD INH SCH ×4 (02:01→19:18)
[2018-11-16 06:30] LABS: BASO % 0.2 % (0.0-2.0); HEMOGLOBIN 10.8 g/dL (12.0-16.0); LYMPH # 0.9 K/uL (1.0-4.3); LYMPH % 5.4 % (20.0-40.0); MEAN CORPUSCULAR HEMOGLOBIN 28.5 pg (27.0-31.0); MEAN CORPUSCULAR HGB CONC 33.2 g/dL (33.0-37.0); MEAN PLATELET VOLUME 8.8 fl (7.2-11.7); MONO # 0.3 K/uL (0.0-0.8); MONO % 1.9 % (0.0-10.0); NEUT # 15.8 K/uL (1.8-7.0); NEUT % 92.5 % (50.0-75.0); PLATELET COUNT 256 K/uL (130-400); RED CELL DISTRIBUTION WIDTH 14.5 % (11.5-14.5); WHITE BLOOD COUNT 17.1 K/uL (4.8-10.8)
[2018-11-16 06:43] LABS: ALB/GLOB RATIO 1.4 (1.0-2.1); ALBUMIN 3.7 g/dL (3.5-5.0); ALT/SGPT 34 U/L (9-52); AST/SGOT 24 U/L (14-36); BLOOD UREA NITROGEN 21 mg/dl (7-17); CALCIUM 9.2 mg/dL (8.4-10.2); GFR NON-AFRICAN AMERICAN > 60
[2018-11-16] MEDS: FLUTICASONE PROPION/SALMETEROL 113-14 INH SCH ×2 (09:01→17:23)
[2018-11-16] MEDS: Insulin Lispro (humaLOG) 100 Units/ml Inj SC SCH ×4 (09:02→22:26)
[2018-11-16] MEDS: Enoxaparin 40 mg Syringe SC SCH (09:03)
[2018-11-16] MEDS: MethylPREDNISolone 40 mg Vial IV SCH ×2 (09:04→21:35)
[2018-11-16] MEDS: Azithromycin 500 MG in Sodium Chloride 0.9% 250 ML IVPB SCH (09:05)
--- NOTE | 2018-11-16 09:35 | PN ---
DATE: 11/16/2018 SUBJECTIVE: The patient seen and examined. Interim events noted. Consults noted appreciated. Pulmonary followup and intervention noted and appreciated. The patient remains in progressive care unit with telemetry monitoring. The patient is sleeping, arousable, feels okay. Denies any chest pain or shortness of breath but does feel need of oxygen. PHYSICAL EXAMINATION: GENERAL: The patient is in no acute distress. VITAL SIGNS: Stable. HEART: S1 and S2, normal and regular. LUNGS: Good bilateral air exchange. ABDOMEN: Soft, nontender. EXTREMITIES: No edema, no calf swelling, no tenderness, no acute ischemia. CENTRAL NERVOUS SYSTEM: Exam is essentially unchanged. DIAGNOSTIC DATA: Available diagnostic data reviewed. Telemetry monitoring does not show significant arrhythmias. Overall, the patient is slowly improving, wheezing has improved. Plan as ordered. Case and plan discussed with the patient. Tyree Clarke MD
[2018-11-16 11:53] LABS: BANDS 1 % (0-2); LYMPHOCYTE 4 % (20-50); MONOCYTE 4 % (0-10); NEUTROPHIL 91 % (42-75); TOTAL CELLS COUNTED 100
[2018-11-16 11:54] LABS: GIANT PLATELETS PRESENT; HYPOCHROMIC SLIGHT; LARGE PLATELETS PRESENT; PLATELET ESTIMATE NORMAL (NORMAL)
[2018-11-16] MEDS: Promethazine DM 12.5 mg-30 mg/10 ml Syrup PO PRN (21:36)
[2018-11-17] MEDS: Albuterol-Ipratrop 3 mg / 0.5 (3 ml) UD INH SCH ×4 (01:00→19:16)
[2018-11-17 05:32] LABS: HEMOGLOBIN 11.6 g/dL (12.0-16.0); MEAN CELL VOLUME 86.6 fl (81.0-99.0); MEAN CORPUSCULAR HEMOGLOBIN 28.1 pg (27.0-31.0); MEAN CORPUSCULAR HGB CONC 32.4 g/dL (33.0-37.0); RBC 4.14 Mil/uL (3.80-5.20); RED CELL DISTRIBUTION WIDTH 14.5 % (11.5-14.5); WHITE BLOOD COUNT 16.2 K/uL (4.8-10.8)
[2018-11-17 05:40] LABS: ALB/GLOB RATIO 1.6 (1.0-2.1); ALBUMIN 4.1 g/dL (3.5-5.0); ALT/SGPT 40 U/L (9-52); AST/SGOT 22 U/L (14-36); BLOOD UREA NITROGEN 23 mg/dl (7-17); CALCIUM 9.3 mg/dL (8.4-10.2); GFR NON-AFRICAN AMERICAN > 60
[2018-11-17] MEDS: Insulin Lispro (humaLOG) 100 Units/ml Inj SC SCH ×4 (06:31→23:00)
[2018-11-17] MEDS: Azithromycin 500 MG in Sodium Chloride 0.9% 250 ML IVPB SCH (08:41)
[2018-11-17] MEDS: FLUTICASONE PROPION/SALMETEROL 113-14 INH SCH ×2 (08:42→16:30)
[2018-11-17] MEDS: MethylPREDNISolone 40 mg Vial IV SCH ×2 (08:43→21:16)
[2018-11-17] MEDS: Enoxaparin 40 mg Syringe SC SCH (08:44)
--- NOTE | 2018-11-17 08:54 | CP.PCM.PN ---
Subjective - Date & Time of Evaluation Date of Evaluation: 11/17/18 Time of Evaluation: 08:54 - Subjective Subjective: CONTINUES TO C/O SOB AND WHEEZING OOB TO CHAIR Objective - Vital Signs/Intake and Output Vital Signs (last 24 hours): Temp Pulse Resp BP Pulse Ox 98.1 F 83 20 156/88 H 95 11/17/18 08:15 11/17/18 08:43 11/17/18 08:15 11/17/18 08:43 11/17/18 08:15 - Medications Medications: Current Medications Albuterol (Ventolin Hfa 90 Mcg/Actuation (8 G)) 2 puff INH Q4 PRN PRN Reason: Shortness of Breath Albuterol/Ipratropium (Duoneb 3 Mg/0.5 Mg (3 Ml) Ud) 3 ml INH RQ6 [facility] Last Admin: 11/17/18 07:55 Dose: 3 ml Aspirin (Ecotrin) 81 mg PO DAILY [facility] Last Admin: 11/17/18 08:45 Dose: 81 mg Atorvastatin Calcium (Lipitor) 40 mg PO HS [facility] Last Admin: 11/16/18 21:35 Dose: 40 mg Bismuth Subsalicylate (Pepto-Bismol) 524 mg PO Q8 PRN PRN Reason: Diarrhea Dextrose (Dextrose 50% Inj) 0 ml IV STAT PRN; Protocol PRN Reason: Hypoglycemia Protocol Dextrose (Glutose 15) 0 gm PO ONCE PRN; Protocol PRN Reason: Hypoglycemia Protocol Enoxaparin Sodium (Lovenox) 40 mg SC DAILY [facility]; Protocol Last Admin: 11/17/18 08:44 Dose: 40 mg Glucagon (Glucagen Diagnostic Kit) 0 mg IM STAT PRN; Protocol PRN Reason: Hypoglycemia Protocol Home Med (Linaclotide [Linzess]) 145 mcg PO DAILY [facility] Last Admin: 11/17/18 08:43 Dose: 145 mcg Azithromycin 500 mg/ Sodium (Chloride) 250 mls @ 250 mls/hr IVPB DAILY [facility]; Protocol Last Admin: 11/17/18 08:41 Dose: 250 mls/hr Insulin Human Lispro (Humalog) 0 units SC ACCU-CHECK [facility]; Protocol Last Admin: 11/17/18 06:31 Dose: 6 units Lisinopril (Zestril) 20 mg PO DAILY [facility] Last Admin: 11/17/18 08:43 Dose: 20 mg Metformin HCl (Glucophage) 1,000 mg PO BID [facility] Last Admin: 11/17/18 08:44 Dose: 1,000 mg Methylprednisolone (Solu-Medrol) 40 mg IV Q12 [facility] Last Admin: 11/17/18 08:43 Dose: 40 mg Montelukast Sodium (Singulair) 10 mg PO HS [facility] Last Admin: 11/16/18 21:35 Dose: 10 mg Promethazine HCl/Dextromethorphan (Phenergan Dm Syrup) 10 ml PO Q6 PRN PRN Reason: Cough Last Admin: 11/16/18 21:36 Dose: 10 ml Sitagliptin Phosphate (Januvia) 50 mg PO BID [facility] Last Admin: 11/17/18 08:42 Dose: 50 mg Zolpidem Tartrate (Ambien) 5 mg PO HS PRN PRN Reason: Insomnia Last Admin: 11/16/18 22:26 Dose: 5 mg - Labs Labs: 11/17/18 04:45 11/17/18 04:45 PT 11.0 Seconds (9.8-13.1) 11/13/18 19:12 INR 1.0 11/13/18 19:12 APTT 29.8 Seconds (25.6-37.1) 11/13/18 19:12 - Constitutional Appears: No Acute Distress - Head Exam Head Exam: ATRAUMATIC, NORMAL INSPECTION, NORMOCEPHALIC - Eye Exam Eye Exam: EOMI, Normal appearance, PERRL Pupil Exam: NORMAL ACCOMODATION, PERRL - ENT Exam ENT Exam: Mucous Membranes Moist, Normal Exam - Neck Exam Neck Exam: Full ROM, Normal Inspection. absent: Lymphadenopathy - Respiratory Exam Respiratory Exam: Prolonged Expiratory Phase, Wheezes, NORMAL BREATHING PATTERN - Cardiovascular Exam Cardiovascular Exam: REGULAR RHYTHM, +S1, +S2. absent: Murmur - GI/Abdominal Exam GI & Abdominal Exam: Soft, Normal Bowel Sounds. absent: Tenderness - Rectal Exam Rectal Exam: NORMAL INSPECTION - Extremities Exam Extremities Exam: Full ROM, Normal Capillary Refill, Normal Inspection. absent: Joint Swelling, Pedal Edema - Back Exam Back Exam: NORMAL INSPECTION - Neurological Exam Neurological Exam: Alert, Awake, CN II-XII Intact, Normal Gait, Oriented x3 - Psychiatric Exam Psychiatric exam: Normal Affect, Normal Mood - Skin Skin Exam: Dry, Intact, Normal Color, Warm Assessment and Plan - Assessment and Plan (Free Text) Assessment: ACUTE EXAC OF COPD Plan: CONTINUE CURRENT RX
--- NOTE | 2018-11-17 11:29 | PN ---
DATE: 11/17/2018 SUBJECTIVE: The patient is seen and examined. Interim events noted. The patient remains in intensive care unit with telemetry monitoring. Sleeping without oxygen. exam shows breathing improved. No chest pain. The patient was able to ambulate. PHYSICAL EXAMINATION: GENERAL: The patient is in no acute distress. VITAL SIGNS: Stable. HEART: S1 and S2. Normal and regular. LUNGS: Improved bilateral air exchange. No rhonchi. No rales. ABDOMEN: Soft, nontender. EXTREMITIES: No edema. No calf swelling. No tenderness. No acute ischemia. CENTRAL NERVOUS SYSTEM: Exam is essentially unchanged. DIAGNOSTIC DATA: Available diagnostic data reviewed. Telemetry monitoring does not reveal any significant arrhythmia. ASSESSMENT AND PLAN: Overall, the patient's general medical condition is improving. Plan as ordered. Tyree Clarke MD
[2018-11-18] MEDS: Albuterol-Ipratrop 3 mg / 0.5 (3 ml) UD INH SCH ×3 (01:33→13:17)
[2018-11-18] MEDS: Promethazine DM 12.5 mg-30 mg/10 ml Syrup PO PRN (01:49)
[2018-11-18 05:37] LABS: HEMOGLOBIN 11.6 g/dL (12.0-16.0); MEAN CELL VOLUME 85.9 fl (81.0-99.0); MEAN CORPUSCULAR HEMOGLOBIN 28.2 pg (27.0-31.0); MEAN CORPUSCULAR HGB CONC 32.9 g/dL (33.0-37.0); RBC 4.11 Mil/uL (3.80-5.20); RED CELL DISTRIBUTION WIDTH 14.6 % (11.5-14.5)
[2018-11-18 06:09] LABS: ALB/GLOB RATIO 1.6 (1.0-2.1); ALBUMIN 3.8 g/dL (3.5-5.0); ALT/SGPT 44 U/L (9-52); AST/SGOT 20 U/L (14-36); BLOOD UREA NITROGEN 30 mg/dl (7-17); CALCIUM 9.1 mg/dL (8.4-10.2); GFR NON-AFRICAN AMERICAN > 60
[2018-11-18 08:28] VITALS: RESP 20; O2SAT 96
[2018-11-18] MEDS: Insulin Lispro (humaLOG) 100 Units/ml Inj SC SCH ×2 (08:36→12:09)
[2018-11-18] MEDS: FLUTICASONE PROPION/SALMETEROL 113-14 INH SCH (08:36)
[2018-11-18] MEDS: Azithromycin 500 MG in Sodium Chloride 0.9% 250 ML IVPB SCH (08:39)
[2018-11-18 12:15] VITALS: BP 132/79; PULSE 73; TEMP 98.5
--- NOTE | 2018-11-18 12:43 | CP.PCM.DIS ---
Provider - Provider Date of Admission: 11/13/18 23:31 Attending physician: Tyree Clarke MD Primary care physician: PMD: Dr. Crenshaw Consults: 11/14/18 08:36 Cardiology Consult Routine Comment: Consulting Provider: Mode Lopez Consulting Physician: Mode Lopez Reason for Consult: Dyspnea, worsening activity limitation 11/14/18 08:38 Pulmonology Consult Routine Comment: Consulting Provider: Gary Mancia I Consulting Physician: Gary Mancia I Reason for Consult: Dyspnea, worsening activity limitation Time Spent in preparation of Discharge (in minutes): 30 Diagnosis - Discharge Diagnosis (1) Dyspnea Status: Acute Comment: --likely COPD exacerbation Hospital Course - Lab Results Lab Results: Most Recent Lab Values WBC 14.0 K/uL (4.8-10.8) H 11/18/18 04:45 RBC 4.11 Mil/uL (3.80-5.20) 11/18/18 04:45 Hgb 11.6 g/dL (12.0-16.0) L 11/18/18 04:45 Hct 35.3 % (34.0-47.0) 11/18/18 04:45 MCV 85.9 fl (81.0-99.0) 11/18/18 04:45 MCH 28.2 pg (27.0-31.0) 11/18/18 04:45 MCHC 32.9 g/dL (33.0-37.0) L 11/18/18 04:45 RDW 14.6 % (11.5-14.5) H 11/18/18 04:45 Plt Count 265 K/uL (130-400) 11/18/18 04:45 MPV 8.8 fl (7.2-11.7) 11/16/18 05:19 Neut % (Auto) 92.5 % (50.0-75.0) H 11/16/18 05:19 Lymph % (Auto) 5.4 % (20.0-40.0) L 11/16/18 05:19 Glades % (Auto) 1.9 % (0.0-10.0) 11/16/18 05:19 Eos % (Auto) 0.0 % (0.0-4.0) 11/16/18 05:19 Baso % (Auto) 0.2 % (0.0-2.0) 11/16/18 05:19 Neut # (Auto) 15.8 K/uL (1.8-7.0) H 11/16/18 05:19 Lymph # (Auto) 0.9 K/uL (1.0-4.3) L 11/16/18 05:19 Glades # (Auto) 0.3 K/uL (0.0-0.8) 11/16/18 05:19 Eos # (Auto) 0.0 K/uL (0.0-0.7) 11/16/18 05:19 Baso # (Auto) 0.0 K/uL (0.0-0.2) 11/16/18 05:19 Neutrophils % (Manual) 91 % (42-75) H 11/16/18 05:19 Band Neutrophils % 1 % (0-2) 11/16/18 05:19 Lymphocytes % (Manual) 4 % (20-50) L 11/16/18 05:19 Monocytes % (Manual) 4 % (0-10) 11/16/18 05:19 Platelet Estimate Normal (NORMAL) 11/16/18 05:19 Large Platelets Present 11/16/18 05:19 Giant Platelets Present 11/16/18 05:19 Hypochromasia (manual) Slight 11/16/18 05:19 PT 11.0 Seconds (9.8-13.1) 11/13/18 19:12 INR 1.0 11/13/18 19:12 APTT 29.8 Seconds (25.6-37.1) 11/13/18 19:12 pCO2 37 mm/Hg (35-45) 11/14/18 11:08 pO2 80 mm/Hg (80-100) 11/14/18 11:08 HCO3 25.3 mmol/L (21-28) 11/14/18 11:08 ABG pH 7.43 (7.35-7.45) 11/14/18 11:08 ABG Total CO2 25.7 mmol/L (22-28) 11/14/18 11:08 ABG O2 Saturation 98.1 % (95-98) H 11/14/18 11:08 ABG O2 Content 18.1 ML/dL (15-23) 11/14/18 11:08 ABG Base Excess 0.5 mmol/L (-2.0-3.0) 11/14/18 11:08 ABG Hemoglobin 13.5 g/dL (11.7-17.4) 11/14/18 11:08 ABG Carboxyhemoglobin 2.0 % (0.5-1.5) H 11/14/18 11:08 POC ABG HHb (Measured) 1.8 % (0.0-5.0) 11/14/18 11:08 ABG Methemoglobin 1.4 % (0.0-3.0) 11/14/18 11:08 ABG O2 Capacity 18.5 mL/dL (16-24) 11/14/18 11:08 Raciel Test Yes 11/14/18 11:08 A-a O2 Difference 23.0 mm/Hg 11/14/18 11:08 Hgb O2 Saturation 94.9 % (95.0-98.0) L 11/14/18 11:08 FiO2 21.0 % 11/14/18 11:08 Crit Value Called To Juliana laura r.n. 11/14/18 11:08 Crit Value Called By Franca 11/14/18 11:08 Crit Value Read Back Y 11/14/18 11:08 Blood Gas Notified Time 1351 11/14/18 11:08 Sodium 127 mmol/l (132-148) L 11/18/18 04:45 Potassium 4.8 MMOL/L (3.6-5.0) 11/18/18 04:45 Chloride 89 mmol/L (98-107) L 11/18/18 04:45 Carbon Dioxide 26 mmol/L (22-30) 11/18/18 04:45 Anion Gap 17 (10-20) 11/18/18 04:45 BUN 30 mg/dl (7-17) H 11/18/18 04:45 Creatinine 0.8 mg/dl (0.7-1.2) 11/18/18 04:45 Est GFR ( Amer) > 60 11/18/18 04:45 Est GFR (Non-Af Amer) > 60 11/18/18 04:45 POC Glucose (mg/dL) 249 mg/dL (65-110) H 11/18/18 11:08 Random Glucose 395 mg/dL (65-105) H 11/18/18 04:45 Lactic Acid 3.9 mmol/L (0.7-2.1) H 11/14/18 15:13 Calcium 9.1 mg/dL (8.4-10.2) 11/18/18 04:45 Magnesium 1.2 MG/DL (1.6-2.3) L 11/13/18 19:12 Total Bilirubin 0.2 mg/dl (0.2-1.3) 11/18/18 04:45 AST 20 U/L (14-36) 11/18/18 04:45 ALT 44 U/L (9-52) 11/18/18 04:45 Alkaline Phosphatase 73 U/L (38-126) 11/18/18 04:45 Troponin I < 0.0120 ng/mL (0.00-0.120) 11/14/18 12:40 NT-Pro-B Natriuret Pep 105 pg/ml (0-900) 11/13/18 19:12 Total Protein 6.1 G/DL (6.3-8.2) L 11/18/18 04:45 Albumin 3.8 g/dL (3.5-5.0) 11/18/18 04:45 Globulin 2.4 gm/dL (2.2-3.9) 11/18/18 04:45 Albumin/Globulin Ratio 1.6 (1.0-2.1) 11/18/18 04:45 Urine Color Straw (YELLOW) 11/14/18 23:01 Urine Clarity Clear (Clear) 11/14/18 23:01 Urine pH 6.0 (5.0-8.0) 11/14/18 23:01 Ur Specific [place] 1.005 (1.003-1.030) 11/14/18 23:01 Urine Protein Negative mg/dL (NEGATIVE) 11/14/18 23:01 Urine Glucose (UA) 50 mg/dL (NEGATIVE) 11/14/18 23:01 Urine Ketones Negative mg/dL (NEGATIVE) 11/14/18 23:01 Urine Blood Negative (NEGATIVE) 11/14/18 23:01 Urine Nitrate Negative (NEGATIVE) 11/14/18 23:01 Urine Bilirubin Negative (NEGATIVE) 11/14/18 23:01 Urine Urobilinogen 0.2-1.0 mg/dL (0.2-1.0) 11/14/18 23:01 Ur Leukocyte Esterase Neg Edgard/uL (Negative) 11/14/18 23:01 Urine Microscopic WBC < 1 /hpf (0-5) 11/14/18 23:01 Ur Squamous Epith Cells < 1 /hpf (0-5) 11/14/18 23:01 Urine Bacteria Rare (<OCC) 11/14/18 23:01 Urine Osmolality 184 mosm/kg (300-1000) L 11/14/18 23:01 Ur Random Sodium 18 meq/L 11/14/18 23:01 Ur Random Potassium 17.8 mmol/L 11/14/18 23:01 Urine Chloride 29 mmol/L (32-290) L 11/14/18 20:57 - Hospital Course Hospital Course: 73 y/o F with a PMHx of HTN, DMII, Asthma/COPD, HLD, Chronic back pain and upper back lipoma who presented to ED on 11/13/18 with worsening dyspnea despite using her rescue Albuterol multiple times. Pt reports SOB with every activity, even walking to the bathroom, a few steps from her, makes her out of breath. Pt was admitted for evaluation and management of aggravating dyspnea likely due to COPD exacerbation as per past Hx of cigarette smoking. [employer] was consulted, recommended PO steroids course. Pro-BNP and troponins WNL. CXR unremarkable. Echocardiogram on 10/07/18: LVEF 55-60% and grade I abnormal relaxation pattern. Pt received IV steroid therapy, improved slowly. Pt was able to perform physical therapy. Today, pt was seen adn examined with Dr Clarke by bedside. Pt reported mild improvement of dyspnea, wants to go home and requesting a walker to facilit ate her activities. Pt discharged home, instructed to f/u with PMD within 7 days. Discharge Exam - Head Exam Head Exam: ATRAUMATIC, NORMOCEPHALIC - Eye Exam Eye Exam: EOMI, PERRL - Neck Exam Neck exam: Full Rom, Normal Inspection - Respiratory Exam Respiratory Exam: Decreased Breath Sounds, NORMAL BREATHING PATTERN. absent: Wheezes, Respiratory Distress, Stridor - Cardiovascular Exam Cardiovascular Exam: REGULAR RHYTHM, +S1, +S2 - GI/Abdominal Exam GI & Abdominal Exam: Soft. absent: Distended, Guarding, Hernia, Tenderness - Extremities Exam Extremities exam: normal inspection, pedal edema (mild) - Back Exam Back exam: absent: CVA tenderness (L), CVA tenderness (R) - Neurological Exam Neurological exam: Alert, Oriented x3 Discharge Plan - Discharge Medications Prescriptions: Prednisone [Deltasone] 20 mg PO DAILY #10 tablet - Follow Up Plan Condition: FAIR Disposition: HOME/ ROUTINE Instructions: Shortness of Breath (Dyspnea) (DC) Additional Instructions: follow up with pmd in 1 week Referrals: Milly Crenshaw MD [Family Provider] - Gary Mancia MD [Staff Provider] - Mode Lopez MD [Staff Provider] -
== END 2018-11-18 17:30 | disposition home or self-care (01) | DRG 191 ==
LOC: H.ER 18:55 → OBSVTOIN 23:31 → H.ERHOLD 23:31 → H.TEL 11-14 01:52
PROVIDERS: ADMIT Internal Medicine; ATTEND Internal Medicine
DX: J44.1 Chronic obstructive pulmonary disease with (acute) exacerbation (principal); E87.1 Hypo-osmolality and hyponatremia; I10 Essential (primary) hypertension; E78.5 Hyperlipidemia, unspecified; E78.00 Pure hypercholesterolemia, unspecified; G89.29 Other chronic pain; D17.1 Benign lipomatous neoplasm of skin and subcutaneous tissue of trunk; E11.9 Type 2 diabetes mellitus without complications; E87.5 Hyperkalemia; E87.8 Other disorders of electrolyte and fluid balance, not elsewhere classified; J06.9 Acute upper respiratory infection, unspecified; Z87.891 Personal history of nicotine dependence; Z79.82 Long term (current) use of aspirin; Z79.84 Long term (current) use of oral hypoglycemic drugs; F41.9 Anxiety disorder, unspecified; D64.9 Anemia, unspecified